=== PATIENT | male | born 1945 | race Caucasian/White ===

== ENCOUNTER 2019-01-25 09:55 | Inpatient (IN) | payer OTHER ==
[2019-01-25] MEDS ORDERED: FUROSEMIDE 40 MG/4 ML VIAL ONE ×2 (10:37→11:27)
[2019-01-25] MEDS ORDERED: LEVALBUTEROL 1.25 MG/3 ML NEB ONE (10:37)
[2019-01-25 10:42] LABS: Absolute Lymphocytes (CBC) 0.9 K/uL (0.7-4.9); Basophils % 0.7 % (0-1.3); Hematocrit 52.6 % (39.6-49.0); MPV 8.8 fL (7.6-11.3); RBC Red Blood Cell Count 5.29 M/uL (4.33-5.43)
--- NOTE | 2019-01-25 11:02 | RAD REPORT ---
EXAM DESCRIPTION: RAD - Chest Single View - 01/25/2019 10:46 am CLINICAL HISTORY: DYSPNEA Chest pain. COMPARISON: No comparisons FINDINGS: Portable technique limits examination quality. Mild interstitial pulmonary edema. The heart is moderately enlarged in size. No displaced fractures. IMPRESSION: Mild CHF.
[2019-01-25 11:04] LABS: ALT/SGPT 47 U/L (12-78); AST/SGOT 26 U/L (15-37); Albumin 3.4 g/dL (3.4-5.0); Alkaline Phosphatase 60 U/L (45-117); BUN Blood Urea Nitrogen 40 mg/dL (7-18); Bicarbonate 31 mmol/L (21-32); Bilirubin Direct 0.3 mg/dL (0-0.2); Bilirubin Total 0.8 mg/dL (0.2-1.0); Glucose Level 135 mg/dL (74-106); NT PRO-BNP 21174 pg/mL (<125); Potassium 5.1 mmol/L (3.5-5.1); Protein, Total 6.7 g/dL (6.4-8.2); Sodium Level 137 mmol/L (136-145); Troponin (Emerg Dept Use Only) 0.05 ng/mL (0.0-0.045)
--- NOTE | 2019-01-25 11:45 | ER ---
Nurse's Notes [facility] Name: Jimmy Neal Age: 73 yrs Sex: Male : 1945 Arrival Date: 01/25/2019 Time: 10:02 Bed 18 Private MD: Diagnosis: Pulmonary edema;Unspecified systolic (congestive) heart failure;Hypoxemia Presentation: 01/25 10:06 Presenting complaint: Worsening SOB and lower extremity swelling x 3 weeks. Sent from [facility]. Hx of CHF. Transition of care: patient was not received from another setting of care. Onset of symptoms was January 25, 2019. Risk Assessment: Do you want to hurt yourself or someone else? Patient reports no desire to harm self or others. Care prior to arrival: None. 10:06 Method Of Arrival: Wheelchair 10:06 Acuity: RAQUEL 2 10:30 Initial Sepsis Screen: Does the patient meet any 2 criteria? No. Patient's initial ca1 sepsis screen is negative. Does the patient have a suspected source of infection? No. Patient's initial sepsis screen is negative. Triage Assessment: 10:30 General: Appears in no apparent distress. comfortable, Behavior is calm, cooperative, ca1 appropriate for age. Respiratory: Onset: The symptoms/episode began/occurred since 2-3 weeks ago, the patient has mild shortness of breath. Respiratory: Airway is patent Respiratory effort is even, unlabored, Respiratory pattern is regular, symmetrical, tachypnea Breath sounds are clear bilaterally. Respiratory: Reports shortness of breath at rest. Historical: - Allergies: 10:10 No Known Allergies; - Home Meds: 10:10 Cardizem Oral [Active]; Lisinopril Oral [Active]; unknown diuretic [Active]; hb - PMHx: 10:10 CHF; Hypertension; hb - Immunization history:: Adult Immunizations up to date. - Social history:: Smoking status: Patient/guardian denies using tobacco. - Ebola Screening: : No symptoms or risks identified at this time. - Family history:: not pertinent. - Hospitalizations: : No recent hospitalization is reported. Screenin:25 Abuse screen: Denies threats or abuse. Denies injuries from another. Nutritional ca1 screening: No deficits noted. Tuberculosis screening: No symptoms or risk factors identified. Fall Risk IV access (20 points). Assessment: 10:25 General: Appears in no apparent distress. comfortable, Behavior is calm, cooperative, ca1 appropriate for age. Pain: Denies pain. Neuro: Level of Consciousness is awake, alert, obeys commands, Oriented to person, place, time, situation, Appropriate for age. Cardiovascular: Heart tones S1 S2 present Capillary refill < 3 seconds Patient's skin is warm and dry. Pulses are all present. Edema is 2+ to left ankle, left foot, left toes, right ankle, right foot and right toes Rhythm is sinus rhythm. Respiratory: Reports shortness of breath at rest since 2-3 weeks ago but has gotten worse in the last couple days Airway is patent Respiratory effort is even, unlabored, Respiratory pattern is regular, symmetrical, tachypnea Breath sounds are clear bilaterally. GI: Abdomen is flat, non-distended, Bowel sounds present X 4 quads. Abd is soft and non tender X 4 quads. : No deficits noted. No signs and/or symptoms were reported regarding the genitourinary system. EENT: No deficits noted. No signs and/or symptoms were reported regarding the EENT system. Derm: Skin is intact, is healthy with good turgor, Skin is pink, warm \T\ dry. Musculoskeletal: Circulation, motion, and sensation intact. Capillary refill < 3 seconds, Range of motion: intact in all extremities. 11:16 Reassessment: Patient appears in no apparent distress at this time. Patient and/or ca1 family updated on plan of care and expected duration. Pain level reassessed. Patient is alert, oriented x 3, equal unlabored respirations, skin warm/dry/pink. 11:45 Reassessment: Patient appears in no apparent distress at this time. No changes from ca1 previously documented assessment. Dr. Chan at bedside discussing plan of care. 12:29 Reassessment: Patient appears in no apparent distress at this time. Patient is alert, ca1 oriented x 3, equal unlabored respirations, skin warm/dry/pink. 13:06 Reassessment: Patient appears in no apparent distress at this time. Patient is alert, ca1 oriented x 3, equal unlabored respirations, skin warm/dry/pink. Vital Signs: 10:08 BP 157 / 104; Pulse 95; Resp 36; Temp 97.9(TE); Pulse Ox 93% on R/A; Weight 76.66 kg; hb Height 6 ft. (182.88 cm); Pain 0/10; 10:59 BP 144 / 86; Pulse 88; Resp 25 S; Pulse Ox 97% on R/A; ca1 11:18 BP 151 / 87; Pulse 95; Resp 27 S; Pulse Ox 90% on R/A; ca1 11:21 Resp 23 S; Pulse Ox 96% on 2 lpm NC; ca1 11:45 BP 145 / 84; Pulse 86; Resp 26; Pulse Ox 98% on 2 lpm NC; ca1 12:29 BP 145 / 84; Pulse 84; Resp 22 S; Pulse Ox 99% on 2 lpm NC; ca1 13:06 BP 134 / 79; Pulse 86; Resp 26 S; Pulse Ox 98% on 2 lpm NC; ca1 10:08 Body Mass Index 22.92 (76.66 kg, 182.88 cm) hb ED Course: 10:02 Patient arrived in ED. mr 10:08 Triage completed. hb 10:08 Arm band placed on. hb 10:13 Lisa Corcoran, RN is Primary Nurse. ca1 10:13 Jordan Chan MD is Attending Physician. rn 10:25 Patient has correct armband on for positive identification. Placed in gown. Bed in low ca1 position. Call light in reach. Side rails up X 1. informatica mdm developer on. Pulse ox on. NIBP on. Warm blanket given. Head of bed elevated. 10:25 No provider procedures requiring assistance completed. Inserted saline lock: 20 gauge ca1 in right forearm, using aseptic technique. Blood collected. 10:41 EKG done, by oil and gas field technician. reviewed by Jordan Chan MD. at1 10:46 XRAY CXR (1 view) In Process Unspecified. EDMS 11:25 attempted transfer to [facility], pt denied due to not having any beds at this time, bd request that pt be admitted to [facility], per Lesvia. 11:43 Shola Lynne MD is Hospitalizing Provider. rn 13:19 Patient admitted, IV remains in place. ca1 Administered Medications: 10:38 Drug: Xopenex 1.25 mg Route: Inhalation; ca1 10:43 Drug: Lasix 40 mg Route: IVP; Site: right forearm; ca1 11:32 Follow up: Urine output 0 ml; Response: No adverse reaction ca1 11:32 Drug: Lasix 40 mg Route: IVP; Site: right antecubital; ca1 13:29 Follow up: Urine output 0 ml; Response: No adverse reaction ca1 Output: 11:32 Urine: 0ml; Total: 0ml. ca1 13:29 Urine: 0ml; Total: 0ml. ca1 Outcome: 11:44 Decision to Hospitalize by Provider. rn 13:19 Admitted to Tele accompanied by tech, family with patient, via stretcher, room 425, ca1 with chart, Report called to JON Mejía 13:19 Condition: stable 13:19 Instructed on the need for admit. 13:30 Patient left the ED. ca1 Signatures: Dispatcher [employer] EDMS Veronica Bauer Feliciano, Stephy mr Jordan Chan MD MD rn Ami Young, fuel agent EKG Tat1 Giuliana Mathur RN RN Lisa Corcoran RN RN ca1 Corrections: (The following items were deleted from the chart) 13:29 13:19 Admitted to Tele accompanied by tech, via wheelchair, room 425, with chart, ca1 Report called to JON Mejía ca1
--- NOTE | 2019-01-25 11:46 | EDPHYS ---
Physician Documentation [facility] Name: Jimmy Neal Age: 73 yrs Sex: Male : 1945 Arrival Date: 01/25/2019 Time: 10:02 Bed 18 Private MD: ED Physician Jordan Chan HPI: 01/25 10:30 This 73 yrs old Male presents to ER via Wheelchair with complaints of rn Shortness Of Breath. 10:30 The patient has shortness of breath with light activity. Onset: The symptoms/episode rn began/occurred 3 week(s) ago. Duration: The symptoms are continuous. The patient's shortness of breath is aggravated by exertion, light activity, supine position, talking, walking. Associated signs and symptoms: Pertinent negatives: chest pain, dizziness, fever, hemoptysis, loss of consciousness. Severity of symptoms: At their worst the symptoms were moderate in the emergency department the symptoms are unchanged. The patient has experienced similar episodes in the past. The patient has been recently seen by a physician:. Reports told 3 weeks ago has weak heart and fluid in lungs, got worse over last few days, is alcoholic and still smokes, no fever, non-productive cough. No chest pain. Worse when laying flat and exertion. Last drink last night. Takes lasix 1x/day.. Historical: - Allergies: 10:10 No Known Allergies; hb - Home Meds: 10:10 Cardizem Oral [Active]; Lisinopril Oral [Active]; unknown diuretic [Active]; hb - PMHx: 10:10 CHF; Hypertension; hb - Immunization history:: Adult Immunizations up to date. - Social history:: Smoking status: Patient/guardian denies using tobacco. - Ebola Screening: : No symptoms or risks identified at this time. - Family history:: not pertinent. - Hospitalizations: : No recent hospitalization is reported. ROS: 10:30 Constitutional: Negative for fever, chills, and weight loss, Eyes: Negative for injury, rn pain, redness, and discharge, Neck: Negative for injury, pain, and swelling, Cardiovascular: Negative for chest pain, palpitations, + edema Respiratory: + sob Abdomen/GI: Negative for abdominal pain, nausea, vomiting, diarrhea, and constipation, MS/Extremity: Negative for injury and deformity, Skin: Negative for injury, rash, and discoloration, Neuro: Negative for headache, weakness, numbness, tingling, and seizure. Exam: 10:30 Constitutional: This is a well developed, well nourished patient who is awake, alert, rn and in no acute distress. Head/Face: Normocephalic, atraumatic. ENT: MMM, no oral swelling or stridor Cardiovascular: Regular rate and rhythm. No pulse deficits. Respiratory: + mild tachypnea with bibasilar crackles, no retractions Abdomen/GI: soft, non-tender MS/ Extremity: Pulses equal, no cyanosis. Neurovascular intact. Full, normal range of motion. Equal circumference. 2+ pitting edema past knees bilaterally Neuro: Awake and alert, GCS 15, oriented to person, place, time, and situation. Cranial nerves II-XII grossly intact. Motor strength 5/5 in all extremities. Sensory grossly intact. Vital Signs: 10:08 BP 157 / 104; Pulse 95; Resp 36; Temp 97.9(TE); Pulse Ox 93% on R/A; Weight 76.66 kg; hb Height 6 ft. (182.88 cm); Pain 0/10; 10:59 BP 144 / 86; Pulse 88; Resp 25 S; Pulse Ox 97% on R/A; ca1 11:18 BP 151 / 87; Pulse 95; Resp 27 S; Pulse Ox 90% on R/A; ca1 11:21 Resp 23 S; Pulse Ox 96% on 2 lpm NC; ca1 11:45 BP 145 / 84; Pulse 86; Resp 26; Pulse Ox 98% on 2 lpm NC; ca1 12:29 BP 145 / 84; Pulse 84; Resp 22 S; Pulse Ox 99% on 2 lpm NC; ca1 13:06 BP 134 / 79; Pulse 86; Resp 26 S; Pulse Ox 98% on 2 lpm NC; ca1 10:08 Body Mass Index 22.92 (76.66 kg, 182.88 cm) hb MDM: 10:13 Patient medically screened. rn 11:21 ED course: Pt with CHF and pulmonary edema, marked dyspnea on exertion, not terrible rn hypoxia, needs to be admitted, states all care at [place], patient and family request transfer to [place].. 11:39 Differential diagnosis: CHF exacerbation, Chronic Obstructive Pulmonary Disease rn Myocardial Infarction pulmonary edema. Data reviewed: vital signs, nurses notes, lab test result(s), EKG, radiologic studies, plain films, and as a result, I will admit patient. Test interpretation: by ED physician or midlevel provider: ECG, plain radiologic studies, CXR with mild to moderate pulmonary edema. Counseling: I had a detailed discussion with the patient and/or guardian regarding: the historical points, exam findings, and any diagnostic results supporting the discharge/admit diagnosis, lab results, radiology results, the need for further work-up and treatment in the hospital. 11:41 ED course: [facility] without beds available, told us to keep patient here, admitted rn now to Dr. Lynne. . 01/25 10:25 Order name: BMP; Complete Time: 11: rn 01/25 10:25 Order name: CBC with Diff; Complete Time: : rn 01/25 10:25 Order name: XRAY CXR (1 view); Complete Time: 11: rn 01/25 10:25 Order name: Hepatic Function; Complete Time: 11: rn 01/25 10:25 Order name: NT PRO-BNP; Complete Time: 11: rn 01/25 10:25 Order name: Troponin (emerg Dept Use Only); Complete Time: 11: rn 01/25 10:25 Order name: EKG; Complete Time: 10: rn 01/25 10:25 Order name: Cardiac monitoring; Complete Time: 10:33 rn 01/25 10:25 Order name: EKG - Nurse/Tech; Complete Time: 10:33 rn 01/25 10:25 Order name: IV Saline Lock; Complete Time: 10: rn 01/25 12:09 Order name: CONS Physician Consult EDWI 01/25 10:25 Order name: Labs collected and sent; Complete Time: 10:32 rn 01/25 10:25 Order name: O2 Per Protocol; Complete Time: 10: rn 01/25 10:25 Order name: O2 Sat Monitoring; Complete Time: 10:32 rn Administered Medications: 10:38 Drug: Xopenex 1.25 mg Route: Inhalation; ca1 10:43 Drug: Lasix 40 mg Route: IVP; Site: right forearm; ca1 11:32 Follow up: Urine output 0 ml; Response: No adverse reaction ca1 11:32 Drug: Lasix 40 mg Route: IVP; Site: right antecubital; ca1 13:29 Follow up: Urine output 0 ml; Response: No adverse reaction ca1 Disposition: 01/25/19 11:44 Hospitalization ordered by Shola Lynne for Inpatient Admission. Preliminary diagnosis are Pulmonary edema, Unspecified systolic (congestive) heart failure, Hypoxemia. - Bed requested for Telemetry/MedSurg (Inpatient). - Status is Inpatient Admission. ca1 - Condition is Stable. - Problem is an ongoing problem. - Symptoms have improved. UTI on Admission? No Signatures: Dispatcher [employer] EDMS Veronica escoto Jordan Solis MD MD rn Baxter, Heather, RN RN Lisa Corcoran RN RN ca1 Corrections: (The following items were deleted from the chart) 12:51 11:44 Hospitalization Ordered by Shola Lynne MD for Inpatient Admission. Preliminary bd diagnosis is Pulmonary edema; Unspecified systolic (congestive) heart failure; Hypoxemia. Bed requested for Telemetry/MedSurg (Inpatient). Status is Inpatient Admission. Condition is Stable. Problem is an ongoing problem. Symptoms have improved. UTI on Admission? No. rn 13:30 12:51 01/25/2019 11:44 Hospitalization Ordered by Shola Lynne MD for Inpatient ca1 Admission. Preliminary diagnosis is Pulmonary edema; Unspecified systolic (congestive) heart failure; Hypoxemia. Bed requested for Telemetry/MedSurg (Inpatient). Status is Inpatient Admission. Condition is Stable. Problem is an ongoing problem. Symptoms have improved. UTI on Admission? No. bd
--- NOTE | 2019-01-25 12:22 | P.HP ---
Certification for Inpatient Patient admitted to: Inpatient With expected LOS: >2 Midnights Patient will require the following post-hospital care: None Practitioner: I am a practitioner with admitting privileges, knowledge of patient current condition, hospital course, and medical plan of care. Services: Services provided to patient in accordance with Admission requirements found in Title 42 Section 412.3 of the Code of Federal Regulations Patient History Date of Service: 01/25/19 Reason for admission: Shortness of breath History of Present Illness: 73-year-old male with past medical history hypertension and constipation came to ER as he was having shortness of breath especially on exertion and noted to have pedal edema. Patient denies any chest pain. Patient stated that he never had these issues before. Started insidiously with Shortness of breath which has been progressively worsening. He has a noted pedal edema which has been increasing Patient was assessed in the ER and was found to have CHF and was admitted for further management Allergies No Known Allergies Allergy (Unverified 01/25/19 13:09) Home medications list reviewed: Yes - Past Medical/Surgical History Past Medical History: Reviewed- Non-Contributory -: Hypertension Past Surgical History: Reviewed- Non-Contributory -: No previous surgical history - Family History Family History: Reviewed- Non-Contributory - Family History Father -: Heart disease - Social History Smoking Status: Never smoker Review of Systems 10-point ROS is otherwise unremarkable Eyes: Unremarkable ENT: Unremarkable Respiratory: Unremarkable Physical Examination - Vital Signs Temperature: 97.9 F Blood Pressure: 157/104 Pulse: 95 - Physical Exam General: Alert, In no apparent distress, Oriented x3 HEENT: Atraumatic, Normocephalic Neck: Supple, No Thyromegaly Respiratory: Normal air movement, Diminished, Crackles/rales Cardiovascular: Regular rate/rhythm, Normal S1 S2, Systolic murmur Capillary refill: <2 Seconds Gastrointestinal: Soft and benign, Non-distended, W/out hepatosplenomegaly Musculoskeletal: No clubbing, No erythema, Swelling Integumentary: No rashes Neurological: Normal speech, Normal strength at 5/5 x4 extr Lymphatics: No axilla or inguinal lymphadenopathy Urinary: Other (No bladder distention) External genitalia: Deferred Rectal: Deferred - Studies Laboratory Data (last 24 hrs) 01/25/19 10:33: WBC 6.7, Hgb 18.0 H, Hct 52.6 H, Plt Count 227 01/25/19 10:33: Sodium 137, Potassium 5.1, BUN 40 H, Creatinine 0.80, Glucose 135 H, Total Bilirubin 0.8, AST 26, ALT 47, Alkaline Phosphatase 60 Assessment and Plan - Problems (Diagnosis) (1) Acute exacerbation of CHF (congestive heart failure) Current Visit: Yes Status: Acute Plan: Monitor under telemetry start aggressive diuresis Trend cardiac enzymes will get an echocardiogram Cardiology consult (2) Hypertension Current Visit: Yes Status: Chronic Plan: Accelerated hypertension Will titrate antihypertensives monitor under telemetry Hydralazine p.r.n. Discharge Plan: Home Plan to discharge in: 48 Hours - Advance Directives Does patient have a Living Will: No Does patient have a Durable POA for Healthcare: No Time Spent Managing Pts Care (In Minutes): 45
[2019-01-25] MEDS ORDERED: ONDANSETRON 4 MG/2 ML VIAL IV PRN (13:40)
[2019-01-25] MEDS: ENOXAPARIN 40 MG/0.4 ML SQ SCH (14:18)
[2019-01-25] MEDS: FUROSEMIDE 40 MG/4 ML VIAL IV SCH (17:49)
[2019-01-25] MEDS: carvediloL 3.125 MG TAB PO SCH (17:50)
[2019-01-25] MEDS: LOSARTAN POTASSIUM 50 MG TABLET PO SCH (17:50)
[2019-01-25] MEDS: HYDRALAZINE HCL 25 MG TABLET PO SCH (20:13)
[2019-01-25 23:27] LABS: Urine Appearance CLEAR; Urine Bilirubin NEGATIVE (NEG); Urine Blood NEGATIVE (NEG); Urine Color YELLOW; Urine Glucose NEGATIVE (NEG); Urine Protein NEGATIVE (NEG)
[2019-01-25 23:51] LABS: Urine Microscopic Reflex NO UMIC
[2019-01-26 04:14] LABS: Absolute Lymphocytes (CBC) 0.6 K/uL (0.7-4.9); Basophils % 0.4 % (0-1.3); Hematocrit 48.7 % (39.6-49.0); Lymphocytes % 7.1 % (15.3-44.8); MPV 8.9 fL (7.6-11.3); RBC Red Blood Cell Count 4.89 M/uL (4.33-5.43)
[2019-01-26 04:53] LABS: Albumin 2.9 g/dL (3.4-5.0); Bilirubin Total 0.7 mg/dL (0.2-1.0); Potassium 4.4 mmol/L (3.5-5.1); Protein, Total 5.9 g/dL (6.4-8.2)
[2019-01-26] MEDS: carvediloL 3.125 MG TAB PO SCH ×2 (05:01→17:05)
--- NOTE | 2019-01-26 07:26 | EKG ---
Test Date: 2019-01-25 Test Time: 10:35:30 Retail Aide: YOEL MEASUREMENT RESULTS: Intervals: Rate: 96 MO: 154 QRSD: 102 QT: 334 QTc: 421 Staley: P: 72 MO: 154 QRS: 90 T: 112 INTERPRETIVE STATEMENTS: Normal sinus rhythm Left atrial enlargement Rightward axis Left ventricular hypertrophy with repolarization abnormality Cannot rule out Septal infarct, age undetermined Abnormal ECG No previous ECG available for comparison Electronically Signed On 01-26-19 07:23:51 LEVER TENDER by Phillip Barker
[2019-01-26] MEDS: FUROSEMIDE 40 MG/4 ML VIAL IV SCH ×2 (08:21→17:05)
[2019-01-26] MEDS: LOSARTAN POTASSIUM 50 MG TABLET PO SCH (08:22)
[2019-01-26] MEDS: ENOXAPARIN 40 MG/0.4 ML SQ SCH (08:22)
[2019-01-26] MEDS: FAMOTIDINE 20 MG TAB PO SCH (08:22)
[2019-01-26] MEDS: HYDRALAZINE HCL 25 MG TABLET PO SCH ×2 (08:22→20:34)
--- NOTE | 2019-01-26 11:49 | CON ---
Date of Consultation: 01/26/2019 Reason For Consultation: Congestive heart failure. History Of Present Illness: Mr. Neal is a 73-year-old white male. He is known to have a history of congestive heart failure and hypertension. He goes to the [facility]. We do not have any details regarding his CHF and hypertension. According to him, he has never had a history of bypass surgery o r stent, pacemakers or defibrillators. He came in with shortness of breath, PND, orthopnea and pedal edema. He denied any palpitations or syncope. Denied any chest pain. Denied any nausea, vomiting, diaphoresis. He had weight gain. Past Medical History: As stated above. Allergies: NONE. Review of Systems: Negative. Social History: Negative. Family History: Negative. Medications: At home include Cardizem, lisinopril and a diuretic that he does not know the name of. Physical Examination: Vital Signs: Stable. He was afebrile. He was in no acute distress. He was feeling better. HEENT: Negative. Neck: Supple without any bruit, lymphadenopathy. He had a 2 cm JVD toward the angle of the jaw. Chest: Reveals some rales both bases. Cardiac: Revealed irregular rhythm and rate with a tricuspid regurgitation murmur. No gallops or ru bs. Abdomen: Benign. Extremities: Revealed 2+ edema to the knee. Skin: Dry and intact. Neurologic: He was nonfocal. Vascular: Pulses were present distally bilaterally. Diagnostic Data: EKG was nonspecific changes. BNP was 21,174. Troponin was 0.05. Chest x-ray show ed CHF. Impression And Plan: Congestive heart failure, most likely acute on chronic systolic exacerbation. The patient needs to be on carvedilol, which he is already on. He is already on Lovenox, Lasix 40 b. i.d., losartan, and hydralazine. He is also on Pepcid. We need to check an echocardiogram today. W e need to stop his Cardizem. He will need eventually to have an outpatient Lexiscan or maybe even a catheterization depending what his echocardiogram shows. Overnight, he had some arrhythmias. He had some nonsustained VT and I will check a magnesium on him today. This arrhythmia makes me think that he probably had significant cardiomyopathy. We will see what the echo shows. I will continue to fo llow him. NB/MODL Voice ID: [id number] Report ID: [id number]
--- NOTE | 2019-01-26 11:58 | P.PN ---
Subjective Date of Service: 01/26/19 Chief Complaint: Shortness of breath Subjective: No new changes, Improving Review of Systems 10-point ROS is otherwise unremarkable ENT: Unremarkable Respiratory: Unremarkable Physical Examination - Vital Signs Temperature: 97.2 F Blood Pressure: 115/60 Pulse: 98 Respirations: 18 Pulse Ox (%): 91 - Physical Exam General: Alert, In no apparent distress, Oriented x3 HEENT: Atraumatic, Normocephalic Neck: Supple Respiratory: Clear to auscultation bilaterally, Normal air movement Cardiovascular: Regular rate/rhythm, Normal S1 S2 Capillary refill: <2 Seconds Gastrointestinal: Soft and benign, W/out hepatosplenomegaly Musculoskeletal: No clubbing, No erythema, No tenderness, Swelling Integumentary: No rashes Neurological: Normal speech, Normal strength at 5/5 x4 extr Lymphatics: No axilla or inguinal lymphadenopathy Urinary: Other (No bladder distention) External genitalia: Deferred Rectal: Deferred Assessment & Plan - Problems (Diagnosis) (1) Acute exacerbation of CHF (congestive heart failure) Current Visit: Yes Status: Acute Plan: Getting better Monitor under telemetry on aggressive diuresis Trended cardiac enzymes echocardiogram pending Cardiology consult (2) Hypertension Current Visit: Yes Status: Chronic Plan: Accelerated hypertension Will titrate antihypertensives monitor under telemetry Hydralazine p.r.n. Discharge Plan: Home Plan to discharge in: 24 Hours Time Spent Managing Pts Care (In Minutes): 42
[2019-01-27 04:20] LABS: Absolute Lymphocytes (CBC) 0.6 K/uL (0.7-4.9); Basophils % 0.6 % (0-1.3); Hematocrit 45.4 % (39.6-49.0); Lymphocytes % 12.4 % (15.3-44.8); MPV 8.9 fL (7.6-11.3); RBC Red Blood Cell Count 4.55 M/uL (4.33-5.43)
[2019-01-27 04:37] LABS: ALT/SGPT 29 U/L (12-78); AST/SGOT 13 U/L (15-37); Albumin 2.8 g/dL (3.4-5.0); Alkaline Phosphatase 43 U/L (45-117); BUN Blood Urea Nitrogen 28 mg/dL (7-18); Bicarbonate 40 mmol/L (21-32); Bilirubin Total 0.5 mg/dL (0.2-1.0); Glucose Level 153 mg/dL (74-106); Potassium 3.7 mmol/L (3.5-5.1); Protein, Total 5.6 g/dL (6.4-8.2); Sodium Level 140 mmol/L (136-145)
[2019-01-27 05:06] VITALS: BMI 21.4
[2019-01-27] MEDS ORDERED: POTASSIUM CL SA 10 MEQ TAB PO ONE (05:49)
[2019-01-27] MEDS: carvediloL 3.125 MG TAB PO SCH (06:13)
--- NOTE | 2019-01-27 08:18 | ECHO ---
HEIGHT: 6 ft 0 in WEIGHT: 157 lb 12.8 oz DATE OF STUDY: 01/26/2019REFER DR: Brad Lynne DO 2-DIMENSIONAL: YES M.MODE: YES DOPPLER: YES COLOR FLOW: YES TDS: NO PORTABLE: NO DEFINITY: NO BUBBLE STUDY: NO DIAGNOSIS: CONGESTIVE HEART FAILURE CARDIAC HISTORY: CATHERIZATION: NO SURGERY: NO PROSTHETIC VALVE: NO PACEMAKER: NO MEASUREMENTS (cm) DIASTOLIC (NORMALS) SYSTOLIC (NORMALS) IVSd 1.1 (0.6-1.2) LA Diam 4.0 (1.9-4.0) LVEF 20-25% LVIDd 6.8 (3.5-5.7) LVIDs 5.6 (2.0-3.5) %FS 17% LVPWd 1.3 (0.6-1.2) Ao Diam 3.0 (2.0-3.7) 2 DIMENSIONAL ASSESSMENT: RIGHT ATRIUM: NORMAL LEFT ATRIUM: NORMAL RIGHT VENTRICLE: NORMAL LEFT VENTRICLE: DILATED TRICUSPID VALVE: NORMAL MITRAL VALVE: NORMAL PULMONIC VALVE: NORMAL AORTIC VALVE: SCLEROSIS PERICARDIAL EFFUSION: NONE AORTIC ROOT: NORMAL LEFT VENTRICULAR WALL MOTION: SEVERE GLOBAL HYPOKINESIS. DOPPLER/COLOR FLOW: MILD TRICUSPID REGURGITATION. COMMENTS: SEVERE GLOBAL HYPOKINESIS. LEFT VENTRICULAR EJECTION FRACTION 20-25%. MILD TRICUSPID REGURGITATION. LEFT VENTRICLE DILATATION. AORTIC SCLEROSIS WITH NO STENOSIS. TECHNOLOGIST: Kt MCINTYRE
[2019-01-27] MEDS: FUROSEMIDE 40 MG/4 ML VIAL IV SCH (08:45)
[2019-01-27] MEDS: ENOXAPARIN 40 MG/0.4 ML SQ SCH (08:45)
[2019-01-27] MEDS: LOSARTAN POTASSIUM 50 MG TABLET PO SCH (08:46)
[2019-01-27] MEDS: HYDRALAZINE HCL 25 MG TABLET PO SCH (08:46)
[2019-01-27] MEDS: FAMOTIDINE 20 MG TAB PO SCH (08:46)
--- NOTE | 2019-01-27 10:22 | P.PN ---
Subjective Date of Service: 01/27/19 Chief Complaint: Shortness of breath Subjective: No new changes, Improving Shortness of breath improving Decrease pedal edema noted Denies any chest pain or shortness of breath Review of Systems 10-point ROS is otherwise unremarkable ENT: Unremarkable Respiratory: Unremarkable Physical Examination - Vital Signs Temperature: 97.5 F Blood Pressure: 131/59 Pulse: 70 Respirations: 17 Pulse Ox (%): 98 - Physical Exam General: Alert, In no apparent distress HEENT: Atraumatic, Normocephalic Neck: Supple Respiratory: Clear to auscultation bilaterally, Normal air movement Cardiovascular: Regular rate/rhythm, Normal S1 S2 Capillary refill: <2 Seconds Gastrointestinal: Soft and benign, W/out hepatosplenomegaly Musculoskeletal: No clubbing, Swelling Integumentary: No rashes Neurological: Normal speech, Normal strength at 5/5 x4 extr Lymphatics: No axilla or inguinal lymphadenopathy External genitalia: Deferred Rectal: Deferred Assessment & Plan - Problems (Diagnosis) (1) Acute exacerbation of CHF (congestive heart failure) Current Visit: Yes Status: Acute Plan: Getting better Monitor under telemetry on aggressive diuresis Trended cardiac enzymes echocardiogram showed decreased ejection fraction Cardiology consult appreciated On Coreg and hydralazine , diuresis (2) Hypertension Current Visit: Yes Status: Chronic Plan: Accelerated hypertension Will titrate antihypertensives monitor under telemetry Hydralazine p.r.n. (3) NSVT (nonsustained ventricular tachycardia) Current Visit: Yes Status: Acute Plan: monitor electrolytes Correct if needed He may need AICD or Lifevest Will wait for the cardiology recommendations regardig the same and ischemic work up Time Spent Managing Pts Care (In Minutes): 43
[2019-01-27 12:38] VITALS: BP 115/56; TEMP 97.1
--- NOTE | 2019-01-27 12:47 | PN ---
Date of Progress Note: 01/27/2019 Mr. Neal was admitted with congestive heart failure. Echocardiogram yesterday showed severe cardiom yopathy with an ejection fraction of 20 to 25%. He has improved on diuresis. Mr. Neal needs to be on Coreg, Entresto and Lasix and he can go home whenever it is okay with admitting physician. I will see him in my office soon. He will need an outpatient heart catheterization. We will follow up on his ejection fraction, on medical therapy for the next 3 months and if they do not improve we will re commend a defibrillator. CHLOÉ/KVNG Voice ID: [id number] Report ID: [id number]
[2019-01-27 14:15] VITALS: O2SAT 96
--- NOTE | 2019-01-27 14:21 | P.DS ---
Admission Date: 01/27/19 Discharge Date: 01/27/19 Disposition: ROUTINE DISCHARGE Discharge Condition: FAIR Reason for Admission: Shortness of breath - Problems (1) Acute exacerbation of CHF (congestive heart failure) Current Visit: Yes Status: Acute (2) Hypertension Current Visit: Yes Status: Chronic (3) NSVT (nonsustained ventricular tachycardia) Current Visit: Yes Status: Acute Brief History of Present Illness: 73-year-old male with past medical history hypertension and constipation came to ER as he was having shortness of breath especially on exertion and noted to have pedal edema. Patient denies any chest pain. Patient stated that he never had these issues before. Started insidiously with Shortness of breath which has been progressively worsening. He has a noted pedal edema which has been increasing Patient was assessed in the ER and was found to have CHF and was admitted for further management Hospital Course: He was admitted and monitor under telemetry. Was found to have acute on chronic CHF , Started on aggressive diuresis. Antihypertensives titrated. Cardiology was consulted. Had an echocardiogram which showed an EF of 20-25% , he has responded well to the treatment and is being discharged home today in a stable condition with advice to follow up with PCP in 1 week and also with Cardiology in 1-2 weeks. During the hospital stay patient had few episodes of NSVT and was started on beta blockers as well. He was started on Entresto and will be continuing with it. discussed in detail with the patient and the family Regarding the nature of disease and need for Daily weight monitoring and restricted fluid intake. He said he is to have outpatient follow up closely with cardiology, for possible left heart catheterization and AICD placement. He verbalized understanding and is being discharged home today Vital Signs/Physical Exam: Temp Pulse Resp BP Pulse Ox 97.1 F 62 17 115/56 L 92 01/27/19 12:00 01/27/19 12:00 01/27/19 12:00 01/27/19 12:00 01/27/19 12:00 General: Alert, In no apparent distress HEENT: Atraumatic, Normocephalic Neck: Supple Respiratory: Clear to auscultation bilaterally Cardiovascular: Regular rate/rhythm, Normal S1 S2 Capillary refill: <2 Seconds Gastrointestinal: Soft and benign, W/out hepatosplenomegaly Musculoskeletal: No clubbing, Swelling Integumentary: No rashes Neurological: Normal strength at 5/5 x4 extr Laboratory Data at Discharge: WBC 4.9 K/uL (4.3-10.9) D 01/27/19 03:38 Hgb 15.6 g/dL (13.6-17.9) 01/27/19 03:38 Hct 45.4 % (39.6-49.0) 01/27/19 03:38 Plt Count 172 K/uL (152-406) 01/27/19 03:38 Sodium 140 mmol/L (136-145) 01/27/19 03:38 Potassium 3.7 mmol/L (3.5-5.1) 01/27/19 03:38 BUN 28 mg/dL (7-18) H 01/27/19 03:38 Creatinine 0.71 mg/dL (0.55-1.3) 01/27/19 03:38 Glucose 153 mg/dL (74-106) H 01/27/19 03:38 Magnesium 2.2 mg/dL (1.8-2.4) 01/26/19 07:24 Total Bilirubin 0.5 mg/dL (0.2-1.0) 01/27/19 03:38 AST 13 U/L (15-37) L 01/27/19 03:38 ALT 29 U/L (12-78) 01/27/19 03:38 Alkaline Phosphatase 43 U/L (45-117) L 01/27/19 03:38 Home Medications: Aspirin [Aspirin EC 81 MG] 81 mg PO DAILY 01/26/19 Bupropion *Xl* [Wellbutrin XL*] 150 mg PO DAILY 01/26/19 Carvedilol [Coreg] 1 tab PO BID 01/26/19 Omeprazole 20 mg PO BID 01/26/19 Potassium Chloride [Klor-Con 10] 10 meq PO DAILY 01/26/19 Spironolactone [Aldactone*] 25 mg PO DAILY 01/26/19 Furosemide [Lasix*] 40 mg PO BID 60 Days tab 01/27/19 Sacubitril/Valsartan [Entresto 24 mg-26 mg Tablet] 1 tab PO BID #60 tab New Medications: Furosemide [Lasix*] 40 mg PO BID 60 Days tab Sacubitril/Valsartan [Entresto 24 mg-26 mg Tablet] 1 tab PO BID #60 tab Diet: AHA Activity: Ad sonia Followup: Phillip Barker MD [ACTIVE - CAN ADMIT] - Time spent managing pt's care (in minutes): 40
== END 2019-01-27 15:01 | disposition home or self-care (01) | DRG 292 ==
LOC: ER 09:55 → ERHOLD 12:07 → 4TH 13:19 → OBSVTOIN 01-27 12:39
PROVIDERS: ADMIT Family Medicine; ATTEND Family Medicine
DX: I50.23 Acute on chronic systolic (congestive) heart failure (principal); I47.2 Ventricular tachycardia; I11.0 Hypertensive heart disease with heart failure
CPT/HCPCS: 36415; 71045; 80048; 80053; 80076; 81003; 82947; 83735; 83880; 84443; 84484; 85025; 93005; 93306; 94760; 96374; 99285; G0378; J1650; J1940

== ENCOUNTER 2019-03-03 11:18 | Emergency (ER) | payer OTHER ==
[2019-03-03 12:51] LABS: Absolute Lymphocytes (CBC) 0.7 K/uL (0.7-4.9); Basophils % 0.4 % (0-1.3); Hematocrit 54.1 % (39.6-49.0); Lymphocytes % 12.1 % (15.3-44.8); RBC Red Blood Cell Count 5.57 M/uL (4.33-5.43)
[2019-03-03 12:52] LABS: Protime INR 1.11
--- NOTE | 2019-03-03 13:25 | RAD REPORT ---
EXAM DESCRIPTION: RAD - Chest Single View - 03/03/2019 1:20 pm CLINICAL HISTORY: edema Chest pain. COMPARISON: Chest Single View dated 01/25/2019 FINDINGS: Portable technique limits examination quality. Mild pulmonary edema is present. The heart is moderately enlarged in size. No displaced fractures. IMPRESSION: Mild CHF versus volume overload pattern.
[2019-03-03] MEDS ORDERED: FUROSEMIDE 40 MG/4 ML VIAL ONE ×2 (14:00→14:58)
[2019-03-03 14:02] LABS: Albumin 3.1 g/dL (3.4-5.0); Bilirubin Direct 0.3 mg/dL (0-0.2); Bilirubin Total 0.8 mg/dL (0.2-1.0); Potassium 4.7 mmol/L (3.5-5.1); Protein, Total 6.3 g/dL (6.4-8.2); Troponin (Emerg Dept Use Only) 0.03 ng/mL (0.0-0.045)
--- NOTE | 2019-03-03 15:23 | ER ---
Nurse's Notes [facility] Name: Jimmy Neal Age: 73 yrs Sex: Male : 1945 Arrival Date: 03/03/2019 Time: 11:20 Bed 7 Private MD: Diagnosis: Anasarca;Unspecified combined systolic (congestive) and diastolic (congestive) heart failure Presentation: 03/03 11:37 Presenting complaint: Child states: swelling in paty feet, with blisters for over a iw month. Transition of care: patient was not received from another setting of care. Onset of symptoms was January 2019. Risk Assessment: Do you want to hurt yourself or someone else? Patient reports no desire to harm self or others. Initial Sepsis Screen: Does the patient meet any 2 criteria? No. Patient's initial sepsis screen is negative. Does the patient have a suspected source of infection? No. Patient's initial sepsis screen is negative. Care prior to arrival: None. 11:37 Method Of Arrival: Wheelchair iw 11:37 Acuity: RAQUEL 3 iw Historical: - Allergies: 11:38 No Known Allergies; iw - Home Meds: 11:59 Cardizem Oral [Active]; lisinopril Oral [Active]; Spironolactone Oral [Active]; aspirin jl7 Oral [Active]; carvedilol oral oral [Active]; Furosemide Oral [Active]; Omeprazole Oral [Active]; bupropion HCl Oral [Active]; sacubitril-valsartan oral oral [Active]; - PMHx: 11:38 CHF; Hypertension; iw - PSHx: 11:38 None; iw - Immunization history:: Adult Immunizations not up to date. - Social history:: Smoking status: Patient uses tobacco products, smokes two packs cigarettes per day. Patient uses alcohol, on a daily basis. patient/guardian reports chronic longstanding heavy alcohol consumption. Dimitri. - Ebola Screening: : Patient negative for fever greater than or equal to 101.5 degrees Fahrenheit, and additional compatible Ebola Virus Disease symptoms Patient denies exposure to infectious person Patient denies travel to an Ebola-affected area in the 21 days before illness onset No symptoms or risks identified at this time. - Family history:: not pertinent. - Hospitalizations: : The patient was recently seen at [facility]. Screenin:08 Abuse screen: Denies threats or abuse. Denies injuries from another. Nutritional jl7 screening: No deficits noted. Tuberculosis screening: No symptoms or risk factors identified. 12:37 Fall Risk IV access (20 points). Total Hyman Fall Scale indicates No Risk (0-24 pts). jl7 Assessment: 11:45 General: Appears in no apparent distress. uncomfortable, Behavior is calm, cooperative, jl7 appropriate for age. Pain: Denies pain. Neuro: Level of Consciousness is awake, alert, obeys commands, Oriented to person, place, time, situation. Cardiovascular: Heart tones S1 S2 present Patient's skin is warm and dry. Edema is 3+ to right ankle, right foot and right toes is 4+ to left foot and left toes. Respiratory: Airway is patent Respiratory effort is even, unlabored, Respiratory pattern is regular, symmetrical, Breath sounds are clear bilaterally. Denies cough, shortness of breath. Derm: Skin is dry, Skin is jaundiced, Skin temperature is cool Abscess located on left scapular area and anterior aspect of left upper chest is quarter sized, abscess on chest is red and raised; abscess on back is open with foul smell and purulent drainage noted. 12:37 Reassessment: Patient appears in no apparent distress at this time. No changes from jl7 previously documented assessment. Patient and/or family updated on plan of care and expected duration. Pain level reassessed. Patient is alert, oriented x 3, equal unlabored respirations, skin warm/dry/pink. 13:25 Reassessment: Patient appears in no apparent distress at this time. No changes from jl7 previously documented assessment. Patient and/or family updated on plan of care and expected duration. Pain level reassessed. Patient is alert, oriented x 3, equal unlabored respirations, skin warm/dry/pink. 15:04 Reassessment: Patient appears in no apparent distress at this time. No changes from jl7 previously documented assessment. Patient and/or family updated on plan of care and expected duration. Pain level reassessed. Patient is alert, oriented x 3, equal unlabored respirations, skin warm/dry/pink. Vital Signs: 11:38 BP 107 / 89; Pulse 80; Resp 16; Temp 97.1; Pulse Ox 98% on R/A; Weight 76.66 kg; Height iw 6 ft. (182.88 cm); 12:08 BP 117 / 71; Pulse 79; Resp 20 S; Pulse Ox 96% on R/A; Pain 0/10; jl7 13:24 BP 121 / 77; Pulse 79; Resp 16 S; Pulse Ox 93% on R/A; jl7 15:04 BP 129 / 85; Pulse 94; Resp 19; Pulse Ox 97% on R/A; jl7 11:38 Body Mass Index 22.92 (76.66 kg, 182.88 cm) iw ED Course: 11:20 Patient arrived in ED. rg4 11:38 Triage completed. iw 11:39 Rick Lopez, JON is Primary Nurse. jl7 11:51 Jordan Chan MD is Attending Physician. rn 11:59 Arm band placed on right wrist. jl7 12:08 Patient has correct armband on for positive identification. Placed in gown. Bed in low jl7 position. Call light in reach. Side rails up X 1. electronic device monitor on. Pulse ox on. NIBP on. Warm blanket given. 12:11 Jordan Chan MD is Attending Physician. rn 12:30 Inserted saline lock: 20 gauge in right forearm, using aseptic technique. Blood jl7 collected. 12:30 Initial lab(s) drawn, by va, sent to lab. First set of blood cultures drawn by va. jl7 13:13 Second set of blood cultures drawn left forearm. jl7 13:21 XRAY Chest (1 view) In Process Unspecified. EDMS 13:24 Lab(s) recollected, by me, sent to lab. jl7 15:48 No provider procedures requiring assistance completed. IV discontinued, intact, jl7 bleeding controlled, No redness/swelling at site. Pressure dressing applied. Administered Medications: 14:01 Drug: Lasix 40 mg Route: IVP; Site: right forearm; jl7 15:04 Follow up: Response: No adverse reaction jl7 15:00 Drug: Lasix 40 mg Route: IVP; Site: right forearm; jl7 15:35 Follow up: Response: No adverse reaction jl7 Outcome: 15:22 Discharge ordered by . rn 15:48 Discharged to home ambulatory, with family. jl7 15:48 Condition: stable 15:48 Discharge instructions given to patient, family, Instructed on discharge instructions, follow up and referral plans. Demonstrated understanding of instructions, follow-up care. 15:49 Patient left the ED. jl7 Signatures: Dispatcher [employer] EDEmily Raya, RN Jordan Cardenas MD MD rn Garcia, Rubi rg4 Rick Lopez RN RN jl7 Corrections: (The following items were deleted from the chart) 13:32 11:45 Derm: Skin is pink, warm \T\ dry. Abscess located on left scapular area and jl7 anterior aspect of left upper chest is quarter sized, abscess on chest is red and raised; abscess on back is open with foul smell and purulent drainage noted jl7
--- NOTE | 2019-03-03 15:24 | EDPHYS ---
Physician Documentation [facility] Name: Jimmy Neal Age: 73 yrs Sex: Male : 1945 Arrival Date: 03/03/2019 Time: 11:20 Bed 7 Private MD: ED Physician Jordan Chan HPI: 03/03 13:55 This 73 yrs old Male presents to ER via Wheelchair with complaints of Feet rn Swelling, Leg Swelling. 13:55 Reports feet and leg swelling, for unknown period of time, recently admitted for rn similar symptoms/problems, swelling didn't improve much when discharged. Denies sob. Reports increased leg swelling that is beginning to weep. Compliant with medication/diuretic. . 13:57 Onset: The symptoms/episode began/occurred at an unknown time. Severity of symptoms: At rn their worst the symptoms were moderate in the emergency department the symptoms are unchanged. The patient has experienced similar episodes in the past. Historical: - Allergies: 11:38 No Known Allergies; iw - Home Meds: 11:59 Cardizem Oral [Active]; lisinopril Oral [Active]; Spironolactone Oral [Active]; aspirin jl7 Oral [Active]; carvedilol oral oral [Active]; Furosemide Oral [Active]; Omeprazole Oral [Active]; bupropion HCl Oral [Active]; sacubitril-valsartan oral oral [Active]; - PMHx: 11:38 CHF; Hypertension; iw - PSHx: 11:38 None; iw - Immunization history:: Adult Immunizations not up to date. - Social history:: Smoking status: Patient uses tobacco products, smokes two packs cigarettes per day. Patient uses alcohol, on a daily basis. patient/guardian reports chronic longstanding heavy alcohol consumption. Dimitri. - Ebola Screening: : Patient negative for fever greater than or equal to 101.5 degrees Fahrenheit, and additional compatible Ebola Virus Disease symptoms Patient denies exposure to infectious person Patient denies travel to an Ebola-affected area in the 21 days before illness onset No symptoms or risks identified at this time. - Family history:: not pertinent. - Hospitalizations: : The patient was recently seen at [facility]. ROS: 13:58 Constitutional: Negative for fever, chills, and weight loss, Eyes: Negative for injury, rn pain, redness, and discharge, Cardiovascular: Negative for chest pain, palpitations, + edema Respiratory: Negative for shortness of breath, cough, wheezing, and pleuritic chest pain, Abdomen/GI: Negative for abdominal pain, nausea, vomiting, diarrhea, and constipation, MS/Extremity: + weeping edema of bilateral lower ext Skin: Negative for injury Neuro: Negative for headache, weakness, numbness, tingling, and seizure. Exam: 13:58 Constitutional: This is a well developed, well nourished patient who is awake, alert, rn and in no acute distress. Head/Face: Normocephalic, atraumatic. ENT: dry MM, no stridor Cardiovascular: Regular rate and rhythm. No pulse deficits. Respiratory: + diminished breath sounds bilateral bases, no wheezing Abdomen/GI: soft, non-tender MS/ Extremity: Pulses equal, no cyanosis. Neurovascular intact. 2+ pitting edema, bilateral lower ext with erythema of both feet and clear serous drainage from both mid pre-tibial regions. No purulence. Neuro: Awake and alert, GCS 15, oriented to person, place, time, and situation. Vital Signs: 11:38 BP 107 / 89; Pulse 80; Resp 16; Temp 97.1; Pulse Ox 98% on R/A; Weight 76.66 kg; Height iw 6 ft. (182.88 cm); 12:08 BP 117 / 71; Pulse 79; Resp 20 S; Pulse Ox 96% on R/A; Pain 0/10; jl7 13:24 BP 121 / 77; Pulse 79; Resp 16 S; Pulse Ox 93% on R/A; jl7 15:04 BP 129 / 85; Pulse 94; Resp 19; Pulse Ox 97% on R/A; jl7 11:38 Body Mass Index 22.92 (76.66 kg, 182.88 cm) iw MDM: 11:51 Patient medically screened. rn 14:31 ED course: Recommended admission for CHF exacerbation, patient refuses, requests appeals rn lasix and states prefers to increase lasix at home, want sto be discharged, I feel ultimately influenced by his alcoholism and ongoing smoking addiction.. 15:19 Differential Diagnosis. Data reviewed: vital signs, nurses notes, lab test result(s), rn EKG, radiologic studies, and as a result, I will admit patient. Counseling: I had a detailed discussion with the patient and/or guardian regarding: the historical points, exam findings, and any diagnostic results supporting the discharge/admit diagnosis, lab results, radiology results, the need for further work-up and treatment in the hospital. Refusal of service: The patient/guardian displays adequate decision making capability and despite a detailed discussion of alternatives, benefits, risks, and consequences refuses: Admission to the hospital for further work-up and treatment. ED course: demanding to be discharged. 03/03 12:21 Order name: Basic Metabolic Panel; Complete Time: 14:15 rn 03/03 12:21 Order name: CBC with Diff; Complete Time: 13:43 rn 03/03 12:21 Order name: LFT's; Complete Time: 14:15 rn 03/03 12:21 Order name: NT PRO-BNP; Complete Time: 14:15 rn 03/03 12:21 Order name: PT-INR; Complete Time: 13:43 rn 03/03 12:21 Order name: Troponin (emerg Dept Use Only); Complete Time: 14:15 rn 03/03 12:21 Order name: XRAY Chest (1 view); Complete Time: 13:43 rn 03/03 12:21 Order name: EKG; Complete Time: 12:22 rn 03/03 12:21 Order name: Cardiac monitoring; Complete Time: 12:36 rn 03/03 12:21 Order name: EKG - Nurse/Tech; Complete Time: 13:32 rn 03/03 12:21 Order name: Blood Culture Adult (2) 03/03 12:21 Order name: Procalcitonin; Complete Time: 13:43 rn 03/03 12:21 Order name: IV Saline Lock; Complete Time: 12:36 rn 03/03 12:21 Order name: Labs collected and sent; Complete Time: 12:36 rn 03/03 12:21 Order name: O2 Per Protocol; Complete Time: 12:36 rn 03/03 12:21 Order name: O2 Sat Monitoring; Complete Time: 12:36 rn 03/03 13:09 Order name: Labs - recollect needed: chemistries recollect; Complete Time: 13:24 eb Administered Medications: 14:01 Drug: Lasix 40 mg Route: IVP; Site: right forearm; jl7 15:04 Follow up: Response: No adverse reaction jl7 15:00 Drug: Lasix 40 mg Route: IVP; Site: right forearm; jl7 15:35 Follow up: Response: No adverse reaction jl7 Disposition: 03/03/19 15:22 Discharged to Home. Impression: Anasarca, Unspecified combined systolic (congestive) and diastolic (congestive) heart failure. - Condition is Stable. - Discharge Instructions: Heart Failure, Edema. - Medication Reconciliation Form, Thank You Letter, Antibiotic Education, Prescription Opioid Use form. - Follow up: Private Physician; When: 2 - 3 days; Reason: Recheck today's complaints, Re-evaluation by your physician. - Problem is an ongoing problem. - Symptoms are unchanged. Signatures: Dispatcher [employer] EDMS Emily Samuels RN RN iw Jordan Chan MD MD rn Leal, Jahala, RN RN jl7 Botello, Elizabeth eb Corrections: (The following items were deleted from the chart) 15:49 15:22 03/03/2019 15:22 Discharged to Home. Impression: Anasarca; Unspecified combined jl7 systolic (congestive) and diastolic (congestive) heart failure. Condition is Stable. Forms are Medication Reconciliation Form, Thank You Letter, Antibiotic Education, Prescription Opioid Use. Follow up: Private Physician; When: 2 - 3 days; Reason: Recheck today's complaints, Re-evaluation by your physician. Problem is an ongoing problem. Symptoms are unchanged. rn
[2019-03-03 16:23] VITALS: TEMP 97.1
[2019-03-03 16:26] VITALS: BP 129/85; O2SAT 97
--- NOTE | 2019-03-04 13:50 | EKG ---
Test Date: 2019-03-03 Test Time: 13:09:34 Radio Aerial Installer: YOEL MEASUREMENT RESULTS: Intervals: Rate: 67 FL: 162 QRSD: 106 QT: 370 QTc: 390 [place]: P: 65 FL: 162 QRS: 93 T: 259 INTERPRETIVE STATEMENTS: Normal sinus rhythm Possible Left atrial enlargement Rightward axis Left ventricular hypertrophy with repolarization abnormality Cannot rule out Septal infarct, age undetermined Abnormal ECG Compared to ECG 01/25/2019 10:35:30 No significant changes Electronically Signed On 03-04-19 13:47:01 [employer] by Phillip Barker
== END 2019-03-03 15:49 | disposition home or self-care (01) ==
LOC: ER 11:18
DX: I50.40 Unspecified combined systolic (congestive) and diastolic (congestive) heart failure (principal); I10 Essential (primary) hypertension; F17.210 Nicotine dependence, cigarettes, uncomplicated; Z79.82 Long term (current) use of aspirin
CPT/HCPCS: 93005; 87040 ×2; 85025; 80048; 36415; 85610; 80076; 84484; 84145; 83880; 71045; 96374; 99284; J1940 ×2

== ENCOUNTER 2024-06-16 12:06 | Emergency (ER) | payer OTHER ==
--- OUTSIDE RECORDS SUMMARY | 2024-06-16 12:15 | XMS REPORT | Continuity of Care Document ---
Author Name Unknown Address [address] [place] [address] [facility] Address [address] [place] [address] Care Team Providers Care House Wrecker Name Role Phone BARBARA LOCO Primary Care Physician UnavailDR MITUL [place] Attending Clinician Unavaila ble [phone] Attending Clinician Unavailable [id number] Attending Clinician Unavailable DR BARBARA LOCO Attending Clinician Unavaila ble [phone] Attending Clinician Unavailable [id number] Attending Clinician Unavailable DR KIERAN ANGUIANO Attending Clinician Unavailab le [phone] Attending Clinician Unavailable [id number] Attending Clinician Unavailable Sandi Colin MD Attending Clinician [phone] Cynthia Pinto MD Attending Clinician [phone] Sofia Menezes MD Attending Clinici an SOFIA MENEZES Attending Clinician Unavailable System, Provider Not In Attending Clinician Unav DR DARREL Fonseca Attending Clinician Unavailabl e [phone] Attending Clinician Unavailable JEFF HILL Attending Clinician Unavailable DR HARRIS HOUGH Attending Clinician Unavailable [phone] Attending Clinician Unavailable [id number] Attending Clinician Unavailable DR MARKY CAGLE Attending Clinician Unavail able [phone] Attending Clinician Unavailable [id number] Attending Clinician Unavailable Raju_P Attending Clinician Unavailable DR MITUL RODRIGUEZ Admitting Clinician Unavailnatacha LOCO, DR JIMENEZ Admitting Clinician Unavaila brice ANGUIANO, DR ALCARAZ Admitting Clinician Unavailab yfn Colin MD, Sandi Montilla Admitting Clinician SANDI COLIN Admitting Clinician Unavailable DR DARREL BARNARD Admitting Clinician Unavailadonay HOUGH, DR IGLESIAS Admitting Clinician Unavailable GURJIT, DR NEGRO Admitting Clinician Unavail able Rajkarla_P Admitting Clinician Unavailable Payers Payer Name Policy Type Policy Number Effective Date Expirati on Date Source MEDICARE - CLINIC [id number] MEDICARE - CLINIC [id number] MEDICARE - CLINIC [id number] MEDICARE - CLINIC [id number] MEDICARE - CLINIC [id number] MEDICARE - CLINIC [id number] MEDICARE - CLINIC [id number] MEDICARE - CLINIC [id number] MEDICARE - CLINIC [id number] [employer] MEDICARE OON Medicare [id number] 00:00:00 MEDICARE PART A AND B Medicare [id number] 2023 00:00:00 MEDICARE PART A AND B [id number] 2009 00:00:00 [place]: [employer] [id number] 2009 00:00:00 [facility] [place]ACAA [id number] Problems Condition Name Condition Details Condition Category Status Onset Date Resolution Date Last Treatment Date Treating Clinician Comments Source 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 Disease Active 03-15 00:00: 00 Winter Pope Cardiac arrest Cardiac arrest Disease Active 03-15 00:00: 00 Winter Pope Acute respirator y failure with hypoxia and hypercarbi a (CMS/HCC) Acute respirator y failure with hypoxia and hypercarbi a (CMS/HCC) Disease Active 03-14 00:00: 00 Winter Pope COPD (chronic obstructiv e pulmonary disease) COPD (chronic obstructiv e pulmonary disease) Disease Active 03-09 00:00: 00 Winter Ocampoann Epic Seizure Seizure Disease Active 2023-03 00:00: 00 Winter Iqbal Epic Electrocar diogram abnormal EKG ABNORMALIT Y active [id number] SNOMED-CT Problem 2019-01-08 11:35:19 [facility] Upper respirator y infection URI active [id number] SNOMED-CT Problem 2018-12-24 11:38:32 [facility] Bronchitis BRONCHITIS active [id number] SNOMED-CT Problem 2018-12-24 11:38:43 [facility] Acute heart failure ACUTE HEART FAILURE active [id number] SNOMED-CT Problem 2019-01-08 09:41:00 [facility] Asthenia WEAKNESS - GENERAL active [id number] SNOMED-CT Problem 2019-01-08 14:22:34 [facility] Hypertensi ve disorder HYPERTENSI ON active [id number] SNOMED-CT Problem 2022-05-22 15:45:54 [facility] Hyperchole sterolemia HIGH CHOLESTERO L active [id number] SNOMED-CT Problem 2021-10-01 15:19:35 [facility] Myocardial infarction MYOCARDIAL INFARCT active [id number] SNOMED-CT Problem 2021-10-01 15:20:00 [facility] Noncomplia nce with medication regimen MEDICATION NON-COMPLI ANCE active [id number] SNOMED-CT Problem 2022-05-22 17:30:32 [facility] Epileptic seizure EPILEPTIC SEIZURE active 582970703 SNOMED-CT Problem 2022-05-22 17:32:22 [facility] Post-ictal state POSTICTAL STATE active [id number] SNOMED-CT Problem 2022-05-22 17:32:46 [facility] Altered mental status AMS active [id number] SNOMED-CT Problem 2022-05-22 17:53:05 [facility] Pneumonia PNEUMONIA active [id number] SNOMED-CT Problem 2021-10-01 16:55:42 [facility] Hypoxia HYPOXIA active 231799714 SNOMED-CT Problem 2021-10-01 15:36:26 [facility] Tachypnea TACHYPNEA active 835626030 SNOMED-CT Problem 2021-10-01 15:37:17 [facility] Pulmonary emphysema EMPHYSEMA active [id number] SNOMED-CT Problem 2021-10-01 16:55:57 [facility] Dizziness DIZZINESS active 907079855 SNOMED-CT Problem 2022-05-22 15:45:36 [facility] Unable to take medication UNABLE TO TAKE MEDICATION active [id number] SNOMED-CT Problem 2021-08-05 14:25:38 [facility] Acute exacerbati on of chronic congestive heart failure ACUTE ON CHRONIC CONGESTIVE HEART FAILURE active 608084824 SNOMED-CT Problem 2019-01-08 11:34:19 [facility] Acute hyponatrem ia ACUTE HYPONATREM IA active 3462308 SNOMED-CT Problem 2019-01-08 11:34:31 [facility] History of Past Illness Condition Name Condition Details Condition Category Status Onset Date Resolution Date Last Treatment Date Treating Clinician Comments Source Acute confusion ACUTE CONFUSION 05/22/2022 resolved [id number] SNOMED-CT Problem 2022-05-22 00:00:00 2022-05-22 15:46:43 [facility] Seizure disorder SEIZURE DISORDER 08/05/2021 resolved [id number] SNOMED-CT Problem 2021-08-05 00:00:00 2021-08-05 14:31:34 [facility] Allergies, Adverse Reactions, Alerts Allergy Name Allergy Type Status Severity Reaction(s) Onset Date Inactive Date Treating Clinician Comments Source NKA - NO KNOWN ALLERGIE S DA Active UNKNOWN [facility] No Known Drug Allergie s DA Active UNKNOWN [facility] Social History Social Habit Start Date Stop Date Quantity Comments Source Gender identity 2023-05-31 07:11:09 Identifies as male gender (finding) [facility] History of tobacco use Current smoker [facility] Sexual orientation [facility] History of Social function 2024-03-06 00:00:00 2024-03-06 00:00:00 [facility] Smoking Status Start Date Stop Date Source Current every day smoker Ex-smoker [facility] Medications Ordered Medication Name Filled Medication Name Start Date Stop Date Current Medication? Ordering Clinician Indication Dosage Frequency Signature (SIG) Comments Components Source Cephalexin 500MG Oral Capsule Cephalexin 500MG Oral Capsule 4-10 00:00: 00 Yes 1CAPSUL E TID Cephalexin 500MG Oral Capsule 06/16/2024 Unknown BY MOUTH THREE TIMES A DAY 1 CAPSULE [id number] RxNorm TAKE 1 CAPSULE BY MOUTH THREE TIMES A DAY [facility] Sennosides (Senna) 8.8 MG/5ML syrup oral syrup Sennosides (Senna) 8.8 MG/5ML syrup oral syrup 03-25 00:00: 00 Yes 10mL Q12H Take 10 mL by mouth in the morning and 10 mL in the evening. [facility] levETIRAcet am (Keppra) 1000 MG tablet levETIRAcet am (Keppra) 1000 MG tablet 03-25 00:00: 00 Yes 1000mg Q.5D Take 1 tablet by mouth in the morning and 1 tablet in the evening. [facility] atorvastati n (Lipitor) 40 MG tablet atorvastati n (Lipitor) 40 MG tablet 03-25 00:00: 00 04-29 23:59 :00 No 40mg QD Take 1 tablet by mouth 1 time each day. [facility] carvedilol (Coreg) 6.25 MG tablet carvedilol (Coreg) 6.25 MG tablet 03-25 00:00: 00 03-25 23:59 :00 No 6.25mg Take 1 tablet by mouth in the morning and 1 tablet in the evening. Take with meals. [facility] sacubitril- valsartan (Entresto) 97-103 MG tablet sacubitril- valsartan (Entresto) 97-103 MG tablet 03-25 00:00: 00 2025- 02-16 23:59 :00 No 1{tbl} Take 1 tablet by mouth at bedtime. Winter Pope midodrine (Proamatine ) 5 MG tablet midodrine (Proamatine ) 5 MG tablet 03-25 00:00: 00 04-24 23:59 :00 No 5mg Take 1 tablet by mouth every 12 hours if needed (if sbp<110). Winter Pope budesonide (Pulmicort) 0.5 MG/2ML nebulizer solution budesonide (Pulmicort) 0.5 MG/2ML nebulizer solution 03-25 00:00: 00 04-24 23:59 :00 No 945 1mg Q.5D Take 4 mL by nebulizati on in the morning and 4 mL in the evening. Rinse mouth with water after use to reduce aftertaste and incidence of candidiasi s. Do not swallow.. Winter Pope insulin lispro (Humalog, Admelog) 100 UNIT/ML injection insulin lispro (Humalog, Admelog) 100 UNIT/ML injection 03-25 00:00: 00 04-24 23:59 :00 No 137 2U [id number] 3D Inject 2-8 Units under the skin 3 times a day as needed for high blood sugar (with meals). Winter Pope heparin 5000 units/mL injection heparin 5000 units/mL injection 03-25 00:00: 00 04-04 23:59 :00 No 5000U Q.5D Inject 1 mL under the skin in the morning and 1 mL before bedtime. Do all this for 10 days. Winter Pope ipratropium -albuterol (Duo-Neb) 0.5-2.5 mg/3 mL nebulizer solution ipratropium -albuterol (Duo-Neb) 0.5-2.5 mg/3 mL nebulizer solution 03-25 00:00: 00 03-30 23:59 :00 No 3mL Q.[id number] 3D Take 3 mL by nebulizati on in the morning and 3 mL in the evening and 3 mL before bedtime. Do all this for 13 doses. Winter Iqbal Epic regadenoson (Lexiscan) injection 0.4 mg regadenoson (Lexiscan) injection 0.4 mg 03-24 12:15: 33 03-24 10:40 :00 No .4mg 0.4 mg, Intravenou s, Once in imaging, Starting on Thu03/24/24 at 1215, For 1 dose Winter Iqbal Epic technetium Tc 99m sestamibi (Cardiolite ) radio-isoto pe injection 30 millicurie technetium Tc 99m sestamibi (Cardiolite ) radio-isoto pe injection 30 millicurie 03-24 12:15: 32 03-24 10:40 :00 No 30mCi 30 millicurie , Intravenou s, Once in imaging, Starting on Thu03/24/24 at 1215, For 1 dose Winter Iqbal Epic technetium Tc-99m sestamibi (Cardiolite ) radio-isoto pe injection 10 millicurie technetium Tc-99m sestamibi (Cardiolite ) radio-isoto pe injection 10 millicurie 03-24 08:59: 57 03-24 09:00 :00 No 10mCi 10 millicurie , Intravenou s, Once in imaging, Starting on Thu03/24/24 at 0859, For 1 dose Winter Iqbal Epic ipratropium -albuterol (Duo-Neb) 0.5-2.5 mg/3 mL nebulizer solution 3 mL ipratropium -albuterol (Duo-Neb) 0.5-2.5 mg/3 mL nebulizer solution 3 mL 03-23 02:00: 00 03-29 22:59 :00 No 3mL [id number] 3D 3 mL, Nebulizati on, Every 8 hours RT, First dose on Thu03/23/24 at 0200, For 7 days Winter Iqbal Epic iohexol (OMNIPaque) 350 MG/ML injection 100 mL iohexol (OMNIPaque) 350 MG/ML injection 100 mL 03-19 17:39: 39 03-19 18:39 :00 No 100mL 100 mL, Intravenou s, Once in imaging, Starting on Thu03/19/24 at 1739, For 1 dose Winter Iqbal Epic methylPREDN ISolone sod suc (PF) (SOLU-Medro l) injection 40 mg methylPREDN ISolone sod suc (PF) (SOLU-Medro l) injection 40 mg 03-18 19:30: 00 03-21 08:06 :00 No 40mg Q12H 40 mg, Intravenou s, Every 12 hours, First dose (after last reorder) on Thu03/18/24 at 1930, For 3 days Winter Iqbal Epic midodrine (Proamatine ) tablet 5 mg midodrine (Proamatine ) tablet 5 mg 03-18 17:00: 00 Yes 5mg Q.5D 5 mg, Oral, 2 times daily, First dose on Thu03/18/24 at 1700 Winter Iqbal Epic carvedilol (Coreg) tablet 6.25 mg carvedilol (Coreg) tablet 6.25 mg 03-18 17:00: 00 Yes 6.25mg 6.25 mg, Oral, 2 times daily with meals, First dose (after last modificati on) on Thu03/18/24 at 1700 Winter Iqbal Epic sodium chloride 0.9 % bolus 500 mL [id number] 1312-0 1-10 12:30: 00 03-18 13:58 :00 No 500mL 500 mL, Intravenou s, at 500 mL/hr, Administer over 1 Hours, Once, On Thu03/18/24 at 1230, For 1 dose, Bolus Winter Iqbal Epic sodium chloride 0.9 % bolus 250 mL [id number] 9598-0 1-10 05:30: 00 03-18 06:13 :00 No 250mL 250 mL, Intravenou s, at 500 mL/hr, Administer over 30 Minutes, Once, On Thu03/18/24 at 0530, For 1 dose [facility] Iqbal Epic sodium chloride 0.9 % bolus 250 mL sodium chloride 0.9 % bolus 250 mL 2025-0 1-10 03:30: 00 03-18 04:20 :00 No 250mL 250 mL, Intravenou s, at 250 mL/hr, Administer over 1 Hours, Once, On Thu03/18/24 at 0330, For 1 dose Winter Pope sodium chloride 0.9 % infusion - Pyxis Override Pull sodium chloride 0.9 % infusion - Pyxis Override Pull 2024-0 03-18 03:16: 22 03-18 04:20 :00 No Starting on Thu03/18/24 at 0316, For 1 dose, Created by cabinet override Winter Pope lactated Ringer's bolus 250 mL lactated Ringer's bolus 250 mL 03-18 01:15: 00 03-18 01:45 :00 No 250mL 250 mL, Intravenou s, at 500 mL/hr, Administer over 30 Minutes, Once, On Thu03/18/24 at 0115, For 1 dose Winter Pope lactated Ringer's infusion - Pyxis Override Pull lactated Ringer's infusion - Pyxis Override Pull 03-18 01:08: 57 03-18 01:45 :00 No Starting on Thu03/18/24 at 0108, For 1 dose, Created by cabinet override Winter Pope naloxone (Narcan) injection 0.4 mg naloxone (Narcan) injection 0.4 mg 03-17 21:15: 00 03-17 21:07 :00 No .4mg 0.4 mg, Intravenou s, Once, On Thu03/17/24 at 2115, For 1 dose Winter Iqbal [facility] methylPREDN ISolone sod suc (PF) (SOLU-Medro l) injection 40 mg methylPREDN ISolone sod suc (PF) (SOLU-Medro l) injection 40 mg 03-15 09:00: 00 03-17 20:28 :00 No 40mg Q12H 40 mg, Intravenou s, Every 12 hours, First dose on Thu03/15/24 at 0900, For 3 days Winter Iqbal [facility] furosemide (Lasix) injection 20 mg furosemide (Lasix) injection 20 mg 03-15 09:00: 00 03-17 08:17 :00 No 20mg QD 20 mg, Intravenou s, Daily, First dose (after last modificati on) on Thu03/15/24 at 0900, For 3 doses Winter Pope methylPREDN ISolone sod suc (PF) (SOLU-Medro l) injection 60 mg methylPREDN ISolone sod suc (PF) (SOLU-Medro l) injection 60 mg 03-15 03:00: 00 03-15 03:58 :00 No 60mg 60 mg, Intravenou s, Once, On Thu03/15/24 at 0300, For 1 dose Winter Pope Premier Protein Shake liquid 325 mL Premier Protein Shake liquid 325 mL 03-14 17:00: 00 Yes 1{bottl e} Q.5D 325 mL (1 Bottle), Oral, 2 times daily, First dose on Thu03/14/24 at 1700 Winter Pope acetaZOLAMI DE (Diamox) 250 mg in sterile water 2.5 mL injection acetaZOLAMI DE (Diamox) 250 mg in sterile water 2.5 mL injection 03-14 15:00: 00 03-16 08:43 :00 No 250mg QD 250 mg, Intravenou s, at 30 mL/hr, Administer over 5 Minutes, Daily, First dose on Thu03/14/24 at 1500, For 3 doses, Reconstitu te 500 mg vial of Diamox with 5 ml of sterile water for injection Winter Pope furosemide (Lasix) injection 20 mg furosemide (Lasix) injection 20 mg 03-13 14:15: 00 03-14 14:43 :09 No 20mg Q12H 20 mg, Intravenou s, Every 12 hours, First dose on Thu03/13/24 at 1415, For 3 days Winter Pope insulin lispro (Humalog, Admelog) injection 2-8 Units insulin lispro (Humalog, Admelog) injection 2-8 Units 03-11 21:57: 28 Yes 2U Q.[id number] 3D 2-8 Units, Subcutaneo us, 3 times daily PRN, high blood sugar, with meals, Starting on Thu03/11/24 at 2156, For BG < 70, follow hypoglycem ia protocol and notify ordering provider. If patient can eat or drink, give oral carbohydra te as ordered per hypoglycem ia protocol. If patient NPO, give dextrose 50 % IV as ordered per hypoglycem ia protocol. If NPO and no IV access, give glucagon IM as ordered per hypoglycem ia protocol. Check BG every 15 minutes and repeat treatment if continued BG < 80., Correction Insulin Dosing: (DO NOT CHANGE DEFAULT SELECTION/ VALUES): Starting, BG < 70 instructio ns: Follow Hypoglycem ia Orders, BG 70-149 instructio ns: No Dose Needed, BG 150-199: 2, BG 200-249: 4, BG 250-299: 6, BG >/= 300: 8, BG > 300 instructio ns: Contact Provider Winter Iqbal [employer] glucagon injection 1 mg glucagon injection 1 mg 03-11 21:57: 23 Yes 1mg 1 mg, Intramuscu lar, As needed, For BG < 70 mg/dL if no IV access and patient is either Unconsciou s, unable to swallow or npo, Starting on Thu03/11/24 at 2156, For BG < 70 mg/dL if no IV access and patient is either Unconsciou s, unable to swallow or npo and notify MD. Winter Iqbal Epic dextrose 50 % solution 25 g dextrose 50 % solution 25 g 03-11 21:57: 23 Yes 25g 25 g, Intravenou s, As needed, other, if Blood Glucose </= 50 mg/dL, Starting on Thu03/11/24 at 2156, If BG </=50 mg/dL, give 50 mL of D50W IV push STAT and notify MD. Winter Iqbal Epic dextrose 50 % solution 12.5 g dextrose 50 % solution 12.5 g 03-11 21:57: 23 Yes 12.5g 12.5 g, Intravenou s, As needed, low blood sugar, if Blood Glucose 51- 69 mg/dL, Starting on Thu03/11/24 at 2156, For BG 51-69 mg/dL and patient UNCONSCIOU S OR UNABLE TO SWALLOW OR NPO: Give 25 mL of D50W IV push and notify MD. Winter Pope polyethylen e glycol (PEG) 3350 (Miralax) packet 17 g polyethylen e glycol (PEG) 3350 (Miralax) packet 17 g 03-11 00:45: 00 Yes 17g Q12H 17 g, Oral, Every 12 hours, First dose (after last reorder) on Thu03/11/24 at 0045, Dissolve 17 g in 120 to 240 mL (4 to 8 ounces) of beverage. Winter Pope carvedilol (Coreg) tablet 25 mg carvedilol (Coreg) tablet 25 mg 03-10 22:45: 00 03-18 12:24 :29 No 25mg Q.5D 25 mg, Oral, Every 12 hours scheduled, First dose (after last reorder) on Thu03/10/24 at 2245 Winter Pope cefTRIAXone (Rocephin) 2 g in sterile water injection cefTRIAXone (Rocephin) 2 g in sterile water injection 03-10 11:00: 00 03-12 10:10 :00 No 2g 2 g, Intravenou s, Administer over 5 Minutes, Every 24 hours, First dose (after last modificati on) on Thu03/10/24 at 1100, For 3 doses, Reconstitu te vial with 20 mL sterile water for injection. Prepare dose at bedside immediatel y prior to administra tion. Reconstitu tion: Shake immediatel y and vigorously . Withdraw entire contents and give IV push slowly over specified time., Suspected Indication (Select all that apply): Pneumonia Winter Pope ipratropium -albuterol (Duo-Neb) 0.5-2.5 mg/3 mL nebulizer solution 3 mL ipratropium -albuterol (Duo-Neb) 0.5-2.5 mg/3 mL nebulizer solution 3 mL 03-10 08:00: 00 03-12 17:18 :30 No 3mL Q.[id number] 3D 3 mL, Nebulizati on, 3 times daily RT, First dose (after last modificati on) on Thu03/10/24 at 0800 Winter Pope budesonide (Pulmicort) 0.5 MG/2ML nebulizer solution 1 mg budesonide (Pulmicort) 0.5 MG/2ML nebulizer solution 1 mg 03-09 19:00: 00 Yes 1mg Q.5D 1 mg, Nebulizati on, Every 12 hours RT, First dose (after last modificati on) on Thu03/09/24 at 1900, Rinse mouth with water after use to reduce aftertaste and incidence of candidiasi s. Do not swallow. Winter Pope sacubitril- valsartan (Entresto) 97-103 MG per tablet 1 tablet sacubitril- valsartan (Entresto) 97-103 MG per tablet 1 tablet 2023-03 21:00: 00 Yes 1{tbl} 1 tablet, Nasogastri c, Nightly, First dose on Thu03/08/24 at 2100, Contraindi cated in combinatio n with DRU inhibitors . Ensure a minimum of 36 hours between any DRU inhibitor dose and sacubitril -valsartan . Winter Pope carvedilol (Coreg) tablet 25 mg carvedilol (Coreg) tablet 25 mg 2023-03 09:00: 00 03-10 22:29 :47 No 25mg Q.5D 25 mg, Nasogastri c, Every 12 hours scheduled, First dose (after last modificati on) on Thu03/08/24 at 0900 Winter Pope levETIRAcet am (Keppra) injection 1,000 mg levETIRAcet am (Keppra) injection 1,000 mg 2023-03 07:15: 00 Yes 1000mg Q12H 1,000 mg, Intravenou s, Administer over 3 Minutes, Every 12 hours, First dose (after last modificati on) on Thu03/08/24 at 0715 Winter Pope carvedilol (Coreg) tablet 12.5 mg carvedilol (Coreg) tablet 12.5 mg 2023-03 21:00: 00 03-08 08:31 :04 No 12.5mg Q.5D 12.5 mg, Oral, Every 12 hours scheduled, First dose on Thu03/07/24 at 2100 Winter Pope Enteral Free water Flush 30 mL Enteral Free water Flush 30 mL 2023-03 13:30: 00 03-08 17:37 :37 No 30mL Q4H 30 mL, Nasogastri c, Every 4 hours, First dose on Thu03/07/24 at 1330 Winter Pope acetaminoph en (Tylenol) tablet 650 mg acetaminoph en (Tylenol) tablet 650 mg 2023-03 09:32: 45 Yes 650mg Q6H 650 mg, Nasogastri c, Every 6 hours PRN, mild pain (1-3), fever, Starting on Thu03/07/24 at 0932, Max acetaminop hen = 4000mg/day (4gm/day) Winter Pope predniSONE (Deltasone) tablet 60 mg predniSONE (Deltasone) tablet 60 mg 2023-03 11:00: 00 03-12 09:00 :00 No 60mg QD 60 mg, Oral, Daily, First dose on Thu03/06/24 at 1100, For 7 doses Winter Pope cefTRIAXone (Rocephin) 1 g in sterile water injection cefTRIAXone (Rocephin) 1 g in sterile water injection 2023-03 11:00: 00 03-09 12:36 :00 No 1g 1 g, Intravenou s, Administer over 5 Minutes, Every 24 hours, First dose on Thu03/06/24 at 1100, For 7 days, Reconstitu te vial with 10 mL sterile water for injection. Prepare dose at bedside immediatel y prior to administra tion. Reconstitu tion: Shake immediatel y and vigorously . Withdraw entire contents and give IV push slowly over specified time., Suspected Indication (Select all that apply): Pneumonia Winter Pope atorvastati n (Lipitor) tablet 40 mg atorvastati n (Lipitor) tablet 40 mg 2023-03 09:00: 00 Yes 40mg QD 40 mg, Oral, Daily, First dose on Thu03/06/24 at 0900 Winter Pope aspirin chewable tablet 81 mg aspirin chewable tablet 81 mg 2023-03 09:00: 00 Yes 81mg QD 81 mg, Oral, Daily, First dose on Thu03/06/24 at 0900 Winter Pope heparin injection 5,000 Units heparin injection 5,000 Units 2023-03 07:15: 00 Yes 5000U Q.[id number] 3D 5,000 Units, Subcutaneo us, Every 8 hours scheduled, First dose on Thu03/06/24 at 0715 Winter Pope sodium chloride 3 % nebulizer solution 3 mL sodium chloride 3 % nebulizer solution 3 mL 2023-03 07:15: 00 Yes 3mL Q.[id number] [id number] 7D 3 mL, Nebulizati on, Every 4 hours RT, First dose on Thu03/06/24 at 0715 Winter Pope fentaNYL (Sublimaze) injection 25 mcg [id number] 7900-1 2-29 07:01: 59 Yes 25ug 25 mcg, Intravenou s, Every 1 hour PRN, severe pain (7-10), Starting on Thu03/06/24 at 0701 Winter Pope budesonide (Pulmicort) 0.5 MG/2ML nebulizer solution 0.5 mg budesonide (Pulmicort) 0.5 MG/2ML nebulizer solution 0.5 mg 2023-03 07:00: 00 03-09 12:19 :15 No .5mg Q.5D 0.5 mg, Nebulizati on, Every 12 hours RT, First dose on Thu03/06/24 at 0700, Rinse mouth with water after use to reduce aftertaste and incidence of candidiasi s. Do not swallow. Winter Pope levETIRAcet am (Keppra) injection 1,500 mg levETIRAcet am (Keppra) injection 1,500 mg 2023-03 05:00: 00 03-08 07:04 :02 No 1500mg Q.5D 1,500 mg, Intravenou s, 2 times daily, First dose on Thu03/06/24 at 0500 Winter Pope propofol (Diprivan) 10 mg/mL infusion [id number] 2023-03 03:15: 00 03-07 09:32 :57 No 5ug/kg/ min 5-50 mcg/kg/min ?83.4 kg (2.502-25. 02 mL/hr, rounded to 2.5-25.02 mL/hr), Intravenou s, Continuous , Starting on Thu03/06/24 at 0315, Infusion Type: Titrate, Initial Dose (mcg/kg/mi n): 5, Titrate by (mcg/kg/mi n): 5, Every (minutes): 15, Goal: Refer to Target Arousal RASS Score on Storyboard , Max Dose (mcg/kg/mi n): 50 Winter Pope meclizine (Antivert) 25 MG tablet meclizine (Antivert) 25 MG tablet 2023-03 01:48: 31 03-25 00:00 :00 No 12.5mg QD Take 12.5 mg by mouth 1 time each day. Winter Pope levETIRAcet am (Keppra) 500 MG tablet levETIRAcet am (Keppra) 500 MG tablet 2023-03 01:48: 31 03-25 00:00 :00 No 500mg QD Take 500 mg by mouth 1 time each day. Winter Pope sodium chloride 0.9 % bolus 500 mL sodium chloride 0.9 % bolus 500 mL 2023-03 01:30: 00 03-06 02:30 :00 No 500mL 500 mL, Intravenou s, at 500 mL/hr, Administer over 1 Hours, Once, On Thu03/06/24 at 0130, For 1 dose Winter Pope dexmedeTOMI Dine in NS (Precedex) 400 mcg in 100 mL (4 mcg/mL) infusion dexmedeTOMI Dine in NS (Precedex) 400 mcg in 100 mL (4 mcg/mL) infusion 2023-03 01:15: 00 03-06 03:11 :37 No .2ug/kg /h 0.2-1.5 mcg/kg/hr ?83.4 kg (4.17-31.2 75 mL/hr, rounded to 4.17-31.28 mL/hr), Intravenou s, Continuous , Starting on Thu03/06/24 at 0115, Infusion Type: Titrate, Initial Dose (mcg/kg/hr ): 0.2, Titrate by (mcg/kg/hr ): 0.1, Every (minutes): 30, Goal: Refer to Target Arousal RASS Score on Storyboard , Max Dose (mcg/kg/hr ): 1.5 Winter Pope hydrALAZINE injection 10 mg hydrALAZINE injection 10 mg 2023-03 00:57: 10 Yes 10mg Q4H 10 mg, Intravenou s, Every 4 hours PRN, high blood pressure, <160, Starting on Thu03/06/24 at 0057, 2nd agent Winter Pope Senna oral syrup 10 mL Senna oral syrup 10 mL 2023-03 00:15: 00 Yes 10mL Q12H 10 mL, Oral, Every 12 hours, First dose on Thu03/06/24 at 0015 Winter Ppoe polyethylen e glycol (PEG) 3350 (Miralax) packet 17 g polyethylen e glycol (PEG) 3350 (Miralax) packet 17 g 2023-03 00:15: 00 03-11 00:34 :43 No 17g Q12H 17 g, Per G Tube, Every 12 hours, First dose on Thu03/06/24 at 0015, Dissolve 17 g in 120 to 240 mL (4 to 8 ounces) of beverage. Winter Pope sodium chloride 0.9 % bolus 500 mL sodium chloride 0.9 % bolus 500 mL 2023-03 00:15: 00 03-06 00:46 :06 No 500mL 500 mL, Intravenou s, at 500 mL/hr, Administer over 1 Hours, Once, On Thu03/06/24 at 0015, For 1 dose Winter Pope insulin lispro (HumaLOG, Admelog) injection 3-12 Units insulin lispro (HumaLOG, Admelog) injection 3-12 Units 2023-03 23:56: 39 03-11 21:57 :07 No 3U Q6H 3-12 Units, Subcutaneo us, Every 6 hours PRN, high blood sugar, Starting on 03/05/24 at 2356, For BG < 70, follow hypoglycem ia protocol and notify ordering provider. If patient can eat or drink, give oral carbohydra te as ordered per hypoglycem ia protocol. If patient NPO, give dextrose 50 % IV as ordered per hypoglycem ia protocol. If NPO and no IV access, give glucagon IM as ordered per hypoglycem ia protocol. Check BG every 15 minutes and repeat treatment if continued BG < 80., Correction Insulin Dosing: (DO NOT CHANGE DEFAULT SELECTION/ VALUES): Medium, BG < 70 instructio ns: Follow Hypoglycem ia Orders, BG 70-149 instructio ns: No Dose Needed, BG 150-199: 3, BG 200-249: 6, BG 250-299: 9, BG >/= 300: 12, BG > 300 instructio ns: Contact Provider Winter Pope peptamen AF liquid peptamen AF liquid 2023-03 23:45: 00 03-07 13:24 :15 No Nasogastri c, at 50 mL/hr, Continuous , Starting on 03/05/24 at 2345, Administer enteral tube feeding as follows: Standard Progressio n: Initiate at 20 mL/hr and increase by 20 mL/hr evry 4 hours. Refer to the Rate field for Goal Rate 50 Winter Pope Enteral Free water Flush Enteral Free water Flush 2023-03 23:45: 00 03-07 13:24 :15 No Nasogastri c, at 30 mL/hr, Continuous , Starting on 03/05/24 at 2345 Winter Pope ipratropium -albuterol (Duo-Neb) 0.5-2.5 mg/3 mL nebulizer solution 3 mL ipratropium -albuterol (Duo-Neb) 0.5-2.5 mg/3 mL nebulizer solution 3 mL 2023-03 23:00: 00 03-09 21:31 :45 No 3mL [id number] 7D 3 mL, Nebulizati on, Every 4 hours RT, First dose on 03/05/24 at 2300 Winter Iqbal Epic sodium chloride 0.9 % infusion sodium chloride 0.9 % infusion 2023-03 23:00: 00 03-06 03:12 :27 No 50mL/h 50 mL/hr, Intravenou s, Continuous , Starting on 03/05/24 at 2300 Winter Iqbal Epic sodium zirconium cyclosilica te (Lokelma) packet 10 g sodium zirconium cyclosilica te (Lokelma) packet 10 g 2023-03 22:30: 00 03-05 23:22 :00 No 10g 10 g, Per G Tube, Once, On 03/05/24 at 2230, For 1 dose, Empty entire contents of packet(s) into 45 mL water. Stir well and administer immediatel y. If powder remains, rinse glass with water and administer . Winter Iqbal Epic sodium phosphates 45 mmol in sodium chloride 0.9 % 100 mL IVPB sodium phosphates 45 mmol in sodium chloride 0.9 % 100 mL IVPB 2023-03 22:22: 34 03-11 19:26 :22 No 45mmol 45 mmol, Intravenou s, at 25 mL/hr, Administer over 4 Hours, As needed, Abnormal Lab Result, FOR ICU USE ONLY, Starting on 03/05/24 at 2222, For phosphorus </= 1.5 mg/dL: Replace with NaPhos 45 mmol IVPB over 4 hours x 1 dose, and potassium phosphate- sodium phosphate 250 mg-280 mg-160 mg oral powder 2 packets PO/GT every 4 hours x 6 doses. Notify MD if phosphorus </= 1.4 mg/dL. Recheck Phosphorus level 2 hours after Phosphorou s replacemen t complete. Winter Iqbal Epic iohexol (OMNIPaque) 350 MG/ML injection 100 mL iohexol (OMNIPaque) 350 MG/ML injection 100 mL 2023-03 22:04: 13 03-05 22:04 :00 No 100mL 100 mL, Intravenou s, Once in imaging, Starting on 03/05/24 at 2204, For 1 dose Winter Iqbal Epic sodium chloride (NS) 0.9 % flush 10 mL sodium chloride (NS) 0.9 % flush 10 mL 2023-03 21:00: 00 Yes 10mL Q.5D 10 mL, Intravenou s, Every 12 hours scheduled, First dose on Thu03/05/24 at 2100, Administer at least once every 12 hours Winter Iqbal Epic chlorhexidi ne (Peridex) 0.12 % solution 15 mL chlorhexidi ne (Peridex) 0.12 % solution 15 mL 2023-03 21:00: 00 03-07 16:16 :23 No 15mL Q.25D 15 mL, Mouth/Thro at, 4 times daily, First dose on Thu03/05/24 at 2100, swish and expectorat e Winter Iqbal Epic famotidine (PF) (Pepcid) injection 20 mg famotidine (PF) (Pepcid) injection 20 mg 2023-03 20:15: 00 03-07 16:16 :23 No 20mg Q.5D 20 mg, Intravenou s, Administer over 2 Minutes, 2 times daily, First dose on Thu03/05/24 at 2015, Give if unable to take by mouth or feeding tube. iWnter Iqbal Epic nystatin (Mycostatin ) [id number] UNIT/GM powder nystatin (Mycostatin ) 228249 UNIT/GM powder 2023-03 19:55: 41 Yes Topical, As needed, For Fungal Prophylaxi s, Starting on Thu03/05/24 at 1954, Apply to groin and intertrigi nous areas after bathing (no cornstarch baby powder). For ICU only. Winter Iqbal Epic sodium chloride (NS) 0.9 % flush 10 mL sodium chloride (NS) 0.9 % flush 10 mL 2023-03 19:55: 41 Yes 10mL 10 mL, Intravenou s, As needed, line care, Line Flush, Starting on 03/05/24 at 1954 Winter Iqbal Epic Jardiance 10MG Oral Tablet Jardiance 10MG Oral Tablet 03-28 00:00: 00 Yes 10MILLI GRAMS Jardiance 10MG Oral Tablet 03/28/2023 Unknown ORAL DAILY 10 MILLIGRAMS [id number] RxNorm TAKE 10 MILLIGRAMS ORAL DAILY [facility] Prevagen Chewables 10 MG-50 MCG Oral Tablet, Chewable Prevagen Chewables 10 MG-50 MCG Oral Tablet, Chewable 1-20 00:00: 00 Yes 1EACH Prevagen Chewables 10 MG-50 MCG Oral Tablet, Chewable 03/28/2023 Unknown ORAL DAILY 1 unit(s) RxNorm TAKE 1 EACH ORAL DAILY [facility] Zithromax Z-Vin 250MG Oral Tablet Zithromax Z-Vin 250MG Oral Tablet 1-20 00:00: 00 Yes 1TABLET Zithromax Z-Vin 250MG Oral Tablet 03/28/2023 Unknown BY MOUTH DIRECTED 1 TABLET [id number] RxNorm TAKE 2 TABLET BY MOUTH ONE DAY ONE THEN DAY 2-4 TAKE 1 TABLET DIRECTED [facility] aspirin 81 MG chewable tablet aspirin 81 MG chewable tablet 9-05 00:00: 00 Yes 81mg QD Chew 81 mg 1 time each day. Winter Pope carvedilol (Coreg) 25 MG tablet carvedilol (Coreg) 25 MG tablet 9-05 00:00: 00 03-25 00:00 :00 No 25mg Take 25 mg by mouth in the morning and 25 mg in the evening. Take with meals. Winter Pope sacubitril- valsartan (Entresto) 97-103 MG tablet sacubitril- valsartan (Entresto) 97-103 MG tablet 9-05 00:00: 00 03-25 00:00 :00 No 1{tbl} Q.5D Take 1 tablet by mouth in the morning and 1 tablet in the evening. Winter Pope empaglifloz in (Jardiance) 10 MG empaglifloz in (Jardiance) 10 MG 8-31 00:00: 00 Yes 10mg QD Take 10 mg by mouth 1 time each day. Winter Pope Atorvastati n Calcium 80MG Oral Tablet Atorvastati n Calcium 80MG Oral Tablet 3-17 00:00: 00 Yes 80MILLI GRAMS Atorvastat in Calcium 80MG Oral Tablet 05/23/2022 Unknown ORAL BEDTIME 80 MILLIGRAMS [id number] RxNorm TAKE 80 MILLIGRAMS ORAL BEDTIME [facility] B-12 Cyanocobala min 1000MCG Oral Tablet B-12 Cyanocobala min 1000MCG Oral Tablet - 00:00: 00 Yes 1000ug B-12 Cyanocobal sood 1000MCG Oral Tablet 05/23/2022 Unknown ORAL DAILY 1000 MCG RxNorm TAKE 1000 MCG ORAL DAILY [facility] Carvedilol 25MG Oral Tablet Carvedilol 25MG Oral Tablet - 00:00: 00 Yes 25MILLI GRAMS Carvedilol 25MG Oral Tablet 05/23/2022 Unknown ORAL EVERY 12 HOURS 25 MILLIGRAMS [id number] RxNorm TAKE 25 MILLIGRAMS ORAL EVERY 12 HOURS [facility] Entresto 97MG-103MG Oral Tablet Entresto 97MG-103MG Oral Tablet 05-23 00:00: 00 Yes 1EACH Entresto 97MG-103MG Oral Tablet 05/23/2022 Unknown ORAL EVERY 12 HOURS 1 unit(s) [id number] RxNorm TAKE 1 EACH ORAL EVERY 12 HOURS [facility] Keppra 500MG Oral Tablet Keppra 500MG Oral Tablet 05-23 00:00: 00 Yes 2TABLET Keppra 500MG Oral Tablet 05/23/2022 Unknown BY MOUTH EVERY 12 HOURS 2 TABLET [id number] RxNorm TAKE 2 TABLET BY MOUTH EVERY 12 HOURS [facility] Aspirin 81MG Oral Tablet, Chewable Aspirin 81MG Oral Tablet, Chewable 2018-03 00:00: 00 Yes 81MILLI GRAMS Aspirin 81MG Oral Tablet, Chewable 01/09/2019 Unknown ORAL DAILY 81 MILLIGRAMS [id number] RxNorm TAKE 81 MILLIGRAMS ORAL DAILY [facility] Vital Signs Vital Name Observation Time Observation Value Comments S ource Systolic Blood Pressure 2024-06-16 06:15:00 117 mm[Hg] Diastolic Blood Pressure 2024-06-16 06:15:00 56 mm[Hg] Oxygen Saturation 2024-06-16 06:15:00 93 % Heart Rate 2024-06-16 06:15:00 59.0 /min Respiratory Rate 2024-06-16 06:15:00 22 /min Respiratory Rate 2024-06-16 05:27:00 24 /min Body Temperature 2024-06-16 05:27:00 36.7 Ingrid Body Weight 2024-06-16 05:27:00 75.75 kg Body Mass Index 2024-06-16 05:27:00 22.65 kg/m2 Systolic Blood Pressure 2024-06-16 05:27:00 115 mm[Hg] Diastolic Blood Pressure 2024-06-16 05:27:00 43 mm[Hg] Body Height 2024-06-16 05:27:00 182.8800 cm Oxygen Saturation 2024-06-16 05:27:00 94 % Heart Rate 2024-06-16 05:27:00 88.0 /min Systolic Blood Pressure 2024-06-15 06:10:00 137 mm[Hg] Diastolic Blood Pressure 2024-06-15 06:10:00 105 mm[Hg] Oxygen Saturation 2024-06-15 06:10:00 95 % Heart Rate 2024-06-15 06:10:00 53.0 /min Respiratory Rate 2024-06-15 06:10:00 20 /min Body Mass Index 2024-06-15 05:10:00 24.41 kg/m2 Systolic Blood Pressure 2024-06-15 05:10:00 130 mm[Hg] Diastolic Blood Pressure 2024-06-15 05:10:00 47 mm[Hg] Body Height 2024-06-15 05:10:00 182.8800 cm Oxygen Saturation 2024-06-15 05:10:00 100 % Heart Rate 2024-06-15 05:10:00 79.0 /min Respiratory Rate 2024-06-15 05:10:00 20 /min Body Temperature 2024-06-15 05:10:00 36.7 Ingrid Body Weight 2024-06-15 05:10:00 81.65 kg Systolic blood pressure 2024-03-25 20:01:00 112 mm[Hg] Hui manzanares [facility] Diastolic blood pressure 2024-03-25 20:01:00 63 mm[Hg] Hui manzanares [facility] Heart rate 2024-03-25 20:01:00 71 /min Memor iahao Iqbal Epic Body temperature 2024-03-25 20:01:00 36.78 Ingrid [facility] Respiratory rate 2024-03-25 20:01:00 16 /min [facility] Oxygen saturation in Arterial blood by Pulse oximetry 2024-03-25 20:01:00 95 /min Hui manzanares [facility] Body weight 2024-03-25 04:00:00 80.74 [facility] 2024-03-25 04:00:00 23.49 kg/m2 Mohamud [facility] Body height 2024-03-07 12:21:00 185.4 cm [facility] Systolic blood pressure 2024-03-25 20:01:00 112 mm[Hg] Hui manzanares [facility] Diastolic blood pressure 2024-03-25 20:01:00 63 mm[Hg] Hui manzanares [facility] Heart rate 2024-03-25 20:01:00 71 /min [facility] Body temperature 2024-03-25 20:01:00 36.78 Ingrid [facility] Respiratory rate 2024-03-25 20:01:00 16 /min [facility] Oxygen saturation in Arterial blood by Pulse oximetry 2024-03-25 20:01:00 95 /min Hui manzanares [facility] Body weight 2024-03-25 04:00:00 80.74 kg [facility] BMI 2024-03-25 04:00:00 23.49 kg/m2 [facility] Body height 2024-03-07 12:21:00 185.4 cm [facility] Procedures Procedure Date / Time Performed Performing Clinician Source POCT Glucose 2024-04-10 00:00:00 [facility] Basic Metabolic Panel 2024-04-02 00:00:00 [facility] Complete Blood Count w/Diff and Platelet 2024-04-02 00:00:00 [facility] Calcium Level Ionized Whole Blood 2024-04-01 00:00:00 [facility] Magnesium Level 2024-04-01 [facility] 2024-04-01 00:00:00 [facility] COMPLETE BLOOD COUNT W/DIFF AND PLATELET 2024-03-25 05:35:00 CLINT Rebollar [facility] CALCIUM LEVEL IONIZED WHOLE BLOOD 2024-03-25 05:35:00 Rebollar, CLINT Quiñonezong [facility] COMPLETE BLOOD COUNT 2024-03-25 05:35:00 [facility], [facility] AUTOMATED DIFFERENTIAL 2024-03-25 05:35:00 Rebollar, Khang latha [facility] BASIC METABOLIC PANEL 2024-03-25 05:35:00 Rebollar, Khango ng [facility] MAGNESIUM LEVEL 2024-03-25 05:35:00 Rebollar, [facility]ordy [facility] PHOSPHORUS LEVEL 2024-03-25 05:35:00 [facility] GLUCOSE UNSOLICITED RESULTS 2024-03-24 15:40:00 Sofia Menezes [facility] POC GLUCOSE UNSOLICITED RESULTS 2024-03-24 12:17:00 Sofia Menezes Caldwell [facility] Epic STRESS TEST, PHARMACOLOGICAL WITH MYOCARDIAL PERFUSION SPECT (MULTI STUDY) 2024-03-24 12:12:00 Gonzalez Foster [facility] POC GLUCOSE UNSOLICITED RESULTS 2024-03-24 08:06:00 Sofia Menezes [facility] COMPLETE BLOOD COUNT W/DIFF AND PLATELET 2024-03-24 04:00:00 Rebollar, CLINT Spence [facility] COMPLETE BLOOD COUNT 2024-03-24 04:00:00 Rebollar, CLINT Deleon g [facility] AUTOMATED DIFFERENTIAL 2024-03-24 04:00:00 Rebollar, CLINT azul [facility] BASIC METABOLIC PANEL 2024-03-24 04:00:00 Rebollar, CLINT Quiñonezo ng [facility] POC GLUCOSE UNSOLICITED RESULTS 2024-03-23 15:53:00 Sofia Menezes [facility] FL SNIFF TEST 2024-03-23 14:48:00 [facility]OC GLUCOSE UNSOLICITED RESULTS 2024-03-23 11:39:00 Sofia Menezes [facility] HOME OXYGEN EVALUATION 2024-03-23 08:47:00 Sofia Farris [facility] POC GLUCOSE UNSOLICITED RESULTS 2024-03-23 07:57:00 SolipSofia le [facility] COMPLETE BLOOD COUNT W/DIFF AND PLATELET 2024-03-23 03:38:00 Rebollar, CLINT Spence [facility] Epic CALCIUM LEVEL IONIZED WHOLE BLOOD 2024-03-23 03:38:00 Rebollar, Jordy [facility] COMPLETE BLOOD COUNT 2024-03-23 03:38:00 Rebollar, Khangon g [facility] AUTOMATED DIFFERENTIAL 2024-03-23 03:38:00 Rebollar, Khang latha [facility] BASIC METABOLIC PANEL 2024-03-23 03:38:00 Rebollar, Khango ng [facility] Epic MAGNESIUM LEVEL 2024-03-23 03:38:00 Rebollar, Jordy Mem orial [place] Epic PHOSPHORUS LEVEL 2024-03-23 03:38:00 Rebollar, Jordy Me morial [place] Epic XR RIBS 4 VIEWS BILATERAL 2024-03-22 18:55:00 Natacha Fox [facility] POC GLUCOSE UNSOLICITED RESULTS 2024-03-22 15:42:00 SolipSofia le [facility]dwell [facility] Epic POC GLUCOSE UNSOLICITED RESULTS 2024-03-22 11:41:00 SolipuraSofia montilla [facility] POC GLUCOSE UNSOLICITED RESULTS 2024-03-22 08:12:00 SolipSofia le [facility] COMPLETE BLOOD COUNT W/DIFF AND PLATELET 2024-03-22 04:42:00 Rebollar, CLINT Jordy [facility] AUTOMATED DIFFERENTIAL 2024-03-22 04:42:00 Rebollar, Khang latha [facility] COMPLETE BLOOD COUNT 2024-03-22 04:42:00 Rebollar, Adrienne g [facility] Epic REFLEX MAN DIFF AND MORPH - DO NOT ORDER 2024-03-22 04:42:00 Rebollar, Jordy [facility] BASIC METABOLIC PANEL 2024-03-22 04:42:00 Rebollar, Khango ng [facility] Epic POC GLUCOSE UNSOLICITED RESULTS 2024-03-21 15:42:00 SolipuraSofia montilla [facility] POCT BLOOD GLUCOSE 2024-03-21 12:00:00 Provider, Generic External Data [facility] POC GLUCOSE UNSOLICITED RESULTS 2024-03-21 06:56:00 SolipSofia le [facility] COMPLETE BLOOD COUNT W/DIFF AND PLATELET 2024-03-21 04:50:00 Rebollar, CLINT Quiñonezong [facility] CALCIUM LEVEL IONIZED WHOLE BLOOD 2024-03-21 04:50:00 Rebollar, Jordy [facility] COMPLETE BLOOD COUNT 2024-03-21 04:50:00 Rebollar, Khangon g [facility] AUTOMATED DIFFERENTIAL 2024-03-21 04:50:00 Rebollar, Tu latha [facility] BASIC METABOLIC PANEL 2024-03-21 04:50:00 Rebollar, Khango ng [facility] MAGNESIUM LEVEL 2024-03-21 04:50:00 [facility] 2024-03-21 04:50:00 Rebollar, [facility] POC GLUCOSE UNSOLICITED RESULTS 2024-03-20 16:15:00 Sofia Menezes [facility] POC GLUCOSE UNSOLICITED RESULTS 2024-03-20 12:16:00 SolipSofia le [facility] POC GLUCOSE UNSOLICITED RESULTS 2024-03-20 08:07:00 Sofia Menezes [facility] COMPLETE BLOOD COUNT W/DIFF AND PLATELET 2024-03-20 05:57:00 Rebollar, CLINT Jordy [facility] COMPLETE BLOOD COUNT 2024-03-20 05:57:00 Rebollar, CLINT Khangon g [facility] AUTOMATED DIFFERENTIAL 2024-03-20 05:57:00 Rebollar, Khang latha [facility] BASIC METABOLIC PANEL 2024-03-20 05:57:00 Rebollar, Khango ng [facility] Pulmonary Function Testing 2024-03-20 00:00:00 [facility] POC GLUCOSE UNSOLICITED RESULTS 2024-03-19 20:31:00 Sofia Menezes [facility] CT ANGIOGRAM CHEST PULMONARY EMBOLISM 2024-03-19 18:57:00 Kelsie Schroeder [facility] POC GLUCOSE UNSOLICITED RESULTS 2024-03-19 16:26:00 Sofia Menezes [facility] POC GLUCOSE UNSOLICITED RESULTS 2024-03-19 11:42:00 SolipuramSofia Javi [facility] POC GLUCOSE UNSOLICITED RESULTS 2024-03-19 08:27:00 Solipuram, Sofia Lynne [facility] COMPLETE BLOOD COUNT W/DIFF AND PLATELET 2024-03-19 05:07:00 Rebollar, CLINT Spence [facility] AUTOMATED DIFFERENTIAL 2024-03-19 05:07:00 Rebollar, Khang latha [facility] COMPLETE BLOOD COUNT 2024-03-19 05:07:00 Rebollar, Adrienne barriga [facility] REFLEX MAN DIFF AND MORPH - DO NOT ORDER 2024-03-19 05:07:00 Rebollar, CLINT Spence [facility] BASIC METABOLIC PANEL 2024-03-19 05:07:00 Rebollar, Khango ng [facility] POC GLUCOSE UNSOLICITED RESULTS 2024-03-18 15:12:00 SolipuraSofia montilla [facility] XR CHEST 1 VIEW 2024-03-18 14:10:59 Kelsie Schroeder [facility] POC GLUCOSE UNSOLICITED RESULTS 2024-03-18 10:54:00 SolipuramSofia Caldwell [facility] POC GLUCOSE UNSOLICITED RESULTS 2024-03-18 07:03:00 SolipuramSofia Caldwell [facility] BLOOD CULTURE 2024-03-18 06:41:00 EzikeKathy [facility] BLOOD CULTURE 2024-03-18 06:35:00 EzikeKathy [facility] PROCALCITONIN LEVEL 2024-03-18 06:35:00 EzikeKathy [facility] COMPLETE BLOOD COUNT W/DIFF AND PLATELET 2024-03-18 03:40:00 Rebollar, Jordy [facility] CALCIUM LEVEL IONIZED WHOLE BLOOD 2024-03-18 03:40:00 Rebollar, CLINT Spence [facility] TROPONIN I HIGH SENSITIVITY (SINGLE ORDER) 2024-03-18 03:40:00 EzikeKathy [facility] COMPLETE BLOOD COUNT 2024-03-18 03:40:00 Rebollar, Kahngon g [facility] AUTOMATED DIFFERENTIAL 2024-03-18 03:40:00 Rebollar, Tu latha [facility] BASIC METABOLIC PANEL 2024-03-18 03:40:00 Rebollar, Khango ng [facility] MAGNESIUM LEVEL 2024-03-18 03:40:00 [facility]bollar[facility]OS[facility] 2024-03-18 03:40:00 Rebollar, [facility]ordy [facility] LACTIC ACID LEVEL 2024-03-18 03:31:00 Kathy Boo Chi [facility] BLOOD GAS, ARTERIAL 2024-03-18 02:10:00 Giuliana Gomez [facility] POC GLUCOSE UNSOLICITED RESULTS 2024-03-18 00:10:00 SolipSofia le [facility] BLOOD GAS, ARTERIAL 2024-03-17 20:21:00 Solipbrando mSofia [facility] POC GLUCOSE UNSOLICITED RESULTS 2024-03-17 15:23:00 SolipuraSofia montilla [facility] POC GLUCOSE UNSOLICITED RESULTS 2024-03-17 10:54:00 Solipuram, Sofia Lynne [facility] POC GLUCOSE UNSOLICITED RESULTS 2024-03-17 06:59:00 Cynthia Pinto [facility] COMPLETE BLOOD COUNT W/DIFF AND PLATELET 2024-03-17 03:33:00 Rebollar, CLINT Quiñonezong [facility] COMPLETE BLOOD COUNT 2024-03-17 03:33:00 Rebollar, Khangon g [facility] AUTOMATED DIFFERENTIAL 2024-03-17 03:33:00 Rebollar, Tu latha [facility] BASIC METABOLIC PANEL 2024-03-17 03:33:00 Rebollar, Tuo ng [facility] POC GLUCOSE UNSOLICITED RESULTS 2024-03-16 12:01:00 Cynthia Pinto [facility] COMPLETE BLOOD COUNT W/DIFF AND PLATELET 2024-03-16 05:37:00 Rebollar, Jordy [facility] AUTOMATED DIFFERENTIAL 2024-03-16 05:37:00 Rebollar, Tu latha [facility] CALCIUM LEVEL IONIZED WHOLE BLOOD 2024-03-16 05:37:00 Rebollar, Jordy [facility] COMPLETE BLOOD COUNT 2024-03-16 05:37:00 Rebollar, Tuon g [facility] REFLEX MAN DIFF AND MORPH - DO NOT ORDER 2024-03-16 05:37:00 Rebollar, CLINT Spence [facility] BASIC METABOLIC PANEL 2024-03-16 05:37:00 Rebollar CLINT Quiñonezchelita hodge [facility] MAGNESIUM LEVEL 2024-03-16 05:37:[address] [facility] PHOS[facility] 2024-03-16 05:37:00 Rebollar CLINT Spence [facility] POC GLUCOSE UNSOLICITED RESULTS 2024-03-15 15:31:00 Blair Cynthia [facility] POC GLUCOSE UNSOLICITED RESULTS 2024-03-15 12:26:00 Blair [facility] POC GLUCOSE UNSOLICITED RESULTS 2024-03-15 07:17:00 Cynthia Pinto [facility] COMPLETE BLOOD COUNT W/DIFF AND PLATELET 2024-03-15 04:02:00 Rebollar CLINT Spence [facility] COMPLETE BLOOD COUNT 2024-03-15 04:02:00 Rebollar CLINT barriga [facility] AUTOMATED DIFFERENTIAL 2024-03-15 04:02:00 Rebollar CLINT wardg [facility] BASIC METABOLIC PANEL 2024-03-15 04:02:00 RebollarCLINT Khangchelita hodge [facility] BLOOD GAS, ARTERIAL 2024-03-14 16:53:00 Alexandre Luis [facility] BLOOD GAS, ARTERIAL 2024-03-14 15:10:00 Luis [facility]roeder [facility] [facility] CHEST 1 VIEW 2024-03-14 14:34:00 Miranda Boothe [facility] COMPLETE BLOOD COUNT W/DIFF AND PLATELET 2024-03-14 05:56:00 Rebollar CLINT Spence [facility] CALCIUM LEVEL IONIZED WHOLE BLOOD 2024-03-14 05:56:00 Rebollar, CLINT Spence [facility] COMPLETE BLOOD COUNT 2024-03-14 05:56:00 Rebollar, CLINT Quiñonezon g [facility] AUTOMATED DIFFERENTIAL 2024-03-14 05:56:00 Rebollar, Khang latha [facility] BASIC METABOLIC PANEL 2024-03-14 05:56:00 Rebollar, CLINT Quiñonezo ng [facility] MAGNESIUM LEVEL 2024-03-14 05:56:00 Rebollar, Jordy [facility] orial [facility] Epic PHOSPHORUS LEVEL 2024-03-14 05:56:00 RebollarCLINT Me morial [place] Epic Apply condom catheter 2024-03-14 00:00:00 [facility] Epic POC GLUCOSE UNSOLICITED RESULTS 2024-03-13 15:48:00 Cynthia Pinto [facility] Epic POC GLUCOSE UNSOLICITED RESULTS 2024-03-13 11:58:00 PintoCynthia [facility] Epic BLOOD GAS, ARTERIAL 2024-03-13 09:17:00 Luis Schroeder [facility] Epic POC GLUCOSE UNSOLICITED RESULTS 2024-03-13 08:22:00 BlairCynthia [facility] XR CHEST 1 VIEW 2024-03-13 06:22:09 Kelsie [facility] COMPLETE BLOOD COUNT W/DIFF AND PLATELET 2024-03-13 05:58:00 RebollarCLINT [facility] Epic AUTOMATED DIFFERENTIAL 2024-03-13 05:58:00 RebollarCLINT latha [facility] Epic COMPLETE BLOOD COUNT 2024-03-13 05:58:00 RebollarCLINT g [facility] Epic REFLEX MAN DIFF AND MORPH - DO NOT ORDER 2024-03-13 05:58:00 Rebollar, Jrody [facility] Epic BASIC METABOLIC PANEL 2024-03-13 05:58:00 RebollarCLINT ng [facility] BLOOD GAS, ARTERIAL 2024-03-12 20:21:00 Luis Schroeder [facility] BLOOD GAS, ARTERIAL 2024-03-12 16:46:00 Cynthia Pinto [facility] Epic POC GLUCOSE UNSOLICITED RESULTS 2024-03-12 16:07:00 BlairCynthia [facility] Epic POC GLUCOSE UNSOLICITED RESULTS 2024-03-12 12:28:00 BlairCynthia [facility] Epic POC GLUCOSE UNSOLICITED RESULTS 2024-03-12 07:31:00 Blair Cynthia [facility] COMPLETE BLOOD COUNT W/DIFF AND PLATELET 2024-03-12 05:33:00 Rebollar, CLINT Spence [facility] Epic COMPLETE BLOOD COUNT 2024-03-12 05:33:00 Rebollar, Khangon g [facility] Epic AUTOMATED DIFFERENTIAL 2024-03-12 05:33:00 Rebollar, Khang latha [facility] BASIC METABOLIC PANEL 2024-03-12 05:33:00 Rebollar, Khango ng [facility] POC GLUCOSE UNSOLICITED RESULTS 2024-03-11 16:39:00 Cynthia Pinto [facility] POC GLUCOSE UNSOLICITED RESULTS 2024-03-11 12:08:00 Cynthia Pinto [facility] XR CHEST 1 VIEW 2024-03-11 05:53:57 Kelsie Schroeder [facility] COMPLETE BLOOD COUNT W/DIFF AND PLATELET 2024-03-11 04:31:00 Rebollar, CLINT Quiñonezong [facility] CALCIUM LEVEL IONIZED WHOLE BLOOD 2024-03-11 04:31:00 Rebollar, Jordy [facility] COMPLETE BLOOD COUNT 2024-03-11 04:31:00 Rebollar, Khangon g [facility] AUTOMATED DIFFERENTIAL 2024-03-11 04:31:00 Rebollar, Khang latha [facility] BASIC METABOLIC PANEL 2024-03-11 04:31:00 Rebollar, Khango ng [facility] MAGNESIUM LEVEL 2024-03-11 04:31:00 [facility] 2024-03-11 04:31:00 Re[facility]ollar[facility] COMPLETE BLOOD COUNT W/DIFF AND PLATELET 2024-03-10 04:36:00 Rebollar, Jordy [facility] COMPLETE BLOOD COUNT 2024-03-10 04:36:00 He, Reynaldo a [facility] AUTOMATED DIFFERENTIAL 2024-03-10 04:36:00 He, An gauri [facility] BASIC METABOLIC PANEL 2024-03-10 04:36:00 Rebollar, Khango ng [facility] COMPLETE BLOOD COUNT W/DIFF AND PLATELET 2024-03-09 04:38:00 Rebollar, Jordy [facility] CALCIUM LEVEL IONIZED WHOLE BLOOD 2024-03-09 04:38:00 Rebollar, Jordy [facility] COMPLETE BLOOD COUNT 2024-03-09 04:38:00 [facility], [facility]do [facility] 2024-03-09 04:38:00 He, An gauri [facility] BASIC METABOLIC PANEL 2024-03-09 04:38:00 CLINT Rebollaro ng [facility] Epic MAGNESIUM LEVEL 2024-03-09 04:38:00 RebollarCLINT Vitaly orial [place] Epic PHOSPHORUS LEVEL 2024-03-09 04:38:00 [facility] GLUCOSE UNSOLICITED RESULTS 2024-03-08 17:05:00 Cynthia Pinto [facility] Epic POC GLUCOSE UNSOLICITED RESULTS 2024-03-08 11:23:00 Sandi Colin [facility] Epic POC GLUCOSE UNSOLICITED RESULTS 2024-03-08 05:50:00 Sandi Colin [facility] Epic COMPLETE BLOOD COUNT W/DIFF AND PLATELET 2024-03-08 00:39:00 CLINT Rebollar [facility] COMPLETE BLOOD COUNT 2024-03-08 00:39:00 Reynaldo Cutler [facility] AUTOMATED DIFFERENTIAL 2024-03-08 00:39:00 Magda Cutler [facility] BASIC METABOLIC PANEL 2024-03-08 00:39:00 CLINT Rebollar [facility] Epic POC GLUCOSE UNSOLICITED RESULTS 2024-03-07 23:38:00 Sandi Colin [facility] Epic POC GLUCOSE UNSOLICITED RESULTS 2024-03-07 17:57:00 Sandi Colin [facility] RAPID EEG 2024-03-07 13:27:40 Jennifer Cutler [facility] TRANSTHORACIC ECHO (TTE) COMPLETE 2024-03-07 12:54:00 Jennifer Cutler [facility] PHOSPHORUS LEVEL 2024-03-07 11:54:00 Yas Das [facility] Epic POC GLUCOSE UNSOLICITED RESULTS 2024-03-07 11:14:00 Sandi Colin [facility] Epic EXTUBATION 2024-03-07 09:29:57 [facility] 2024-03-07 09:29:01 Yas Das [facility] Epic POC GLUCOSE UNSOLICITED RESULTS 2024-03-07 05:19:00 Sandi Colin [facility] XR CHEST 1 VIEW 2024-03-07 04:54:30 Jennifer Cutler im [facility] COMPLETE BLOOD COUNT W/DIFF AND PLATELET 2024-03-07 00:01:00 RebollarCLINT Jordy [facility] CALCIUM LEVEL IONIZED WHOLE BLOOD 2024-03-07 00:01:00 Rebollar Jordy [facility] COMPLETE BLOOD COUNT 2024-03-07 00:01:00 Reynaldo Cutler a Karim [facility] AUTOMATED DIFFERENTIAL 2024-03-07 00:01:00 HeMagda altmana [facility] BASIC METABOLIC PANEL 2024-03-07 00:01:00 RebollarCLINT ng [facility] MAGNESIUM LEVEL 2024-03-07 00:01:00 RebollarCLINT [facility] PHOSPHORUS L[facility]EL 2024-03-07 00:01:00 RebollarCLINT [facility] BLOOD GAS, ARTERIAL 2024-03-07 00:00:00 Jennifer [facility] POC GLUCOSE UNSOLICITED RESULTS 2024-03-06 23:53:00 Sandi Colin [facility] POC GLUCOSE UNSOLICITED RESULTS 2024-03-06 17:59:00 Sandi Colin [facility] XR CHEST 1 VIEW 2024-03-06 09:20:52 Tiffanie Payne [facility] RESPIRATORY CULTURE W/GRAM STAIN 2024-03-06 08:05:00 Tiffanie Payne [facility] INFLUENZA A/B/RSV PCR 2024-03-06 08:05:00 Michael Colin [facility] POC GLUCOSE UNSOLICITED RESULTS 2024-03-06 04:05:00 Sandi Colin [facility] XR ABDOMEN 1 V FOR PLACEMENT 2024-03-06 02:49:29 [facility] COMPLETE BLOOD COUNT W/DIFF AND PLATELET 2024-03-06 02:41:00 Rebollar, CLINT Jordy [facility] COMPLETE BLOOD COUNT 2024-03-06 02:41:00 Reynaldo [facility] AUTOMATED DIFFERENTIAL 2024-03-06 02:41:00 Magda [facility]a [facility] BASIC METABOLIC PANEL 2024-03-06 02:41:00 RebollarCLINT [facility] LIPID PANEL W/CALCULATED LDL 2024-03-06 02:41:00 He, Jennifer [facility] BLOOD GAS, ARTERIAL 2024-03-06 02:41:00 He, Jennifer [facility] HEMOGLOBIN A1C 2024-03-06 02:41:00 He, Jennifer montilla [facility] BLOOD GAS, ARTERIAL 2024-03-05 22:52:00 He, Jennifer [facility] CT ANGIOGRAM BRAIN NECK 2024-03-05 22:27:33 He, A holly [facility] CT BRAIN WO IV CONTRAST 2024-03-05 22:27:13 He, A holly [facility] ECG 12-LEAD 2024-03-05 21:20:39 He, Jennifer [facility] MRSA BY PCR 2024-03-05 21:18:00 He, Jennifer [facility] CORONAVIRUS (COVID-19) VASILE ICU/ISOLATION 2024-03-05 21:18:00 He, Jennifer [facility] UA WITH MICROSCOPIC NO CULTURE 2024-03-05 21:08:00 He, Jennifer [facility] DRUG SCREEN URINE (10 DRUG) 2024-03-05 21:08:00 He, Jennifer [facility] BLOOD GAS, ARTERIAL 2024-03-05 20:55:00 He, Jennifer [facility] THYROID STIMULATING HORMONE 2024-03-05 20:51:00 He, Jennifer [facility] TYPE AND SCREEN 2024-03-05 20:51:00 He, Jennifer [facility] [place] [place] COMPLETE BLOOD COUNT W/DIFF AND PLATELET 2024-03-05 20:51:00 He, Jennifer [facility] AUTOMATED DIFFERENTIAL 2024-03-05 20:51:00 He, An gauri [facility] CALCIUM LEVEL IONIZED WHOLE BLOOD 2024-03-05 20:51:00 He, Jennifer [facility] TROPONIN I HIGH SENSITIVITY (SINGLE ORDER) 2024-03-05 20:51:00 He, Jennifer [facility] PT AND PTT 2024-03-05 20:51:00 He, [facility] COMPLETE BLOOD COUNT 2024-03-05 20:51:00 HeReynaldo [facility] REFLEX MAN DIFF AND MORPH - DO NOT ORDER 2024-03-05 20:51:00 Eh, Jennifer [facility] BASIC METABOLIC PANEL 2024-03-05 20:51:00 He, Magdai la [facility] HEPATIC FUNCTION PANEL 2024-03-05 20:51:00 He, An gauri [facility] ETHANOL LEVEL 2024-03-05 20:51:00 He, [facility] AMMONIA LEVEL 2024-03-05 20:51:00 He, [facility] LACTIC ACID LEVEL 2024-03-05 20:51:00 He, Jennifer K fangm [facility] MAGNESIUM LEVEL 2024-03-05 20:51:00 He, Jennifer Khris [facility] B-TYPE NATRIURETIC PEPTIDE 2024-03-05 20:51:00 He , [facility] PHOSPHORUS LEVEL 2024-03-05 20:51:00 He, Jennifer Lupe [facility] XR ABDOMEN 1 V FOR PLACEMENT 2024-03-05 20:27:34 He, [facility]ST 1 VIEW 2024-03-05 20:26:43 He, Jennifer Khris [facility] POC GLUCOSE UNSOLICITED RESULTS 2024-03-05 20:08:00 Sandi Colin [facility] Insertion of Endotracheal Airway into Trachea, Via Natural or Artificial Opening 2021-10-03 00:00:00 [id number] [facility] Respiratory Ventilation, Less than 24 Consecutive Hours 2021-10-03 00:00:00 [id number] [facility] Pressurized or nonpressurized inhalation treatment for acute airway obstru [facility] Therapeutic, prophylactic, or diagnostic injection; intravenous push, sing [facility] Chest physiotherapy Method of CPT: Bhumi [facility] Non-Invasive Ventilator - Me [facility] Oxygen Therapy - Patient Type: Adult; Device: Nasal Cannula; Rate in liters per minute: 4 Lpm; Follow Respiratory Pathway: Yes Hui [facility] Plan of Care Planned Activity Planned Date Details Comments Source Encounters Start Date/Time End Date/Time Encounter Type Admission Type Attending [facility] Care Department Encounter ID Source 2022-08-12 08:14:57 Outpatient ELCAMPO E[facility] [id number] [facility] 2022-05-16 09:15:31 Outpatient ELC[facility] [id number] [facility] 2021-12-30 10:33:45 Outpatient ELCAMPO E[facility] [id number] [facility] 2021-11-19 16:55:21 Outpatient ELCAMPO E[facility] [id number] [facility] 2021-10-01 22:22:42 Outpatient MITUL RODRIGUEZ [id number] [facility] [id number] [facility] 2021-10-01 13:35:49 Outpatient ELCAMPO ELCAMPO [id number] [facility] 2024-06-16 05:05:00 2024-06-16 08:10:00 Emergency E BONITADEDLYNN, BARBARA [id number] [facility] [id number] [facility] 2024-06-15 05:03:00 2024-06-15 06:57:00 Emergency E KIERAN ANGUIANO [id number] [facility] ER [id number] [facility] [place] 2024-06-15 05:03:00 2024-06-15 05:03:00 Acute respirator y failure with hypoxia 06/15/2024 SNOMED-CT [id number] 2024-03-05 19:49:00 2024-03-25 20:45:00 Hospital Encounter Sandi Colin, Sofia Padron [facility] [id number] Memluz maria [facility] 2024-03-05 19:49:00 2024-03-25 20:45:00 Inpatient Elective SOFIA MENEZES [facility] General Medicine [id number] ESW 2024-03-07 00:00:00 2024-03-07 06:41:47 Orders Only System, Provider Not In [facility] [id number]24-[facility]-07 15:14:11 2024-03-05 23:59:00 Outpatient MHESW [facility] [id number] [facility] 2024-03-07 06:41:47 2024-03-05 23:59:00 [id number] 2024-03-05 15:21:00 2024-03-05 18:40:00 Emergency E DARREL BARNARD [id number] [facility] ER [id number] [place] [facility] [place] 2022-12-15 15:00:00 2022-12-15 15:00:00 Outpatient JEFF HILL [facility] [id number] [facility] 2022-06-23 15:15:00 2022-06-23 16:19:00 Outpatient HARRIS ALTAMIRANO [id number] [facility] [id number] [facility] 2021-12-27 10:05:00 2021-12-27 13:02:00 Outpatient HARRIS ALTAMIRANO [id number] [facility] [id number] [facility] 2021-10-01 20:20:00 2021-10-03 20:15:00 Inpatient MARKY GERBER [id number] [facility] ICU [id number] [facility] 2016-04-15 04:09:00 2016-04-15 04:09:00 Outpatient Hernestou_P MMG MMG [id number] [facility] Results Test Description Test Time Test Comments Results Result Co mments Source RAPID SARS COV-19 SCREEN 2024-06-16 05:30:00 Rapid CoVid-19 NOT DETECTED NORMAL: NOT DETECTED 00921-6 LOINC [id number] 05:28:00* Test Item Value Reference Range Interpretation Comme nts MAGNESIUM (test code = 40463-7) 1.7 mg/dL 1.9-2.7 L [id number] 05:28:00* Test Item Value Reference Range Interpretation Comme nts BNP (test code = 31869-0) 122 pg/mL 0-100 H Stress test with myocardial [id number] 23:23:12* Test Item Value Reference Range Interpretation Comme nts Stress Protocol Name (test code = 2313333684) LEXISCAN Stress Time in Exercise Phase (test code = 8220379605) 00:01:00 MAX SYSTOLIC BLOOD PRESSURE (test code = 181061364) mmHg MAX DIASTOLIC BLOOD PRESSURE (test code = 432619006) mmHg Stress peak HR (test code = 0758881539) BPM Max Age Predicted HR (test code = 5220569379) BPM Target HR Formula (test code = 8971286725) (220 - Age)*100% Predicted METS (test code = 1422993714) METS Rest Nuclear Isotope Dose (test code = 7712155005) 10 mCi Stress Nuclear Isotope Dose (test code = 1203172146) 30 mCi Stress/rest perfusion ratio (test code = 9540165668) Stress perfusion cavity size (mL) (test code = 3987647671) 90 mL Rest perfusion cavity size (mL) (test code = 9689376579) 66 mL EF (%) (test code = 0345718636) 30 % End diastolic index (mL/m2) (test code = 9060338711) 87 mL/m2 End systolic index (mL/m2) (test code = 8763455710) 61 mL/m2 Radiology Study observation (narrative) (test code = 15108-9) LB (test code = LB) [facility] [id number] 15:47:10* Test Item Value Reference Range Interpretation Comme nts POC Glu (test code = 8812814005) 113 mg/dL 70-99 H POC Glu Comment 1 (test code = 9062800764) Notified RN/MD POC Performing Location (dalia t code = 2534467473) [facility] Lab Interpretation (test cod e = 82710-2) Abnormal [facility] [id number] 12:20:01* Test Item Value Reference Range Interpretation Comme nts POC Glu (test code = 9323132290) 101 mg/dL 70-99 H POC Glu Comment 1 (test code = 3816217695) Notified RN/MD POC Performing Location (dalia t code = 6403696745) [facility] Lab Interpretation (test cod e = 65453-2) Abnormal [facility] [id number] 08:10:18* Test Item Value Reference Range Interpretation Comme nts POC Glu (test code = 9290673422) 96 mg/dL 70-99 POC Glu Comment 1 (test code = 7816431459) Notified RN/MD POC Performing Location (dalia t code = 3287407816) HVI TLMTRY [facility] [id number] 16:10:00* Test Item Value Reference Range Interpretation Comme nts POC Glu (test code = 2179641947) 120 mg/dL 70-99 H POC Glu Comment 1 (test code = 0862075652) Notified RN/MD POC Performing Location (dalia t code = 8455392312) [facility] Lab Interpretation (test cod e = 03383-6) Abnormal [facility] [id number] 12:07:06* Test Item Value Reference Range Interpretation Comme nts POC Glu (test code = 2529714343) 116 mg/dL 70-99 H POC Glu Comment 1 (test code = 4141904718) Notified RN/MD POC Performing Location (dalia t code = 3655381643) [facility] Lab Interpretation (test cod e = 34278-2) Abnormal [facility] [id number] 08:14:38* Test Item Value Reference Range Interpretation Comme nts POC Glu (test code = 1538021930) 165 mg/dL 70-99 H POC Glu Comment 1 (test code = 3533226741) Notified RN/MD POC Performing Location (dalia t code = 3794562714) [facility] Lab Interpretation (test cod e = 28179-9) Abnormal [facility] [id number] 15:59:27* Test Item Value Reference Range Interpretation Comme nts POC Glu (test code = 3244479234) 92 mg/dL 70-99 POC Glu Comment 1 (test code = 8927994265) Notified RN/MD POC Performing Location (dalia t code = 2396980685) CV ICU [facility] [id number] 11:57:40* Test Item Value Reference Range Interpretation Comme nts POC Glu (test code = 5577577021) 129 mg/dL 70-99 H POC Glu Comment 1 (test code = 8529907427) Notified RN/MD POC Performing Location (dalia t code = 3003616732) CV ICU Lab Interpretation (test cod e = 50257-0) Abnormal [facility] [id number] 08:29:06* Test Item Value Reference Range Interpretation Comme nts POC Glu (test code = 0650898223) 110 mg/dL 70-99 H POC Glu Comment 1 (test code = 6033067060) Notified RN/MD POC Performing Location (dalia t code = 2881979386) CV ICU Lab Interpretation (test cod e = 91591-9) Abnormal [facility] [id number] 16:36:21* Test Item Value Reference Range Interpretation Comme nts POC Glu (test code = 7111251457) 109 mg/dL 70-99 H POC Glu Comment 1 (test code = 3914117327) Notified RN/MD POC Performing Location (dalia t code = 2263587779) CV ICU Lab Interpretation (test cod e = 02008-9) Abnormal [facility] BLOOD [id number] 12:00:00* Test Item Value Reference Range Interpretation Comme nts POC Glucose (test code = 2340-8) 103 mg/dL 70-99 A Lab Interpretation (test cod e = 15283-3) Abnormal [facility] [id number] 07:03:13* Test Item Value Reference Range Interpretation Comme nts POC Glu (test code = 4695845357) 107 mg/dL 70-99 H POC Glu Comment 1 (test code = 1322602155) Notified RN/MD POC Performing Location (dalia t code = 3147869100) CV ICU Lab Interpretation (test cod e = 52257-7) Abnormal [facility] [id number] 16:23:31* Test Item Value Reference Range Interpretation Comme nts POC Glu (test code = 6235902024) 124 mg/dL 70-99 H POC Glu Comment 1 (test code = 8164545605) Notified RN/MD POC Performing Location (dalia t code = 1250843550) CV ICU Lab Interpretation (test cod e = 84720-1) Abnormal [facility] [id number] 12:24:58* Test Item Value Reference Range Interpretation Comme nts POC Glu (test code = 7206160484) 152 mg/dL 70-99 H POC Glu Comment 1 (test code = 1475655278) Notified RN/MD POC Performing Location (dalia t code = 9653232838) CV ICU Lab Interpretation (test cod e = 19457-0) Abnormal [facility] [id number] 08:16:34* Test Item Value Reference Range Interpretation Comme nts POC Glu (test code = 3302578387) 103 mg/dL 70-99 H POC Glu Comment 1 (test code = 3525516020) Notified RN/MD POC Performing Location (dalia t code = 0884903898) CV ICU Lab Interpretation (test cod e = 72952-8) Abnormal [facility] Fkhxude2007-34-23 20:41:33* Test Item Value Reference Range Interpretation Comme nts POC Glu (test code = 8104104271) 129 mg/dL 70-99 H POC Glu Comment 1 (test code = 0432496168) Notified RN/MD POC Glu Comment 2 (test code = 9361866481) Cleaned Meter POC Performing Location (dalia t code = 9175746117) CV ICU Lab Interpretation (test cod e = 08011-3) Abnormal [facility] [id number] 17:16:36* Test Item Value Reference Range Interpretation Comme nts POC Glu (test code = 6688018745) 132 mg/dL 70-99 H POC Glu Comment 1 (test code = 4972136995) Notified RN/MD POC Performing Location (dalia t code = 3501552510) CV ICU Lab Interpretation (test cod e = 39265-1) Abnormal [facility] Uythqyj6111-47-08 12:43:31* Test Item Value Reference Range Interpretation Comme nts POC Glu (test code = 6858454269) 168 mg/dL 70-99 H POC Glu Comment 1 (test code = 8396063415) Notified RN/MD POC Performing Location (dalia t code = 5852057875) CV ICU Lab Interpretation (test cod e = 04929-9) Abnormal [facility] [id number] 09:08:10* Test Item Value Reference Range Interpretation Comme nts POC Glu (test code = 6374452454) 104 mg/dL 70-99 H POC Glu Comment 1 (test code = 0805025316) Notified RN/MD POC Performing Location (dalia t code = 2760618831) CV ICU Lab Interpretation (test cod e = 75943-6) Abnormal [facility] Ayqwsww3696-27-91 15:17:21* Test Item Value Reference Range Interpretation Comme nts POC Glu (test code = 6953690335) 307 mg/dL 70-99 H POC Performing Location (dalia t code = 7428915376) CV ICU Lab Interpretation (test cod e = 16590-7) Abnormal [facility] [id number] 10:58:52* Test Item Value Reference Range Interpretation Comme nts POC Glu (test code = 9516028157) 277 mg/dL 70-99 H POC Glu Comment 1 (test code = 6888228661) Notified RN/MD POC Performing Location (dalia t code = 5053049643) CV ICU Lab Interpretation (test cod e = 59562-2) Abnormal [facility] Wnjyprb9212-29-85 07:07:07* Test Item Value Reference Range Interpretation Comme nts POC Glu (test code = 5833623813) 113 mg/dL 70-99 H POC Glu Comment 1 (test code = 7500312668) Notified RN/MD POC Performing Location (dalia t code = 2544295011) CV ICU Lab Interpretation (test cod e = 64853-8) Abnormal [facility] [id number] 00:12:43* Test Item Value Reference Range Interpretation Comme nts POC Glu (test code = 5931318814) 144 mg/dL 70-99 H POC Glu Comment 1 (test code = 5192191052) Notified RN/MD POC Performing Location (dalia t code = 6422315575) [facility] TLMTRY Lab Interpretation (test cod e = 00053-1) Abnormal [facility] Hjdmcnh7598-62-06 15:27:07* Test Item Value Reference Range Interpretation Comme nts POC Glu (test code = 9771393146) 164 mg/dL 70-99 H POC Glu Comment 1 (test code = 0899403223) Notified RN/MD POC Performing Location (dalia t code = 6412646262) CV ICU Lab Interpretation (test cod e = 99926-5) Abnormal [facility] Guuyyrv4064-24-02 10:59:34* Test Item Value Reference Range Interpretation Comme nts POC Glu (test code = 9737002910) 146 mg/dL 70-99 H POC Glu Comment 1 (test code = 9388876196) Notified RN/MD POC Performing Location (dalia t code = 8918796870) HVI TLM[facility] Lab Interpretation (test cod e = 71086-3) Abnormal [facility] Xnqmorq1514-52-33 07:02:50* Test Item Value Reference Range Interpretation Comme nts POC Glu (test code = 4080147625) 137 mg/dL 70-99 H POC Glu Comment 1 (test code = 4798577461) Notified RN/MD POC Performing Location (dalia t code = 6864052151) [facility] TLM[facility] Lab Interpretation (test cod e = 36433-7) Abnormal [facility] Dddgouw4014-72-72 12:10:25* Test Item Value Reference Range Interpretation Comme nts POC Glu (test code = 0423709337) 149 mg/dL 70-99 H POC Glu Comment 1 (test code = 5820025525) Notified RN/MD POC Performing Location (dalia t code = 0448225454) CV ICU Lab Interpretation (test cod e = 12317-2) Abnormal [facility] Ljfyjem7162-13-60 15:33:28* Test Item Value Reference Range Interpretation Comme nts POC Glu (test code = 2659236599) 191 mg/dL 70-99 H POC Glu Comment 1 (test code = 1174678033) Notified RN/MD POC Performing Location (dalia t code = 2051588020) CV ICU Lab Interpretation (test cod e = 60541-9) Abnormal [facility] Eiviatu1806-90-02 12:28:17* Test Item Value Reference Range Interpretation Comme nts POC Glu (test code = 4217948815) 204 mg/dL 70-99 H POC Glu Comment 1 (test code = 0993932092) Notified RN/MD POC Performing Location (dalia t code = 7390090230) [facility] T[facility] Lab Interpretation (test cod e = 64098-6) Abnormal [facility] Rwznfba1434-67-21 07:56:42* Test Item Value Reference Range Interpretation Comme nts POC Glu (test code = 6251535581) 141 mg/dL 70-99 H POC Glu Comment 1 (test code = 0944469061) Notified RN/MD POC Performing Location (dalia t code = 6109313195) CV ICU Lab Interpretation (test cod e = 96220-9) Abnormal [facility] Vnwsoxo9667-86-86 16:32:46* Test Item Value Reference Range Interpretation Comme nts POC Glu (test code = 9948159130) 153 mg/dL 70-99 H POC Glu Comment 1 (test code = 3472548617) Notified RN/MD POC Performing Location (dalia t code = 7325986929) CV ICU Lab Interpretation (test cod e = 09360-8) Abnormal [facility] Dujhadc9265-65-36 12:23:32* Test Item Value Reference Range Interpretation Comme nts POC Glu (test code = 1640659638) 132 mg/dL 70-99 H POC Glu Comment 1 (test code = 1127531154) Notified RN/MD POC Performing Location (dalia t code = 8579854231) CV ICU Lab Interpretation (test cod e = 87520-2) Abnormal [facility] Fwrczwk9120-60-62 08:31:42* Test Item Value Reference Range Interpretation Comme nts POC Glu (test code = 7195345250) 100 mg/dL 70-99 H POC Glu Comment 1 (test code = 8473602680) Notified RN/MD POC Performing Location (dalia t code = 3694762232) CV ICU Lab Interpretation (test cod e = 92537-6) Abnormal [facility] Maprhdy9057-56-57 16:25:31* Test Item Value Reference Range Interpretation Comme nts POC Glu (test code = 6793627080) 154 mg/dL 70-99 H POC Glu Comment 1 (test code = 9752905385) Notified RN/MD POC Performing Location (dalia t code = 8920732499) 6TH FLOOR Lab Interpretation (test cod e = 47581-3) Abnormal [facility] Cunhnlo8564-55-14 12:39:30* Test Item Value Reference Range Interpretation Comme nts POC Glu (test code = 8955798630) 177 mg/dL 70-99 H POC Glu Comment 1 (test code = 1741368250) Notified RN/MD POC Performing Location (dalia t code = 2515678688) 6TH FLOOR Lab Interpretation (test cod e = 76913-6) Abnormal [facility] Zlqftqb2334-75-72 08:07:34* Test Item Value Reference Range Interpretation Comme nts POC Glu (test code = 2704977059) 104 mg/dL 70-99 H POC Glu Comment 1 (test code = 6645750483) Notified RN/MD POC Performing Location (dalia t code = 6040562759) 6TH FLOOR Lab Interpretation (test cod e = 39005-4) Abnormal [facility] Ogvlysh2566-12-88 16:44:59* Test Item Value Reference Range Interpretation Comme nts POC Glu (test code = 2529129717) 153 mg/dL 70-99 H POC Glu Comment 1 (test code = 0379884408) Notified RN/MD POC Performing Location (dalia t code = 5826645338) 6TH FLOOR Lab Interpretation (test cod e = 87527-7) Abnormal [facility] Ddxvjja7672-46-08 12:10:45* Test Item Value Reference Range Interpretation Comme nts POC Glu (test code = 9294145303) 167 mg/dL 70-99 H POC Glu Comment 1 (test code = 7667250860) Notified RN/MD POC Glu Comment 2 (test code = 8567825522) Cleaned Meter POC Performing Location (dalia t code = 1778889210) 6TH FLOOR Lab Interpretation (test cod e = 85229-0) Abnormal [facility] Wjdfirg1703-23-93 17:36:08* Test Item Value Reference Range Interpretation Comme nts POC Glu (test code = 9924142397) 134 mg/dL 70-99 H POC Glu Comment 1 (test code = 3511183105) Notified RN/MD POC Performing Location (dalia t code = 6938359602) NEURO SCI Lab Interpretation (test cod e = 44571-9) Abnormal [facility] Amqmdxp7875-60-44 11:27:00* Test Item Value Reference Range Interpretation Comme nts POC Glu (test code = 2327443417) 106 mg/dL 70-99 H POC Glu Comment 1 (test code = 8136338658) Notified RN/MD POC Performing Location (dalia t code = 1091826078) NEURO SCI Lab Interpretation (test cod e = 94288-6) Abnormal [facility] Mqwuhqx2078-10-24 05:55:50* Test Item Value Reference Range Interpretation Comme nts POC Glu (test code = 1027910866) 136 mg/dL 70-99 H POC Glu Comment 1 (test code = 8695587169) Notified RN/MD POC Performing Location (dalia t code = 5210463941) NEURO SCI Lab Interpretation (test cod e = 43890-2) Abnormal [facility] Eplhtnn1441-39-38 23:59:36* Test Item Value Reference Range Interpretation Comme nts POC Glu (test code = 7110733782) 174 mg/dL 70-99 H POC Glu Comment 1 (test code = 8430571372) Notified RN/MD POC Performing Location (dalia t code = 3769861403) NEURO SCI Lab Interpretation (test cod e = 62630-6) Abnormal [facility] Ebexord2891-26-71 18:13:11* Test Item Value Reference Range Interpretation Comme nts POC Glu (test code = 8343995804) 154 mg/dL 70-99 H POC Glu Comment 1 (test code = 6942838007) Notified RN/MD POC Performing Location (dalia t code = 5381406328) NEURO SCI Lab Interpretation (test cod e = 95649-6) [facility] nipskinj7163-48-30 17:52:24* Test Item Value Reference Range Interpretation Comme nts LA Vol I (A4C) BSA (test code = 8809704247) 13.4 ml/m2 LA Vol I BSA (test code = 9733631551) 16.3 ml/m2 LVOT Vmax/AV Vmax (test code = 3654047376) 0.55 {ratio} Ao Root diam diastole (test code = 7953231941) 32 mm LVOT Vmean (test code = 0866976277) 0.7 m/s LV SV (A4C) (test code = 7968576030) 51.1 ml LV SI (A4C) (test code = 1481936586) 24.7 ml/m2 LVLs (A4C) (test code = 5075868915) 71 mm LVLd (A4C) (test code = 4948667865) 81 mm LV EDV A4C (test code = 2244087439) 91.5 mL LA area A4C (test code = 8836446153) 15 cm2 LA area A2C (test code = 1368115873) 13.4 cm2 LV ESV A4C (test code = 7869705836) 40.5 mL MV max rosa (test code = 6162129695) 1.49 cm/s TAPSE (test code = 9353905422) 25 mm IVC size (test code = 7581733138) 17 mm LA ESV A2C (test code = 1949362410) 33.126261547224987 mL LA ESV A4C (test code = 2327859274) 33.345695875230979 mL MV mn rosa (test code = 3927556746) 0.921 m/s LV est EF (test code = 6541130315) 66 % MV A pk rosa (test code = 6413714933) 1.21 m/s MV PHT (test code = 4217952316) 31 ms MV VTI (test code = 6775929452) 33.3 cm MV E pk rosa (test code = 9088656214) 0.8 m/s MV pk grad (test code = 7215549710) mmHg AV pk grad (test code = 6195366007) mmHg LV stroke vol (test code = 2457027267) 57 ml AV VTI (test code = 4904519656) 31.2 cm AV pk rosa (test code = 9157358897) 1.88 m/s LVOT VTI (test code = 8317883470) 18.3 cm LVOT pk rosa (test code = 5735550098) 1.04 m/s LVOT area (test code = 2241263973) 3.14 cm2 LVOT diam (test code = 1960080909) 20 mm MV DT (test code = 7606137374) 148 ms MV e' lateral rosa (test code = 1603673142) 7.94 cm/s MV E/A ratio (test code = 8605292781) MV area cont eq (test code = 9611201406) 1.73 cm2 MV area PHT (test code = 3430005012) 7.1 cm2 MV mn grad (test code = 7054472054) mmHg LVOT pk grad (test code = 0572896237) mmHg AV mn grad (test code = 2435748428) mmHg MV E/e' septal (test code = 1270439510) AV area pk rosa (test code = 6030549199) 1.74 cm2 AV area cont VTI (test code = 6203312363) 1.84 cm2 LVOT mn grad (test code = 0574666588) mmHg RVIDd (test code = 7073561864) 27 cm LV A4C EF (test code = 0826153378) 56 % AV mn rosa (test code = 1830769340) 1.31 m/s LVPWd (test code = 2902576735) 10 mm LA size (test code = 2849060821) 29 mm IVC prox (test code = 2679496062) 17 cm Fractional Shortening 2D (test code = 1932721843) 36 % LVIDs (test code = 8321176611) 28 mm IVSd (test code = 4134758340) 15 mm LVIDd (test code = 4022852999) 44 mm MV E/e' lateral (test code = 6404460) MV e' septal rosa (test code = 4191721) 6.74 cm/s LV ESV 2D (test code = 2648888) 30.1 mL LV EDV 2D (test code = 6213729) 87.2 mL IVSd 2D (test code = 4019930) 14.768559879948770 cm BSA (test code = 0884927536) 2.07 m2 Radiology Study observation (narrative) (test code = 04599-0) LB (test code = LB) [facility] Wynjqnm7018-88-30 11:29:22* Test Item Value Reference Range Interpretation Comme nts POC Glu (test code = 5724990562) 116 mg/dL 70-99 H POC Glu Comment 1 (test code = 5684994835) Notified RN/MD POC Performing Location (dalia t code = 4526046649) NEURO SCI Lab Interpretation (test cod e = 04911-4) Abnormal [facility] 12 euvo2386-56-05 08:36:58* Test Item Value Reference Range Interpretation Comme nts Ventricular Rate (test code = 3339158834) BPM Atrial Rate (test code = 4884646075) BPM ME Interval (test code = 4958486822) 166 ms QRS Duration (test code = 9965723402) 150 ms QT/QTc (test code = 2694749550) 466 ms QTc Calculation (test code = 8649978066) 492 ms P-[place] (test code = 2211436979) degrees R-[place] (test code = 4930439475) degrees T-[place] (test code = 3832019397) degrees Procedure? (test code = 3480) Y IMP (test code = IMP) PXN (test code = PXN) [facility] Rcgvwdf0983-76-62 05:20:58* Test Item Value Reference Range Interpretation Comme nts POC Glu (test code = 9624914532) 141 mg/dL 70-99 H POC Performing Location (dalia t code = 6972417259) NEURO SCI Lab Interpretation (test cod e = 56080-7) Abnormal [facility] Ukhxjpj7513-38-05 23:58:43* Test Item Value Reference Range Interpretation Comme nts POC Glu (test code = 7242004521) 178 mg/dL 70-99 H POC Glu Comment 1 (test code = 2408491154) Notified RN/MD POC Glu Comment 2 (test code = 7190079181) Cleaned Meter POC Performing Location (dalia t code = 5194551348) NEURO SCI Lab Interpretation (test cod e = 83423-6) Abnormal [facility] Ywhconb6384-03-88 18:06:12* Test Item Value Reference Range Interpretation Comme nts POC Glu (test code = 8436742170) 191 mg/dL 70-99 H POC Glu Comment 1 (test code = 9890811853) Notified RN/MD POC Performing Location (dalia t code = 7534046409) NEURO SCI Lab Interpretation (test cod e = 63697-3) [facility] XNI0541-03-09 15:25:21* Test Item Value Reference Range Interpretation Comme nts Influenza A PCR (test code = 91148-5) Negative Negative Influenza B PCR (test code = 88461-4) Negative Negative RSV PCR (test code = 20160-4) Negative Negative LB (test code = LB) Lab Interpretation (test cod e = 62728-1) Normal [facility] Wwtczxl2562-62-58 04:09:35* Test Item Value Reference Range Interpretation Comme nts POC Glu (test code = 7969191280) 131 mg/dL 70-99 H POC Glu Comment 1 (test code = 8080373741) Notified RN/MD POC Performing Location (dalia t code = 8257329310) NEURO SCI Lab Interpretation (test cod e = 05694-5) Abnormal [facility] Vsyyual5857-20-60 20:10:48* Test Item Value Reference Range Interpretation Comme nts POC Glu (test code = 9055152342) 107 mg/dL 70-99 H POC Glu Comment 1 (test code = 5857277515) Notified RN/MD POC Performing Location (dalia t code = 6763883648) NEURO SCI Lab Interpretation (test cod e = 57505-6) Abnormal [facility] Consult Notes Date/Time Note Provider Source 2024-03-21 12:43:49 Images from the original note were not included. NUTRITION ASSESSMENT - ADULT Consult Reason : Tube Feeding, follow up Nutrition Diagnosis: Nutrition Diagnosis: Inadequate oral intake related to decreased ability to consume sufficient energy as evidenced by requiring enteral nutrition for nutrient and estimated intake less than estimated needs. EVALUATION : Improved Interventions: Small frequent meals Premier Protein BID Nutrition Diet / Supplement / Parenteral / Enteral Orders Dietary Orders (From admission, onward) Start Ordered 03/13/24 1732 Adult Diet Heart Healthy; 1500 ml/day Diet effective now Question Answer Comment Diet type Heart Healthy Fluid Restriction: 1500 ml/day 03/13/24 1732 Adult Tube Feeding (720h ago, onward) Start Ordered 03/14/24 1700 Premier Protein Shake liquid 325 mL (Oral Supplements) 2 times daily 03/14/24 1525 Nutrition Medications This patient does not have an active medication from one of the medication groupers. NUTRITION RISK: Moderate, in 5-7 days Next Date for Nutrition Services Follow Up: 03/29/24 Communication : RN Nutrition Visit Information: 03/21: F/U. Pt w/ other provider during time of visit. Spoke w/ RN. Per RN, pt ate 100% of breakfast and ~50% of lunch today. RN stated pt did not drink ONS this morning. No GI issues at this time. LBM today. Recommend continuing current nutrition plan. Will continue to monitor. (03/14) Pt seen for f/u. Pt unable to communicate clearly, continued to answer "I want to go home to see my ", "we have been 55 years", "I am good, I need to get out of here, I don't need food I need ". Spoke to nurse. Per nurse, pt having diarrhea, no N/V/C/D, eating ok, completing at least half of meals, LBM unknown. Will order ONS and will continue to monitor. (03/07) TF consult, pt is located in ICU7 48. Pt presents with seizures. On room air, NGT+. Phosphorus low, aware. S/p SENIOR NATIONAL ACCOUNT MANAGER eval - recommending AMANDA for now. Pt with COPD and not tolerating secretions. Changed to standard formula. Pt asking for water at visit this AM, seen by SENIOR NATIONAL ACCOUNT MANAGER afterwards. Continue TF as needed, RD to follow. Anthropometrics: Height: 185.4 cm (6' 0.99") Height Method: Estimated Weight: 83 kg (182 lb 15.7 oz) Weight Method: Bed scale Body mass index is 24.15 kg/m?. [place] body weight: 79.9 kg (176 lb 1.7 oz) Adjusted ideal body weight: 81.1 kg (178 lb 13.7 oz) Estimated Nutrition Needs: Weight Used for Equation Calculations: 83 kg (182 lb 15.7 oz) Calculated Energy Needs Using Equations Height: 1.854 m (6' 0.99") Weight Used for Equation Calculations: 83 kg (182 lb 15.7 oz) Energy Equation Used: Rule of thumb (kcal/kg) Energy Lower Range: 22 (kcal/kg) Energy Upper Range: 25 (kcal/day) Energy Needs Lower Range: 1826 kcal/day (kcal/day) Energy Needs Upper Range: 2075 kcal/day Minute Ventilation (L/min): 9.5 L/min Temp: 37.1 ?C (98.7 ?F) Estimated Protein Needs (g/kg) Protein Lower Range: 1.2 (g/kg) Protein Upper Range: 1.5 (g/day) Protein Lower Range: 100 g/day (g/day) Protein Upper Range: 124 g/day Fluid Needs (mL/kg) Fluid Needs: 25 (mL/day) Fluid Needs (Calculated): 2075 mL/day Nutrition Physical Findings per pharmacy technologist: Orientation Level: Oriented X4 O2 Delivery Method: Heated high flow nasal cannula Gastrointestinal (WDL): WDL Abdomen Inspection: Soft Abdominal Tenderness: Soft; Nontender Bowel Sounds: All quadrants Bowel Sounds (All Quadrants): Active Last BM Date: 03/19/24 LUE: Full movement RUE: Full movement LLE: Limited movement; Weakness RLE: Weakness; Limited movement Wound 03/13/24 Irritant Contact Buttock (Active) Nutrition Focused Physical Exam - Muscles and Fat: Assessment of Muscle Status Muscle Status: No deficits noted Basic Information: Admitting diagnosis: Seizure ([facility]) [R56.9] Clinical course: Assessment & Plan Seizure (HCC) COPD (chronic obstructive pulmonary disease) ([facility]) Acute respiratory failure with hypoxia and hypercarbia (CMS/HCC) ([facility]) Non-sustained ventricular tachycardia (HCC) Cardiac arrest ([facility]) Acute rib fractures, anteriorly(bilaterally) Acute respiratory failure with hypercapnia on admission s/p intubation and extubation, with chronic hypercarbia ?? COPD PNA Concerns of flail chest with acute anterior rib fractures anteriorly and hence the possible reason for recurrent hypercapnia. Will continue with Vapotherm, along with bipap as needed-will continue to gradually wean down as tolerable. Discussed with pulmonary service. D/w pulmonary- cv surgery consulted for need of any intervention. Plan to continue with IV diuretics as needed-will continue with bronchodilator, and budesonide nebulizations Remains on IV Solu-Medrol Sputum culture 03/06 Haemophilus influenzae, s/p course of antibiotics Pulmonary following Hypotension, recurrent S/p PEA arrest, on admission H/o Hypertension Nonsustained VT Blood pressure improved and stable on midodrine Entresto remains on hold and Coreg dosage reduced with holding parameters, discussed with cardiology-plan to consider nuclear stress test if feasible prior to his planned discharge, based on his respiratory status. 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 Their is Left ICA moderate stenosis 50-55% and Right ICA <50% EEG showed 0% seizure burden UDS negative, EtOH negative S/p Keppra 4g load, remains on Keppra 1g BID Continue with ASA and statin Mental status continues to improve gradually, will continue to monitor heparin - 5000 units/mL Current Diet: Adult Diet Heart Healthy; 1500 ml/day cvIMU, will continue with PT OT evaluation and discharge planning. Plan for LTAC versus IPR evaluation based on clinical progression over the next few days [facility] Sofia Menezes MD Health Status: No Known Allergies Food Insecurity: Patient Unable To Answer (03/06/2024) Hunger Vital Sign Worried About Running Out of Food in the Last Year: Patient unable to answer Ran Out of Food in the Last Year: Patient unable to answer Review / Management: LABS 72 HRS: Sodium Lvl Date/Time Value Ref Range Status 03/21/2024 04:50 AM 140 136 - 145 mEq/L Final Potassium Lvl Date/Time Value Ref Range Status 03/21/2024 04:50 AM 4.9 (H) 3.4 - 4.5 mEq/L Final Magnesium Date/Time Value Ref Range Status 03/21/2024 04:50 AM 2.24 1.6 - 2.60 mg/dL Final Phosphorus Lvl Date/Time Value Ref Range Status 03/21/2024 04:50 AM 3.8 2.4 - 5.1 mg/dL Final Albumin Lvl Date/Time Value Ref Range Status 03/05/2024 08:51 PM 2.8 (L) 3.4 - 5.0 g/dL Final Glucose Lvl Date/Time Value Ref Range Status 03/21/2024 04:50 AM 125 (H) 70 - 99 mg/dL Final Comment: Adult reference range values reflect the clinical guidelines of the [place] [employer]. POC Glu Date/Time Value Ref Range Status 03/21/2024 06:56 AM 107 (H) 70 - 99 mg/dL Final Hgb A1C Date/Time Value Ref Range Status 03/06/2024 02:41 AM 5.63 (H) <=5.60 % Final Creatinine Lvl Date/Time Value Ref Range Status 03/21/2024 04:50 AM 0.63 (L) 0.7 - 1.30 mg/dL Final BUN Date/Time Value Ref Range Status 03/21/2024 04:50 AM 46 (H) 9 - 23 mg/dL Final Calcium Lvl Date/Time Value Ref Range Status 03/21/2024 04:50 AM 8.9 8.3 - 10.6 mg/dL Final I/O 24 HRS: Intake/Output Summary (Last 24 hours) at 03/21/2024 1246 Last data filed at 03/21/2024 0806 Gross per 24 hour Intake 501 ml Output 200 ml Net 301 ml Unmeasured Stool Occurrence: 1 Monitoring and Evaluation: MONITORING AND EVALUATION: Weight changes, Digestive/abdominal assessment, and Nutrition Intake : PO intake and tolerance GOAL: >75% of estimated needs met: Evaluation : Progressing Cecy Perez MS, RD, LD Spectra x [phone] [facility] 2024-03-21 00:00:00 Associated Order(s): IP CONSULT TO CARDIOTHORACIC SURGERY PATIENT NAME: HARRIS NEAL CONTACT SERIAL NUMBER: [id number] DATE OF CONSULT: 03/21/2024 CV SURGERY CONSULTATION NOTE REASON FOR CONSULT: CV surgery evaluation. CHIEF COMPLAINT: The patient is a 78-year-old male who presents to the hospital with altered mental status. HISTORY OF PRESENT ILLNESS: The patient is a 78-year-old male with a past medical history of epilepsy on Keppra, COPD on home oxygen, history of left PROGRAM SCHEDULE CLERK stroke, hypertension, hyperlipidemia, who was transferred to [facility] from an outside facility for altered mental status and hypoxemia. Before transfer, he was intubated with declining GCS and had a PEA cardiac arrest and achieved ROSC after 15 minutes. He was transferred to our neuro ICU and extubated on February 25. The patient is awake and following commands and denies any chest pain, shortness of breath, fever, chills, nausea, vomiting, diarrhea, or any other complaints at this time. He is a poor historian and is unable to provide details. REVIEW OF SYSTEMS: All negative, except as otherwise stated in the HPI above. PAST MEDICAL HISTORY: Epilepsy on Keppra, COPD on home oxygen, left PROGRAM SCHEDULE CLERK stroke, hypertension, hyperlipidemia. SURGICAL HISTORY: None on file. SOCIAL HISTORY: He has quit smoking. ALLERGIES: No known allergies. MEDICATIONS: Aspirin 81 mg, carvedilol 25 mg, Jardiance 10 mg, Keppra 500 mg tablet, sacubitril-valsartan 97 to 103 mg tablet, meclizine 25 mg tablet. PHYSICAL EXAMINATION: GENERAL APPEARANCE: Appears ill, in no acute distress. HEENT: Normocephalic, atraumatic. LUNGS: Increased work of breathing on high-flow Vapotherm. EXTREMITIES: No obvious defect. NEURO: Alert. SKIN: No suspicious lesions or rash. PSYCH: Cooperative, appears confused, does not respond appropriately to questions. VITALS AND MEASUREMENTS: Blood pressure 128/50, pulse 85, temperature 97.9 degrees Fahrenheit, respiratory rate 19. Height 6 feet, weight 180 pounds, SpO2 95%. PERTINENT IMAGING: CT chest shows no acute fractures involving the anterior cage with no evidence of pneumothorax with clear lungs. Chest x-ray shows some opacities with no osseous structures are unremarkable. ASSESSMENT: Hypoxic respiratory failure on Vapotherm. Cardiac arrest with resuscitation. COPD on home oxygen. Seizures. History of left PROGRAM SCHEDULE CLERK stroke. Hyperlipidemia. Hypertension. PLAN: Mr. Neal was transferred to [facility] from an outside facility for altered mental status and hypoxemia. He is with history of cardiac arrest with resuscitation after 15 minutes and is currently alert and following commands. However, he remains on high-flow Vapotherm with very poor volumes noted on pulmonary function tests. We were consulted for evaluation of possible semi-flail chest. CT and chest x-ray does not show any obvious flail chest with from fractures noted. We will continue to further evaluate to see if any surgical intervention is indicated. Please continue medical management per care team. TIME SPENT: 60 minutes. Dictated by: MORE MERLOS [facility] / ORG [facility] SPRAYER FIRST Hui Iqbal 2024-03-17 14:10:04 Associated Order(s): IP CONSULT TO CASE MANAGEMENT Discharge Planning Received Case Management consult for LTACH placement. [facility] Awaiting on daughter to confirm choice-possibly [facility] who have accepted patient. SPRAYER FIRST Case Management Lighting Director Hui Iqbal 2024-03-14 21:25:31 Reason For Consult Cardiac arrest History Of Present Illness Harris Neal is a 78 y.o. male presenting with hypoxemia, and changes of mental status. He went to cardiac arrest, intubated, now extubated on Vapotherm. He is now alert but poor history. He has PMH of HTN, COPD, seizure as well as stroke. Past Medical History He has no past medical history on file. Surgical History He has no past surgical history on file. Social History He reports that he has quit smoking. He does not have any smokeless tobacco history on file. No history on file for alcohol use and drug use. Allergies Patient has no known allergies. Medications Medications Prior to Admission Medication Sig Dispense Refill Last Dose/Taking aspirin 81 MG chewable tablet Chew 81 mg 1 time each day. Unknown carvedilol (Coreg) 25 MG tablet Take 25 mg by mouth in the morning and 25 mg in the evening. Take with meals. Unknown empagliflozin (Jardiance) 10 MG Take 10 mg by mouth 1 time each day. Unknown levETIRAcetam (Keppra) 500 MG tablet Take 500 mg by mouth 1 time each day. Past Week sacubitril-valsartan (Entresto) 97-103 MG tablet Take 1 tablet by mouth in the morning and 1 tablet in the evening. Unknown meclizine (Antivert) 25 MG tablet Take 12.5 mg by mouth 1 time each day. Unknown Review of Systems 12 systems are reviewed Physical Exam Last Recorded Vitals Blood pressure (!) 146/55, pulse 68, temperature 36.5 ?C (97.7 ?F), resp. rate 18, height 1.854 m (6' 0.99"), weight 80.6 kg (177 lb 12.8 oz), SpO2 95%. Relevant Results Transthoracic echo (TTE) complete Result Date: 03/07/2024 Left Ventricle: Normal systolic function with an estimated EF of 55 - 60%. Grade I diastolic dysfunction of the left ventricle. Not well visualized. Right ventricle size is normal. Normal systolic function in the right ventricle. Not well visualized. Left atrium size is normal. IVC/SVC: IVC diameter is less than or equal to 21 mm and decreases less than 50% during inspiration; therefore the estimated right atrial pressure is intermediate (~8 mmHg). Pericardial effusion present. Assessment & Plan Principal Problem: Seizure (HCC) Active Problems: COPD (chronic obstructive pulmonary disease) ([facility]) Cardiac arrest Although the etiology not know for his cardiac arrest, Will proceed NUC stress test later to rule out ischemic heart disase Will also monitor on Tele [facility] 2024-03-14 15:15:31 NUTRITION ASSESSMENT - ADULT Consult Reason : Tube Feeding, follow up Nutrition Diagnosis: Nutrition Diagnosis: Inadequate oral intake related to decreased ability to consume sufficient energy as evidenced by requiring enteral nutrition for nutrient and estimated intake less than estimated needs. EVALUATION : No Change Interventions: Small frequent meals Premier Protein BID Nutrition Diet / Supplement / Parenteral / Enteral Orders Dietary Orders (From admission, onward) Start Ordered 03/13/24 1732 Adult Diet Heart Healthy; 1500 ml/day Diet effective now Question Answer Comment Diet type Heart Healthy Fluid Restriction: 1500 ml/day 03/13/24 1732 Nutrition Medications This patient does not have an active medication from one of the medication groupers. NUTRITION RISK: Moderate, in 5-7 days Next Date for Nutrition Services Follow Up: 03/21/24 Communication : RN Nutrition Visit Information: (03/14) Pt seen for f/u. Pt unable to communicate clearly, continued to answer "I want to go home to see my ", "we have been 55 years", "I am good, I need to get out of here, I don't need food I need ". Spoke to nurse. Per nurse, pt having diarrhea, no N/V/C/D, eating ok, completing at least half of meals, LBM unknown. Will order ONS and will continue to monitor. (03/07) TF consult, pt is located in ICU7 48. Pt presents with seizures. On room air, NGT+. Phosphorus low, aware. S/p SENIOR NATIONAL ACCOUNT MANAGER eval - recommending AMANDA for now. Pt with COPD and not tolerating secretions. Changed to standard formula. Pt asking for water at visit this AM, seen by SENIOR NATIONAL ACCOUNT MANAGER afterwards. Continue TF as needed, RD to follow. Anthropometrics: Height: 185.4 cm (6' 0.99") Height Method: Estimated Weight: 80.6 kg (177 lb 12.8 oz) Weight Method: Bed scale Body mass index is 23.46 kg/m?. Bradshaw body weight: 79.9 kg (176 lb 1.7 oz) Adjusted ideal body weight: 80.2 kg (176 lb 12.6 oz) Estimated Nutrition Needs: Weight Used for Equation Calculations: 83 kg (182 lb 15.7 oz) Calculated Energy Needs Using Equations Height: 1.854 m (6' 0.99") Weight Used for Equation Calculations: 83 kg (182 lb 15.7 oz) Energy Equation Used: Rule of thumb (kcal/kg) Energy Lower Range: 22 (kcal/kg) Energy Upper Range: 25 (kcal/day) Energy Needs Lower Range: 1826 kcal/day (kcal/day) Energy Needs Upper Range: 2075 kcal/day Minute Ventilation (L/min): 9.5 L/min Temp: 36.6 ?C (97.9 ?F) Estimated Protein Needs (g/kg) Protein Lower Range: 1.2 (g/kg) Protein Upper Range: 1.5 (g/day) Protein Lower Range: 100 g/day (g/day) Protein Upper Range: 124 g/day Fluid Needs (mL/kg) Fluid Needs: 25 (mL/day) Fluid Needs (Calculated): 2075 mL/day Nutrition Physical Findings per pharmacy technologist: Orientation Level: Disoriented to time; Disoriented to situation O2 Delivery Method: Heated high flow nasal cannula Gastrointestinal (WDL): WDL Abdomen Inspection: Soft Abdominal Tenderness: No guarding; Nontender Bowel Sounds: All quadrants Bowel Sounds (All Quadrants): Active Last BM Date: 03/09/24 LUE: Full movement RUE: Full movement LLE: Limited movement RLE: Limited movement Wound 03/13/24 Irritant Contact Buttock (Active) Nutrition Focused Physical Exam - Muscles and Fat: Assessment of Muscle Status Muscle Status: No deficits noted Basic Information: Admitting diagnosis: Seizure (HCC) [R56.9] Clinical course: History Of Present Illness Harris Neal, 78 y.o. male with PMH of Epilepsy on Keppra, COPD on home O2, prior Left PROGRAM SCHEDULE CLERK stroke, HTN, HLD , who presented on 03/05/2024 as a transfer from [facility] with AMS and hypoxia. LSN at 0800 on 03/05/24. Per chart reviewed, Patient presented to ED with AMS, generalized weakness, and hypoxia. Per EMS, Patient was hypoxia with O2 sats in 70s on 3L NC. Patient was also diaphoretic, pale and blue purse lips. He is placed on NRB and transfer to ED. Patient was awake and answer some question en route. In ED, Patient NIHSS was 35 and became altered with GCS of 8. He does not move any extremities. CTH is obtain which was negative for intracranial abnormalities. Patient did not received TNK because of OOW. Per , Patient stopped taking keppra since past one week. Patient was loaded with 4gm of Keppra in ED. Prior to Transfer, Patient GCS decline and is intubated for airway protection. During intubation, He has PEA arrest ROSC achieved in 15 minutes, Patient is transfer to [facility] for HLOC. Upon arrival to NICU, Patient is awake, follow commands, all extremities AG. CTA is obtain which is negative for LVO or aneurysm. Patient is placed on Ceribell which showed 0% seizure burden. Interval Events: 03/05: Remains intubated, awake, following commands, pH and CO2 corrected. Health Status: No Known Allergies Food Insecurity: Patient Unable To Answer (03/06/2024) Hunger Vital Sign Worried About Running Out of Food in the Last Year: Patient unable to answer Ran Out of Food in the Last Year: Patient unable to answer Review / Management: LABS 72 HRS: Sodium Lvl Date/Time Value Ref Range Status 03/14/2024 05:56 AM 141 136 - 145 mEq/L Final Potassium Lvl Date/Time Value Ref Range Status 03/14/2024 05:56 AM 4.5 3.4 - 4.5 mEq/L Final Magnesium Date/Time Value Ref Range Status 03/14/2024 05:56 AM 2.11 1.6 - 2.60 mg/dL Final Phosphorus Lvl Date/Time Value Ref Range Status 03/14/2024 05:56 AM 4.8 2.4 - 5.1 mg/dL Final Albumin Lvl Date/Time Value Ref Range Status 03/05/2024 08:51 PM 2.8 (L) 3.4 - 5.0 g/dL Final Glucose Lvl Date/Time Value Ref Range Status 03/14/2024 05:56 AM 111 (H) 70 - 99 mg/dL Final Comment: Adult reference range values reflect the clinical guidelines of the [place] [employer]. Hgb A1C Date/Time Value Ref Range Status 03/06/2024 02:41 AM 5.63 (H) <=5.60 % Final Creatinine Lvl Date/Time Value Ref Range Status 03/14/2024 05:56 AM 0.75 0.7 - 1.30 mg/dL Final BUN Date/Time Value Ref Range Status 03/14/2024 05:56 AM 32 (H) 9 - 23 mg/dL Final Calcium Lvl Date/Time Value Ref Range Status 03/14/2024 05:56 AM 9.5 8.3 - 10.6 mg/dL Final I/O 24 HRS: Intake/Output Summary (Last 24 hours) at 03/14/2024 1515 Last data filed at 03/14/2024 0859 Gross per 24 hour Intake 150 ml Output 1600 ml Net -1450 ml Unmeasured Stool Occurrence: 0 Monitoring and Evaluation: MONITORING AND EVALUATION: Weight changes, Digestive/abdominal assessment, and Nutrition Intake : PO intake and tolerance GOAL: >75% of estimated needs met: Aneesh Jara, PhD, RD, LD [id number] SPRAYER FIRST Nutrition [facility] 2024-03-14 13:51:25 Reason For Consult To assess for in patient Rehab History Of Present Illness Harris Neal is a 78 y.o. male with PMH of epilepsy on Keppra, COPD on home oxygen, history of left PROGRAM SCHEDULE CLERK stroke, essential hypertension who was admitted on March 05, 2024 as a transfer from an outside facility for altered mental status and hypoxemia. He was intubated at the facility because of declining GCS and had a PEA cardiac arrest and achieved ROSC after 15 minutes. Patient was evaluated by Neurology and a CTH was obtained which was negative for intracranial abnormalities. Patient did not received TNK because of OOW. Per , Patient stopped taking keppra since past one week. Patient was loaded with 4gm of Keppra in ED. Rapid EEG Obtain through [facility] which showed 0% Seizure burden CTA is obtain which is negative for LVO or aneurysm. Patient was seen in consultation by Pulmonology for COPD. Patient is having acute hypoxia and is on vapo therm, CXR with congestive changes and lasix was started. Patient worked with PT,OT and is noted to have decline in functional mobility as compared to the baseline function per the chart review.PMR is consulted to assess for the in patient rehab. PLOF- lived with family per the patient Past Medical History He has no past medical history on file. Surgical History He has no past surgical history on file. Social History He reports that he has quit smoking. He does not have any smokeless tobacco history on file. No history on file for alcohol use and drug use. Allergies Patient has no known allergies. Medications Medications Prior to Admission Medication Sig Dispense Refill Last Dose/Taking aspirin 81 MG chewable tablet Chew 81 mg 1 time each day. Unknown carvedilol (Coreg) 25 MG tablet Take 25 mg by mouth in the morning and 25 mg in the evening. Take with meals. Unknown empagliflozin (Jardiance) 10 MG Take 10 mg by mouth 1 time each day. Unknown levETIRAcetam (Keppra) 500 MG tablet Take 500 mg by mouth 1 time each day. Past Week sacubitril-valsartan (Entresto) 97-103 MG tablet Take 1 tablet by mouth in the morning and 1 tablet in the evening. Unknown meclizine (Antivert) 25 MG tablet Take 12.5 mg by mouth 1 time each day. Unknown Review of Systems Constitutional Symptoms: no fever, no weight loss, no weight gain, no fatigue, no malaise Eyes: no diplopia, blurred vision, no redness, no discharge, no loss of vision Ears, Nose, Mouth, Throat: no dysphagia, no odynophagia, no otalgia, no deafness, no rhinorrhea Cardiovascular: no chest pain, no SOB, no PANDA, no orthopnea, no PND, exercise tolerated, no palpitations Respiratory: same as CVS, no cough, no hemoptysis Gastrointestinal: no NVD, no BPR, no dark stool, no constipation, no abdominal pain, Genitourinary: no dysuria, no frequency, no urgency, no nocturia, no incontinence Musculoskeletal: no arthralgia, no myalgia, no stiffness Integumentary: (skin and/or breast): no rash, no hives, no breast pain, no mass Neurological: no headache, no seizure, no dizziness, no tingling, no numbness Psychiatric: no anxiety, no depression, no insomnia Endocrine: no polyuria, no polydipsia, no fatigue, no weight loss, no weight gain, no cold or heat intolerance, no palpitations Hematologic/Lymphatic: no bleeding, no bruising, no edema Allergic/Immunologic: no rash, no allergies, no fever, no chills Physical Exam Constitutional: Appearance: seen at bedside with the oxygen via Vapo therm HENT: Head: Normocephalic and atraumatic. Nose: Nose normal. Mouth/Throat: Mouth: Mucous membranes are moist. Eyes: Extraocular Movements: Extraocular movements intact. Conjunctiva/sclera: Conjunctivae normal. Cardiovascular: Comments: some cyanosis on the lips Pulmonary: Effort: Pulmonary effort is normal. Comments: On room air Abdominal: General: Abdomen is flat. Palpations: Abdomen is soft. Tenderness: There is no abdominal tenderness. Musculoskeletal: General: No deformity. Normal range of motion. Cervical back: Normal range of motion and neck supple. Neurological: Mental Status: He is alert, follows simple commands Last Recorded Vitals Blood pressure (!) 122/43, pulse 74, temperature 36.6 ?C (97.9 ?F), resp. rate 20, height 1.854 m (6' 0.99"), weight 80.6 kg (177 lb 12.8 oz), SpO2 (!) 86%. Relevant Results FINDINGS: The cardiomediastinal silhouette is normal. There are mild congestive changes bilaterally. No pneumothorax or pleural effusion is identified. The osseous structures are unremarkable. IMPRESSION: Mild congestive changes bilaterally. Assessment & Plan Principal Problem: Seizure (HCC) Active Problems: COPD (chronic obstructive pulmonary disease) ([facility]) Harris Neal is a 78 y.o. male with PMH of epilepsy on Keppra, COPD on home oxygen, history of left PROGRAM SCHEDULE CLERK stroke, essential hypertension who was admitted on March 05, 2024 as a transfer from an outside facility for altered mental status and hypoxemia. He was intubated at the facility because of declining GCS and had a PEA cardiac arrest and achieved ROSC after 15 minutes. Patient was evaluated by Neurology and a CTH was obtained which was negative for intracranial abnormalities. Patient did not received TNK because of OOW. Per , Patient stopped taking keppra since past one week. Patient was loaded with 4gm of Keppra in ED. Rapid EEG Obtain through [facility] which showed 0% Seizure burden CTA is obtain which is negative for LVO or aneurysm. Patient was seen in consultation by Pulmonology for COPD. Patient is having acute hypoxia and is on vapo therm, CXR with congestive changes and lasix was started. Patient worked with PT,OT and is noted to have decline in functional mobility as compared to the baseline function per the chart review.PMR is consulted to assess for the in patient rehab. PLOF- lived with family per the patient Patient worked with PT on 03/11 and was at mod assist with the functional mobility. He is on vapo therm and setting needed to be increased today due to hypoxia. He was alert at the time of my visit and told me he wants to go home soon, he lived with family and they can provide assistance at home. I think he can benefit by short in patient rehab stay once his cardio pulmonary status stabilizes, but if he wishes and insists on going home and has family is available to help at home then home health services can be arranged for him once he is medically ready for discharge. Problem list: Encephalopathy- he is alert , able to follow simple commands but does have insight deficits about the severity of his condition Impaired mobility and ADLS_ need to have recent PT,OT sessions to monitor the progress. Seizures ds- AED per neurology COPD with acute hypoxic respiratory failure - on vapo therm, pulmonology is following Neurocognitive deficits due to anoxia during the PEA - will benefit by speech therapy evaluation to assess for cognitive deficits and work on improvement SPRAYER FIRST Physical Medicine and Rehabilitation Physician Hui Rasheed 2024-03-09 17:15:02 Associated Order(s): IP CONSULT TO PULMONOLOGY Images from the original note were not included. Subjective: 78-year-old gentleman with a known history of epilepsy on Keppra, COPD on home oxygen, history of left PROGRAM SCHEDULE CLERK stroke, essential hypertension, upper lipidemia who was admitted on March 05, 2024 as a transfer from an outside facility for altered mental status and hypoxemia. He was intubated at the facility because of declining GCS and had a PEA cardiac arrest and achieved ROSC after 15 minutes. He was awake and following commands when he arrived to our facility in the neuro ICU. He was extubated on February 25 and downgraded to the neuro IMU. Pulmonary was consulted for consideration for management of his COPD. Upon evaluation of the patient, [facility] and is known to miss some of his medications due to some noncompliance. He denies any particular respiratory complaints but is a poor historian and does not provide details or specific answers to questions. He denies any cough, sputum, hemoptysis at present. Per review of his medical records, he has been nonadherent to oxygen therapy in the past. He has also been intubated in the past for what looks like seizure related issues. Daily Plan: 03/09: I will review current respiratory medications and optimize them. Patient states that he quit smoking in the middle of 2023. I will try to obtain further history when family arrives. PMHx: No past medical history on file. PSHx: No past surgical history on file. FHx: No family history on file. SHx: Social History Tobacco Use Smoking status: Former Meds: No current facility-administered medications on file prior to encounter. Current Outpatient Medications on File Prior to Encounter Medication Sig Dispense Refill aspirin 81 MG chewable tablet Chew 81 mg 1 time each day. carvedilol (Coreg) 25 MG tablet Take 25 mg by mouth in the morning and 25 mg in the evening. Take with meals. empagliflozin (Jardiance) 10 MG Take 10 mg by mouth 1 time each day. levETIRAcetam (Keppra) 500 MG tablet Take 500 mg by mouth 1 time each day. sacubitril-valsartan (Entresto) 97-103 MG tablet Take 1 tablet by mouth in the morning and 1 tablet in the evening. meclizine (Antivert) 25 MG tablet Take 12.5 mg by mouth 1 time each day. Allerg: No Known Allergies Objective: Labs and Vitals: Results from last 7 days Lab Units 03/09/24 0438 03/06/24 0241 03/05/24 2051 SODIUM mEq/L 144 < > 142 POTASSIUM mEq/L 4.8* < > 5.5* CHLORIDE mEq/L 101 < > 107 CO2 mEq/L 39.7* < > 25.0 BUN mg/dL 30* < > 35* CREATININE mg/dL 0.81 < > 1.11 CALCIUM mg/dL 9.3 < > 8.2* PROTEIN TOTAL g/dL -- -- 6.3 BILIRUBIN TOTAL mg/dL -- -- 0.40 ALK PHOS U/L -- -- 66 ALT U/L -- -- 12 AST U/L -- -- 21 GLUCOSE mg/dL 85 < > 156* POC GLUCOSE -- < > -- < > = values in this interval not displayed. Results from last 7 days Lab Units 03/09/24 0438 WBC 10*3/uL 14.18* HEMOGLOBIN g/dL 14.9 HEMATOCRIT % 50.8 PLATELETS 10*3/uL 195 Vitals: 03/09/24 1120 03/09/24 1535 03/09/24 1536 03/09/24 1536 BP: (!) 172/67 Pulse: 64 65 Resp: 20 18 Temp: 36.8 ?C (98.2 ?F) SpO2: 99% 96% ROS: Per the HPI or daily summary Gen'l: Patient lying in bed, in no acute distress Neur: Awake, alert, oriented x 3 with no focal deficits H&N: No obvious JVD, no thyromegaly, no oral thrush Back: No acute deformities Card: No rubs, no gallops and no obvious murmurs L: Good air entry bilaterally with diminished breath sounds in the bilateral bases; no wheezes or rales Abd: Soft, nontender, no gross adenopathy; bowel sounds present Ext: No pitting edema; no obvious cyanosis MSK: Able to move all extremities A/P: 1. History of COPD with documented history of noncompliance to prior oxygen therapy Concern for pneumonia Patient currently on 3 L nasal cannula and will wean as tolerated Review current medications and optimize respiratory meds (currently on budesonide 1 mg twice a day inhaled, DuoNeb nebulizer every 4 hours, will change to 3 times a day) Continue current IV antibiotic, I changed the ceftriaxone to 2 g 2. History of seizure disorder with noncompliance to medications History of prior CVA Patient may have some cognitive deficits from his recent cardiac arrest Continue antiepileptics and aspirin and statin Case was discussed with the patient in detail and all questions were answered; discussed with the RN. [facility] 2024-03-08 13:51:05 Spiritual Care Subjective Technology Program Manager available for follow up as needed Ext. [id number] Reason For Visit Care Recipient: Patient not available Time spent: (5) Interventions Relationship Building Interventions: Left written note for care recipient Ritual Interventions: Provided prayer Plan Follow-up: No follow-up warranted at this time [facility] Pastoral Care [facility] 2024-03-07 13:22:01 Associated Order(s): IP CONSULT TO NUTRITION SERVICES NUTRITION ASSESSMENT - ADULT Consult Reason : Tube Feeding Nutrition Diagnosis: Nutrition Diagnosis: Inadequate oral intake related to decreased ability to consume sufficient energy as evidenced by requiring enteral nutrition for nutrient. Interventions: Isosource HN @ 65 ml/hr with 30Q4 FWF. Provides: 1872 kcals, 84 g protein, 1440 ml water (formula + flushes) per day Diet as able per SENIOR NATIONAL ACCOUNT MANAGER Nutrition Diet / Supplement / Parenteral / Enteral Orders Dietary Orders (From admission, onward) Start Ordered 03/05/241956 NPO Diet Diet effective now 03/05/242000 Adult Tube Feeding (720h ago, onward) Start Ordered 03/07/24 1330 Isosource HN liquid (Adult Tube Feeding) Continuous 03/07/24 1324 03/07/24 1330 Enteral Free water Flush 30 mL (Adult Tube Feeding) Every 4 hours 03/07/24 1324 Nutrition Medications This patient does not have an active medication from one of the medication groupers. NUTRITION RISK: Moderate, in 5-7 days Next Date for Nutrition Services Follow Up: 03/14/24 Communication : RN Nutrition Visit Information: (03/07) TF consult, pt is located in ICU7 48. Pt presents with seizures. On room air, NGT+. Phosphorus low, MD aware. S/p SENIOR NATIONAL ACCOUNT MANAGER eval - recommending AMANDA for now. Pt with COPD and not tolerating secretions. Changed to standard formula. Pt asking for water at visit this AM, seen by SENIOR NATIONAL ACCOUNT MANAGER afterwards. Continue TF as needed, RD to follow. Anthropometrics: Height: 185.4 cm (6' 0.99") Height Method: Estimated Weight: 83.4 kg (183 lb 13.8 oz) Body mass index is 24.26 kg/m?. Bradshaw body weight: 79.9 kg (176 lb 1.7 oz) Adjusted ideal body weight: 81.3 kg (179 lb 3.4 oz) Estimated Nutrition Needs: Weight Used for Equation Calculations: 83 kg (182 lb 15.7 oz) Calculated Energy Needs Using Equations Height: 1.854 m (6' 0.99") Weight Used for Equation Calculations: 83 kg (182 lb 15.7 oz) Energy Equation Used: Rule of thumb (kcal/kg) Energy Lower Range: 22 (kcal/kg) Energy Upper Range: 25 (kcal/day) Energy Needs Lower Range: 1826 kcal/day (kcal/day) Energy Needs Upper Range: 2075 kcal/day Minute Ventilation (L/min): 9.5 L/min Temp: 37.6 ?C (99.7 ?F) Estimated Protein Needs (g/kg) Protein Lower Range: 1.2 (g/kg) Protein Upper Range: 1.5 (g/day) Protein Lower Range: 100 g/day (g/day) Protein Upper Range: 124 g/day Fluid Needs (mL/kg) Fluid Needs: 25 (mL/day) Fluid Needs (Calculated): 2075 mL/day Nutrition Physical Findings per pharmacy technologist: Orientation Level: Disoriented to time O2 Delivery Method: Endotracheal tube Gastrointestinal (WDL): X Abdomen Inspection: Soft Abdominal Tenderness: Soft; Nontender Bowel Sounds: All quadrants Bowel Sounds (All Quadrants): Active LUE: Full movement RUE: Full movement LLE: Full movement RLE: Full movement Gastric Tube 03/05/24 Nasogastric Left nostril (Active) Nutrition Focused Physical Exam - Muscles and Fat: Assessment of Muscle Status Muscle Status: No deficits noted Basic Information: Admitting diagnosis: Seizure (HCC) [R56.9] Clinical course: History Of Present Illness Harris Neal, 78 y.o. male with PMH of Epilepsy on Keppra, COPD on home O2, prior Left PROGRAM SCHEDULE CLERK stroke, HTN, HLD , who presented on 03/05/2024 as a transfer from [facility] with AMS and hypoxia. LSN at 0800 on 03/05/24. Per chart reviewed, Patient presented to ED with AMS, generalized weakness, and hypoxia. Per EMS, Patient was hypoxia with O2 sats in 70s on 3L NC. Patient was also diaphoretic, pale and blue purse lips. He is placed on NRB and transfer to ED. Patient was awake and answer some question en route. In ED, Patient NIHSS was 35 and became altered with GCS of 8. He does not move any extremities. CTH is obtain which was negative for intracranial abnormalities. Patient did not received TNK because of OOW. Per , Patient stopped taking keppra since past one week. Patient was loaded with 4gm of Keppra in ED. Prior to Transfer, Patient GCS decline and is intubated for airway protection. During intubation, He has PEA arrest ROSC achieved in 15 minutes, Patient is transfer to [facility] for HLOC. Upon arrival to NICU, Patient is awake, follow commands, all extremities AG. CTA is obtain which is negative for LVO or aneurysm. Patient is placed on Ceribell which showed 0% seizure burden. Interval Events: 03/05: Remains intubated, awake, following commands, pH and CO2 corrected. Health Status: No Known Allergies Food Insecurity: Patient Unable To Answer (03/06/2024) Hunger Vital Sign Worried About Running Out of Food in the Last Year: Patient unable to answer Ran Out of Food in the Last Year: Patient unable to answer Review / Management: LABS 72 HRS: Sodium Lvl Date/Time Value Ref Range Status 03/07/2024 12:01 AM 144 136 - 145 mEq/L Final Potassium Lvl Date/Time Value Ref Range Status 03/07/2024 12:01 AM 3.7 3.4 - 4.5 mEq/L Final Magnesium Date/Time Value Ref Range Status 03/07/2024 12:01 AM 2.34 1.6 - 2.60 mg/dL Final Phosphorus Lvl Date/Time Value Ref Range Status 03/07/2024 11:54 AM 3.7 2.4 - 5.1 mg/dL Final Albumin Lvl Date/Time Value Ref Range Status 03/05/2024 08:51 PM 2.8 (L) 3.4 - 5.0 g/dL Final Glucose Lvl Date/Time Value Ref Range Status 03/07/2024 12:01 AM 205 (H) 70 - 99 mg/dL Final Comment: Adult reference range values reflect the clinical guidelines of the [place] [employer]. This result was previously suppressed from the chart. POC Glu Date/Time Value Ref Range Status 03/07/2024 11:14 AM 116 (H) 70 - 99 mg/dL Final Hgb A1C Date/Time Value Ref Range Status 03/06/2024 02:41 AM 5.63 (H) <=5.60 % Final Creatinine Lvl Date/Time Value Ref Range Status 03/07/2024 12:01 AM 0.94 0.7 - 1.30 mg/dL Final BUN Date/Time Value Ref Range Status 03/07/2024 12:01 AM 37 (H) 9 - 23 mg/dL Final Calcium Lvl Date/Time Value Ref Range Status 03/07/2024 12:01 AM 8.5 8.3 - 10.6 mg/dL Final I/O 24 HRS: Intake/Output Summary (Last 24 hours) at 03/07/2024 1326 Last data filed at 03/07/2024 0600 Gross per 24 hour Intake 1816 ml Output 1255 ml Net 561 ml Monitoring and Evaluation: MONITORING AND EVALUATION: Weight changes, Digestive/abdominal assessment, and Nutrition Intake : EN intake and tolerance GOAL: >75% of estimated needs met: Monique De La Fuente MS, RDN, [facility] Spectra: [phone] Office: [phone] SPRAYER FIRST SPRAYER FIRST Nutrition [facility] History and Physical Notes Date/Time Note Provider Source 2024-03-05 21:14:08 Neurocritical Care History and Physical Note History Of Present Illness Harris Neal, 78 y.o. male with PMH of Epilepsy on Keppra, COPD on home O2, prior Left PROGRAM SCHEDULE CLERK stroke, HTN, HLD , who presented on 03/05/2024 as a transfer from [facility] with AMS and hypoxia. LSN at 0800 on 03/05/24. Per chart reviewed, Patient presented to ED with AMS, generalized weakness, and hypoxia. Per EMS, Patient was hypoxia with O2 sats in 70s on 3L NC. Patient was also diaphoretic, pale and blue purse lips. He is placed on NRB and transfer to ED. Patient was awake and answer some question en route. In ED, Patient NIHSS was 35 and became altered with GCS of 8. He does not move any extremities. CTH is obtain which was negative for intracranial abnormalities. Patient did not received TNK because of OOW. Per , Patient stopped taking keppra since past one week. Patient was loaded with 4gm of Keppra in ED. Prior to Transfer, Patient GCS decline and is intubated for airway protection. During intubation, He has PEA arrest ROSC achieved in 15 minutes, Patient is transfer to [facility] for HLOC. Upon arrival to NICU, Patient is awake, follow commands, all extremities AG. CTA is obtain which is negative for LVO or aneurysm. Patient is placed on Ceribell which showed 0% seizure burden. Interval Events: Past Medical History has no past medical history on file. Surgical History has no past surgical history on file. Family History No family history on file. Social History Social History Tobacco Use Smoking status: Former Allergies Patient has no allergy information on record. Home Medications No medications prior to admission. Review of Systems Unable to evaluate given clinical examination Physical Exam pre-admit mRS: Unable to evaluate given pt's current clinical condition and unable to contact NOK for further details. NIH STROKE SCALE SCORE ON ADMISSION 1a. 1a. LOC Level of Consciousness; 0-Alert 1-Drowsy 2-Stupor 3-Coma 1b. LOC Questions Month and age; 0-both 1-One 2-Neither 1c. LOC Commands Open/close eyes, Barytes Grinder/release non-paretic hand; 0-Both 1-One 2-Neither 2. Best Gaze; 0-Normal 1-Partial 2-Forced gaze 3. Visual [place]; 0-No visual loss. 1-Partial hemianopia 2-Complete 3-Bilateral 4. Facial Palsy; 0-None 1-Minor 2-Partial 3-Complete 5. Motor - R arm; 0-No drift 1-Drift 2-Some antigravity 3-No antigravity 4-No movement 1 6. Motor - R leg; 0-No drift 1-Drift 2-Some antigravity 3-No antigravity 4-No movement 1 7. Motor - L arm; 0-No drift 1-Drift 2-Some antigravity 3-No antigravity 4-No movement 1 8. Motor - L leg; 0-No drift 1-Drift 2-Some antigravity 3-No antigravity 4-No movement 9. Limb Ataxia; 0-Absent 1-1limb 2-2 limbs 10. Sensory; 0-Normal 1-Partial loss 2-Dense loss 11. Best Language; 0-Normal 1-Mild/mod 2-Severe 3-Mute 12. Dysarthria; 0-Normal 1-Mild/mod 2-Severe X-Untestable 13. Extinction and Inattention (formerly Neglect); 0-none 1-Partial 2-complete 3 TOTAL SCORE Further clinical exam documented under Impression and Plan by systems. ASSESSMENT AND PLAN Harris Neal, 78 y.o. male with PMH of Epilepsy on Keppra, COPD on home O2, prior Left PROGRAM SCHEDULE CLERK stroke, HTN, HLD , who presented on 03/05/2024 as a transfer from [facility] s/p PEA arrest, AMS, and multiple seizure. NEUROLOGIC Seizure on admission, Loss of consciousness unk duration (S06.0X9) on admission, Encephalopathy unspecified (G93.40) on admission Neuro Exam: GCS: E4 Eyes open spontaneously, V1 Intubated, M6 Follows commands MS: Intubated, Awake and alert, follow commands, tracking, answer by nodding and suing mouth words. CN: L pupil 3, R pupil 3, reactive Motor: RUE AG 5/5, RLE AG 4/5 drift, LUE AG 5/5 with drift, LLE AG 4/5 with drift Sensory: intact to light touch initial CTH at OSH negative for intracranial abnormalities Repeated CTH at 2227 on 03/05 negative for acute infarction. 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 Their is Left ICA moderate stenosis 50-55% and Right ICA <50%. Rapid EEG Obtain through [facility] which showed 0% Seizure burden. The [facility] ClarityPro algorithm provide analysis of underlying activity and seizure detection. UDS ordered, EtOH negative s/p AED Keppra 4gm Loead at OSH Keppra 1.5 gm Q12 started S/p ASA load at OSH Aspirin 81mg daily started PT/OT/SENIOR NATIONAL ACCOUNT MANAGER as indicated CARDIOVASCULAR S/p PEA arrest, on admission Hypotension, on admission H/o Hypertension CV Exam: RRR Temp: [34.4 ?C (94 ?F)] 34.4 ?C (94 ?F) Heart Rate: [64] 64 Resp: [22] 22 BP: (86)/(56) 86/56 FiO2 (%): [80 %] 80 % VS Parameters: SBP<160 Trop negative EKG NSR with PAC and RBBB No CVC, L radial a-line (03/05) PULMONARY Acute resp failure with hypercapnia (J96.02) on admission, Ventilator (Z99.11) on admission day, COPD unspecified (J44.9) on admission Pulm Exam: CTAB ABG 7.17/73/217/99.6 Chest x-ray showed pulmonary venous congestion Results from last 7 days Lab Units 03/05/24 2252 PH ART 7.31* PCO2 ART mmHg 56* PO2 ART mmHg 156* HCO3 ART mmol/L 28.2* O2 SAT ART % 99.2 BASE EXC ART mmol/L 1 FiO2 (%): [80 %] 80 % S RR: [20] 20 S VT: [450 mL] 450 mL PEEP/CPAP (cm H2O): [5 cm H2O] 5 cm H2O MAP (cm H2O): [15] 15 intubated on admit Vent Settings: 20/450/80%5 CXR ETT in placed VAP bundle GASTROINTESTINAL GI Exam: soft, non-distended, present bowl sounds Nutrition: Current Order: NPO Diet GI route: NGT/Cortrak GI ppx: Pepcid q12h/BID bowel regimen: docusate, senna q12h, docusate, senna, miralax q12h last BM HEATER FURNACE Lab Results Component Value Date ALT 13 11/06/2022 AST 17 11/06/2022 Alkaline Phosphatase 55 11/06/2022 Bilirubin Total 0.8 11/06/2022 RENAL Hyperkalemia (E87.5) on admission No intake or output data in the 24 hours ending 03/05/242114 No lab exists for component: "LABGLOM" LA 2.04 ICU electrolyte replacement protocol NS 50 ml/hr while NPO S/p NS 500cc bolus for low urine out put levine in place INFECTIOUS DISEASE No data recorded. UA ordered COVID ordered Monitor trend fever curve and WBC no ABX indicated HEMATOLOGIC Results from last 7 days Lab Units 03/05/242050 HEMOGLOBIN g/dL 14.3 PLATELETS 10*3/uL 277 PLATELETS ESTIMATED Normal INR 1.04 PTT Seconds 29.8 DVT ppx: SCDs; ENDOCRINE Hyperlipidemia unspecified (E78.5) on admission Results from last 7 days Lab Units 03/05/242007 POC GLUCOSE mg/dL 107* BG goal 80-180 medium-dose ISS MUSCULOSKELETAL AND INTEGUMENTARY Skin Exam: warm, dry, intact Code Status: No Order Disposition: keep in ICU as pt remains in critical state The patient has an illness or injury that has acutely impaired one or more vital organ systems. There is a high probability of imminent or life threatening deterioration in the patient's condition during this evaluation. This is the total time spent evaluating the patient, speaking with medical staff and family, interpreting studies, discussing the case with consultants and admitting teams, retrieving data and reviewing charts, documenting the visit, and performing bundled procedures required during patient management. Minutes Critical Care Time Day MD Day VIN - ( ) Day Total Night MD 70 Night VIN - (Jennifer Cutler NP) 70 Night Total 70 TOTAL of Critical Care Time spent - Neurocritical Care ICU Ph #[phone], Neurology Consult Ph #[phone] Cosigned by Sandi Colin MD at 03/06/2024 12:29 PM HEEL SPRAYER FIRST SPRAYER FIRST SPRAYER FIRST [facility] Procedure Notes Date/Time Note Provider Source 2024-03-07 13:27:40 Associated Order(s): RAPID EEG Ceribell Rapid EEG Report: Time:10:37 PM on 03/05/24 to 1:10 AM on 03/06/24 This is a 2.5 hour limited montage Ceribell Rapid EEG. It shows evidence of a diffuse encephalopathy. No electroclinical seizures or status epilepticus were captured. It should be noted that precise localization of activity is not possible with limited montage EEGs and abnormalities in brain regions not covered by this recording may be missed. Follow-on conventional senior care video-EEG is not necessary. Artifact: some Type of artifact affecting report quality if any: suspected myogenic and movement artifacts Accuracy of Clarity conclusion: Accurate Ami Clark MD Clinical Neurophysiology Fellow Attending Attestation: I reviewed the Ceribell EEG with the fellow. I agree with the report. Anneliese Yeboah MD Pharmacy Informatics Manager of Neurology, Epilepsy Division SPRAYER FIRST SPRAYER FIRST Neurology Physician Hui Iqbal 2024-03-06 01:11:03 Ultrasound-Guided Arterial Line Insertion Procedure Note Date and Time: 03/06/24 1:11 AM Time Out: Patient identified, correct procedure, side, safety procedures followed. Performed by: Jennifer Cutler NP Informed consent: Consented by: Emergent consent. All risks/benefits/alternatives reviewed to include bleeding, infection, damage to vessels and/or nerves. Indication: need for frequent arterial blood gas monitoring, need for intra-arterial pressure monitoring. Preparation: Left radial artery was prep in a sterile fashion with 2% chlorhexidine gluconate, sterile towels/drape, gloves, hat, and mask), local anesthetic of lidocaine 1ml administered. Technique: catheter length 1.75 inches, 20 gauge angiocath inserted through skin puncture, Seldinger technique used, location confirmed via flashback, needle advanced, pressure applied to proximal end of catheter, needle removed, luer locked T-connector attached, total of 1 attempt(s) of Left radial artery, then an occlusive transparent dressing applied. Confirmation of location: by transducer. Procedure tolerated: Well. Complications: None. ICD-10 DX: Acute hypoxic respiratory failure (J96.01) Billing Code: [id number], [id number] [facility] Hui Iqbal Notes Date/Time Note Provider Source AIMEE [id number] 08:12:13 No Data Found AIMEE [id number] 08:12:13 No Data Found AIMEE [id number] 08:12:13 AIMEE [id number] 07:55:32 You had the following problems:PNEUMONIAHYPOXIATACHYPNEAEMPHYSEMADIZZINESSUNABLE TO TAKE MEDICATIONACUTE ON CHRONIC CONGESTIVE HEART FAILUREACUTE HYPONATREMIAEKG ABNORMALITYURIBRONCHITISACUTE HEART FAILUREWEAKNESS - GENERALHYPERTENSIONHIGH CHOLESTEROLMYOCARDIAL INFARCTACUTE CONFUSIONMEDICATION NON-COMPLIANCEEPILEPTIC SEIZUREPOSTICTAL STATEAMS TINO [id number] 07:55:32 No Data Found TINO [id number] 07:55:32 No Data Found TINO [id number] 07:55:32 TINO [id number] 20:48:20* Consultation (Routine) - Pending Review Specialty Diagnoses / Procedures Referred By Rosa burch Referred To Contact Pulmonary Disease / Pulmonology Diagnoses Acute respiratory failure with hypoxia and hypercarbia (CMS/HCC) (HCC) Chronic bronchitis, unspecified chronic bronchitis type (HCC) Procedures ME OFFICE/OUTPATIENT NEW HIGH MDM [place] [address] [place] [address] Phone: tel: fax: Kelsie Schroeder MD [address] [place] [address] Phone: tel: fax: Referral ID Status Reason Start Date Expiration Date Visits Requested Visits Authorized [id number] Pending Review Specialty Services Required 03/25/2024 09/21/2024 1 1 SPRAYER FIRST [id number] 20:48:20* Auth/Cert (Routine) Specialty Diagnoses / Procedures Referred By Rosa burch Referred To Contact Diagnoses Seizure (HCC) CVA Procedures ME [address] [place] [address] IP/OBS CARE SF/LOW MDM 40 MINUTES pending pcs Sandi Colin MD [address] [facility] [address] [place] [address] Phone: tel: fax: [facility] (7 Neuroscience ICU) [address] [place] [address] Phone: tel: Referral ID Status Reason Start Date Expiration Date Visits Re quested Visits Authorized [id number] 1 1 [id number] 20:48:20* Audit-C Score Answer Date of Assessment Author -1 03/05/2024 10:42 PM HEEL SPRAYER FIRST Mariana Darnell RN * Intimate Partner Violence Question Answer Date of Assessment Author Within the last year, have you been humiliated or emotionally abused in other ways by your partner or ex-partner? Patient unable to answer 03/05/2024 10:42 PM Mariana Dupont RN Within the last year, have you been afraid of your partner or ex-partner? Patient unable to answer 03/05/2024 10:42 PM HEEL SPRAYER FIRST Mariana Giles RN Within the last year, have you been raped or forced to have any kind of sexual activity by your partner or ex-partner? Patient unable to answer 03/05/2024 10:42 PM Mariana Dupont RN Within the last year, have you been kicked, hit, slapped, or otherwise physically hurt by your partner or ex-partner? Patient unable to answer 03/05/2024 10:42 PM HEEL SPRAYER FIRST Mariana Giles RN * * Calculated C-SSRS Risk Score (Lifetime/Recent) Answer Date of Assessment Author No Risk Indicated 03/10/2024 8:00 AM HEEL SPRAYER FIRST Imani Medeiros RN * [place] Suicide Severity Rating Scale (Screener/Recent Self-Report) Question Answer Date of Assessment Author 1. Wish to be (Past 1 Month) No 025 8:00 AM Imani An RN 2. Non-Specific Active Suici james Thoughts (Past 1 Month) No 03/10/2024 8:00 AM HEEL SPRAYER FIRST Mariola Medeiros RN 6. Suicidal Behavior (Lifetime) No 5 8:00 AM HEEL SPRAYER FIRST Imani Medeiros RN [place] [id number] 20:48:20* Gonzalez Foster MD - 03/25/2024 5:29 PM HEEL SPRAYER FIRST Subjective Overnight no chest pain Tele, sinus Breathing better NUC stress test only showed small inferior reversible ischemia I do not believe it is the cause of his cardiac arrest Will treat medically ObjectiveLast Recorded Vitals Blood pressure 112/63, pulse 79, temperature 36.8 ?C (98.3 ?F), resp. rate 18, height 1.854 m (6' 0.99"), weight 80.7 kg (178 lb), SpO2 97%. Physical Exam: Assessment & Plan Seizure (HCC) COPD (chronic obstructive pulmonary disease) (HCC) Acute respiratory failure with hypoxia and hypercarbia (CMS/HCC) (HCC) Non-sustained ventricular tachycardia (HCC) Cardiac arrest (HCC) Current Diet: Adult Diet Heart Healthy; 1500 ml/day SPRAYER FIRST * Sofia Menezes MD - 03/25/2024 4:34 PM HEEL SPRAYER FIRST [facility] Subjective Patient was seen and examined at bedside, remains on NC 2-3l at present with stable oxygenation. Blood pressure continues to remain stable Appears more awake and alert now, with intermittent confusion and baseline cognitive issues. No other acute issues overnight-scheduled [facility] to [facility] facility when transportation arranged Objective Last Recorded Vitals Blood pressure 112/63, pulse 79, temperature 36.8 ?C (98.3 ?F), resp. rate 18, height 1.854 m (6' 0.99"), weight 80.7 kg (178 lb), SpO2 97%. Physical Exam Gen- AAO, answering few simple questions appropriately, now on NC HEENT- NCAT, EOMI, No scleral icterus Neck Supple, no thyromegaly Heart - S1 S2 heard, regular Lungs- Clear to auscultation bilaterally anteriorly, with mildly reduced breath sounds along the bases, normal respiratory effort P/a- Soft, non tender, no guarding or rigidity noted, bowel sounds present Ext- No peripheral cyanosis or pedal edema noted Neuro- grossly non focal aspirin, 81 mg, Oral, Daily atorvastatin, 40 mg, Oral, Daily budesonide, 1 mg, Nebulization, q12h carvedilol, 6.25 mg, Oral, BID with meals heparin, 5,000 Units, Subcutaneous, q8h ROLANDO ipratropium-albuterol, 3 mL, Nebulization, q8h lactated Ringer's, 250 mL, Intravenous, Once levETIRAcetam, 1,000 mg, Intravenous, q12h midodrine, 5 mg, Oral, BID polyethylene glycol (PEG) 3350, 17 g, Oral, q12h Premier Protein Shake, 1 Bottle, Oral, BID sacubitril-valsartan, 1 tablet, Nasogastric, Nightly sennosides, 10 mL, Oral, q12h sodium chloride, 10 mL, Intravenous, q12h ROLANDO sodium chloride, 3 mL, Nebulization, q4h PRN medications: acetaminophen, dextrose, dextrose, fentaNYL, glucagon, hydrALAZINE, insulin lispro, nystatin, sodium chloride Results from last 7 daysLab Units 03/25/24 0535 03/24/24 0400 03/23/24 0338 WBC 10*3/uL 6.19 7.65 7.94 HEMOGLOBIN g/dL 11.1* 11.5* 12.5 HEMATOCRIT % 35.7* 38.0 40.9 PLATELETS 10*3/uL 137* 142* 158* Results from last 7 daysLab Units 03/25/24 0535 03/24/24 0806 03/24/24 0400 03/23/24 0757 03/23/24 0338 SODIUM mEq/L 140 -- 141 -- 141 POTASSIUM mEq/L 4.3 -- 4.8* -- 4.4 CHLORIDE mEq/L 101 -- 101 -- 102 CO2 mEq/L 35.2* -- 36.7* -- 38.0* BUN mg/dL 19 -- 23 -- 34* CREATININE mg/dL 0.53* -- 0.56* -- 0.57* GLUCOSE mg/dL 88 -- 83 -- 86 POC GLUCOSE -- < > -- < > -- CALCIUM mg/dL 8.5 -- 8.4 -- 8.8 < > = values in this interval not displayed. Comparison Exam : [Head CT exam of 03/05/2024 CLINICAL HISTORY: Stroke assessment, Code Stroke FINDINGS: Do not see any findings suggestive of an aneurysm or vascular malformation.There is no basilar artery occlusion. There is occlusion of the left PROGRAM SCHEDULE CLERK along the P2 segment but this is felt to be chronic in this patient relatively chronic area of left PROGRAM SCHEDULE CLERK infarction seen in this territory noncontrast head CT exam. There is a origin of the right PROGRAM SCHEDULE CLERK without significant compromise of the right PROGRAM SCHEDULE CLERK more distally with the P1 segment noted to be mildly hypoplastic. There is calcific plaque formation along both carotid siphons but without high-grade stenosis or hemodynamically significant narrowing. Significant tortuosity involving the A2 segment of both anterior cerebral arteries without significant stenosis. Both superior cerebellar arteries are identified and there is enhancement of both picas.. There is no space-occupying process or abnormal enhancement.. CT ANGIOGRAM CHEST PULMONARY EMBOLISM - Impression -There are acute fractures involving the anterior rib cage and both right and left sides as outlined above. There is no evidence for pulmonary embolism, or evidence of pneumothoraces. A trace left pleural effusion is seen. The lungs are clear and emphysematous. Electronically signed by: Randall Pryor MD 03/19/2024 08:16 PM HEEL SPRAYER FIRST RPWorkstation: [id number] Electronically signed by: Dana Goel MD 03/05/2024 10:56 PM HEEL SPRAYER FIRST RP 78 years old male with past medical history of epilepsy on Keppra, COPD on home oxygen, prior Left PROGRAM SCHEDULE CLERK stroke, HTN, HLD , who was admitted to Neuro ICU on 03/05/2024 as a transfer from [facility] with AMS and hypoxia. Per chart reviewed, Patient presented to outside hospital with AMS, generalized weakness, and hypoxia. He was hypoxic with O2 sats in 70s on 3L NC. Patient was also diaphoretic, pale and blue purse lips. He is placed on NRB and transfer to ED. Patient was awake and answer some question en route. In ED, Patient NIHSS was 35 and became altered with GCS of 8. He does not move any extremities. CTH is obtain which was negative for intracranial abnormalities. Patient did not received TNK because of OOW. Per , Patient stopped taking keppra since past one week. Patient was loaded with 4gm of Keppra in ED. Prior to Transfer, Patient GCS decline and was intubated for airway protection. During intubation, He has PEA arrest ROSC achieved in 15 minutes, Upon arrival to NICU, Patient is awake, follow commands, all extremities AG. CTA is obtain which is negative for LVO or aneurysm. Patient is placed on Ceribell which showed 0% seizure burden. He was extubated to nasal cannula on 03/07, currently downgraded to neuro IMU, SENIOR NATIONAL ACCOUNT MANAGER evaluated and he was started on regular diet. ABG found to have hypercapnia, pulmonology is on board, started on Vapotherm. Assessment & Plan Assessment & PlanSeizure (HCC) COPD (chronic obstructive pulmonary disease) (HCC) Acute respiratory failure with hypoxia and hypercarbia (CMS/HCC) (HCC) Non-sustained ventricular tachycardia (HCC) Cardiac arrest (HCC) Acute rib fractures, anteriorly(bilaterally)Acute respiratory failure with hypercapnia on admission s/p intubation and extubation, with chronic hypercarbia ?? COPD PNA Clinically and symptomatically stable now- there were concerns of ?semi-flail chest with acute anterior rib fractures anteriorly and hence the possible reason for recurrent hypercapnia. No interventions recommended per cv surgery. Remains stable on NC, along with bipap as needed. will continue with bronchodilator, and budesonide nebulizations Sputum culture 03/06 Haemophilus influenzae, s/p course of antibiotics Pulmonary following Hypotension, improved and stableS/p PEA arrest, on admission H/o Hypertension Nonsustained VT Nuclear stress test showed small inferior mild reversible ischemia, plan for medical management-discussed with cardiology Blood pressure improved and stable, will consider weaning off midodrine Remains on Entresto with coreg. PEA arrest on admission, probably in setting of hypoxia/intubation on (03/05), ROSC in 15 minutes TTE preserved EF, grade I diastolic dysfunction Concern for breakthrough seizureEncephalopathy (hypoxic ?) with underlying dementia Seizure disorder, noncompliant with home medication History of CVA CTA negative for acute infarction, old left posterior cerebral artery infarction CTA H/N negative for occlusion, aneurysm or vascular malformation. 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 Their is Left ICA moderate stenosis 50-55% and Right ICA <50% EEG showed 0% seizure burden UDS negative, EtOH negative S/p Keppra 4g load, remains on Keppra 1g BID Continue with ASA and statin Mental status continues to improve gradually, will continue to monitor heparin - 5000 units/mL, 5000 units/mL Current Diet: Adult Diet Heart Healthy; 1500 ml/day CVIMU, will continue with PT OT evaluation and discharge planning. Plan for [facility] to [facility] facility when arranged. [facility]istsSofia Menezes MD 03/25/2024 Disposition plansPt is medically stable for discharge to SNF for rehabilitation needs, d/w pulmonary and cardiology service SPRAYER FIRST * Sunitha Ibarra, PT - 03/25/2024 11:35 AM HEEL SPRAYER FIRST Physical Therapy Treatment Patient Name: Harris Neal Today’s Date: 03/25/24 Room Number: [id number].[id number]/HVI5.CVIMU* Patient's Preferred Language: Uzbek PT Assessment and Plan: Assessment Pt. performed better today and was able to increase gt distance ~ 450 ft c CGA and use of RW c O2 @ 2L. Pt. was assisted UIC post therapy c all needs at reach. Nrsg communicated. Prognosis: Good Plan (Last filed value by PT) Treatment Plan/Goals Established with Patient/Caregiver: Yes Treatment/Interventions: Bed mobility training, Functional activities, Gait training, Transfer training, Therapeutic exercises, Patient education PT Plan: Skilled PT PT Frequency: 3-4 times per week until discharge PT Recommended Transfer Status: Assistive equipment (Comment) (walker) AM-PAC Basic Mobility Turning in bed without bedrails: A Little Lying on back to sitting on edge of flat bed: A Little Bed to chair: A Little Standing up from chair: A Little Walk in room: A Little Climbing 3-5 stairs: A Little Mobility Inpatient Raw Score: 18 -[facility] Goal: 6 Subjective:FORMCx2 discussed c nrsg. Current Problem:This is a 78 y.o. male who is admitted to [facility] with Seizure (HCC) [R56.9] Pain:Pain Assessment Pain Assessment: DVPRS Pain Score: 0 Pain Rating Scale (DVPRS): No pain Objective:Precautions: UE Weight Bearing Status: FWB LE Weight Bearing Status: FWB Medical Precautions: Standard, Fall Isolation Status: No active isolations Activity Tolerance:Endurance: Tolerates 10 - 20 min exercise with multiple rests Sitting Balance: Moves/returns truncal midpoint 1-2 inches in multiple planes Cognition:Overall Cognitive Status: Within Functional Limits Behavior/Cognition: Alert Treatments:Therapeutic Activity Time Entry: 10 Bed Mobility:Bed Mobility Bed Mobility: Yes Bed Mobility 1 Level of Assistance 1: Supervision/touching assistance Bed Mobility To/From: Supine to sit on EOB Assistive Devices And Adaptive Equipments: Bed rail, Head of bed elevated Transfers:Transfers Transfer: Yes Transfer 1 Technique 1: Via walking Level of Assistance 1: Supervision/touching assistance Transfer To/From: Bed, [id number] Assistive Devices And Adaptive Equipments: Walker, front-wheeled Gait Training:Gait Training Time Entry: 15 Gait Training Activity 1 Distance (enter in feet): ~ 450 ft Gait Training Activity 1: Indoor surface Assistive Devices And Adaptive Equipments: Walker, front-wheeled Level of Assistance 1: Supervision/touching assistance Gait Training Activity 1 Comment: O2 @ 2L Patient Education Education Documentation Body Mechanics, taught by David Goldsmith PTA at 03/25/2024 3:18 PM. Learner: Patient Readiness: Acceptance Method: Explanation Response: Verbalizes Understanding Mobility, taught by David Goldsmith PTA at 03/25/2024 3:18 PM.Learner: Patient Readiness: Acceptance Method: Explanation Response: Verbalizes Understanding Fall Prevention, taught by David Goldsmith PTA at 03/25/2024 3:18 PM.Learner: Patient Readiness: Acceptance Method: Explanation Response: Verbalizes Understanding Physical Therapy Plan of Care, taught by David Goldsmith PTA at 53:18 PM. Learner: Patient Readiness: Acceptance Method: Explanation Response: Verbalizes Understanding Education CommentsNo comments found. GoalEncounter Goals Encounter Goals (Active) Patient will ambulate 100' distance using LRAD with sup. (Progressing) Start: 03/07/24 Expected End: 03/17/24 Patient will perform chair to and from bed transfer LRAD and sup. (Progressing) Start: 03/07/24 Expected End: 03/17/24 Patient will ambulate >100 feet distance using walker with no assistance (Progressing) Start: 03/15/24 Expected End: 04/12/24 Patient will perform chair to and from bed transfer with no assistance (Progressing) Start: 03/15/24 Expected End: 04/12/24 Patient will perform supine to sit on bed with no assistance demonstrating control (Progressing) Start: 03/15/24 Expected End: 04/12/24 Patient will perform sit to supine on bed with no assistance demonstrating control (Progressing) Start: 03/15/24 Expected End: 04/12/24 Post Therapy Checklist - in chair, call mccormick within reach, bed/chair alarm in place, and phone within reach Time Calculation:Start Time: 1135 Stop Time: 1200 Time Calculation (min): 25 min PT Drawer In Hand Used: N.A. AttestationSupervising Physical Therapist: Sunitha Ibarra PT Patient progress towards current goals and plan of care was discussed in person with supervising Physical Therapist. Treatment Note: If this is the last documented treatment, then it will signify discharge from acute care prior to discharge from the therapy service and will serve as the discharge summary. David Goldsmith, HEATER FURNACE SPRAYER FIRST SPRAYER FIRST SPRAYER FIRST SPRAYER FIRST * Jaja Wyatt, OT - 03/25/2024 10:45 AM HEEL SPRAYER FIRST Occupational Therapy Treatment Harris Neal 1945 Room HVI5.CVIMU./HVI5.CVU* Assessment: Pt present with good steady progress towards OT goals. He is mod I/setup for eating, grooming and dressing. Pt SBA/CGA for ADL's transfers via RW. He benefit s from energy conservation and rest breaks. Pt educated on home safety, fall prevention and energy conservations within ADL's. He will cont to benefit from OT skilled services while in the hospital. OT Assessment Results: Impaired ADL status, Impaired endurance, Impaired functional mobility Prognosis: Good Barriers to Discharge: Past Medical history Evaluation/Treatment Tolerance: Patient tolerated treatment well Medical Staff Made Aware: Yes Strengths: Attitude of self Plan: Treatment Plan/Goals Established with Patient/Caregiver: Yes Treatment Interventions: Aquatic therapy, Endurance training, UE strengthening/ROM, Functional transfer training OT Planned Treatments: Activities of Daily Living, Energy conservation training, Therapeutic activities, Therapeutic exercises OT Plan: Skilled OT OT Frequency: 2-4 times per week until discharge Equipment Recommended: Shower bath chair AM-PAC Daily Activity: Putting on and taking off regular lower body clothing: A Little Bathing (including washing, rinsing, drying): A Little Toileting, which includes using toilet, bedpan or urinal: None Putting on and taking off regular upper body clothing: None Taking care of personal grooming such as brushing teeth: None Eating Meals: None AM-PAC Daily Activity Raw Score: 22 [facility] Highest Level of Mobility (-HLM) ScaleHighest Level of Mobility Performed (-HLM): Walked 10 steps or more (i.e. walked to restroom) Preferred Language: Uzbek Subjective"I want to go home" Treatment: 03/25/24 1045OT Last Visit OT Received On 03/25/24 Time Calculation Start Time 1045 Stop Time 1112 Time Calculation (min) 27 min Precautions UE Weight Bearing Status FWB LE Weight Bearing Status FWB Medical Precautions Standard, Fall Pain Assessment Pain Assessment DVPRS Pain Score 0 Pain Rating Scale (DVPRS) 0 ADL Self Care/Home Management (ADLs) Time Entry 27 Eating Assistance Independent Grooming Assistance Independent Bathing Assistance Setup/clean-up assistance UE Dressing Assistance Setup/clean-up assistance LE Dressing Assistance Setup/clean-up assistance Toileting Assistance Supervision/touching assistance Bed Mobility Bed Mobility No Transfers Transfer Yes Transfer 1 Technique 1 Via walking Level of Assistance 1 Supervision/touching assistance Transfer To/From Fyj-wy-Ojgry/[id number] Assistive Devices And Adaptive Equipments Walker, front-wheeled Toilet Transfers Toilet Transfer To/From Toilet Transfer Type Via walking Level of Assistance Supervision/touching assistance Assistive Devices And Adaptive Equipments Other;Walker, Front-wheeled (Grab bars) Activity Tolerance Endurance Tolerates less than 10 min exercise, no significant change in vital signs Sitting Balance Moves/returns truncal midpoint 1-2 inches in multiple planes Early Mobility/Exercise Safety Screen Proceed with mobilization - No exclusion criteria met AM-PAC Daily Activity Inpatient Putting on and taking off regular lower body clothing 3 Bathing (including washing, rinsing, drying) 3 Toileting, which includes using toilet, bedpan or urinal 4 Putting on and taking off regular upper body clothing 4 Taking care of personal grooming such as brushing teeth 4 Eating Meals 4 AM-PAC Daily Activity Raw Score 22 OT Assessment OT Assessment Results Impaired ADL status;Impaired endurance;Impaired functional mobility Prognosis Good Barriers to Discharge Past Medical history Evaluation/Treatment Tolerance Patient tolerated treatment well Medical Staff Made Aware Yes Strengths Attitude of self OT Plan Treatment Plan/Goals Established with Patient/Caregiver Yes Treatment Interventions Aquatic therapy;Endurance training;UE strengthening/ROM;Functional transfer training OT Plan Skilled OT OT Frequency 2-4 times per week until discharge OT Discharge Recommendations Home Health OT Equipment Recommended Shower bath chair OT Planned Treatments Activities of Daily Living;Energy conservation training;Therapeutic activities;Therapeutic exercises OT Duration Discharge Mobility Highest Level of Mobility Performed (-HLM) 6 Pt left UIC, lines intact at end of session, all needs in reach, alarm intact. Education DocumentationNo documentation found. Education Comments No comments found. Encounter Goals Encounter Goals (Active) Patient will be mod I with LB dressing. (Progressing) Start: 03/09/24 Expected End: 03/17/24 Pt will complete oral care with min A while standing at the sink (Not Progressing) Start: 03/09/24 Expected End: 03/17/24 Patient will be SUP with toilet transfers (Not Progressing) Start: 03/09/24 Expected End: 03/17/24 Patient will be sup with toilet hygiene (Not Progressing) Start: 03/09/24 Expected End: 03/17/24 Treatment Note: If this is the last documented treatment, then it will signify discharge from acute care prior to discharge from the therapy service and will serve as the discharge summary. Jaja Wyatt OT SPRAYER FIRST * Kelsie Schroeder MD - 03/25/2024 7:50 AM HEEL SPRAYER FIRST Images from the original note were not included. Subjective: 78-year-old gentleman with a known history of epilepsy on Keppra, COPD on home oxygen, history of left PROGRAM SCHEDULE CLERK stroke, essential hypertension, upper lipidemia who was admitted on March 05, 2024 as a transfer from an outside facility for altered mental status and hypoxemia. He was intubated at the facility because of declining GCS and had a PEA cardiac arrest and achieved ROSC after 15 minutes. He was awake and following commands when he arrived to our facility in the neuro ICU. He was extubated on February 25 and downgraded to the neuro IMU. Pulmonary was consulted for consideration for management of his COPD. Upon evaluation of the patient, [facility] and is known to miss some of his medications due to some noncompliance. He denies any particular respiratory complaints but is a poor historian and does not provide details or specific answers to questions. He denies any cough, sputum, hemoptysis at present. Per review of his medical records, he has been nonadherent to oxygen therapy in the past. He has also been intubated in the past for what looks like seizure related issues. Daily Plan: 03/25: No acute respiratory issues and tolerating low-flow oxygen at 2 L Objective: Labs and Vitals: Results from last 7 daysLab Units 03/24/24 1540 03/24/24 0806 03/24/24 0400 SODIUM mEq/L -- -- 141 POTASSIUM mEq/L -- -- 4.8* CHLORIDE mEq/L -- -- 101 CO2 mEq/L -- -- 36.7* BUN mg/dL -- -- 23 CREATININE mg/dL -- -- 0.56* CALCIUM mg/dL -- -- 8.4 GLUCOSE mg/dL -- -- 83 POC GLUCOSE mg/dL 113* < > -- < > = values in this interval not displayed. Results from last 7 days Lab Units 03/25/24 0535 WBC 10*3/uL 6.19 HEMOGLOBIN g/dL 11.1* HEMATOCRIT % 35.7* PLATELETS 10*3/uL 137* Vitals: 03/25/24 0312 03/25/24 0400 03/25/24 0724 03/25/24 0739 BP: (!) 121/48 Pulse: 85 73 76 77 Resp: 16 18 18 18 Temp: 36.5 ?C (97.7 ?F) SpO2: 98% 96% 96% 96% ROS: Per the HPI or daily summary Gen'l: Patient lying in bed, in no acute distressNeur: Awake, alert, oriented x 3 H&N: No obvious JVD, no thyromegaly, no oral thrush Back: No acute deformities Card: No rubs, no gallops and no obvious murmurs L: Good air entry bilaterally with diminished breath sounds in the bilateral bases; no wheezes or rales Abd: Soft, nontender, no gross adenopathy; bowel sounds present Ext: No pitting edema; no obvious cyanosis MSK: Able to move all extremities A/P: 1. History of COPD with documented history of noncompliance to prior oxygen therapy History of MOHAN Hypercarbic respiratory failure secondary to flail chest with underlying emphysema, improved Currently on O2 at 2 L CPAP at night Completed IV steroids Inhaled bronchodilator CV surgery following and Sniff test without paradoxical chest movement noted; no surgical interventions for the anterior rib fractures as patient has markedly improved 2. History of seizure disorder with noncompliance to medicationsHistory of prior CVA Patient has some cognitive deficits from his recent cardiac arrest, improving Continue antiepileptics and aspirin and statin Case was discussed with the patient in detail and all questions were answered; discussed with the RN. SPRAYER FIRST * Gonzalez Foster MD - 03/24/2024 11:37 PM HEEL SPRAYER FIRST Subjective NUC stress test showed Small inferior mild reversible ischemia At this moment Will treat medically Objective Last Recorded Vitals Blood pressure (!) 118/53, pulse 81, temperature 36.7 ?C (98.1 ?F), temperature source Oral, resp. rate 18, height 1.854 m (6' 0.99"), weight 81.6 kg (180 lb), SpO2 98%. Physical Exam: Assessment & Plan Seizure (HCC) COPD (chronic obstructive pulmonary disease) (HCC) Acute respiratory failure with hypoxia and hypercarbia (CMS/HCC) (HCC) Non-sustained ventricular tachycardia (HCC) Cardiac arrest (HCC) Current Diet: Adult Diet Heart Healthy; 1500 ml/day SPRAYER FIRST * Kelsie Schroeder MD - 03/24/2024 5:21 PM HEEL SPRAYER FIRST Images from the original note were not included. Subjective: 78-year-old gentleman with a known history of epilepsy on Keppra, COPD on home oxygen, history of left PROGRAM SCHEDULE CLERK stroke, essential hypertension, upper lipidemia who was admitted on March 05, 2024 as a transfer from an outside facility for altered mental status and hypoxemia. He was intubated at the facility because of declining GCS and had a PEA cardiac arrest and achieved ROSC after 15 minutes. He was awake and following commands when he arrived to our facility in the neuro ICU. He was extubated on February 25 and downgraded to the neuro IMU. Pulmonary was consulted for consideration for management of his COPD. Upon evaluation of the patient, he says that he follows at the [facility] and is known to miss some of his medications due to some noncompliance. He denies any particular respiratory complaints but is a poor historian and does not provide details or specific answers to questions. He denies any cough, sputum, hemoptysis at present. Per review of his medical records, he has been nonadherent to oxygen therapy in the past. He has also been intubated in the past for what looks like seizure related issues. Daily Plan: 03/24: Progressing well and seems more conversive and thoughtful. No chest discomfort or chest pain. Still requiring low-flow supplemental oxygen Case discussed with CV surgeon and no indication for surgical intervention for the broken ribs as it seems the patient's hypercarbic issues have markedly improved Objective: Labs and Vitals: Results from last 7 daysLab Units 03/23/24 1553 03/23/24 0757 03/23/24 0338 SODIUM mEq/L -- -- 141 POTASSIUM mEq/L -- -- 4.4 CHLORIDE mEq/L -- -- 102 CO2 mEq/L -- -- 38.0* BUN mg/dL -- -- 34* CREATININE mg/dL -- -- 0.57* CALCIUM mg/dL -- -- 8.8 GLUCOSE mg/dL -- -- 86 POC GLUCOSE mg/dL 120* < > -- < > = values in this interval not displayed. Results from last 7 days Lab Units 03/23/24 0338 WBC 10*3/uL 7.94 HEMOGLOBIN g/dL 12.5 HEMATOCRIT % 40.9 PLATELETS 10*3/uL 158* Vitals: 03/24/24 0010 03/24/24 0248 03/24/24 0258 03/24/24 0600 BP: (!) 131/57 Pulse: 87 87 88 79 Resp: Temp: 36.8 ?C (98.2 ?F) SpO2: 98% 97% 99% 95% ROS: Per the HPI or daily summary Gen'l: Patient lying in bed, in no acute distressNeur: Awake, alert, oriented x 3 H&N: No obvious JVD, no thyromegaly, no oral thrush Back: No acute deformities Card: No rubs, no gallops and no obvious murmurs L: Good air entry bilaterally with diminished breath sounds in the bilateral bases; no wheezes or rales Abd: Soft, nontender, no gross adenopathy; bowel sounds present Ext: No pitting edema; no obvious cyanosis MSK: Able to move all extremities A/P: 1. History of COPD with documented history of noncompliance to prior oxygen therapy History of MOHAN Hypercarbic respiratory failure secondary to flail chest with underlying emphysema, improved Currently on O2 CPAP at night Completed IV steroids Inhaled bronchodilator CV surgery following and Sniff test without paradoxical chest movement noted; no surgical interventions for the anterior rib fractures 2. History of seizure disorder with noncompliance to medicationsHistory of prior CVA Patient has some cognitive deficits from his recent cardiac arrest, improving Continue antiepileptics and aspirin and statin Case was discussed with the patient in detail and all questions were answered; discussed with the RN. SPRAYER FIRST * Sofia Menezes MD - 03/24/2024 2:34 PM HEEL SPRAYER FIRST [facility] Subjective Patient was seen and examined at bedside, remains on NC 2-3l at present with stable oxygenation. Blood pressure continues to remain stable now. Appears more awake and alert now, with intermittent confusion and baseline cognitive issues. No other acute issues overnight- scheduled for nuclear stress test today Objective Last Recorded Vitals Blood pressure 135/61, pulse 90, temperature 36.9 ?C (98.4 ?F), resp. rate 18, height 1.854 m (6' 0.99"), weight 81.6 kg (180 lb), SpO2 96%. Physical Exam Gen- AAO, answering few simple questions appropriately, now on NC HEENT- NCAT, EOMI, No scleral icterus Neck Supple, no thyromegaly Heart - S1 S2 heard, regular Lungs- Clear to auscultation bilaterally anteriorly, with mildly reduced breath sounds along the bases, normal respiratory effort P/a- Soft, non tender, no guarding or rigidity noted, bowel sounds present Ext- No peripheral cyanosis or pedal edema noted Neuro- grossly non focal aspirin, 81 mg, Oral, Daily atorvastatin, 40 mg, Oral, Daily budesonide, 1 mg, Nebulization, q12h carvedilol, 6.25 mg, Oral, BID with meals heparin, 5,000 Units, Subcutaneous, q8h ROLANDO ipratropium-albuterol, 3 mL, Nebulization, q8h lactated Ringer's, 250 mL, Intravenous, Once levETIRAcetam, 1,000 mg, Intravenous, q12h midodrine, 5 mg, Oral, BID polyethylene glycol (PEG) 3350, 17 g, Oral, q12h Premier Protein Shake, 1 Bottle, Oral, BID sacubitril-valsartan, 1 tablet, Nasogastric, Nightly sennosides, 10 mL, Oral, q12h sodium chloride, 10 mL, Intravenous, q12h ROLANDO sodium chloride, 3 mL, Nebulization, q4h PRN medications: acetaminophen, dextrose, dextrose, fentaNYL, glucagon, hydrALAZINE, insulin lispro, nystatin, sodium chloride Results from last 7 daysLab Units 03/24/24 0400 03/23/24 0338 03/22/24 0442 WBC 10*3/uL 7.65 7.94 9.19 HEMOGLOBIN g/dL 11.5* 12.5 12.7 HEMATOCRIT % 38.0 40.9 40.9 PLATELETS 10*3/uL 142* 158* 169 PLATELETS ESTIMATED -- -- Normal Results from last 7 daysLab Units 03/24/24 1217 03/24/24 0806 03/24/24 0400 03/23/24 0757 03/23/24 0338 03/22/24 0812 03/22/24 0442 SODIUM mEq/L -- -- 141 -- 141 -- 141 POTASSIUM mEq/L -- -- 4.8* -- 4.4 -- 4.6* CHLORIDE mEq/L -- -- 101 -- 102 -- 101 CO2 mEq/L -- -- 36.7* -- 38.0* -- 37.9* BUN mg/dL -- -- 23 -- 34* -- 38* CREATININE mg/dL -- -- 0.56* -- 0.57* -- 0.69* GLUCOSE mg/dL -- -- 83 -- 86 -- 91 POC GLUCOSE mg/dL 101* < > -- < > -- < > -- CALCIUM mg/dL -- -- 8.4 -- 8.8 -- 9.1 < > = values in this interval not displayed. Comparison Exam : [Head CT exam of 03/05/2024 CLINICAL HISTORY: Stroke assessment, Code Stroke FINDINGS: Do not see any findings suggestive of an aneurysm or vascular malformation.There is no basilar artery occlusion. There is occlusion of the left PROGRAM SCHEDULE CLERK along the P2 segment but this is felt to be chronic in this patient relatively chronic area of left PROGRAM SCHEDULE CLERK infarction seen in this territory noncontrast head CT exam. There is a origin of the right PROGRAM SCHEDULE CLERK without significant compromise of the right PROGRAM SCHEDULE CLERK more distally with the P1 segment noted to be mildly hypoplastic. There is calcific plaque formation along both carotid siphons but without high-grade stenosis or hemodynamically significant narrowing. Significant tortuosity involving the A2 segment of both anterior cerebral arteries without significant stenosis. Both superior cerebellar arteries are identified and there is enhancement of both picas.. There is no space-occupying process or abnormal enhancement.. CT ANGIOGRAM CHEST PULMONARY EMBOLISM - Impression -There are acute fractures involving the anterior rib cage and both right and left sides as outlined above. There is no evidence for pulmonary embolism, or evidence of pneumothoraces. A trace left pleural effusion is seen. The lungs are clear and emphysematous. Electronically signed by: Randall Pryor MD 03/19/2024 08:16 PM HEEL SPRAYER FIRST RPWorkstation: [id number] Electronically signed by: Dana Goel MD 03/05/2024 10:56 PM [facility] RP 78 years old male with past medical history of epilepsy on Keppra, COPD on home oxygen, prior Left PROGRAM SCHEDULE CLERK stroke, HTN, HLD , who was admitted to Neuro ICU on 03/05/2024 as a transfer from [facility] with AMS and hypoxia. Per chart reviewed, Patient presented to outside hospital with AMS, generalized weakness, and hypoxia. He was hypoxic with O2 sats in 70s on 3L NC. Patient was also diaphoretic, pale and blue purse lips. He is placed on NRB and transfer to ED. Patient was awake and answer some question en route. In ED, Patient NIHSS was 35 and became altered with GCS of 8. He does not move any extremities. CTH is obtain which was negative for intracranial abnormalities. Patient did not received TNK because of [place]. Per , Patient stopped taking keppra since past one week. Patient was loaded with 4gm of Keppra in ED. Prior to Transfer, Patient GCS decline and was intubated for airway protection. During intubation, He has PEA arrest ROSC achieved in 15 minutes, Upon arrival to NICU, Patient is awake, follow commands, all extremities AG. CTA is obtain which is negative for LVO or aneurysm. Patient is placed on Ceribell which showed 0% seizure burden. He was extubated to nasal cannula on 03/07, currently downgraded to neuro IMU, SENIOR NATIONAL ACCOUNT MANAGER evaluated and he was started on regular diet. ABG found to have hypercapnia, pulmonology is on board, started on Vapotherm. Assessment & Plan Assessment & PlanSeizure ([facility]) COPD (chronic obstructive pulmonary disease) ([facility]) Acute respiratory failure with hypoxia and hypercarbia (CMS/HCC) ([facility]) Non-sustained ventricular tachycardia (HCC) Cardiac arrest ([facility]) Acute rib fractures, anteriorly(bilaterally)Acute respiratory failure with hypercapnia on admission s/p intubation and extubation, with chronic hypercarbia ?? COPD PNA Clinically and symptomatically stable now- there were Concerns of ?semi-flail chest with acute anterior rib fractures anteriorly and hence the possible reason for recurrent hypercapnia. No interventions recommended per cv surgery. Remains stable on NC, along with bipap as needed. Plan to continue with IV diuretics as needed-will continue with bronchodilator, and budesonide nebulizations Sputum culture 03/06 Haemophilus influenzae, s/p course of antibiotics Pulmonary following Hypotension, recurrentS/p PEA arrest, on admission H/o Hypertension Nonsustained VT Blood pressure improved and stable, will consider weaning off midodrine Remains on Entresto with coreg.scheduled for nuclear stress test PEA arrest on admission, probably in setting of hypoxia/intubation on (03/05), ROSC in 15 minutes TTE preserved EF, grade I diastolic dysfunction Cardiology on board Concern for breakthrough seizureEncephalopathy (hypoxic ?) with underlying dementia Seizure disorder, noncompliant with home medication History of CVA CTA negative for acute infarction, old left posterior cerebral artery infarction CTA H/N negative for occlusion, aneurysm or vascular malformation. 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 Their is Left ICA moderate stenosis 50-55% and Right ICA <50% EEG showed 0% seizure burden UDS negative, EtOH negative S/p Keppra 4g load, remains on Keppra 1g BID Continue with ASA and statin Mental status continues to improve gradually, will continue to monitor heparin - 5000 units/mL Current Diet: Adult Diet Heart Healthy; 1500 ml/day CVIMU, will continue with PT OT evaluation and discharge planning. Plan for SNF given issues with intermittent confusion with safety issues, homeO2 eval showed stable oxygenation [facility] HospitalistsSofia Menezes MD 03/24/2024 Disposition plansPt is medically stable for discharge to SNF for rehabilitation needs, d/w pulmonary and cardiology service SPRAYER FIRST * Miranda Boothe NP - 03/24/2024 10:52 AM HEEL SPRAYER FIRST Stress test supervision report Patient underwent stress test on 03/24/2024 for clinical indication of chest pain. Ordering physician: Dr Foster . Study performed without complication. Patient tolerated procedure well. No chest pain, BP/HR remained stable throughout the procedure. I was present for supervision. Attending physician will interpret study and generate report. SPRAYER FIRST * David Goldsmith, JULIUS - 03/24/2024 9:00 AM HEEL SPRAYER FIRST PT Encounter Note Patient Name: Harris Neal Todays Date: 03/24/2024 Room Number: [id number]* Patient's Preferred Language: Uzbek Missed Treatment Time and Reason: Missed Time Reason: Unavailable (Comment) (AM: Pt. was transferred for stress test. PM: Pt. declined due to he has not slept well. Nrsg communicated.) David Goldsmith PTA SPRAYER FIRST * Gonzalez Foster MD - 03/23/2024 11:29 PM HEEL SPRAYER FIRST Subjective This mroing when I visited him, he appears comfortable AAOX3 then On NC O2 I talked to his RN just now On 2L NC O2 SO2: Tele, sinus Plan Given cardiac arrest, non sustained ventricular tachy And hypoxemia Will proceed NUC stress test in am Will recommend accordingly Objective Last Recorded Vitals Blood pressure 140/60, pulse 87, temperature 36.5 ?C (97.7 ?F), temperature source Oral, resp. rate 16, height 1.854 m (6' 0.99"), weight 80.5 kg (177 lb 8 oz), SpO2 98%. Physical Exam: Assessment & Plan Seizure (HCC) COPD (chronic obstructive pulmonary disease) (HCC) Acute respiratory failure with hypoxia and hypercarbia (CMS/HCC) (HCC) Non-sustained ventricular tachycardia (HCC) Cardiac arrest (HCC) Current Diet: Adult Diet Heart Healthy; 1500 ml/day SPRAYER FIRST * Delia Nj LMSW - 03/23/2024 4:24 PM HEEL SPRAYER FIRST RAFAT Consult for SNF Medical team has concerns regarding pt discharge home with home health. RAFAT contacted pt's eldest son, family's selected decision maker, Harris Neal PH: [phone] to discuss SNF recommendation as DCP. Son informed he is supportive of SNF and would like SNF in [place] using pt's [place] insurance. SW provided pt's son with list of VA approved facilities. Son informed he will select from any of the VA facilities that are able to accept pt. RAFAT sent referral for SNF at the VA approved facilities in [place] and will follow up for choice from accepting facilities from son and then contact [facility] for review. SPRAYER FIRST * Kelsie Schroeder MD - 03/23/2024 4:07 PM HEEL SPRAYER FIRST Images from the original note were not included. Subjective: 78-year-old gentleman with a known history of epilepsy on Keppra, COPD on home oxygen, history of left PROGRAM SCHEDULE CLERK stroke, essential hypertension, upper lipidemia who was admitted on March 05, 2024 as a transfer from an outside facility for altered mental status and hypoxemia. He was intubated at the facility because of declining GCS and had a PEA cardiac arrest and achieved ROSC after 15 minutes. He was awake and following commands when he arrived to our facility in the neuro ICU. He was extubated on February 25 and downgraded to the neuro IMU. Pulmonary was consulted for consideration for management of his COPD. Upon evaluation of the patient, he says that he follows at the [facility] and is known to miss some of his medications due to some noncompliance. He denies any particular respiratory complaints but is a poor historian and does not provide details or specific answers to questions. He denies any cough, sputum, hemoptysis at present. Per review of his medical records, he has been nonadherent to oxygen therapy in the past. He has also been intubated in the past for what looks like seizure related issues. Daily Plan: 03/23: Patient's respiratory status has improved considerably and now is onlow- flow oxygen at 2 L. Sniff test performed that did not show any diaphragmatic concerns or paradoxical chest movement. Patient will require short-term fci facility for rehabilitation given that he requires multiple reminders to complete tasks. Objective: Labs and Vitals: Results from last 7 daysLab Units 03/23/24 1139 03/23/24 0757 03/23/24 0338 SODIUM mEq/L -- -- 141 POTASSIUM mEq/L -- -- 4.4 CHLORIDE mEq/L -- -- 102 CO2 mEq/L -- -- 38.0* BUN mg/dL -- -- 34* CREATININE mg/dL -- -- 0.57* CALCIUM mg/dL -- -- 8.8 GLUCOSE mg/dL -- -- 86 POC GLUCOSE mg/dL 116* < > -- < > = values in this interval not displayed. Results from last 7 days Lab Units 03/23/24 0338 WBC 10*3/uL 7.94 HEMOGLOBIN g/dL 12.5 HEMATOCRIT % 40.9 PLATELETS 10*3/uL 158* Vitals: 03/23/24 1142 03/23/24 1148 03/23/24 1534 03/23/24 1544 BP: Pulse: 82 78 78 84 Resp: 18 18 18 18 Temp: SpO2: 99% 100% 100% 100% ROS: Per the HPI or daily summary Gen'l: Patient lying in bed, in no acute distressNeur: Awake, alert, oriented x 3 H&N: No obvious JVD, no thyromegaly, no oral thrush Back: No acute deformities Card: No rubs, no gallops and no obvious murmurs L: Good air entry bilaterally with diminished breath sounds in the bilateral bases; no wheezes or rales Abd: Soft, nontender, no gross adenopathy; bowel sounds present Ext: No pitting edema; no obvious cyanosis MSK: Able to move all extremities A/P: 1. History of COPD with documented history of noncompliance to prior oxygen therapy History of MOHAN Hypercarbic respiratory failure secondary to flail chest with underlying emphysema, improved Currently on O2 CPAP at night Completed IV steroids Inhaled bronchodilator CV surgery following and Sniff test without paradoxical chest movement noted 2. History of seizure disorder with noncompliance to medicationsHistory of prior CVA Patient has some cognitive deficits from his recent cardiac arrest, improving Continue antiepileptics and aspirin and statin Case was discussed with the patient in detail and all questions were answered; discussed with the RN. SPRAYER FIRST * Jordon Martinez, PT - 03/23/2024 11:03 AM HEEL SPRAYER FIRST Physical Therapy Treatment Patient Name: Harris Neal Today’s Date: 03/23/24 Room Number: [id number]/[id number].CVIMU* Patient's Preferred Language: Uzbek PT Assessment and Plan: Assessment Pt was sitting [facility] on arrival. Pt was reluctant to ambulate in hallway but with max motivation agreed for therapy. Pt demonstrates decreased activity tolerance during therapy. Pt easily gets fatigued and needed one standing rest break. Pt using 2 lit of O2 via NC. Post therapy, pt requested to lay down on bed. Evaluation/Treatment Tolerance: Patient limited by fatigue Prognosis: Good Strengths: Attitude of self Medical Staff Made Aware: Yes Plan (Last filed value by PT) Treatment Plan/Goals Established with Patient/Caregiver: Yes Treatment/Interventions: Bed mobility training, Functional activities, Gait training, Transfer training, Therapeutic exercises, Patient education PT Plan: Skilled PT PT Frequency: 3-4 times per week until discharge PT Recommended Transfer Status: Assistive equipment (Comment) (walker) AM-PAC Basic Mobility Turning in bed without bedrails: None Lying on back to sitting on edge of flat bed: A Little Bed to chair: A Little Standing up from chair: A Little Walk in room: A Little Climbing 3-5 stairs: A Lot Mobility Inpatient Raw Score: 18 -HLM Goal: 6 [facility] Highest Level of Mobility (JH-HLM) Scale Highest Level of Mobility Performed (JH-HLM): Walked 25 feet or more (i.e. walked outside of room) Subjective: Pt agree for therapy. RN cleared pt for therapy. Current Problem:This is a 78 y.o. male who is admitted to [facility] with Seizure (HCC) [R56.9] Pain:Pain Assessment Pain Assessment: DVPRS Pain Score: 0 Lines and Drains: O2 via NC, telemetry, [facility] Health Conditions:Pain Interference with Therapy Activities: Rarely or not at all Objective:Precautions: LE Weight Bearing Status: FWB Medical Precautions: Standar, Fall Isolation Status: No active isolations Activity Tolerance:Endurance: Tolerates 10 - 20 min exercise with multiple rests Sitting Balance: Supports self independently with both upper extremities Early Mobility/Exercise Safety Screen: Proceed with mobilization - No exclusion criteria met Cognition:Overall Cognitive Status: Within Functional Limits Behavior/Cognition: Alert, Cooperative Arousal/Alertness: Appropriate responses to stimuli Orientation Level: Oriented X4 Following Commands: Follows 1 step commands with increased time Safety Judgment: Decreased awareness of need for safety Treatments:Therapeutic Activity Time Entry: 10 Therapeutic Activity 1: Pt sitting UIC, prepped pt for mobility in hallway, back gown donned. Therapeutic Activity 2: Extra time to get O2 tank, to manage multiple lines Therapeutic Activity 3: Post gait p wanted to lay down back to bed. all needs closeby. Bed Mobility:Bed Mobility Bed Mobility: Yes Bed Mobility 1 Level of Assistance 1: Supervision/touching assistance Bed Mobility To/From: Sitting EOB to supine Transfers:Transfers Transfer: Yes Transfer 1 Level of Assistance 1: Partial/Mod assistance Transfer To/From: [id number]/[id number] Assistive Devices And Adaptive Equipments: Walker, front-wheeled Transfers 2 Technique 2: Via walking Level of Assistance 2: Partial/Mod assistance Transfer To/From: Chair, Bed Assistive Devices And Adaptive Equipments: Walker, front-wheeled Gait Training:Gait Training Time Entry: 15 Gait Training Activity 1 Distance (enter in feet): ~ 200 ft Gait Training Activity 1: Indoor surface Assistive Devices And Adaptive Equipments: Walker, front-wheeled Level of Assistance 1: Partial/Mod assistance Gait Training Activity 1 Comment: slow pace, small talisha, tendancy to push RW too forward, cues for walking close to RW, verbal cues for safety as well. Therapeutic Exercise:Therapeutic Exercise Time Entry: 13 Therapeutic Exercise Activity 1: thera ex AROM of BLE x 20 reps Position 1: Seated Outcome Measures: Ken RPE Scale Ken RPE Scale - How Strenuous and Tiring The Work Feels: 15 - Hard Ken RPE Scale Comments: post gait Patient EducationEducation Documentation Body Mechanics, taught by Jordon Martinez PT at 03/23/2024 2:15 PM. Learner: Patient Readiness: Acceptance Method: Explanation Response: Verbalizes Understanding Mobility, taught by Jordon Martinez PT at 03/23/2024 2:15 PM.Learner: Patient Readiness: Acceptance Method: Explanation Response: Verbalizes Understanding Fall Prevention, taught by Jordon Martinez PT at 03/23/2024 2:15 PM.Learner: Patient Readiness: Acceptance Method: Explanation Response: Verbalizes Understanding Physical Therapy Plan of Care, taught by Jordon Martinez PT at 03/23/2024 2:15PM. Learner: Patient Readiness: Acceptance Method: Explanation Response: Verbalizes Understanding Education CommentsNo comments found. GoalEncounter Goals Encounter Goals (Active) Patient will ambulate 100' distance using LRAD with sup. (Not Met) Start: 03/07/24 Expected End: 03/17/24 Patient will perform chair to and from bed transfer LRAD and sup. (Progressing) Start: 03/07/24 Expected End: 03/17/24 Patient will ambulate >100 feet distance using walker with no assistance (Progressing) Start: 03/15/24 Expected End: 04/12/24 Patient will perform chair to and from bed transfer with no assistance (Progressing) Start: 03/15/24 Expected End: 04/12/24 Patient will perform supine to sit on bed with no assistance demonstrating control (Progressing) Start: 03/15/24 Expected End: 04/12/24 Patient will perform sit to supine on bed with no assistance demonstrating control (Progressing) Start: 03/15/24 Expected End: 04/12/24 General Visit Information Post Therapy Checklist - in bed, call mccormick within reach, bed/chair alarm in place, and phone within reach Time Calculation:Start Time: 1103 Stop Time: 1141 Time Calculation (min): 38 min PT Drawer In Hand Used: Lourdes Horne Treatment Note: If this is the last documented treatment, then it will signify discharge from acute care prior to discharge from the therapy service and will serve as the discharge summary. Jordon Martinez PT SPRAYER FIRST * Jaja Wyatt, OT - 03/23/2024 10:00 AM HEEL SPRAYER FIRST Occupational Therapy Treatment Harris Neal 1945 Room [id number]/[email or web address].CVIMU* Assessment: Pt present with steady progress towards OT goals. He was seen for ADL's and endurance training. Pt participated in morning ADL's routine with min A, extra time and min VC's. Pt cont to demo decrease balance and functional strength. He benefits from supervision and rest breaks during ADL's transfers. He will cont to benefit from OT skilled services to maximized functional ind and decrease burden of care. OT Assessment Results: Impaired ADL status, Impaired endurance, Impaired gross motor control, Impaired trunk control for functional activities Prognosis: Good Barriers to Discharge: Past Medical history Evaluation/Treatment Tolerance: Patient tolerated treatment well Medical Staff Made Aware: Yes Strengths: Attitude of self Plan: Treatment Plan/Goals Established with Patient/Caregiver: Yes Treatment Interventions: ADL retraining, Endurance training, Functional transfer training, UE strengthening/ROM OT Planned Treatments: Activities of Daily Living, Energy conservation training, Patient education, Safety education, Therapeutic exercises, Therapeutic activities OT Plan: Skilled OT OT Frequency: 2-4 times per week until discharge Equipment Recommended: Shower bath chair AM-PAC Daily Activity: Putting on and taking off regular lower body clothing: A Little Bathing (including washing, rinsing, drying): A Little Toileting, which includes using toilet, bedpan or urinal: A Little Putting on and taking off regular upper body clothing: A Little Taking care of personal grooming such as brushing teeth: A Little Eating Meals: None AM-PAC Daily Activity Raw Score: 19 [facility] Highest Level of Mobility (-HLM) ScaleHighest Level of Mobility Performed (-HLM): Walked 10 steps or more (i.e. walked to restroom) Preferred Language: Uzbek Subjective"Yes" Treatment:When therapist arrived pt in [facility] [place], [place] 3L, VSS. Pt educated on OT goals and agreeable. He transfer sup to sit SBA. Pt sat EOB with one UE support and SBA. He transfer STS with min VC's for hand placement and CGA. HE needs extra time to acclimate. Pt ambulated to the restroom and sink distance via RW and CGA. He then transition to bedside recliner. He is performing oral, facial care in sitting as part of energy conservation training. Pt practice UB/LB drsg at chair level. Then pt ind recalled his breathing exercises using IS and deep breathing exercises. MD enter the room an assessed pt's breathing patters. 03/23/24 1000OT Last Visit OT Received On 03/23/24 Time Calculation Start Time 1000 Stop Time 1024 Time Calculation (min) 24 min General Family/Caregiver Present No Precautions UE Weight Bearing Status FWB LE Weight Bearing Status FWB Medical Precautions Standard, Fall Pain Assessment Pain Assessment DVPRS Pain Score 0 ADL Self Care/Home Management (ADLs) Time Entry 24 Eating Assistance Independent (sitting) Grooming Assistance Independent (Sitting) Bathing Assistance Partial/Mod assistance UE Dressing Activity Component(s) Gown UE Dressing Assistance Supervision/touching assistance LE Dressing Activity Component(s) Socks LE Dressing Assistance Supervision/touching assistance (Sitting in a chair with back supported) Toileting Assistance Partial/Mod assistance (Min A) Bed Mobility Bed Mobility Yes Bed Mobility 1 Level of Assistance 1 Supervision/touching assistance Bed Mobility To/From Supine to sit on EOB Transfers Transfer Yes Transfer 1 Technique 1 Via walking Level of Assistance 1 Partial/Mod assistance;Supervision/touching assistance (Pt required CGA postural A and min VC;s for hand placement.) Transfer To/From [id number]-de-Itcvy/[id number] Assistive Devices And Adaptive Equipments Walker, front-wheeled Transfers 2 Technique 2 Via walking Level of Assistance 2 Partial/Mod assistance (Pt ambulated to the chair with CGA via RW. He requried min A to descend towards the chair 2/2 lack of control going down .) Transfer To/From Bed;Chair Assistive Devices And Adaptive Equipments Walker, front-wheeled Activity Tolerance Endurance Tolerates less than 10 min exercise, no significant change in vital signs Sitting Balance Supports self with one upper extremity Early Mobility/Exercise Safety Screen Proceed with mobilization - No exclusion criteria met AM-PAC Daily Activity Inpatient Putting on and taking off regular lower body clothing 3 Bathing (including washing, rinsing, drying) 3 Toileting, which includes using toilet, bedpan or urinal 3 Putting on and taking off regular upper body clothing 3 Taking care of personal grooming such as brushing teeth 3 Eating Meals 4 AM-PAC Daily Activity Raw Score 19 OT Assessment OT Assessment Results Impaired ADL status;Impaired endurance;Impaired gross motor control;Impaired trunk control for functional activities Prognosis Good Barriers to Discharge Past Medical history Evaluation/Treatment Tolerance Patient tolerated treatment well Medical Staff Made Aware Yes Strengths Attitude of self OT Plan Treatment Plan/Goals Established with Patient/Caregiver Yes Treatment Interventions ADL retraining;Endurance training;Functional transfer training;UE strengthening/ROM OT Plan Skilled OT OT Frequency 2-4 times per week until discharge Equipment Recommended Shower bath chairOT Planned Treatments Activities of Daily Living;Energy conservation training;Patient education;Safety education;Therapeutic exercises;Therapeutic activities OT Duration Discharge Mobility Highest Level of Mobility Performed (JH-HLM) 6 Pt left sitting in recliner at end of session, all needs in reach, alarmintact. Education DocumentationNo documentation found. Education Comments No comments found. Encounter Goals Encounter Goals (Active) Patient will be mod I with LB dressing. (Progressing) Start: 03/09/24 Expected End: 03/17/24 Pt will complete oral care with min A while standing at the sink (Not Progressing) Start: 03/09/24 Expected End: 03/17/24 Patient will be SUP with toilet transfers (Not Progressing) Start: 03/09/24 Expected End: 03/17/24 Patient will be sup with toilet hygiene (Not Progressing) Start: 03/09/24 Expected End: 03/17/24 Treatment Note: If this is the last documented treatment, then it will signify discharge from acute care prior to discharge from the therapy service and will serve as the discharge summary. Jaja Wyatt OT SPRAYER FIRST * Sofia Menezes MD - 03/23/2024 9:06 AM HEEL SPRAYER FIRST [facility] Subjective Patient was seen and examined at bedside, remains on NC 2-3l at present with stable oxygenation. Blood pressure continues to remain stable now. Appears more awake and alert now, with intermittent confusion and baseline cognitive issues. No other acute issues overnight Objective Last Recorded Vitals Blood pressure 136/60, pulse 84, temperature 36.8 ?C (98.3 ?F), resp. rate 18, height 1.854 m (6' 0.99"), weight 80.5 kg (177 lb 8 oz), SpO2 94%. Physical Exam Gen- AAO, answering few simple questions appropriately, now on NC HEENT- NCAT, EOMI, No scleral icterus Neck Supple, no thyromegaly Heart - S1 S2 heard, regular Lungs- Clear to auscultation bilaterally anteriorly, with mildly reduced breath sounds along the bases, normal respiratory effort P/a- Soft, non tender, no guarding or rigidity noted, bowel sounds present Ext- No peripheral cyanosis or pedal edema noted Neuro- grossly non focal aspirin, 81 mg, Oral, Daily atorvastatin, 40 mg, Oral, Daily budesonide, 1 mg, Nebulization, q12h carvedilol, 6.25 mg, Oral, BID with meals heparin, 5,000 Units, Subcutaneous, q8h ROLANDO ipratropium-albuterol, 3 mL, Nebulization, q8h lactated Ringer's, 250 mL, Intravenous, Once levETIRAcetam, 1,000 mg, Intravenous, q12h midodrine, 5 mg, Oral, BID polyethylene glycol (PEG) 3350, 17 g, Oral, q12h Premier Protein Shake, 1 Bottle, Oral, BID sacubitril-valsartan, 1 tablet, Nasogastric, Nightly sennosides, 10 mL, Oral, q12h sodium chloride, 10 mL, Intravenous, q12h RLOANDO sodium chloride, 3 mL, Nebulization, q4h PRN medications: acetaminophen, dextrose, dextrose, fentaNYL, glucagon, hydrALAZINE, insulin lispro, nystatin, sodium chloride Results from last 7 daysLab Units 03/23/24 0338 03/22/24 0442 03/21/24 0450 WBC 10*3/uL 7.94 9.19 8.59 HEMOGLOBIN g/dL 12.5 12.7 12.0* HEMATOCRIT % 40.9 40.9 37.8 PLATELETS 10*3/uL 158* 169 208 PLATELETS ESTIMATED -- Normal -- Results from last 7 daysLab Units 03/23/24 0757 03/23/24 0338 03/22/24 0812 03/22/242 03/21/24 0656 03/21/24 0450 SODIUM mEq/L -- 141 -- 141 -- 140 POTASSIUM mEq/L -- 4.4 -- 4.6* -- 4.9* CHLORIDE mEq/L -- 102 -- 101 -- 102 CO2 mEq/L -- 38.0* -- 37.9* -- 36.7* BUN mg/dL -- 34* -- 38* -- 46* CREATININE mg/dL -- 0.57* -- 0.69* -- 0.63* GLUCOSE mg/dL -- 86 -- 91 -- 125* POC GLUCOSE mg/dL 165* -- < > -- < > -- CALCIUM mg/dL -- 8.8 -- 9.1 -- 8.9 < > = values in this interval not displayed. Comparison Exam : [Head CT exam of 03/05/2024 CLINICAL HISTORY: Stroke assessment, Code Stroke FINDINGS: Do not see any findings suggestive of an aneurysm or vascular malformation.There is no basilar artery occlusion. There is occlusion of the left PROGRAM SCHEDULE CLERK along the P2 segment but this is felt to be chronic in this patient relatively chronic area of left PROGRAM SCHEDULE CLERK infarction seen in this territory noncontrast head CT exam. There is a origin of the right PROGRAM SCHEDULE CLERK without significant compromise of the right PROGRAM SCHEDULE CLERK more distally with the P1 segment noted to be mildly hypoplastic. There is calcific plaque formation along both carotid siphons but without high-grade stenosis or hemodynamically significant narrowing. Significant tortuosity involving the A2 segment of both anterior cerebral arteries without significant stenosis. Both superior cerebellar arteries are identified and there is enhancement of both picas.. There is no space-occupying process or abnormal enhancement.. CT ANGIOGRAM CHEST PULMONARY EMBOLISM - Impression -There are acute fractures involving the anterior rib cage and both right and left sides as outlined above. There is no evidence for pulmonary embolism, or evidence of pneumothoraces. A trace left pleural effusion is seen. The lungs are clear and emphysematous. Electronically signed by: Randall Pryor MD 03/19/2024 08:16 PM HEEL SPRAYER FIRST RPWorkstation: [id number] Electronically signed by: Dana Goel MD 03/05/2024 10:56 PM HEEL SPRAYER FIRST RP 78 years old male with past medical history of epilepsy on Keppra, COPD on home oxygen, prior Left PROGRAM SCHEDULE CLERK stroke, HTN, HLD , who was admitted to Neuro ICU on 03/05/2024 as a transfer from [facility] with AMS and hypoxia. Per chart reviewed, Patient presented to outside hospital with AMS, generalized weakness, and hypoxia. He was hypoxic with O2 sats in 70s on 3L NC. Patient was also diaphoretic, pale and blue purse lips. He is placed on NRB and transfer to ED. Patient was awake and answer some question en route. In ED, Patient NIHSS was 35 and became altered with GCS of 8. He does not move any extremities. CTH is obtain which was negative for intracranial abnormalities. Patient did not received TNK because of OOW. Per , Patient stopped taking keppra since past one week. Patient was loaded with 4gm of Keppra in ED. Prior to Transfer, Patient GCS decline and was intubated for airway protection. During intubation, He has PEA arrest ROSC achieved in 15 minutes, Upon arrival to NICU, Patient is awake, follow commands, all extremities AG. CTA is obtain which is negative for LVO or aneurysm. Patient is placed on Ceribell which showed 0% seizure burden. He was extubated to nasal cannula on 03/07, currently downgraded to neuro IMU, SENIOR NATIONAL ACCOUNT MANAGER evaluated and he was started on regular diet. ABG found to have hypercapnia, pulmonology is on board, started on Vapotherm. Assessment & Plan Assessment & PlanSeizure (HCC) COPD (chronic obstructive pulmonary disease) (HCC) Acute respiratory failure with hypoxia and hypercarbia (CMS/HCC) (HCC) Non-sustained ventricular tachycardia (HCC) Cardiac arrest ([facility]) Acute rib fractures, anteriorly(bilaterally)Acute respiratory failure with hypercapnia on admission s/p intubation and extubation, with chronic hypercarbia ?? COPD PNA Concerns of ?semi-flail chest with acute anterior rib fractures anteriorly and hence the possible reason for recurrent hypercapnia. No interventions recommended per cv surgery. Remains stable on NC, along with bipap as needed. Plan to continue with IV diuretics as needed-will continue with bronchodilator, and budesonide nebulizations Sputum culture 03/06 Haemophilus influenzae, s/p course of antibiotics Pulmonary following Hypotension, recurrentS/p PEA arrest, on admission H/o Hypertension Nonsustained VT Blood pressure improved and stable, will consider weaning off midodrine Entresto to be resumed, along with coreg. cardiology following-plan to consider nuclear stress test if feasible prior to his planned discharge, based on his respiratory status. PEA arrest on admission, in setting of hypoxia/intubation on (03/05), ROSC in 15 minutes TTE preserved EF, grade I diastolic dysfunction Cardiology following, plan to consider nuclear stress test in few days Concern for breakthrough seizureEncephalopathy (hypoxic ?) with underlying dementia Seizure disorder, noncompliant with home medication History of CVA CTA negative for acute infarction, old left posterior cerebral artery infarction CTA H/N negative for occlusion, aneurysm or vascular malformation. 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 Their is Left ICA moderate stenosis 50-55% and Right ICA <50% EEG showed 0% seizure burden UDS negative, EtOH negative S/p Keppra 4g load, remains on Keppra 1g BID Continue with ASA and statin Mental status continues to improve gradually, will continue to monitor heparin - 5000 units/mL Current Diet: Adult Diet Heart Healthy; 1500 ml/day CVIMU, will continue with PT OT evaluation and discharge planning. Plan for SNF given issues with intermittent confusion with safety issues, homeO2 eval showed stable oxygenation [facility] HospitalistsSofia Menezes MD 03/23/2024 SPRAYER FIRST SPRAYER FIRST * Randall Vance MD - 03/23/2024 12:00 AM HEEL SPRAYER FIRST PATIENT NAME: HARRIS NEAL CONTACT SERIAL NUMBER: [id number] DATE OF PROGRESS NOTE: 03/23/2024 CV SURGERY PROGRESS NOTE SUBJECTIVE/HISTORY OF PRESENT ILLNESS: Patient is a 78-year-old male who presents to hospital with altered mental status and hypoxemia. He has a history of intubation with declining GCS, and had a PEA cardiac arrest and achieved ROSC after 15 minutes. He is currently alert and following commands, but remains on high-flow Vapotherm with poor volumes noted on pulmonary function tests. We were subsequently consulted for further evaluation of possible semi flail chest. The patient is a poor historian and unable to provide details. OBJECTIVE VITALS AND MEASUREMENTS: Temperature 98.2 degrees Fahrenheit, pulse 78, respiratory rate 18, blood pressure 130/57, SpO2 100% on supplemental oxygen. PHYSICAL EXAMINATION: GENERAL APPEARANCE: Appears ill, in no acute distress. HEENT: Normocephalic, atraumatic. LUNGS: Increased work of breathing on high-flow Vapotherm. EXTREMITIES: No obvious defect. NEUROLOGIC: Alert. SKIN: No suspicious lesions or rash. PSYCH: Cooperative. PERTINENT IMAGING FOR REVIEW: Chest x-ray does not show any rib fractures. ASSESSMENT: Hypoxic respiratory failure. Cardiac arrest with resuscitation. Chronic obstructive pulmonary disease on home oxygen. Seizures. History of left posterior cerebral artery stroke. Hyperlipidemia. Hypertension. PLAN: Mr. Neal remains on high-flow Vapotherm, and was found to have poor volumes on pulmonary function test. Recent 4-view chest x-ray does not show any rib fractures, and it is unlikely that he is a flail chest. We will further confirm with test. Please continue medical management per care team. TIME SPENT: 30 minutes. Dictated by: [facility] SPRAYER FIRST * Gonzalez Foster MD - 03/22/2024 5:13 PM HEEL SPRAYER FIRST Subjective No new changes No chest pain reported Tele, sinus with PVCs Requires high flow O2 Will f/u CV surgeon advise Objective Last Recorded Vitals Blood pressure 116/86, pulse 70, temperature 36.3 ?C (97.3 ?F), resp. rate 17, height 1.854 m (6' 0.99"), weight 81.6 kg (180 lb), SpO2 95%. Physical Exam: Assessment & Plan Seizure (HCC) COPD (chronic obstructive pulmonary disease) (HCC) Acute respiratory failure with hypoxia and hypercarbia (CMS/HCC) (HCC) Non-sustained ventricular tachycardia (HCC) Cardiac arrest (HCC) Current Diet: Adult Diet Heart Healthy; 1500 ml/day SPRAYER FIRST * Sunitha Ibarra PT - 03/22/2024 2:50 PM HEEL SPRAYER FIRST Physical Therapy Treatment Patient Name: Harris Neal Today’s Date: 03/22/24 Room Number: [id number]* Patient's Preferred Language: Uzbek PT Assessment and Plan: Assessment Patient with limited mobility today as I did not have tech assistance nor did RN have availability to help me with WC follow in weeks when I asked. Patient needs one person assist for transfer/amb a few steps but would benefit from second person for longer distance amb for safety. Patient is motivated to work with PT, drop in 02 noted on and off throughout session from 90's to 80's. Plan today was to amb patient in weeks despite RN stating she was not available to assist, as he only was connected to 02. When patient stated he felt too weak to amb, out of precaution ,I worked with him in the room only. Prognosis: Good Medical Staff Made Aware: Yes Plan (Last filed value by PT) Treatment Plan/Goals Established with Patient/Caregiver: Yes Treatment/Interventions: Bed mobility training, Functional activities, Gait training, Transfer training, Therapeutic exercises, Patient education PT Plan: Skilled PT PT Frequency: 3-4 times per week until discharge PT Recommended Transfer Status: Assistive equipment (Comment) (walker) AM-PAC Basic Mobility Turning in bed without bedrails: None Lying on back to sitting on edge of flat bed: A Lot Bed to chair: A Little Standing up from chair: A Little Walk in room: A Little Climbing 3-5 stairs: A Lot Mobility Inpatient Raw Score: 17 -[facility] Goal: 5 [facility] Highest Level of Mobility (-HLM) Scale Highest Level of Mobility Performed (-HLM): Transferred to chair/commode Subjective: Patient agreed to work with PT. Stated he felt weak today. Current Problem: This is a 78 y.o. male who is admitted to [facility] with Seizure (HCC) [R56.9] Pain: Pain Assessment Pain Assessment: DVPRS Pain Score: 0 Pain Rating Scale (DVPRS): No pain Vital Signs: WNL Lines and Drains: 02 nasal cannula Objective: Precautions: LE Weight Bearing Status: FWB Isolation Status: No active isolations Activity Tolerance: Early Mobility/Exercise Safety Screen: Proceed with mobilization - No exclusion criteria met Cognition: Overall Cognitive Status: Within Functional Limits Behavior/Cognition: Alert, Cooperative, Pleasant mood Awareness of Deficits: (has tele sitter in room) Treatments: Therapeutic Activity Time Entry: 14 Therapeutic Activity 1: Patient sitting in bed upon arrival. Patient stated he felt as weak as a kitten. As I did not have any assistance today either from PT tech guest advisor , I asked patient if he could try to transfer to recliner in room. Patient agreed to do so. Patient sat EOB needing Min A for upper body assistance. He stood using RW at CGA and amb ~5 feet to recliner. He was positioned to his comfort. Chair alarm and velcro safety belt placed around him as he has a tele sitter. RN informed that patient was in recliner. She cleared me to do this before I came to see patient. Bed Mobility: Bed Mobility Bed Mobility: Yes Bed Mobility 1 Level of Assistance 1: Partial/Mod assistance Bed Mobility To/From: Supine to sit on EOB Assistive Devices And Adaptive Equipments: Bed rail, Head of bed elevated Transfers: Transfers Transfer: Yes Transfer 1 Technique 1: Via walking Level of Assistance 1: Partial/Mod assistance Transfer To/From: Bed, Chair Assistive Devices And Adaptive Equipments: Walker, front-wheeled Outcome Measures: 03/22/24 1400 Ken RPE Scale Ken RPE Scale - How Strenuous and Tiring The Work Feels 13 - Somewhat hard Patient Education Education Documentation Mobility, taught by Sunitha Ibarra PT at 03/22/2024 2:49 PM. Learner: Patient Readiness: Eager Method: Explanation Response: Verbalizes Understanding Education Comments No comments found. Goal Encounter Goals Encounter Goals (Active) Patient will ambulate 100' distance using LRAD with sup. (Not Met) Start: 03/07/24 Expected End: 03/17/24 Patient will perform chair to and from bed transfer LRAD and sup. (Progressing) Start: 03/07/24 Expected End: 03/17/24 Patient will ambulate >100 feet distance using walker with no assistance (Progressing) Start: 03/15/24 Expected End: 04/12/24 Patient will perform chair to and from bed transfer with no assistance (Progressing) Start: 03/15/24 Expected End: 04/12/24 Patient will perform supine to sit on bed with no assistance demonstrating control (Progressing) Start: 03/15/24 Expected End: 04/12/24 Patient will perform sit to supine on bed with no assistance demonstrating control (Progressing) Start: 03/15/24 Expected End: 04/12/24 Post Therapy Checklist - in chair, call mccormick within reach, and bed/chair alarmin place Time Calculation:Start Time: 1320 Stop Time: 1338 Time Calculation (min): 18 min PT Drawer In Hand Used: N.A. Treatment Note: If this is the last documented treatment, then it will signify discharge from acute care prior to discharge from the therapy service and will serve as the discharge summary. Sunitha Ibarra PT SPRAYER FIRST * Kelsie cShroeder MD - 03/22/2024 2:42 PM HEEL SPRAYER FIRST Images from the original note were not included. Subjective: 78-year-old gentleman with a known history of epilepsy on Keppra, COPD on home oxygen, history of left PROGRAM SCHEDULE CLERK stroke, essential hypertension, upper lipidemia who was admitted on March 05, 2024 as a transfer from an outside facility for altered mental status and hypoxemia. He was intubated at the facility because of declining GCS and had a PEA cardiac arrest and achieved ROSC after 15 minutes. He was awake and following commands when he arrived to our facility in the neuro ICU. He was extubated on February 25 and downgraded to the neuro IMU. Pulmonary was consulted for consideration for management of his COPD. Upon evaluation of the patient, he says that he follows at the [facility] and is known to miss some of his medications due to some noncompliance. He denies any particular respiratory complaints but is a poor historian and does not provide details or specific answers to questions. He denies any cough, sputum, hemoptysis at present. Per review of his medical records, he has been nonadherent to oxygen therapy in the past. He has also been intubated in the past for what looks like seizure related issues. Daily Plan: 03/22: No acute respiratory issues and tolerating high flow oxygen. CV surgical notes reviewed; will discuss with CV surgeon personally Objective: Labs and Vitals: Results from last 7 daysLab Units 03/22/24 1141 03/22/24 0812 03/22/24 0442 SODIUM mEq/L -- -- 141 POTASSIUM mEq/L -- -- 4.6* CHLORIDE mEq/L -- -- 101 CO2 mEq/L -- -- 37.9* BUN mg/dL -- -- 38* CREATININE mg/dL -- -- 0.69* CALCIUM mg/dL -- -- 9.1 GLUCOSE mg/dL -- -- 91 POC GLUCOSE mg/dL 129* < > -- < > = values in this interval not displayed. Results from last 7 days Lab Units 03/22/24 0442 WBC 10*3/uL 9.19 HEMOGLOBIN g/dL 12.7 HEMATOCRIT % 40.9 PLATELETS 10*3/uL 169 PLATELETS ESTIMATED Normal Vitals: 03/22/24 0810 03/22/24 1140 03/22/24 1142 03/22/24 1142 BP: (!) 116/52 Pulse: 85 77 Resp: 19 18 Temp: 36.7 ?C (98.1 ?F) SpO2: 95% 98% ROS: Per the HPI or daily summary Gen'l: Patient lying in bed, in no acute distressNeur: Awake, alert, oriented x 3 with no focal deficits H&N: No obvious JVD, no thyromegaly, no oral thrush Back: No acute deformities Card: No rubs, no gallops and no obvious murmurs L: Good air entry bilaterally with diminished breath sounds in the bilateral bases; no wheezes or rales Abd: Soft, nontender, no gross adenopathy; bowel sounds present Ext: No pitting edema; no obvious cyanosis MSK: Able to move all extremities A/P: 1. History of COPD with documented history of noncompliance to prior oxygen therapy Concern for pneumonia History of MOHAN Hypercarbic respiratory failure secondary to flail chest with underlying emphysema Currently on high flow/Vapotherm O2 and will wean as tolerated CPAP at night IV steroids with tapering dose as ordered Altered the current bronchodilator therapy dosing to more frequent acute for with tapering doses CV surgery consulted for possible fixation for broken ribs 2. History of seizure disorder with noncompliance to medicationsHistory of prior CVA Patient may have some cognitive deficits from his recent cardiac arrest Continue antiepileptics and aspirin and statin Case was discussed with the patient in detail and all questions were answered; discussed with the RN. SPRAYER FIRST * Sofia Menezes MD - 03/22/2024 12:40 PM HEEL SPRAYER FIRST [facility] Subjective Patient was seen and examined at bedside, remains on NC 2-3l at present with stable oxygenation. Blood pressure continues to remain stable now. Appears more awake and alert now, with baseline cognitive issues. No other acute issues overnight Objective Last Recorded Vitals Blood pressure (!) 116/52, pulse 77, temperature 36.7 ?C (98.1 ?F), resp. rate 18, height 1.854 m (6' 0.99"), weight 81.6 kg (180 lb), SpO2 98%. Physical Exam Gen- AAO, answering few simple questions appropriately, now on Vapotherm HEENT- NCAT, EOMI, No scleral icterus Neck Supple, no thyromegaly Heart - S1 S2 heard, regular Lungs- Clear to auscultation bilaterally anteriorly, with mildly reduced breath sounds along the bases, normal respiratory effort P/a- Soft, non tender, no guarding or rigidity noted, bowel sounds present Ext- No peripheral cyanosis or pedal edema noted Neuro- grossly non focal aspirin, 81 mg, Oral, Daily atorvastatin, 40 mg, Oral, Daily budesonide, 1 mg, Nebulization, q12h carvedilol, 6.25 mg, Oral, BID with meals heparin, 5,000 Units, Subcutaneous, q8h ROLANDO ipratropium-albuterol, 3 mL, Nebulization, q6h Followed by [START ON 03/23/2024] ipratropium-albuterol, 3 mL, Nebulization, q8h lactated Ringer's, 250 mL, Intravenous, Once levETIRAcetam, 1,000 mg, Intravenous, q12h midodrine, 5 mg, Oral, BID polyethylene glycol (PEG) 3350, 17 g, Oral, q12h Premier Protein Shake, 1 Bottle, Oral, BID [Held by provider] sacubitril-valsartan, 1 tablet, Nasogastric, Nightly sennosides, 10 mL, Oral, q12h sodium chloride, 10 mL, Intravenous, q12h ROLANDO sodium chloride, 3 mL, Nebulization, q4h PRN medications: acetaminophen, dextrose, dextrose, fentaNYL, glucagon, hydrALAZINE, insulin lispro, nystatin, sodium chloride Results from last 7 daysLab Units 03/22/24 04403/21/24 0450 03/20/24 0557 WBC 10*3/uL 9.19 8.59 9.51 HEMOGLOBIN g/dL 12.7 12.0* 12.3* HEMATOCRIT % 40.9 37.8 38.7 PLATELETS 10*3/uL 169 208 225 PLATELETS ESTIMATED Normal -- -- Results from last 7 daysLab Units 03/22/24 1141 03/22/24 0812 03/22/24 0442 03/21/24 0656 03/21/24 0450 03/20/24 0807 03/20/24 0557 SODIUM mEq/L -- -- 141 -- 140 -- 140 POTASSIUM mEq/L -- -- 4.6* -- 4.9* -- 4.6* CHLORIDE mEq/L -- -- 101 -- 102 -- 101 CO2 mEq/L -- -- 37.9* -- 36.7* -- 38.6* BUN mg/dL -- -- 38* -- 46* -- 53* CREATININE mg/dL -- -- 0.69* -- 0.63* -- 0.65* GLUCOSE mg/dL -- -- 91 -- 125* -- 134* POC GLUCOSE mg/dL 129* < > -- < > -- < > -- CALCIUM mg/dL -- -- 9.1 -- 8.9 -- 8.9 < > = values in this interval not displayed. Comparison Exam : [Head CT exam of 03/05/2024 CLINICAL HISTORY: Stroke assessment, Code Stroke FINDINGS: Do not see any findings suggestive of an aneurysm or vascular malformation.There is no basilar artery occlusion. There is occlusion of the left PROGRAM SCHEDULE CLERK along the P2 segment but this is felt to be chronic in this patient relatively chronic area of left PROGRAM SCHEDULE CLERK infarction seen in this territory noncontrast head CT exam. There is a origin of the right PROGRAM SCHEDULE CLERK without significant compromise of the right PROGRAM SCHEDULE CLERK more distally with the P1 segment noted to be mildly hypoplastic. There is calcific plaque formation along both carotid siphons but without high-grade stenosis or hemodynamically significant narrowing. Significant tortuosity involving the A2 segment of both anterior cerebral arteries without significant stenosis. Both superior cerebellar arteries are identified and there is enhancement of both picas.. There is no space-occupying process or abnormal enhancement.. CT ANGIOGRAM CHEST PULMONARY EMBOLISM - Impression -There are acute fractures involving the anterior rib cage and both right and left sides as outlined above. There is no evidence for pulmonary embolism, or evidence of pneumothoraces. A trace left pleural effusion is seen. The lungs are clear and emphysematous. Electronically signed by: Randall Pryor MD 03/19/2024 08:16 PM HEEL SPRAYER FIRST RPWorkstation: [id number] Electronically signed by: Dana Goel MD 03/05/2024 10:56 PM HEEL SPRAYER FIRST RP 78 years old male with past medical history of epilepsy on Keppra, COPD on home oxygen, prior Left PROGRAM SCHEDULE CLERK stroke, HTN, HLD , who was admitted to Neuro ICU on 03/05/2024 as a transfer from [facility] with AMS and hypoxia. Per chart reviewed, Patient presented to outside hospital with AMS, generalized weakness, and hypoxia. He was hypoxic with O2 sats in 70s on 3L NC. Patient was also diaphoretic, pale and blue purse lips. He is placed on NRB and transfer to ED. Patient was awake and answer some question en route. In ED, Patient NIHSS was 35 and became altered with GCS of 8. He does not move any extremities. CTH is obtain which was negative for intracranial abnormalities. Patient did not received TNK because of OOW. Per , Patient stopped taking keppra since past one week. Patient was loaded with 4gm of Keppra in ED. Prior to Transfer, Patient GCS decline and was intubated for airway protection. During intubation, He has PEA arrest ROSC achieved in 15 minutes, Upon arrival to NICU, Patient is awake, follow commands, all extremities AG. CTA is obtain which is negative for LVO or aneurysm. Patient is placed on Ceribell which showed 0% seizure burden. He was extubated to nasal cannula on 03/07, currently downgraded to neuro IMU, SENIOR NATIONAL ACCOUNT MANAGER evaluated and he was started on regular diet. ABG found to have hypercapnia, pulmonology is on board, started on Vapotherm. Assessment & Plan Assessment & PlanSeizure ([facility]) COPD (chronic obstructive pulmonary disease) ([facility]) Acute respiratory failure with hypoxia and hypercarbia (CMS/HCC) ([facility]) Non-sustained ventricular tachycardia ([facility]) Cardiac arrest ([facility]) Acute rib fractures, anteriorly(bilaterally)Acute respiratory failure with hypercapnia on admission s/p intubation and extubation, with chronic hypercarbia ?? COPD PNA Concerns of ?semi-flail chest with acute anterior rib fractures anteriorly and hence the possible reason for recurrent hypercapnia. No interventions per cv surgery. Now on NC, along with bipap as needed-will continue to gradually wean down O2 as tolerable. Plan to continue with IV diuretics as needed-will continue with bronchodilator, and budesonide nebulizations Sputum culture 03/06 Haemophilus influenzae, s/p course of antibiotics Pulmonary following Hypotension, recurrentS/p PEA arrest, on admission H/o Hypertension Nonsustained VT Blood pressure improved and stable now on midodrine Entresto remains on hold and Coreg dosage reduced with holding parameters, cardiology following-plan to consider nuclear stress test if feasible prior to his planned discharge, based on his respiratory status. PEA arrest on admission, in setting of hypoxia/intubation on (03/05), ROSC in 15 minutes TTE preserved EF, grade I diastolic dysfunction Cardiology following, plan to consider nuclear stress test in few days Concern for breakthrough seizureEncephalopathy (hypoxic ?) with underlying dementia Seizure disorder, noncompliant with home medication History of CVA CTA negative for acute infarction, old left posterior cerebral artery infarction CTA H/N negative for occlusion, aneurysm or vascular malformation. 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 Their is Left ICA moderate stenosis 50-55% and Right ICA <50% EEG showed 0% seizure burden UDS negative, EtOH negative S/p Keppra 4g load, remains on Keppra 1g BID Continue with ASA and statin Mental status continues to improve gradually, will continue to monitor heparin - 5000 units/mL Current Diet: Adult Diet Heart Healthy; 1500 ml/day CVIMU, will continue with PT OT evaluation and discharge planning. Plan for SNF versus IPR evaluation based on clinical progression over the next few days, plan d/w pt's son on phone today [facility] HospitalistsSofia Menezes MD 03/22/2024 SPRAYER FIRST * Sunitha Ibarra, PT - 03/22/2024 11:25 AM HEEL SPRAYER FIRST Physical Therapy Encounter Note Patient Name: Harris Neal Today's Date: 03/22/2024 Missed Treatment Time and Reason Amount of Missed Time (min): 3 Minutes Missed Time Reason: (RN cleared me to work with patient. As I was setting patient up to get out of bed, he stated his diaper is soiled and to come back when he is clean. I notified RN, she expressed she will handle it and I explained I will return around 1 PM or so.)I I returned again around 1254 to work with patient. RN reports patient's diaper has not been addressed yet and to give her a few minutes to clean him. I returned again later to work with patient. Sunitha Ibarra PT SPRAYER FIRST * Kelsie Schroeder MD - 03/21/2024 7:50 PM HEEL SPRAYER FIRST Images from the original note were not included. Subjective: 78-year-old gentleman with a known history of epilepsy on Keppra, COPD on home oxygen, history of left PROGRAM SCHEDULE CLERK stroke, essential hypertension, upper lipidemia who was admitted on March 05, 2024 as a transfer from an outside facility for altered mental status and hypoxemia. He was intubated at the facility because of declining GCS and had a PEA cardiac arrest and achieved ROSC after 15 minutes. He was awake and following commands when he arrived to our facility in the neuro ICU. He was extubated on February 25 and downgraded to the neuro IMU. Pulmonary was consulted for consideration for management of his COPD. Upon evaluation of the patient, [facility] and is known to miss some of his medications due to some noncompliance. He denies any particular respiratory complaints but is a poor historian and does not provide details or specific answers to questions. He denies any cough, sputum, hemoptysis at present. Per review of his medical records, he has been nonadherent to oxygen therapy in the past. He has also been intubated in the past for what looks like seizure related issues. Daily Plan: 03/21: Underwent pulmonary function test but despite good efforts, very poor volumes noted. This is most likely indicative of his semiflail chest. Awaiting CV surgery's input. Objective: Labs and Vitals: Results from last 7 daysLab Units 03/21/24 1542 03/21/24 0656 03/21/24 0450 SODIUM mEq/L -- -- 140 POTASSIUM mEq/L -- -- 4.9* CHLORIDE mEq/L -- -- 102 CO2 mEq/L -- -- 36.7* BUN mg/dL -- -- 46* CREATININE mg/dL -- -- 0.63* CALCIUM mg/dL -- -- 8.9 GLUCOSE mg/dL -- -- 125* POC GLUCOSE mg/dL 109* < > -- < > = values in this interval not displayed. Results from last 7 days Lab Units 03/21/24 0450 WBC 10*3/uL 8.59 HEMOGLOBIN g/dL 12.0* HEMATOCRIT % 37.8 PLATELETS 10*3/uL 208 Vitals: 03/21/24 1440 03/21/24 1550 03/21/24 1550 03/21/24 1551 BP: (!) 160/49 (!) 120/52 Pulse: 74 67 Resp: 17 Temp: 36.6 ?C (97.8 ?F) SpO2: 97% ROS: Per the HPI or daily summary Gen'l: Patient lying in bed, in no acute distressNeur: Awake, alert, oriented x 3 with no focal deficits H&N: No obvious JVD, no thyromegaly, no oral thrush Back: No acute deformities Card: No rubs, no gallops and no obvious murmurs L: Good air entry bilaterally with diminished breath sounds in the bilateral bases; no wheezes or rales Abd: Soft, nontender, no gross adenopathy; bowel sounds present Ext: No pitting edema; no obvious cyanosis MSK: Able to move all extremities A/P: 1. History of COPD with documented history of noncompliance to prior oxygen therapy Concern for pneumonia History of MOHAN Hypercarbic respiratory failure secondary to flail chest with underlying emphysema Currently on high flow/Vapotherm O2 and will wean as tolerated CPAP at night IV steroids with tapering dose as ordered Altered the current bronchodilator therapy dosing to more frequent acute for with tapering doses CV surgery consulted for possible fixation for broken ribs 2. History of seizure disorder with noncompliance to medicationsHistory of prior CVA Patient may have some cognitive deficits from his recent cardiac arrest Continue antiepileptics and aspirin and statin Case was discussed with the patient in detail and all questions were answered; discussed with the RN. SPRAYER FIRST * Gonzalez Foster MD - 03/21/2024 6:30 PM HEEL SPRAYER FIRST Subjective Appears slightly better For O2 As per Dr. Schroeder Awaiting for surgeon input Will attempt to have NUC stress test next few days ObjectiveLast Recorded Vitals Blood pressure (!) 120/52, pulse 67, temperature 36.6 ?C (97.8 ?F), resp. rate 17, height 1.854 m (6' 0.99"), weight 83 kg (182 lb 15.7 oz), SpO2 97%. Physical Exam: Assessment & Plan Seizure (HCC) COPD (chronic obstructive pulmonary disease) (HCC) Acute respiratory failure with hypoxia and hypercarbia (CMS/HCC) (HCC) Non-sustained ventricular tachycardia (HCC) Cardiac arrest (HCC) Current Diet: Adult Diet Heart Healthy; 1500 ml/day SPRAYER FIRST * Sunitha Ibarra, PT - 03/21/2024 2:55 PM HEEL SPRAYER FIRST Physical Therapy Treatment Patient Name: Harris Neal Today’s Date: 03/21/24 Room Number: [id number]* Patient's Preferred Language: Uzbek PT Assessment and Plan: Assessment Patient motivated to work with PT. He is limited with fatigue with regard to amb. He needs CGA level for most functional mobility tasks. Prognosis: Good Medical Staff Made Aware: Yes Plan (Last filed value by PT) Treatment Plan/Goals Established with Patient/Caregiver: Yes Treatment/Interventions: Bed mobility training, Functional activities, Gait training, Transfer training, Therapeutic exercises, Patient education PT Plan: Skilled PT PT Frequency: 3-4 times per week until discharge PT Recommended Transfer Status: Assistive equipment (Comment) (walker) AM-PAC Basic Mobility Turning in bed without bedrails: None Lying on back to sitting on edge of flat bed: A Little Bed to chair: A Little Standing up from chair: A Little Walk in room: A Little Climbing 3-5 stairs: A Lot Mobility Inpatient Raw Score: 18 -HLM Goal: 6 [facility] Highest Level of Mobility (JH-HLM) Scale Highest Level of Mobility Performed (JH-HLM): Walked 25 feet or more (i.e. walked outside of room) Subjective: Patient states he is ready to get out of bed. Current Problem: This is a 78 y.o. male who is admitted to [facility] with Seizure (HCC) [R56.9] Pain: Pain Assessment Pain Assessment: DVPRS Pain Score: 0 Pain Rating Scale (DVPRS): No pain Vital Signs: WNL HR and 02 Lines and Drains: Patient on Vapotherm Objective: Precautions: LE Weight Bearing Status: FWB Isolation Status: No active isolations Cognition: Overall Cognitive Status: Within Functional Limits Behavior/Cognition: Alert, Cooperative Arousal/Alertness: Appropriate responses to stimuli Treatments: Therapeutic Activity Time Entry: 15 Therapeutic Activity 1: Patient resting in bed with Vapotherm. I called RT to see if I could switch patient to portable 02 for therapy/amb. She stated yes and to place patient on 8 L. Patient set up to amb, stood using RW needing max verbal cues for correct hand placement instead of pulling on RW into standing. Post amb assisted to bed due to soiled BM; RN notified. Bed Mobility: Bed Mobility Bed Mobility: Yes Bed Mobility 1 Level of Assistance 1: Supervision/touching assistance (supervision) Bed Mobility To/From: Supine to sit on EOB Assistive Devices And Adaptive Equipments: Head of bed elevated, Bed rail Transfers: Transfers Transfer: Yes Transfer 1 Technique 1: Via walking Level of Assistance 1: Partial/Mod assistance Transfer To/From: Bed Assistive Devices And Adaptive Equipments: Walker, front-wheeled Gait Training: Gait Training Time Entry: 8 Gait Training Activity 1 Distance (enter in feet): ~165 feet Gait Training Activity 1: Indoor surface Assistive Devices And Adaptive Equipments: Walker, front-wheeled Level of Assistance 1: Partial/Mod assistance (CGA + WC follow and 02 tank on 8 L.) Gait Training Activity 1 Comment: Patient able to amb in weeks, slowly and steadily not having any issues with overt loss of balance. Step-through gait noted with decreased stride length. Outcome Measures: 03/21/24 1400 Ken RPE Scale Ken RPE Scale - How Strenuous and Tiring The Work Feels 14 Patient Education Education Documentation Mobility, taught by Sunitha Ibarra PT at 03/21/2024 2:55 PM. Learner: Patient Readiness: Eager Method: Explanation Response: Verbalizes Understanding Education Comments No comments found. Goal Encounter Goals Encounter Goals (Active) Patient will ambulate 100' distance using LRAD with sup. (Not Met) Start: 03/07/24 Expected End: 03/17/24 Patient will perform chair to and from bed transfer LRAD and sup. (Progressing) Start: 03/07/24 Expected End: 03/17/24 Patient will ambulate >100 feet distance using walker with no assistance (Progressing) Start: 03/15/24 Expected End: 04/12/24 Patient will perform chair to and from bed transfer with no assistance (Progressing) Start: 03/15/24 Expected End: 04/12/24 Patient will perform supine to sit on bed with no assistance demonstrating control (Progressing) Start: 03/15/24 Expected End: 04/12/24 Patient will perform sit to supine on bed with no assistance demonstrating control (Progressing) Start: 03/15/24 Expected End: 04/12/24 Post Therapy Checklist - in bed, call mccormick within reach, and bed/chair alarm in place Time Calculation:Start Time: 1035 Stop Time: 1100 Time Calculation (min): 25 min PT Drawer In Hand Used: N.A. Treatment Note: If this is the last documented treatment, then it will signify discharge from acute care prior to discharge from the therapy service and will serve as the discharge summary. Sunitha Ibarra PT SPRAYER FIRST * Sofia Menezes MD - 03/21/2024 10:29 AM HEEL SPRAYER FIRST [facility] Subjective Patient was seen and examined at bedside, remains on NC at present, and with bipap intermittently as needed. Blood pressure improved and stable now. Appears more awake and alert now, with baseline cognitive issues. No other acute issues overnight Objective Last Recorded Vitals Blood pressure 152/67, pulse 76, temperature 37.1 ?C (98.7 ?F), temperature source Axillary, resp. rate 20, height 1.854 m (6' 0.99"), weight 83 kg (182 lb 15.7 oz), SpO2 96%. Physical Exam Gen- AAO, answering few simple questions appropriately, now on Vapotherm HEENT- NCAT, EOMI, No scleral icterus Neck Supple, no thyromegaly Heart - S1 S2 heard, regular Lungs- Clear to auscultation bilaterally anteriorly, with mildly reduced breath sounds along the bases, normal respiratory effort P/a- Soft, non tender, no guarding or rigidity noted, bowel sounds present Ext- No peripheral cyanosis or pedal edema noted Neuro- grossly non focal aspirin, 81 mg, Oral, Daily atorvastatin, 40 mg, Oral, Daily budesonide, 1 mg, Nebulization, q12h carvedilol, 6.25 mg, Oral, BID with meals heparin, 5,000 Units, Subcutaneous, q8h ROLANDO ipratropium-albuterol, 3 mL, Nebulization, q4h Followed by ipratropium-albuterol, 3 mL, Nebulization, q6h Followed by [START ON 03/23/2024] ipratropium-albuterol, 3 mL, Nebulization, q8h lactated Ringer's, 250 mL, Intravenous, Once levETIRAcetam, 1,000 mg, Intravenous, q12h midodrine, 5 mg, Oral, BID polyethylene glycol (PEG) 3350, 17 g, Oral, q12h Premier Protein Shake, 1 Bottle, Oral, BID [Held by provider] sacubitril-valsartan, 1 tablet, Nasogastric, Nightly sennosides, 10 mL, Oral, q12h sodium chloride, 10 mL, Intravenous, q12h ROLANDO sodium chloride, 3 mL, Nebulization, q4h PRN medications: acetaminophen, dextrose, dextrose, fentaNYL, glucagon, hydrALAZINE, insulin lispro, nystatin, sodium chloride Results from last 7 daysLab Units 03/21/24 0450 03/20/24 0557 03/19/24 0507 WBC 10*3/uL 8.59 9.51 10.31* HEMOGLOBIN g/dL 12.0* 12.3* 12.4 HEMATOCRIT % 37.8 38.7 38.7 PLATELETS 10*3/uL 208 225 215 PLATELETS ESTIMATED -- -- Normal Results from last 7 daysLab Units 03/21/24 0656 03/21/24 0450 03/20/24 0807 03/20/24 0557 03/19/24 0827 03/19/24 0507 SODIUM mEq/L -- 140 -- 140 -- 138 POTASSIUM mEq/L -- 4.9* -- 4.6* -- 4.5 CHLORIDE mEq/L -- 102 -- 101 -- 103 CO2 mEq/L -- 36.7* -- 38.6* -- 36.9* BUN mg/dL -- 46* -- 53* -- 73* CREATININE mg/dL -- 0.63* -- 0.65* -- 0.82 GLUCOSE mg/dL -- 125* -- 134* -- 129* POC GLUCOSE mg/dL 107* -- < > -- < > -- CALCIUM mg/dL -- 8.9 -- 8.9 -- 8.9 < > = values in this interval not displayed. Comparison Exam : [Head CT exam of 03/05/2024 CLINICAL HISTORY: Stroke assessment, Code Stroke FINDINGS: Do not see any findings suggestive of an aneurysm or vascular malformation.There is no basilar artery occlusion. There is occlusion of the left PROGRAM SCHEDULE CLERK along the P2 segment but this is felt to be chronic in this patient relatively chronic area of left PROGRAM SCHEDULE CLERK infarction seen in this territory noncontrast head CT exam. There is a origin of the right PROGRAM SCHEDULE CLERK without significant compromise of the right PROGRAM SCHEDULE CLERK more distally with the P1 segment noted to be mildly hypoplastic. There is calcific plaque formation along both carotid siphons but without high-grade stenosis or hemodynamically significant narrowing. Significant tortuosity involving the A2 segment of both anterior cerebral arteries without significant stenosis. Both superior cerebellar arteries are identified and there is enhancement of both picas.. There is no space-occupying process or abnormal enhancement.. CT ANGIOGRAM CHEST PULMONARY EMBOLISM - Impression -There are acute fractures involving the anterior rib cage and both right and left sides as outlined above. There is no evidence for pulmonary embolism, or evidence of pneumothoraces. A trace left pleural effusion is seen. The lungs are clear and emphysematous. Electronically signed by: Randall Pryor MD 03/19/2024 08:16 PM HEEL SPRAYER FIRST RPWorkstation: [id number] Electronically signed by: Dana Goel MD 03/05/2024 10:56 PM HEEL SPRAYER FIRST RP 78 years old male with past medical history of epilepsy on Keppra, COPD on home oxygen, prior Left PROGRAM SCHEDULE CLERK stroke, HTN, HLD , who was admitted to Neuro ICU on 03/05/2024 as a transfer from [facility] with AMS and hypoxia. Per chart reviewed, Patient presented to outside hospital with AMS, generalized weakness, and hypoxia. He was hypoxic with O2 sats in 70s on 3L NC. Patient was also diaphoretic, pale and blue purse lips. He is placed on NRB and transfer to ED. Patient was awake and answer some question en route. In ED, Patient NIHSS was 35 and became altered with GCS of 8. He does not move any extremities. CTH is obtain which was negative for intracranial abnormalities. Patient did not received TNK because of OOW. Per , Patient stopped taking keppra since past one week. Patient was loaded with 4gm of Keppra in ED. Prior to Transfer, Patient GCS decline and was intubated for airway protection. During intubation, He has PEA arrest ROSC achieved in 15 minutes, Upon arrival to NICU, Patient is awake, follow commands, all extremities AG. CTA is obtain which is negative for LVO or aneurysm. Patient is placed on Ceribell which showed 0% seizure burden. He was extubated to nasal cannula on 03/07, currently downgraded to neuro IMU, SENIOR NATIONAL ACCOUNT MANAGER evaluated and he was started on regular diet. ABG found to have hypercapnia, pulmonology is on board, started on Vapotherm. Assessment & Plan Assessment & PlanSeizure ([facility]) COPD (chronic obstructive pulmonary disease) ([facility]) Acute respiratory failure with hypoxia and hypercarbia (CMS/HCC) ([facility]) Non-sustained ventricular tachycardia (HCC) Cardiac arrest ([facility]) Acute rib fractures, anteriorly(bilaterally)Acute respiratory failure with hypercapnia on admission s/p intubation and extubation, with chronic hypercarbia ?? COPD PNA Concerns of flail chest with acute anterior rib fractures anteriorly and hence the possible reason for recurrent hypercapnia. Await CV surgery input. Now on NC, along with bipap as needed-will continue to gradually wean down as tolerable. Discussed with pulmonary service. Plan to continue with IV diuretics as needed-will continue with bronchodilator, and budesonide nebulizations Sputum culture 03/06 Haemophilus influenzae, s/p course of antibiotics Pulmonary following Hypotension, recurrentS/p PEA arrest, on admission H/o Hypertension Nonsustained VT Blood pressure improved and stable now on midodrine Entresto remains on hold and Coreg dosage reduced with holding parameters, discussed with cardiology-plan to consider nuclear stress test if feasible prior to his planned discharge, based on his respiratory status. PEA arrest in setting hypoxia/intubation on (03/05), ROSC in 15 minutes TTE preserved EF, grade I diastolic dysfunction Cardiology following, plan to consider nuclear stress test in few days Concern for breakthrough seizureEncephalopathy (hypoxic ?) with underlying dementia Seizure disorder, noncompliant with home medication History of CVA CTA negative for acute infarction, old left posterior cerebral artery infarction CTA H/N negative for occlusion, aneurysm or vascular malformation. 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 Their is Left ICA moderate stenosis 50-55% and Right ICA <50% EEG showed 0% seizure burden UDS negative, EtOH negative S/p Keppra 4g load, remains on Keppra 1g BID Continue with ASA and statin Mental status continues to improve gradually, will continue to monitor heparin - 5000 units/mL Current Diet: Adult Diet Heart Healthy; 1500 ml/day CVIMU, will continue with PT OT evaluation and discharge planning. Plan for LTAC versus IPR evaluation based on clinical progression over the next few days [facility]istsSofia Menezes MD 03/21/2024 SPRAYER FIRST * Jaja Wyatt, OT - 03/21/2024 10:00 AM HEEL SPRAYER FIRST Occupational Therapy Treatment Harris Neal 1945 Room [facility] [place] [address].[facility] Assessment: Pt was seen for OT treatment focus on functional strength and ADL's training. Pt present with decrease functional strength, balance and safety awareness. Pt's deficits impacting his pace and ind with ADL's and transfers. Pt benefits from extra time, VC's and breathing exercises to maximized performance. OT Assessment Results: Impaired ADL status, Impaired cognition, Impaired endurance, Impaired gross motor control Prognosis: Good Barriers to Discharge: Past Medical history Evaluation/Treatment Tolerance: Patient tolerated treatment well, Patient limited by fatigue Medical Staff Made Aware: Yes Strengths: Attitude of self Plan: Treatment Plan/Goals Established with Patient/Caregiver: Yes Treatment Interventions: ADL retraining OT Planned Treatments: Activities of Daily Living OT Plan: Skilled OT OT Frequency: 2-3 times per week until discharge Equipment Recommended: Shower bath chair, Walker- rolling AM-PAC Daily Activity: Putting on and taking off regular lower body clothing: A Little Bathing (including washing, rinsing, drying): A Lot Toileting, which includes using toilet, bedpan or urinal: A Lot Putting on and taking off regular upper body clothing: A Little Taking care of personal grooming such as brushing teeth: A Little Eating Meals: None AM-PAC Daily Activity Raw Score: 17 [facility] Highest Level of Mobility (-HLM) ScaleHighest Level of Mobility Performed (-HLM): Walked 10 steps or more (i.e. walked to restroom) Preferred Language: Uzbek SubjectivePt eager and agreeable to get OOB. Treatment: 03/21/24 1000OT Last Visit OT Received On 03/21/24 Time Calculation Start Time 1000 Stop Time 1029 Time Calculation (min) 29 min General Family/Caregiver Present No Precautions UE Weight Bearing Status FWB LE Weight Bearing Status FWB Medical Precautions Standard, Fall Pain Assessment Pain Assessment DVPRS Pain Score 0 Pain Rating Scale (DVPRS) 0 ADL Self Care/Home Management (ADLs) Time Entry 29 Eating Assistance Setup/clean-up assistance Grooming Assistance Setup/clean-up assistance UE Dressing Assistance Partial/Mod assistance (Min A) LE Dressing Assistance Supervision/touching assistance ADL Comments When therapist arrived pt in semi daly, H Flow 35% FiO2, 20 L/min, SpO2 99%. Pt educated on OT goals and agreeable. He transfer sup to sit min/mod A. He needs extra time to acclimated. Pt participated in dressing while sitting EOB. he needs min A to don extra gown but max VC's for problem solving. He is able to don/doff socks with CGA and min VC's for problem solving. Pt instructed on figure 4 and pacing to decrease respiratory fatigue. Pt transition to O2 tank 8L (RN/RT ok 'd). Pt initially 94% SpO2, he participated in deep breathing exercises and practice good posture during sitting = SPO2 99%. Pt transfer STS via RW with min A. He ambulated to the sink with slow pace and the need of VC's to stay close to RW. Pt stand for two min approx and reported fatigue. He sat for oral and facial hygiene, with the need of extra time. Pt then ambulated back to EOB. He needs mod A with max VC's to get back into bed. Bed Mobility Bed Mobility Yes Bed Mobility 1 Level of Assistance 1 Partial/Mod assistance Bed Mobility To/From Sitting EOB to supine;Supine to sit on EOB Assistive Devices And Adaptive Equipments Head of bed elevated;Bed rail Transfers Transfer Yes Transfer 1 Technique 1 Via walking Level of Assistance 1 Partial/Mod assistance (Min A) Transfer To/From Bed;Other (specify) (Sink) Assistive Devices And Adaptive Equipments Walker, front-wheeled Activity Tolerance Endurance Tolerates less than 10 min exercise, no significant change in vital signs Sitting Balance Moves/returns truncal midpoint 1-2 inches in multiple planes Early Mobility/Exercise Safety Screen Proceed with mobilization - No exclusion criteria met AM-PAC Daily Activity Inpatient Putting on and taking off regular lower body clothing 3 Bathing (including washing, rinsing, drying) 2 Toileting, which includes using toilet, bedpan or urinal 2 Putting on and taking off regular upper body clothing 3 Taking care of personal grooming such as brushing teeth 3 Eating Meals 4 AM-PAC Daily Activity Raw Score 17 OT Assessment OT Assessment Results Impaired ADL status;Impaired cognition;Impaired endurance;Impaired gross motor control Prognosis Good Barriers to Discharge Past Medical history Evaluation/Treatment Tolerance Patient tolerated treatment well;Patient limited by fatigue Medical Staff Made Aware Yes Strengths Attitude of self OT Plan Treatment Plan/Goals Established with Patient/Caregiver Yes Treatment Interventions ADL retraining OT Plan Skilled OT OT Frequency 2-3 times per week until discharge Equipment Recommended Shower bath chair;Walker- rolling OT Planned Treatments Activities of Daily Living OT Duration Discharge Mobility Highest Level of Mobility Performed (-[facility]) 6 Pt left in semi daly. VSS, H Flow, at end of session, all needs in reach,alarm intact. Education DocumentationNo documentation found. Education Comments No comments found. Encounter Goals Encounter Goals (Active) Patient will be mod I with LB dressing. (Progressing) Start: 03/09/24 Expected End: 03/17/24 Pt will complete oral care with min A while standing at the sink (Not Progressing) Start: 03/09/24 Expected End: 03/17/24 Patient will be SUP with toilet transfers (Not Progressing) Start: 03/09/24 Expected End: 03/17/24 Patient will be sup with toilet hygiene (Not Progressing) Start: 03/09/24 Expected End: 03/17/24 Treatment Note: If this is the last documented treatment, then it will signify discharge from acute care prior to discharge from the therapy service and will serve as the discharge summary. Jaja Wyatt, [facility] SPRAYER FIRST * Gonzalez Foster MD - 03/20/2024 10:24 PM HEEL SPRAYER FIRST Subjective Pleasant Denied chest pain Hard to wean off O2 Today as per Dr. Schroeder suggestion Will f/u Unable to proceed NUC stress test due to Vapotherm ObjectiveLast Recorded Vitals Blood pressure (!) 143/58, pulse 82, temperature 36.9 ?C (98.4 ?F), resp. rate 18, height 1.854 m (6' 0.99"), weight 84.1 kg (185 lb 6.4 oz), SpO2 99%. Physical Exam: Assessment & Plan Seizure (HCC) COPD (chronic obstructive pulmonary disease) (HCC) Acute respiratory failure with hypoxia and hypercarbia (CMS/HCC) (HCC) Non-sustained ventricular tachycardia (HCC) Cardiac arrest (HCC) Current Diet: Adult Diet Heart Healthy; 1500 ml/day SPRAYER FIRST * Kelsie Schroeder MD - 03/20/2024 5:10 PM HEEL SPRAYER FIRST Images from the original note were not included. Subjective: 78-year-old gentleman with a known history of epilepsy on Keppra, COPD on home oxygen, history of left PROGRAM SCHEDULE CLERK stroke, essential hypertension, upper lipidemia who was admitted on March 05, 2024 as a transfer from an outside facility for altered mental status and hypoxemia. He was intubated at the facility because of declining GCS and had a PEA cardiac arrest and achieved ROSC after 15 minutes. He was awake and following commands when he arrived to our facility in the neuro ICU. He was extubated on February 25 and downgraded to the neuro IMU. Pulmonary was consulted for consideration for management of his COPD. Upon evaluation of the patient, he says that he follows at [facility] and is known to miss some of his medications due to some noncompliance. He denies any particular respiratory complaints but is a poor historian and does not provide details or specific answers to questions. He denies any cough, sputum, hemoptysis at present. Per review of his medical records, he has been nonadherent to oxygen therapy in the past. He has also been intubated in the past for what looks like seizure related issues. Daily Plan: 03/20: CT angio of the chest did not reveal any pulmonary embolism but didreveal bilateral anterior rib fractures and given the patient does have some paradoxical sternal movement with inspiration, he may have a semiflail chest that is contributing to his hypercarbia with his underlying emphysema. Will continue current inhaled therapies and CV surgery was consulted for potential rib fixation to help improve his respiratory status. Patient will benefit from BiPAP therapy but he does not tolerate it. Objective: Labs and Vitals: Results from last 7 daysLab Units 03/20/24 1615 03/20/24 0807 03/20/24 0557 SODIUM mEq/L -- -- 140 POTASSIUM mEq/L -- -- 4.6* CHLORIDE mEq/L -- -- 101 CO2 mEq/L -- -- 38.6* BUN mg/dL -- -- 53* CREATININE mg/dL -- -- 0.65* CALCIUM mg/dL -- -- 8.9 GLUCOSE mg/dL -- -- 134* POC GLUCOSE mg/dL 124* < > -- < > = values in this interval not displayed. Results from last 7 days Lab Units 03/20/24 0557 WBC 10*3/uL 9.51 HEMOGLOBIN g/dL 12.3* HEMATOCRIT % 38.7 PLATELETS 10*3/uL 225 Vitals: 03/20/24 1523 03/20/24 1613 03/20/24 1614 03/20/24 1614 BP: (!) 123/46 Pulse: 64 66 Resp: 19 Temp: 36.8 ?C (98.2 ?F) SpO2: 96% 93% ROS: Per the HPI or daily summary Gen'l: Patient lying in bed, in no acute distressNeur: Awake, alert, oriented x 3 with no focal deficits H&N: No obvious JVD, no thyromegaly, no oral thrush Back: No acute deformities Card: No rubs, no gallops and no obvious murmurs L: Good air entry bilaterally with diminished breath sounds in the bilateral bases; no wheezes or rales Abd: Soft, nontender, no gross adenopathy; bowel sounds present Ext: No pitting edema; no obvious cyanosis MSK: Able to move all extremities A/P: 1. History of COPD with documented history of noncompliance to prior oxygen therapy Concern for pneumonia History of MOHAN Hypercarbic respiratory failure secondary to flail chest with underlying emphysema Currently on high flow/Vapotherm O2 and will wean as tolerated CPAP at night IV steroids with tapering dose as ordered Altered the current bronchodilator therapy dosing to more frequent acute for with tapering doses CV surgery consulted for possible fixation for broken ribs 2. History of seizure disorder with noncompliance to medicationsHistory of prior CVA Patient may have some cognitive deficits from his recent cardiac arrest Continue antiepileptics and aspirin and statin Case was discussed with the patient in detail and all questions were answered; discussed with the RN. SPRAYER FIRST * Sofia Menezes MD - 03/20/2024 11:09 AM HEEL SPRAYER FIRST [facility] Subjective Patient was seen and examined at bedside, remains on Vapotherm 30 L at 40% FiO2, and was on bipap overnight. Blood pressure improved and stable now. Appears more awake and alert now. Denies any other new subjective complaints. No other acute issues overnight Objective Last Recorded Vitals Blood pressure (!) 131/45, pulse 76, temperature 37.1 ?C (98.7 ?F), resp. rate 18, height 1.854 m (6' 0.99"), weight 84.1 kg (185 lb 6.4 oz), SpO2 98%. Physical Exam Gen- AAO, answering questions appropriately, now on Vapotherm HEENT- NCAT, EOMI, No scleral icterus Neck Supple, no thyromegaly Heart - S1 S2 heard, regular Lungs- Clear to auscultation bilaterally anteriorly, with mildly reduced breath sounds along the bases, normal respiratory effort P/a- Soft, non tender, no guarding or rigidity noted, bowel sounds present Ext- No peripheral cyanosis or pedal edema noted Neuro- grossly non focal aspirin, 81 mg, Oral, Daily atorvastatin, 40 mg, Oral, Daily budesonide, 1 mg, Nebulization, q12h carvedilol, 6.25 mg, Oral, BID with meals heparin, 5,000 Units, Subcutaneous, q8h ROLANDO ipratropium-albuterol, 3 mL, Nebulization, q4h Followed by [START ON 03/21/2024] ipratropium-albuterol, 3 mL, Nebulization, q6h Followed by [START ON 03/23/2024] ipratropium-albuterol, 3 mL, Nebulization, q8h lactated Ringer's, 250 mL, Intravenous, Once levETIRAcetam, 1,000 mg, Intravenous, q12h methylPREDNISolone sod suc (PF), 40 mg, Intravenous, q12h midodrine, 5 mg, Oral, BID polyethylene glycol (PEG) 3350, 17 g, Oral, q12h Premier Protein Shake, 1 Bottle, Oral, BID [Held by provider] sacubitril-valsartan, 1 tablet, Nasogastric, Nightly sennosides, 10 mL, Oral, q12h sodium chloride, 10 mL, Intravenous, q12h ROLANDO sodium chloride, 3 mL, Nebulization, q4h PRN medications: acetaminophen, dextrose, dextrose, fentaNYL, glucagon, hydrALAZINE, insulin lispro, nystatin, sodium chloride Results from last 7 daysLab Units 03/20/24 0557 03/19/24 0507 03/18/24 0340 WBC 10*3/uL 9.51 10.31* 12.18* HEMOGLOBIN g/dL 12.3* 12.4 12.7 HEMATOCRIT % 38.7 38.7 41.1 PLATELETS 10*3/uL 225 215 242 PLATELETS ESTIMATED -- Normal -- Results from last 7 daysLab Units 03/20/24 0807 03/20/24 0557 03/19/24 0827 03/19/24 0507 03/18/24 0703 03/18/24 0340 SODIUM mEq/L -- 140 -- 138 -- 138 POTASSIUM mEq/L -- 4.6* -- 4.5 -- 4.6* CHLORIDE mEq/L -- 101 -- 103 -- 98 CO2 mEq/L -- 38.6* -- 36.9* -- 39.9* BUN mg/dL -- 53* -- 73* -- 68* CREATININE mg/dL -- 0.65* -- 0.82 -- 1.26 GLUCOSE mg/dL -- 134* -- 129* -- 153* POC GLUCOSE mg/dL 103* -- < > -- < > -- CALCIUM mg/dL -- 8.9 -- 8.9 -- 9.3 < > = values in this interval not displayed. Comparison Exam : [Head CT exam of 03/05/2024 CLINICAL HISTORY: Stroke assessment, Code Stroke FINDINGS: Do not see any findings suggestive of an aneurysm or vascular malformation.There is no basilar artery occlusion. There is occlusion of the left PROGRAM SCHEDULE CLERK along the P2 segment but this is felt to be chronic in this patient relatively chronic area of left PROGRAM SCHEDULE CLERK infarction seen in this territory noncontrast head CT exam. There is a origin of the right PROGRAM SCHEDULE CLERK without significant compromise of the right PROGRAM SCHEDULE CLERK more distally with the P1 segment noted to be mildly hypoplastic. There is calcific plaque formation along both carotid siphons but without high-grade stenosis or hemodynamically significant narrowing. Significant tortuosity involving the A2 segment of both anterior cerebral arteries without significant stenosis. Both superior cerebellar arteries are identified and there is enhancement of both picas.. There is no space-occupying process or abnormal enhancement.. CT ANGIOGRAM CHEST PULMONARY EMBOLISM - Impression -There are acute fractures involving the anterior rib cage and both right and left sides as outlined above. There is no evidence for pulmonary embolism, or evidence of pneumothoraces. A trace left pleural effusion is seen. The lungs are clear and emphysematous. Electronically signed by: Randall Pryor MD 03/19/2024 08:16 PM HEEL SPRAYER FIRST RPWorkstation: [id number] Electronically signed by: Dana Goel MD 03/05/2024 10:56 PM HEEL SPRAYER FIRST RP 78 years old male with past medical history of epilepsy on Keppra, COPD on home oxygen, prior Left PROGRAM SCHEDULE CLERK stroke, HTN, HLD , who was admitted to Neuro ICU on 03/05/2024 as a transfer from [facility] with AMS and hypoxia. Per chart reviewed, Patient presented to outside hospital with AMS, generalized weakness, and hypoxia. He was hypoxic with O2 sats in 70s on 3L NC. Patient was also diaphoretic, pale and blue purse lips. He is placed on NRB and transfer to ED. Patient was awake and answer some question en route. In ED, Patient NIHSS was 35 and became altered with GCS of 8. He does not move any extremities. CTH is obtain which was negative for intracranial abnormalities. Patient did not received TNK because of OOW. Per , Patient stopped taking keppra since past one week. Patient was loaded with 4gm of Keppra in ED. Prior to Transfer, Patient GCS decline and was intubated for airway protection. During intubation, He has PEA arrest ROSC achieved in 15 minutes, Upon arrival to NICU, Patient is awake, follow commands, all extremities AG. CTA is obtain which is negative for LVO or aneurysm. Patient is placed on Ceribell which showed 0% seizure burden. He was extubated to nasal cannula on 03/07, currently downgraded to neuro IMU, SENIOR NATIONAL ACCOUNT MANAGER evaluated and he was started on regular diet. ABG found to have hypercapnia, pulmonology is on board, started on Vapotherm. Assessment & Plan Assessment & PlanSeizure ([facility]) COPD (chronic obstructive pulmonary disease) ([facility]) Acute respiratory failure with hypoxia and hypercarbia (CMS/HCC) ([facility]) Non-sustained ventricular tachycardia ([facility]) Cardiac arrest ([facility]) Acute rib fractures, anteriorly(bilaterally)Acute respiratory failure with hypercapnia on admission s/p intubation and extubation, with chronic hypercarbia ?? COPD PNA Concerns of flail chest with acute anterior rib fractures anteriorly and hence the possible reason for recurrent hypercapnia. Will continue with Vapotherm, along with bipap as needed-will continue to gradually wean down as tolerable. Discussed with pulmonary service. D/w pulmonary- cv surgery consulted for need of any intervention. Plan to continue with IV diuretics as needed-will continue with bronchodilator, and budesonide nebulizations Remains on IV Solu-Medrol Sputum culture 03/06 Haemophilus influenzae, s/p course of antibiotics Pulmonary following Hypotension, recurrentS/p PEA arrest, on admission H/o Hypertension Nonsustained VT Blood pressure improved and stable on midodrine Entresto remains on hold and Coreg dosage reduced with holding parameters, discussed with cardiology-plan to consider nuclear stress test if feasible prior to his planned discharge, based on his respiratory status. PEA arrest in setting hypoxia/intubation on (03/05), ROSC in 15 minutes TTE preserved EF, grade I diastolic dysfunction Cardiology following, plan to consider nuclear stress test in few days Concern for breakthrough seizureEncephalopathy (hypoxic ?) Seizure disorder, noncompliant with home medication History of CVA CTA negative for acute infarction, old left posterior cerebral artery infarction CTA H/N negative for occlusion, aneurysm or vascular malformation. 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 Their is Left ICA moderate stenosis 50-55% and Right ICA <50% EEG showed 0% seizure burden UDS negative, EtOH negative S/p Keppra 4g load, remains on Keppra 1g BID Continue with ASA and statin Mental status continues to improve gradually, will continue to monitor heparin - 5000 units/mL Current Diet: Adult Diet Heart Healthy; 1500 ml/day cvIMU, will continue with PT OT evaluation and discharge planning. Plan for LTAC versus IPR evaluation based on clinical progression over the next few days [facility]istsSofia Menezes MD 03/20/2024 SPRAYER FIRST * Kelsie Schroeder MD - 03/19/2024 4:06 PM HEEL SPRAYER FIRST Images from the original note were not included. Subjective: 78-year-old gentleman with a known history of epilepsy on Keppra, COPD on home oxygen, history of left PROGRAM SCHEDULE CLERK stroke, essential hypertension, upper lipidemia who was admitted on March 05, 2024 as a transfer from an outside facility for altered mental status and hypoxemia. He was intubated at the facility because of declining GCS and had a PEA cardiac arrest and achieved ROSC after 15 minutes. He was awake and following commands when he arrived to our facility in the neuro ICU. He was extubated on February 25 and downgraded to the neuro IMU. Pulmonary was consulted for consideration for management of his COPD. Upon evaluation of the patient, he says that he follows at the [facility] and is known to miss some of his medications due to some noncompliance. He denies any particular respiratory complaints but is a poor historian and does not provide details or specific answers to questions. He denies any cough, sputum, hemoptysis at present. Per review of his medical records, he has been nonadherent to oxygen therapy in the past. He has also been intubated in the past for what looks like seizure related issues. Daily Plan: 03/19: Tolerating Vapotherm without any acute respiratory distress; I increased the frequency of his scheduled bronchodilators yesterday to every 4 hours and he is tolerating this well however patient's lungs remain fairly clear. Will obtain CT angiography of the chest to evaluate for pulmonary embolism while also evaluating for any parenchymal disease. Awake and responsive without any hemoptysis or sputum Objective: Labs and Vitals: Results from last 7 daysLab Units 03/19/24 1142 03/19/24 0827 03/19/24 0507 SODIUM mEq/L -- -- 138 POTASSIUM mEq/L -- -- 4.5 CHLORIDE mEq/L -- -- 103 CO2 mEq/L -- -- 36.9* BUN mg/dL -- -- 73* CREATININE mg/dL -- -- 0.82 CALCIUM mg/dL -- -- 8.9 GLUCOSE mg/dL -- -- 129* POC GLUCOSE mg/dL 168* < > -- < > = values in this interval not displayed. Results from last 7 days Lab Units 03/19/24 0507 WBC 10*3/uL 10.31* HEMOGLOBIN g/dL 12.4 HEMATOCRIT % 38.7 PLATELETS 10*3/uL 215 PLATELETS ESTIMATED Normal Vitals: 03/19/24 1158 03/19/24 1200 03/19/24 1200 03/19/24 1202 BP: (!) 110/43 Pulse: 74 Resp: 18 Temp: 36.7 ?C (98 ?F) SpO2: 99% ROS: Per the HPI or daily summary Gen'l: Patient lying in bed, in no acute distressNeur: Awake, alert, oriented x 3 with no focal deficits H&N: No obvious JVD, no thyromegaly, no oral thrush Back: No acute deformities Card: No rubs, no gallops and no obvious murmurs L: Good air entry bilaterally with diminished breath sounds in the bilateral bases; no wheezes or rales Abd: Soft, nontender, no gross adenopathy; bowel sounds present Ext: No pitting edema; no obvious cyanosis MSK: Able to move all extremities A/P: 1. History of COPD with documented history of noncompliance to prior oxygen therapy Concern for pneumonia History of MOHAN Currently on Low flow O2 and will wean as tolerated CPAP at night IV steroids with tapering dose as ordered Altered the current bronchodilator therapy dosing to more frequent acute for with tapering doses 2. History of seizure disorder with noncompliance to medicationsHistory of prior CVA Patient may have some cognitive deficits from his recent cardiac arrest Continue antiepileptics and aspirin and statin Case was discussed with the patient in detail and all questions were answered; discussed with the RN. SPRAYER FIRST * Gonzalez Foster MD - 03/19/2024 9:41 AM HEEL SPRAYER FIRST Subjective In bed Requires Vapotherm Alert Tele, sinus with occasional PvCs ObjectiveLast Recorded Vitals Blood pressure (!) 143/58, pulse 82, temperature 36.9 ?C (98.4 ?F), resp. rate 18, height 1.854 m (6' 0.99"), weight 84.1 kg (185 lb 6.4 oz), SpO2 99%. Physical Exam: Assessment & Plan Seizure (HCC) COPD (chronic obstructive pulmonary disease) (HCC) Acute respiratory failure with hypoxia and hypercarbia (CMS/HCC) (HCC) Non-sustained ventricular tachycardia (HCC) Cardiac arrest (HCC) Current Diet: Adult Diet Heart Healthy; 1500 ml/day SPRAYER FIRST * Sofia Menezes MD - 03/19/2024 9:27 AM HEEL SPRAYER FIRST [facility] Subjective Patient was seen and examined at bedside, remains on Vapotherm 30 L at 40% FiO2. Blood pressure improved and stable now. Appears more awake and alert now. Denies any other new subjective complaints. No acute issues overnight Objective Last Recorded Vitals Blood pressure (!) 113/54, pulse 65, temperature 36.3 ?C (97.3 ?F), resp. rate 20, height 1.854 m (6' 0.99"), weight 85.8 kg (189 lb 1.6 oz), SpO2 98%. Physical Exam Gen- AAO, answering questions appropriately, now on Vapotherm HEENT- NCAT, EOMI, No scleral icterus Neck Supple, no thyromegaly Heart - S1 S2 heard, regular Lungs- Clear to auscultation bilaterally anteriorly, with mildly reduced breath sounds along the bases, normal respiratory effort P/a- Soft, non tender, no guarding or rigidity noted, bowel sounds present Ext- No peripheral cyanosis or pedal edema noted Neuro- grossly non focal aspirin, 81 mg, Oral, Daily atorvastatin, 40 mg, Oral, Daily budesonide, 1 mg, Nebulization, q12h carvedilol, 6.25 mg, Oral, BID with meals heparin, 5,000 Units, Subcutaneous, q8h ROLANDO ipratropium-albuterol, 3 mL, Nebulization, q4h Followed by [START ON 03/21/2024] ipratropium-albuterol, 3 mL, Nebulization, q6h Followed by [START ON 03/23/2024] ipratropium-albuterol, 3 mL, Nebulization, q8h lactated Ringer's, 250 mL, Intravenous, Once levETIRAcetam, 1,000 mg, Intravenous, q12h methylPREDNISolone sod suc (PF), 40 mg, Intravenous, q12h midodrine, 5 mg, Oral, BID polyethylene glycol (PEG) 3350, 17 g, Oral, q12h Premier Protein Shake, 1 Bottle, Oral, BID [Held by provider] sacubitril-valsartan, 1 tablet, Nasogastric, Nightly sennosides, 10 mL, Oral, q12h sodium chloride, 10 mL, Intravenous, q12h ROLANDO sodium chloride, 3 mL, Nebulization, q4h PRN medications: acetaminophen, dextrose, dextrose, fentaNYL, glucagon, hydrALAZINE, insulin lispro, nystatin, sodium chloride Results from last 7 daysLab Units 03/19/24 0507 03/18/24 0340 03/17/24 0333 WBC 10*3/uL 10.31* 12.18* 11.53* HEMOGLOBIN g/dL 12.4 12.7 13.3 HEMATOCRIT % 38.7 41.1 43.6 PLATELETS 10*3/uL 215 242 244 Results from last 7 daysLab Units 03/19/24 0827 03/19/24 0507 03/18/24 0703 03/18/24 0340 03/17/24 0659 03/17/24 0333 SODIUM mEq/L -- 138 -- 138 -- 139 POTASSIUM mEq/L -- 4.5 -- 4.6* -- 4.1 CHLORIDE mEq/L -- 103 -- 98 -- 97* CO2 mEq/L -- 36.9* -- 39.9* -- >40.0* BUN mg/dL -- 73* -- 68* -- 57* CREATININE mg/dL -- 0.82 -- 1.26 -- 0.90 GLUCOSE mg/dL -- 129* -- 153* -- 147* POC GLUCOSE mg/dL 104* -- < > -- < > -- CALCIUM mg/dL -- 8.9 -- 9.3 -- 9.2 < > = values in this interval not displayed. === 03/05/24 === XR CHEST 1 VIEW - Impression -1. The endotracheal tube terminates 6.7 cm from the francisco javier. 2. Advanced emphysema with superimposed pulmonary vascular congestion. LOCATION: [id number] Electronically signed by: Peter Sheldon MD 03/07/2024 11:02 AM HEEL SPRAYER FIRST RPWorkstation: [id number] === 03/05/24 === CT ANGIOGRAM BRAIN NECK - Impression -Approximately 50-55% degree of narrowing due to calcific and soft plaque formation along the very proximal left ICA without tandem lesion identified more distally No findings of concern for dissection Less than 50% degree of right carotid narrowing No compromise of significance of the vertebral arteries Location: H3 CTA of the brain 03/05/2024 TECHNIQUE: CTA examination of the [id number] was performed on a helical scanner with the patient given non ionic IV contrast . Vascular protocol performed. Thin slice axial images acquired from skull base through vertex of brain. There is also acquisition of 2-D coronal and sagittal reformatted images acquired by the radiologic technologist mammogram. Volumetric imaging was acquired with maximum intensity projections images acquired. The examination was performed on an updated helical CT scanner utilizing low-dose radiation technique. Automatic exposure technique was utilized to reduce radiation dose. Comparison Exam : [Head CT exam of 03/05/2024 CLINICAL HISTORY: Stroke assessment, Code Stroke FINDINGS: Do not see any findings suggestive of an aneurysm or vascular malformation.There is no basilar artery occlusion. There is occlusion of the left PROGRAM SCHEDULE CLERK along the P2 segment but this is felt to be chronic in this patient relatively chronic area of left PROGRAM SCHEDULE CLERK infarction seen in this territory noncontrast head CT exam. There is a origin of the right PROGRAM SCHEDULE CLERK without significant compromise of the right PROGRAM SCHEDULE CLERK more distally with the P1 segment noted to be mildly hypoplastic. There is calcific plaque formation along both carotid siphons but without high-grade stenosis or hemodynamically significant narrowing. Significant tortuosity involving the A2 segment of both anterior cerebral arteries without significant stenosis. Both superior cerebellar arteries are identified and there is enhancement of both picas.. There is no space-occupying process or abnormal enhancement.. 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 origin of the right PROGRAM SCHEDULE CLERK No significant compromise of the anterior circulation. There is presence of a small degree calcific plaque formation noted in both carotid siphons likely nonhemodynamically significant. Electronically signed by: Dana Goel MD 03/05/2024 10:56 PM [facility] 78 years old male with past medical history of epilepsy on Keppra, COPD on home oxygen, prior Left PROGRAM SCHEDULE CLERK stroke, HTN, HLD , who was admitted to Neuro ICU on 03/05/2024 as a transfer from [facility] with AMS and hypoxia. Per chart reviewed, Patient presented to outside hospital with AMS, generalized weakness, and hypoxia. He was hypoxic with O2 sats in 70s on 3L NC. Patient was also diaphoretic, pale and blue purse lips. He is placed on NRB and transfer to ED. Patient was awake and answer some question en route. In ED, Patient NIHSS was 35 and became altered with GCS of 8. He does not move any extremities. CTH is obtain which was negative for intracranial abnormalities. Patient did not received TNK because of OOW. Per , Patient stopped taking keppra since past one week. Patient was loaded with 4gm of Keppra in ED. Prior to Transfer, Patient GCS decline and was intubated for airway protection. During intubation, He has PEA arrest ROSC achieved in 15 minutes, Upon arrival to NICU, Patient is awake, follow commands, all extremities AG. CTA is obtain which is negative for LVO or aneurysm. Patient is placed on Ceribell which showed 0% seizure burden. He was extubated to nasal cannula on 03/07, currently downgraded to neuro IMU, SENIOR NATIONAL ACCOUNT MANAGER evaluated and he was started on regular diet. ABG found to have hypercapnia, pulmonology is on board, started on Vapotherm. Assessment & Plan Assessment & PlanSeizure ([facility]) COPD (chronic obstructive pulmonary disease) ([facility]) Acute respiratory failure with hypoxia and hypercarbia (CMS/HCC) ([facility]) Non-sustained ventricular tachycardia ([facility]) Cardiac arrest ([facility]) Acute respiratory failure with hypercapnia on admission s/p intubation and extubation Possible COPD exacerbation PNA ABG showed recurrence of hypercapnia. and had to be started on BiPAP again 2 days ago, now improved and maintaining oxygenation on Vapotherm-will continue to gradually wean down as tolerable. Discussed with pulmonary service. Noted improvement in metabolic alkalosis as well. Noted improvement in hemodynamic pressures. Chest x-ray reviewed shows bilateral interstitial opacities representing pulmonary edema versus atypical infiltrates with pneumonic process Plan to continue with IV diuretics as needed-will continue with bronchodilator, and budesonide nebulizations Remains on IV Solu-Medrol Sputum culture 03/06 Haemophilus influenzae, s/p course of antibiotics Pulmonary following Hypotension, recurrentS/p PEA arrest, on admission H/o Hypertension Nonsustained VT Blood pressure improved and stable on midodrine Entresto on hold and Coreg dosage reduced with holding parameters initiated, discussed with cardiology-plan to consider nuclear stress test if feasible prior to his planned discharge, based on his respiratory status. PEA arrest in setting hypoxia/intubation on (03/05), ROSC in 15 minutes TTE preserved EF, grade I diastolic dysfunction Cardiology following, plan to consider nuclear stress test in few days Concern for breakthrough seizureEncephalopathy (hypoxic ?) Seizure disorder, noncompliant with home medication History of CVA CTA negative for acute infarction, old left posterior cerebral artery infarction CTA H/N negative for occlusion, aneurysm or vascular malformation. 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 Their is Left ICA moderate stenosis 50-55% and Right ICA <50% EEG showed 0% seizure burden UDS negative, EtOH negative S/p Keppra 4g load, remains on Keppra 1g BID Continue with ASA and statin Mental status continues to improve gradually, will continue to monitor heparin - 5000 units/mL Current Diet: Adult Diet Heart Healthy; 1500 ml/day IMU, will continue with PT OT evaluation and discharge planning. Plan for LTAC versus IPR/SNF evaluation based on clinical progression over the weekend [facility]istsSofia Menezes MD 03/19/2024 SPRAYER FIRST * Kelsie Schroeder MD - 03/18/2024 7:12 PM HEEL SPRAYER FIRST Images from the original note were not included. Subjective: 78-year-old gentleman with a known history of epilepsy on Keppra, COPD on home oxygen, history of left PROGRAM SCHEDULE CLERK stroke, essential hypertension, upper lipidemia who was admitted on March 05, 2024 as a transfer from an outside facility for altered mental status and hypoxemia. He was intubated at the facility because of declining GCS and had a PEA cardiac arrest and achieved ROSC after 15 minutes. He was awake and following commands when he arrived to our facility in the neuro ICU. He was extubated on February 25 and downgraded to the neuro IMU. Pulmonary was consulted for consideration for management of his COPD. Upon evaluation of the patient, [facility] and is known to miss some of his medications due to some noncompliance. He denies any particular respiratory complaints but is a poor historian and does not provide details or specific answers to questions. He denies any cough, sputum, hemoptysis at present. Per review of his medical records, he has been nonadherent to oxygen therapy in the past. He has also been intubated in the past for what looks like seizure related issues. Daily Plan: 03/18: Patient awake and responsive but noted to be hypotensive last night and pancultured. Noted to have significant hypercarbic respiratory acidosis once again requiring BiPAP. Objective: Labs and Vitals: Results from last 7 daysLab Units 03/18/24 1512 03/18/24 0703 03/18/24 0340 SODIUM mEq/L -- -- 138 POTASSIUM mEq/L -- -- 4.6* CHLORIDE mEq/L -- -- 98 CO2 mEq/L -- -- 39.9* BUN mg/dL -- -- 68* CREATININE mg/dL -- -- 1.26 CALCIUM mg/dL -- -- 9.3 GLUCOSE mg/dL -- -- 153* POC GLUCOSE mg/dL 307* < > -- < > = values in this interval not displayed. Results from last 7 days Lab Units 03/18/24 0340 WBC 10*3/uL 12.18* HEMOGLOBIN g/dL 12.7 HEMATOCRIT % 41.1 PLATELETS 10*3/uL 242 Vitals: 03/18/24 1111 03/18/24 1300 03/18/24 1449 03/18/24 1801 BP: (!) 90/42 (!) 109/50 (!) 119/40 Pulse: 65 67 70 66 Resp: 20 22 22 Temp: 36.8 ?C (98.3 ?F) 37 ?C (98.6 ?F) SpO2: 100% 98% 98% ROS: Per the HPI or daily summary Gen'l: Patient lying in bed, in no acute distressNeur: Awake, alert, oriented x 3 with no focal deficits H&N: No obvious JVD, no thyromegaly, no oral thrush Back: No acute deformities Card: No rubs, no gallops and no obvious murmurs L: Good air entry bilaterally with diminished breath sounds in the bilateral bases; no wheezes or rales Abd: Soft, nontender, no gross adenopathy; bowel sounds present Ext: No pitting edema; no obvious cyanosis MSK: Able to move all extremities A/P: 1. History of COPD with documented history of noncompliance to prior oxygen therapy Concern for pneumonia History of MOHAN Currently on Low flow O2 and will wean as tolerated CPAP at night IV steroids with tapering dose as ordered Altered the current bronchodilator therapy dosing to more frequent acute for with tapering doses 2. History of seizure disorder with noncompliance to medicationsHistory of prior CVA Patient may have some cognitive deficits from his recent cardiac arrest Continue antiepileptics and aspirin and statin Case was discussed with the patient in detail and all questions were answered; discussed with the RN. SPRAYER FIRST * Gonzalez Foster MD - 03/18/2024 6:23 PM HEEL SPRAYER FIRST Subjective Feels better Less sob Requires less O2 No chest pain Tele, sinus Plan Mentally he is also improving Likely will have NUC stress test on THURSDAY prior to dc to LTAC For cardiac arrest Objective Last Recorded Vitals Blood pressure (!) 109/50, pulse 70, temperature 37 ?C (98.6 ?F), temperature source Axillary, resp. rate 22, height 1.854 m (6' 0.99"), weight 82.8 kg (182 lb 8 oz), SpO2 98%. Physical Exam: Assessment & Plan Seizure (HCC) COPD (chronic obstructive pulmonary disease) (HCC) Acute respiratory failure with hypoxia and hypercarbia (CMS/HCC) (HCC) Non-sustained ventricular tachycardia (HCC) Cardiac arrest (HCC) Current Diet: Adult Diet Heart Healthy; 1500 ml/day SPRAYER FIRST * Sunitha Ibarra PT - 03/18/2024 9:52 AM HEEL SPRAYER FIRST Physical Therapy Encounter Note Patient Name: Harris Neal Today's Date: 03/18/2024 Missed Treatment Time and Reason Amount of Missed Time (min): 1 Minutes Missed Time Reason: Other (Comment) (Patient on Bipap, RN calling RT at this time to see if patient can have it removed to eat breakfast. RN requested PT to return later.) Second attempt below: 03/18/24 1021 Time Calculation Stop Time 1022 Time Calculation (min) 1 min General Amount of Missed Time (min) 1 Minutes Missed Time Reason Other (Comment) (Patient with breakfast tray in table, waiting for RN to clear him to eat breakfast. PT to return later, schedule permitting.) Sunitha Ibarra, PT SPRAYER FIRST SPRAYER FIRST * Sofia Menezes MD - 03/18/2024 7:57 AM HEEL SPRAYER FIRST [facility] Subjective Patient was seen and examined at bedside, was noted to be hypotensive with worsening hypercapnia overnight and was put on BiPAP. Also had MOLD WASHER overnight needing fluid boluses. Now with improved mentation. Blood pressure continues to remain low normal and was initiated on midodrine. Otherwise appears more awake and alert today, answering questions appropriately. Remains afebrile with low normal blood pressures. Denies any other new subjective complaints. No acute issues overnight Objective Last Recorded Vitals Blood pressure (!) 103/46, pulse 61, temperature 36.7 ?C (98 ?F), temperature source Axillary, resp. rate 20, height 1.854 m (6' 0.99"), weight 82.8 kg (182 lb 8 oz), SpO2 99%. Physical Exam Gen- AAO, answering questions appropriately, now on BiPAP HEENT- NCAT, EOMI, No scleral icterus Neck Supple, no thyromegaly Heart - S1 S2 heard, regular Lungs- Clear to auscultation bilaterally anteriorly, with mildly reduced breath sounds along the bases, normal respiratory effort P/a- Soft, non tender, no guarding or rigidity noted, bowel sounds present Ext- No peripheral cyanosis or pedal edema noted Neuro- grossly non focal aspirin, 81 mg, Oral, Daily atorvastatin, 40 mg, Oral, Daily budesonide, 1 mg, Nebulization, q12h carvedilol, 25 mg, Oral, q12h ROLANDO heparin, 5,000 Units, Subcutaneous, q8h ROLANDO ipratropium-albuterol, 3 mL, Nebulization, BID lactated Ringer's, 250 mL, Intravenous, Once levETIRAcetam, 1,000 mg, Intravenous, q12h polyethylene glycol (PEG) 3350, 17 g, Oral, q12h Premier Protein Shake, 1 Bottle, Oral, BID sacubitril-valsartan, 1 tablet, Nasogastric, Nightly sennosides, 10 mL, Oral, q12h sodium chloride, 10 mL, Intravenous, q12h ROLANDO sodium chloride, 3 mL, Nebulization, q4h PRN medications: acetaminophen, dextrose, dextrose, fentaNYL, glucagon, hydrALAZINE, insulin lispro, nystatin, sodium chloride Results from last 7 daysLab Units 03/18/24 0340 03/17/24 0333 03/16/24 0537 WBC 10*3/uL 12.18* 11.53* 12.91* HEMOGLOBIN g/dL 12.7 13.3 13.4 HEMATOCRIT % 41.1 43.6 43.9 PLATELETS 10*3/uL 242 244 225 PLATELETS ESTIMATED -- -- Normal Results from last 7 daysLab Units 03/18/24 0703 03/18/24 0340 03/17/24 0659 03/17/24 0333 03/16/24 1201 03/16/24 0537 SODIUM mEq/L -- 138 -- 139 -- 139 POTASSIUM mEq/L -- 4.6* -- 4.1 -- 4.1 CHLORIDE mEq/L -- 98 -- 97* -- 98 CO2 mEq/L -- 39.9* -- >40.0* -- >40.0* BUN mg/dL -- 68* -- 57* -- 41* CREATININE mg/dL -- 1.26 -- 0.90 -- 0.84 GLUCOSE mg/dL -- 153* -- 147* -- 134* POC GLUCOSE mg/dL 113* -- < > -- < > -- CALCIUM mg/dL -- 9.3 -- 9.2 -- 9.1 < > = values in this interval not displayed. === 03/05/24 === XR CHEST 1 VIEW - Impression -1. The endotracheal tube terminates 6.7 cm from the francisco javier. 2. Advanced emphysema with superimposed pulmonary vascular congestion. LOCATION: [facility]16 Electronically signed by: Peter Sheldon MD 03/07/2024 11:02 AM HEEL SPRAYER FIRST RPWorkstation: [id number] === 03/05/24 === CT ANGIOGRAM BRAIN NECK - Impression -Approximately 50-55% degree of narrowing due to calcific and soft plaque formation along the very proximal left ICA without tandem lesion identified more distally No findings of concern for dissection Less than 50% degree of right carotid narrowing No compromise of significance of the vertebral arteries Location: H3 CTA of the brain 03/05/2024 TECHNIQUE: CTA examination of the [id number] was performed on a helical scanner with the patient given non ionic IV contrast . Vascular protocol performed. Thin slice axial images acquired from skull base through vertex of brain. There is also acquisition of 2-D coronal and sagittal reformatted images acquired by the radiologic technologist mammogram. Volumetric imaging was acquired with maximum intensity projections images acquired. The examination was performed on an updated helical CT scanner utilizing low-dose radiation technique. Automatic exposure technique was utilized to reduce radiation dose. Comparison Exam : [Head CT exam of 03/05/2024 CLINICAL HISTORY: Stroke assessment, Code Stroke FINDINGS: Do not see any findings suggestive of an aneurysm or vascular malformation.There is no basilar artery occlusion. There is occlusion of the left PROGRAM SCHEDULE CLERK along the P2 segment but this is felt to be chronic in this patient relatively chronic area of left PROGRAM SCHEDULE CLERK infarction seen in this territory noncontrast head CT exam. There is a origin of the right PROGRAM SCHEDULE CLERK without significant compromise of the right PROGRAM SCHEDULE CLERK more distally with the P1 segment noted to be mildly hypoplastic. There is calcific plaque formation along both carotid siphons but without high-grade stenosis or hemodynamically significant narrowing. Significant tortuosity involving the A2 segment of both anterior cerebral arteries without significant stenosis. Both superior cerebellar arteries are identified and there is enhancement of both picas.. There is no space-occupying process or abnormal enhancement.. 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 origin of the right PROGRAM SCHEDULE CLERK No significant compromise of the anterior circulation. There is presence of a small degree calcific plaque formation noted in both carotid siphons likely nonhemodynamically significant. Electronically signed by: Dana Goel MD 03/05/2024 10:56 PM [facility] 78 years old male with past medical history of epilepsy on Keppra, COPD on home oxygen, prior Left PROGRAM SCHEDULE CLERK stroke, HTN, HLD , who was admitted to Neuro ICU on 03/05/2024 as a transfer from [facility] with AMS and hypoxia. Per chart reviewed, Patient presented to outside hospital with AMS, generalized weakness, and hypoxia. He was hypoxic with O2 sats in 70s on 3L NC. Patient was also diaphoretic, pale and blue purse lips. He is placed on NRB and transfer to ED. Patient was awake and answer some question en route. In ED, Patient NIHSS was 35 and became altered with GCS of 8. He does not move any extremities. CTH is obtain which was negative for intracranial abnormalities. Patient did not received TNK because of OOW. Per , Patient stopped taking keppra since past one week. Patient was loaded with 4gm of Keppra in ED. Prior to Transfer, Patient GCS decline and was intubated for airway protection. During intubation, He has PEA arrest ROSC achieved in 15 minutes, Upon arrival to NICU, Patient is awake, follow commands, all extremities AG. CTA is obtain which is negative for LVO or aneurysm. Patient is placed on Ceribell which showed 0% seizure burden. He was extubated to nasal cannula on 03/07, currently downgraded to neuro IMU, SENIOR NATIONAL ACCOUNT MANAGER evaluated and he was started on regular diet. ABG found to have hypercapnia, pulmonology is on board, started on Vapotherm. Assessment & Plan Assessment & PlanSeizure ([facility]) COPD (chronic obstructive pulmonary disease) ([facility]) Acute respiratory failure with hypoxia and hypercarbia (CMS/HCC) ([facility]) Non-sustained ventricular tachycardia ([facility]) Cardiac arrest ([facility]) Acute resp failure with hypercapnia on admission s/p intubation and extubation COPD PNA ABG showed recurrence of hypercapnia overnight and had to be started on BiPAP again, discussed with pulmonary service. Noted improvement in metabolic alkalosis.. Also given ongoing issues with hypotension, workup for infectious process ongoing. Will check chest x-ray procalcitonin and blood cultures. Plan to continue with IV diuretics as needed-will continue with bronchodilator, and budesonide nebulizations Remains on IV Solu-Medrol Sputum culture 03/06 Haemophilus influenzae, s/p course of antibiotics Pulmonary following Hypotension, recurrentS/p PEA arrest, on admission H/o Hypertension Nonsustained VT Given hypotension, will give 500 cc fluid bolus. Initiated on midodrine. Will hold off Entresto and Coreg dosage reduced with holding parameters initiated, cardiology on board PEA arrest in setting hypoxia/intubation on (03/05), ROSC in 15 minutes TTE preserved EF, grade I diastolic dysfunction Cardiology following, plan to consider nuclear stress test next week. Concern for breakthrough seizureEncephalopathy (hypoxic ?) Seizure disorder, noncompliant with home medication History of CVA CTA negative for acute infarction, old left posterior cerebral artery infarction CTA H/N negative for occlusion, aneurysm or vascular malformation. 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 Their is Left ICA moderate stenosis 50-55% and Right ICA <50% EEG showed 0% seizure burden UDS negative, EtOH negative S/p Keppra 4g load, remains on Keppra 1g BID Continue with ASA and statin Mental status continues to improve gradually, still seems to have some memory/cognition problems, not yet closer to his baseline per family heparin - 5000 units/mL Current Diet: Adult Diet Heart Healthy; 1500 ml/day IMU, will continue with PT OT evaluation and discharge planning. Plan for LTAC versus IPR/SNF evaluation based on clinical progression over the weekend [facility] MD 03/18/2024 SPRAYER FIRST * Kelsie Schroeder MD - 03/17/2024 5:13 PM HEEL SPRAYER FIRST Images from the original note were not included. Subjective: 78-year-old gentleman with a known history of epilepsy on Keppra, COPD on home oxygen, history of left PROGRAM SCHEDULE CLERK stroke, essential hypertension, upper lipidemia who was admitted on March 05, 2024 as a transfer from an outside facility for altered mental status and hypoxemia. He was intubated at the facility because of declining GCS and had a PEA cardiac arrest and achieved ROSC after 15 minutes. He was awake and following commands when he arrived to our facility in the neuro ICU. He was extubated on February 25 and downgraded to the neuro IMU. Pulmonary was consulted for consideration for management of his COPD. Upon evaluation of the patient, he says that he follows at the [facility] and is known to miss some of his medications due to some noncompliance. He denies any particular respiratory complaints but is a poor historian and does not provide details or specific answers to questions. He denies any cough, sputum, hemoptysis at present. Per review of his medical records, he has been nonadherent to oxygen therapy in the past. He has also been intubated in the past for what looks like seizure related issues. Daily Plan: 03/17: Progressing well and tolerating bronchodilator therapy. Currently on 8 Lof oxygen and not requiring Vapotherm. No acute respiratory distress. Objective: Labs and Vitals: Results from last 7 daysLab Units 03/17/24 1523 03/17/24 0659 03/17/24 0333 SODIUM mEq/L -- -- 139 POTASSIUM mEq/L -- -- 4.1 CHLORIDE mEq/L -- -- 97* CO2 mEq/L -- -- >40.0* BUN mg/dL -- -- 57* CREATININE mg/dL -- -- 0.90 CALCIUM mg/dL -- -- 9.2 GLUCOSE mg/dL -- -- 147* POC GLUCOSE mg/dL 164* < > -- < > = values in this interval not displayed. Results from last 7 days Lab Units 03/17/24 0333 WBC 10*3/uL 11.53* HEMOGLOBIN g/dL 13.3 HEMATOCRIT % 43.6 PLATELETS 10*3/uL 244 Vitals: 03/17/24 1108 03/17/24 1123 03/17/24 1453 03/17/24 1532 BP: (!) 108/44 (!) 110/50 Pulse: 73 79 75 Resp: 22 20 22 Temp: 36.3 ?C (97.4 ?F) 36.7 ?C (98.1 ?F) SpO2: 97% 97% ROS: Per the HPI or daily summary Gen'l: Patient lying in bed, in no acute distressNeur: Awake, alert, oriented x 3 with no focal deficits H&N: No obvious JVD, no thyromegaly, no oral thrush Back: No acute deformities Card: No rubs, no gallops and no obvious murmurs L: Good air entry bilaterally with diminished breath sounds in the bilateral bases; no wheezes or rales Abd: Soft, nontender, no gross adenopathy; bowel sounds present Ext: No pitting edema; no obvious cyanosis MSK: Able to move all extremities A/P: 1. History of COPD with documented history of noncompliance to prior oxygen therapy Concern for pneumonia History of MOHAN Currently on Low flow O2 and will wean as tolerated CPAP at night IV steroids with tapering dose as ordered 2. History of seizure disorder with noncompliance to medicationsHistory of prior CVA Patient may have some cognitive deficits from his recent cardiac arrest Continue antiepileptics and aspirin and statin Case was discussed with the patient in detail and all questions were answered; discussed with the RN. SPRAYER FIRST * Sofia Menezes MD - 03/17/2024 9:40 AM HEEL SPRAYER FIRST [facility] Subjective Patient was seen and examined at bedside, has been on vapotherm overnight and now transitioned to nasal cannula. Remains lethargic and weak, slow to respond but answering questions appropriately. No acute issues overnight Objective Last Recorded Vitals Blood pressure (!) 104/49, pulse 62, temperature 36.7 ?C (98.1 ?F), temperature source Oral, resp. rate 20, height 1.854 m (6' 0.99"), weight 80.6 kg (177 lb 12.8 oz), SpO2 98%. Physical Exam Gen- AAO, slow to respond but answering questions appropriately, not in acute respiratory distress with NC HEENT- NCAT, EOMI, No scleral icterus Neck Supple, no thyromegaly Heart - S1 S2 heard, regular Lungs- Clear to auscultation bilaterally anteriorly, with mildly reduced breath sounds along the bases, normal respiratory effort P/a- Soft, non tender, no guarding or rigidity noted, bowel sounds present Ext- No peripheral cyanosis or pedal edema noted Neuro- grossly non focal aspirin, 81 mg, Oral, Daily atorvastatin, 40 mg, Oral, Daily budesonide, 1 mg, Nebulization, q12h carvedilol, 25 mg, Oral, q12h ROLANDO heparin, 5,000 Units, Subcutaneous, q8h ROLANDO ipratropium-albuterol, 3 mL, Nebulization, BID levETIRAcetam, 1,000 mg, Intravenous, q12h methylPREDNISolone sod suc (PF), 40 mg, Intravenous, q12h polyethylene glycol (PEG) 3350, 17 g, Oral, q12h Premier Protein Shake, 1 Bottle, Oral, BID sacubitril-valsartan, 1 tablet, Nasogastric, Nightly sennosides, 10 mL, Oral, q12h sodium chloride, 10 mL, Intravenous, q12h ROLANDO sodium chloride, 3 mL, Nebulization, q4h PRN medications: acetaminophen, dextrose, dextrose, fentaNYL, glucagon, hydrALAZINE, insulin lispro, nystatin, sodium chloride Results from last 7 daysLab Units 03/17/24 0333 03/16/24 0537 03/15/24 0402 WBC 10*3/uL 11.53* 12.91* 9.65 HEMOGLOBIN g/dL 13.3 13.4 13.7 HEMATOCRIT % 43.6 43.9 45.0 PLATELETS 10*3/uL 244 225 213 PLATELETS ESTIMATED -- Normal -- Results from last 7 daysLab Units 03/17/24 0659 03/17/24 0333 03/16/24 1201 03/16/24 0537 03/15/24 0717 03/15/24 0402 SODIUM mEq/L -- 139 -- 139 -- 142 POTASSIUM mEq/L -- 4.1 -- 4.1 -- 3.8 CHLORIDE mEq/L -- 97* -- 98 -- 97* CO2 mEq/L -- >40.0* -- >40.0* -- >40.0* BUN mg/dL -- 57* -- 41* -- 35* CREATININE mg/dL -- 0.90 -- 0.84 -- 0.78 GLUCOSE mg/dL -- 147* -- 134* -- 111* POC GLUCOSE mg/dL 137* -- < > -- < > -- CALCIUM mg/dL -- 9.2 -- 9.1 -- 9.2 < > = values in this interval not displayed. === 03/05/24 === XR CHEST 1 VIEW - Impression -1. The endotracheal tube terminates 6.7 cm from the francisco javier. 2. Advanced emphysema with superimposed pulmonary vascular congestion. LOCATION: R16 Electronically signed by: Peter Sheldon MD 03/07/2024 11:02 AM HEEL SPRAYER FIRST RPWorkstation: [id number] === 03/05/24 === CT ANGIOGRAM BRAIN NECK - Impression -Approximately 50-55% degree of narrowing due to calcific and soft plaque formation along the very proximal left ICA without tandem lesion identified more distally No findings of concern for dissection Less than 50% degree of right carotid narrowing No compromise of significance of the vertebral arteries Location: H3 CTA of the brain 03/05/2024 TECHNIQUE: CTA examination of the [id number] was performed on a helical scanner with the patient given non ionic IV contrast . Vascular protocol performed. Thin slice axial images acquired from skull base through vertex of brain. There is also acquisition of 2-D coronal and sagittal reformatted images acquired by the radiologic technologist mammogram. Volumetric imaging was acquired with maximum intensity projections images acquired. The examination was performed on an updated helical CT scanner utilizing low-dose radiation technique. Automatic exposure technique was utilized to reduce radiation dose. Comparison Exam : [Head CT exam of 03/05/2024 CLINICAL HISTORY: Stroke assessment, Code Stroke FINDINGS: Do not see any findings suggestive of an aneurysm or vascular malformation.There is no basilar artery occlusion. There is occlusion of the left PROGRAM SCHEDULE CLERK along the P2 segment but this is felt to be chronic in this patient relatively chronic area of left PROGRAM SCHEDULE CLERK infarction seen in this territory noncontrast head CT exam. There is a origin of the right PROGRAM SCHEDULE CLERK without significant compromise of the right PROGRAM SCHEDULE CLERK more distally with the P1 segment noted to be mildly hypoplastic. There is calcific plaque formation along both carotid siphons but without high-grade stenosis or hemodynamically significant narrowing. Significant tortuosity involving the A2 segment of both anterior cerebral arteries without significant stenosis. Both superior cerebellar arteries are identified and there is enhancement of both picas.. There is no space-occupying process or abnormal enhancement.. 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 origin of the right PROGRAM SCHEDULE CLERK No significant compromise of the anterior circulation. There is presence of a small degree calcific plaque formation noted in both carotid siphons likely nonhemodynamically significant. Electronically signed by: Dana Goel MD 03/05/2024 10:56 PM HEEL SPRAYER FIRST 78 years old male with past medical history of epilepsy on Keppra, COPD on home oxygen, prior Left PROGRAM SCHEDULE CLERK stroke, HTN, HLD , who was admitted to Neuro ICU on 03/05/2024 as a transfer from [facility] with AMS and hypoxia. Per chart reviewed, Patient presented to outside hospital with AMS, generalized weakness, and hypoxia. He was hypoxic with O2 sats in 70s on 3L NC. Patient was also diaphoretic, pale and blue purse lips. He is placed on NRB and transfer to ED. Patient was awake and answer some question en route. In ED, Patient NIHSS was 35 and became altered with GCS of 8. He does not move any extremities. CTH is obtain which was negative for intracranial abnormalities. Patient did not received TNK because of OOW. Per , Patient stopped taking keppra since past one week. Patient was loaded with 4gm of Keppra in ED. Prior to Transfer, Patient GCS decline and was intubated for airway protection. During intubation, He has PEA arrest ROSC achieved in 15 minutes, Upon arrival to NICU, Patient is awake, follow commands, all extremities AG. CTA is obtain which is negative for LVO or aneurysm. Patient is placed on Ceribell which showed 0% seizure burden. He was extubated to nasal cannula on 03/07, currently downgraded to neuro IMU, SENIOR NATIONAL ACCOUNT MANAGER evaluated and he was started on regular diet. ABG found to have hypercapnia, pulmonology is on board, started on Vapotherm. Assessment & Plan Assessment & PlanSeizure (HCC) COPD (chronic obstructive pulmonary disease) (HCC) Acute respiratory failure with hypoxia and hypercarbia (CMS/HCC) (HCC) Non-sustained ventricular tachycardia (HCC) Cardiac arrest ([facility]) Concern for breakthrough seizureEncephalopathy (hypoxic ?) Seizure disorder, noncompliant with home medication History of CVA CTA negative for acute infarction, old left posterior cerebral artery infarction CTA H/N negative for occlusion, aneurysm or vascular malformation. 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 Their is Left ICA moderate stenosis 50-55% and Right ICA <50% EEG showed 0% seizure burden UDS negative, EtOH negative S/p Keppra 4g load, remains on Keppra 1g BID Continue with ASA and statin Mental status continues to improve gradually, still seems to have some memory/cognition problems, not yet closer to his baseline per family S/p PEA arrest, on admissionHypotension, on admission, resolved H/o Hypertension Nonsustained VT PEA arrest in setting hypoxia/intubation on (03/05), ROSC in 15 minutes Home medication coreg and entresto resumed Monitor BP TTE preserved EF, grade I diastolic dysfunction Cardiology following, plan to consider nuclear stress test prior to disposition Acute resp failure with hypercapnia on admission s/p intubation and extubation COPD PNA ABG showed hypercapnia, started on Vapothem, will continue to wean down as tolerable. Ongoing issues with persistent secondary metabolic alkalosis-will repeat ABG, and continue to monitor closely Plan to continue with IV diuretics as needed-will continue with bronchodilator, and budesonide nebulizations Remains on IV Solu-Medrol Sputum culture 03/06 Haemophilus influenzae, s/p course of antibiotics Pulmonary following heparin - 5000 units/mL Current Diet: Adult Diet Heart Healthy; 1500 ml/day IMU, will continue with PT OT evaluation and discharge planning. Plan for LTAC versus IPR/SNF evaluation based on clinical progression [facility] HospitalistsSofia Menezes MD 03/17/2024 SPRAYER FIRST * Gonzalez Foster MD - 03/17/2024 9:04 AM HEEL SPRAYER FIRST Subjective Appears comfortable No chest pain Tele, sinus/danni/PVCs Objective Last Recorded Vitals Blood pressure (!) 104/49, pulse 62, temperature 36.7 ?C (98.1 ?F), temperature source Oral, resp. rate 20, height 1.854 m (6' 0.99"), weight 80.6 kg (177 lb 12.8 oz), SpO2 98%. Physical Exam: Assessment & Plan Seizure (HCC) COPD (chronic obstructive pulmonary disease) (HCC) Acute respiratory failure with hypoxia and hypercarbia (CMS/HCC) (HCC) Non-sustained ventricular tachycardia (HCC) Cardiac arrest (HCC) Again will proceed NUC stress test next week Current Diet: Adult Diet Heart Healthy; 1500 ml/day SPRAYER FIRST * Gonzalez Foster MD - 03/16/2024 11:35 PM HEEL SPRAYER FIRST Subjective Sleeping when I visited him But alert Denied chest pain Tele, sinus On Vapotherm Will continue wean off O2 Objective Last Recorded Vitals Blood pressure (!) 122/50, pulse 57, temperature 36.3 ?C (97.3 ?F), resp. rate 18, height 1.854 m (6' 0.99"), weight 82.4 kg (181 lb 10.5 oz), SpO2 96%. Physical Exam: Assessment & Plan Seizure (HCC) COPD (chronic obstructive pulmonary disease) (HCC) Acute respiratory failure with hypoxia and hypercarbia (CMS/HCC) (HCC) Non-sustained ventricular tachycardia (HCC) Cardiac arrest (HCC) Current Diet: Adult Diet Heart Healthy; 1500 ml/day SPRAYER FIRST * Kelsie Schroeder MD - 03/16/2024 8:43 PM HEEL SPRAYER FIRST Images from the original note were not included. Subjective: 78-year-old gentleman with a known history of epilepsy on Keppra, COPD on home oxygen, history of left PROGRAM SCHEDULE CLERK stroke, essential hypertension, upper lipidemia who was admitted on March 05, 2024 as a transfer from an outside facility for altered mental status and hypoxemia. He was intubated at the facility because of declining GCS and had a PEA cardiac arrest and achieved ROSC after 15 minutes. He was awake and following commands when he arrived to our facility in the neuro ICU. He was extubated on February 25 and downgraded to the neuro IMU. Pulmonary was consulted for consideration for management of his COPD. Upon evaluation of the patient, he [facility] and is known to miss some of his medications due to some noncompliance. He denies any particular respiratory complaints but is a poor historian and does not provide details or specific answers to questions. He denies any cough, sputum, hemoptysis at present. Per review of his medical records, he has been nonadherent to oxygen therapy in the past. He has also been intubated in the past for what looks like seizure related issues. Daily Plan: 03/16: Remains on heated high flow/Vapotherm on 35 L and 35% oxygen. No fevers, rigors, chills. Still confused at times. Objective: Labs and Vitals: Results from last 7 daysLab Units 03/16/24 1201 03/16/24 0537 SODIUM mEq/L -- 139 POTASSIUM mEq/L -- 4.1 CHLORIDE mEq/L -- 98 CO2 mEq/L -- >40.0* BUN mg/dL -- 41* CREATININE mg/dL -- 0.84 CALCIUM mg/dL -- 9.1 GLUCOSE mg/dL -- 134* POC GLUCOSE mg/dL 149* -- Results from last 7 days Lab Units 03/16/24 0537 WBC 10*3/uL 12.91* HEMOGLOBIN g/dL 13.4 HEMATOCRIT % 43.9 PLATELETS 10*3/uL 225 PLATELETS ESTIMATED Normal Vitals: 03/16/24 19203/16/24 19203/16/24192603/16/242028 BP: (!) 128/49 Pulse: 59 74 Resp: 17 18 Temp: 36.5 ?C (97.7 ?F) SpO2: 94% 96% ROS: Per the HPI or daily summary Gen'l: Patient lying in bed, in no acute distressNeur: Awake, alert, oriented x 3 with no focal deficits H&N: No obvious JVD, no thyromegaly, no oral thrush Back: No acute deformities Card: No rubs, no gallops and no obvious murmurs L: Good air entry bilaterally with diminished breath sounds in the bilateral bases; no wheezes or rales Abd: Soft, nontender, no gross adenopathy; bowel sounds present Ext: No pitting edema; no obvious cyanosis MSK: Able to move all extremities A/P: 1. History of COPD with documented history of noncompliance to prior oxygen therapy Concern for pneumonia History of MOHAN Currently on Vapotherm and will wean as tolerated CPAP at night IV steroids with tapering dose as ordered 2. History of seizure disorder with noncompliance to medicationsHistory of prior CVA Patient may have some cognitive deficits from his recent cardiac arrest Continue antiepileptics and aspirin and statin Case was discussed with the patient in detail and all questions were answered; discussed with the RN. SPRAYER FIRST * Cynthia Pinto MD - 03/16/2024 2:33 PM HEEL SPRAYER FIRST [facility] Subjective Patient was seen and examined at bedside, he remained on vapotherm 35L , 35% FiO2 Objective Last Recorded Vitals Blood pressure (!) 96/51, pulse 69, temperature 36.6 ?C (97.9 ?F), resp. rate 17, height 1.854 m (6' 0.99"), weight 82.4 kg (181 lb 10.5 oz), SpO2 94%. Physical Exam Gen- AAOx2-3, not in acute respiratory distress with NC HEENT- NCAT, EOMI, No scleral icterus Neck Supple, no thyromegaly Heart - S1 S2 heard, regular Lungs- Clear to auscultation bilaterally, normal respiratory effort P/a- Soft, non tender, no guarding or rigidity noted, bowel sounds present Ext- No peripheral cyanosis or pedal edema noted Neuro- grossly non focal Psych- Mood and affect normal aspirin, 81 mg, Oral, Daily atorvastatin, 40 mg, Oral, Daily budesonide, 1 mg, Nebulization, q12h carvedilol, 25 mg, Oral, q12h ROLANDO furosemide, 20 mg, Intravenous, Daily heparin, 5,000 Units, Subcutaneous, q8h ROLANDO ipratropium-albuterol, 3 mL, Nebulization, q6h Followed by ipratropium-albuterol, 3 mL, Nebulization, BID levETIRAcetam, 1,000 mg, Intravenous, q12h methylPREDNISolone sod suc (PF), 40 mg, Intravenous, q12h polyethylene glycol (PEG) 3350, 17 g, Oral, q12h Premier Protein Shake, 1 Bottle, Oral, BID sacubitril-valsartan, 1 tablet, Nasogastric, Nightly sennosides, 10 mL, Oral, q12h sodium chloride, 10 mL, Intravenous, q12h ROLANDO sodium chloride, 3 mL, Nebulization, q4h PRN medications: acetaminophen, dextrose, dextrose, fentaNYL, glucagon, hydrALAZINE, insulin lispro, nystatin, sodium chloride Results from last 7 daysLab Units 03/16/24 0537 03/15/24 0402 03/14/24 0556 WBC 10*3/uL 12.91* 9.65 12.96* HEMOGLOBIN g/dL 13.4 13.7 15.0 HEMATOCRIT % 43.9 45.0 50.6 PLATELETS 10*3/uL 225 213 243 PLATELETS ESTIMATED Normal -- -- Results from last 7 daysLab Units 03/16/24 1201 03/16/24 0537 03/15/24 0717 03/15/24 0402 03/14/24 0556 SODIUM mEq/L -- 139 -- 142 141 POTASSIUM mEq/L -- 4.1 -- 3.8 4.5 CHLORIDE mEq/L -- 98 -- 97* 96* CO2 mEq/L -- >40.0* -- >40.0* >40.0* BUN mg/dL -- 41* -- 35* 32* CREATININE mg/dL -- 0.84 -- 0.78 0.75 GLUCOSE mg/dL -- 134* -- 111* 111* POC GLUCOSE mg/dL 149* -- < > -- -- CALCIUM mg/dL -- 9.1 -- 9.2 9.5 < > = values in this interval not displayed. === 03/05/24 === XR CHEST 1 VIEW - Impression -1. The endotracheal tube terminates 6.7 cm from the francisco javier. 2. Advanced emphysema with superimposed pulmonary vascular congestion. LOCATION: R16 Electronically signed by: Peter Sheldon MD 03/07/2024 11:02 AM HEEL SPRAYER FIRST RPWorkstation: [id number] === 03/05/24 === CT ANGIOGRAM BRAIN NECK - Impression -Approximately 50-55% degree of narrowing due to calcific and soft plaque formation along the very proximal left ICA without tandem lesion identified more distally No findings of concern for dissection Less than 50% degree of right carotid narrowing No compromise of significance of the vertebral arteries Location: H3 CTA of the brain 03/05/2024 TECHNIQUE: CTA examination of the [id number] was performed on a helical scanner with the patient given non ionic IV contrast . Vascular protocol performed. Thin slice axial images acquired from skull base through vertex of brain. There is also acquisition of 2-D coronal and sagittal reformatted images acquired by the radiologic technologist mammogram. Volumetric imaging was acquired with maximum intensity projections images acquired. The examination was performed on an updated helical CT scanner utilizing low-dose radiation technique. Automatic exposure technique was utilized to reduce radiation dose. Comparison Exam : [Head CT exam of 03/05/2024 CLINICAL HISTORY: Stroke assessment, Code Stroke FINDINGS: Do not see any findings suggestive of an aneurysm or vascular malformation.There is no basilar artery occlusion. There is occlusion of the left PROGRAM SCHEDULE CLERK along the P2 segment but this is felt to be chronic in this patient relatively chronic area of left PROGRAM SCHEDULE CLERK infarction seen in this territory noncontrast head CT exam. There is a origin of the right PROGRAM SCHEDULE CLERK without significant compromise of the right PROGRAM SCHEDULE CLERK more distally with the P1 segment noted to be mildly hypoplastic. There is calcific plaque formation along both carotid siphons but without high-grade stenosis or hemodynamically significant narrowing. Significant tortuosity involving the A2 segment of both anterior cerebral arteries without significant stenosis. Both superior cerebellar arteries are identified and there is enhancement of both picas.. There is no space-occupying process or abnormal enhancement.. 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 origin of the right PROGRAM SCHEDULE CLERK No significant compromise of the anterior circulation. There is presence of a small degree calcific plaque formation noted in both carotid siphons likely nonhemodynamically significant. Electronically signed by: Dana Goel MD 03/05/2024 10:56 PM HEEL SPRAYER FIRST 78 years old male with past medical history of epilepsy on Keppra, COPD on home oxygen, prior Left PROGRAM SCHEDULE CLERK stroke, HTN, HLD , who was admitted to Neuro ICU on 03/05/2024 as a transfer from [facility] with AMS and hypoxia. Per chart reviewed, Patient presented to outside hospital with AMS, generalized weakness, and hypoxia. He was hypoxia with O2 sats in 70s on 3L NC. Patient was also diaphoretic, pale and blue purse lips. He is placed on NRB and transfer to ED. Patient was awake and answer some question en route. In ED, Patient NIHSS was 35 and became altered with GCS of 8. He does not move any extremities. CTH is obtain which was negative for intracranial abnormalities. Patient did not received TNK because of OOW. Per , Patient stopped taking keppra since past one week. Patient was loaded with 4gm of Keppra in ED. Prior to Transfer, Patient GCS decline and was intubated for airway protection. During intubation, He has PEA arrest ROSC achieved in 15 minutes, Upon arrival to NICU, Patient is awake, follow commands, all extremities AG. CTA is obtain which is negative for LVO or aneurysm. Patient is placed on Ceribell which showed 0% seizure burden. He was extubated to nasal cannula on 03/07, currently downgraded to neuro IMU, SENIOR NATIONAL ACCOUNT MANAGER evaluated and he was started on regular diet. ABG found to have hypercapnia, pulmonology is on board, started on Vapotherm. Assessment & Plan Assessment & PlanSeizure (HCC) COPD (chronic obstructive pulmonary disease) ([facility]) Acute respiratory failure with hypoxia and hypercarbia (CMS/HCC) ([facility]) Non-sustained ventricular tachycardia (HCC) Cardiac arrest ([facility]) Concern for breakthrough seizureEncephalopathy (hypoxic ?) Seizure disorder, noncompliant with home medication History of CVA CTA negative for acute infarction, old left posterior cerebral artery infarction CTA H/N negative for occlusion, aneurysm or vascular malformation. 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 Their is Left ICA moderate stenosis 50-55% and Right ICA <50% EEG showed 0% seizure burden UDS negative, EtOH negative S/p Keppra 4g load, on Keppra 1g BID Continue with ASA and statin mental status improved, still seems to have some memory/cognition problem, per family he is not at his baseline PT/OT/SENIOR NATIONAL ACCOUNT MANAGER network project manager and PMR were consulted for IPR evaluation, now being on Vapotherm, will assess for LTAC S/p PEA arrest, on admissionHypotension, on admission, resolved H/o Hypertension Nonsustained VT PEA arrest in setting hypoxia/intubation on (03/05), ROSC in 15 minutes Home medication coreg and entresto resumed Monitor BP TTE preserved EF, grade I diastolic dysfunction Cardiology was consulted, possible nuclear stress test Acute resp failure with hypercapnia on admission s/p intubation and extubation COPD PNA ABG showed hypercapnia, started on Vapothem, wean as tolerate CXR showed congestive, IV Lasix, fluid restriction Continue with bronchodilator, budesonide Also started on IV Solu-Medrol Sputum culture 03/06 Haemophilus influenzae, s/p course of antibiotics Pulm is following heparin - 5000 units/mL Current Diet: Adult Diet Heart Healthy; 1500 ml/day IMU, [facility] 03/16/[facility] SPRAYER FIRST * Sunitha Ibarra, PT - 03/16/2024 10:55 AM HEEL SPRAYER FIRST Physical Therapy Treatment Patient Name: Harris Neal Today’s Date: 03/16/24 Room Number: [id number]* Patient's Preferred Language: Uzbek PT Assessment and Plan: Assessment Patient is making progress with functional mobility. He was able to perform transfers to and from bed and was able to be left sitting in recliner today vs going back to bed. 02 sats were WNL during session and patient more alert and following commands better today. He is motivated to work with PT. Prognosis: Good Strengths: Attitude of self Medical Staff Made Aware: Yes Plan (Last filed value by PT) Treatment Plan/Goals Established with Patient/Caregiver: Yes Treatment/Interventions: Balance training, Bed mobility training, Functional activities, Gait training, Manual therapy, Neuromuscular re-education, Pain management, Patient education, Posture/Body mechanics baring, Therapeutic exercises, Transfer training PT Plan: Skilled PT PT Frequency: 3-4 times per week until discharge PT Recommended Transfer Status: Assistive equipment (Comment) (walker) AM-PAC Basic Mobility Turning in bed without bedrails: A Little Lying on back to sitting on edge of flat bed: A Little Bed to chair: A Little Standing up from chair: A Little Walk in room: A Little Climbing 3-5 stairs: A Lot Mobility Inpatient Raw Score: 17 -[facility] Goal: 5 [facility] Highest Level of Mobility (JH-HLM) Scale Highest Level of Mobility Performed (-HLM): Transferred to chair/commode Subjective: Patient agreed to work with PT. RN stated okay to transfer patient to recliner since patient has tele sitter. Current Problem: This is a 78 y.o. male who is admitted to [facility] with Seizure (HCC) [R56.9] Pain: Pain Assessment Pain Assessment: DVPRS Pain Score: 0 Pain Rating Scale (DVPRS): No pain Lines and Drains: Vapotherm Objective: Precautions: Medical Precautions: Fall Isolation Status: No active isolations Activity Tolerance: Early Mobility/Exercise Safety Screen: Proceed with mobilization - No exclusion criteria met Cognition: Overall Cognitive Status: Impaired Behavior/Cognition: Alert Arousal/Alertness: Appropriate responses to stimuli Safety Judgment: Other (Comment) Awareness of Deficits: (has tele sitter in room) Treatments: Therapeutic Activity Time Entry: 23 Therapeutic Activity 1: Patient worked on transfers to and from bed to recliner. He was Min A without use of RW to transfer to and from bed to recliner; limitation due to Vapotherm as RN requested patient be kept on Vapotherm and not transferred to portable 02 for therapy session due to dropping of 02 sats at times. During session with me, patient did not drop his 02 sats from the 90's. I positioned him to comfort before I left room including placement of lap belt and chair alarm. RN stated she would like the patient up in recliner. Bed Mobility: Bed Mobility Bed Mobility: Yes Bed Mobility 1 Level of Assistance 1: Supervision/touching assistance Bed Mobility To/From: Supine to sit on EOB Assistive Devices And Adaptive Equipments: Bed rail, Head of bed elevated Transfers: Transfers Transfer: Yes Transfer 1 Technique 1: Via walking Level of Assistance 1: Partial/Mod assistance Transfer To/From: Bed, Chair Assistive Devices And Adaptive Equipments: No device (I held on to gait belt as patient performed transfers.) Outcome Measures: 03/16/24 1500 Ken RPE Scale Ken RPE Scale - How Strenuous and Tiring The Work Feels 14 Patient Education Education Documentation Fall Prevention, taught by Sunitha Ibarra PT at 03/16/2024 3:12 PM. Learner: Patient Readiness: Eager Method: Explanation Response: Verbalizes Understanding Education Comments No comments found. Goal Encounter Goals Encounter Goals (Active) Patient will ambulate 100' distance using LRAD with sup. (Not Met) Start: 03/07/24 Expected End: 03/17/24 Patient will perform chair to and from bed transfer LRAD and sup. (Progressing) Start: 03/07/24 Expected End: 03/17/24 Patient will ambulate >100 feet distance using walker with no assistance (Progressing) Start: 03/15/24 Expected End: 04/12/24 Patient will perform chair to and from bed transfer with no assistance (Progressing) Start: 03/15/24 Expected End: 04/12/24 Patient will perform supine to sit on bed with no assistance demonstrating control (Progressing) Start: 03/15/24 Expected End: 04/12/24 Patient will perform sit to supine on bed with no assistance demonstrating control (Progressing) Start: 03/15/24 Expected End: 04/12/24 Post Therapy Checklist - in chair, bed/chair alarm in place, phone withinreach, restraints secured in place, and velcro belt in place Time Calculation:Start Time: 1055 Stop Time: 1118 Time Calculation (min): 23 min PT Drawer In Hand Used: N.A. Treatment Note: If this is the last documented treatment, then it will signify discharge from acute care prior to discharge from the therapy service and will serve as the discharge summary. Sunitha Ibarra PT SPRAYER FIRST * Konstantin Hayes, OT - 03/16/2024 10:30 AM HEEL SPRAYER FIRST Occupational Therapy Treatment Harris Neal 1945 Room [id number]* Assessment: OT Assessment Results: Impaired ADL status, Impaired endurance, Impaired functional mobility, Impaired trunk control for functional activities, Impaired safe judgment during ADL, Impaired upper extremity strength, Impaired cognition Prognosis: Good Barriers to Discharge: Past Medical history, Complicated medical history, Safety awareness Evaluation/Treatment Tolerance: Patient limited by fatigue Medical Staff Made Aware: Yes Strengths: Attitude of self Plan: Treatment Plan/Goals Established with Patient/Caregiver: Yes Treatment Interventions: ADL retraining, Functional transfer training, Patient/family training, Compensatory technique education, UE strengthening/ROM, Endurance training OT Planned Treatments: Activities of Daily Living, Balance training, Patient education, Mobility training, Safety education, Therapeutic activities, Therapeutic exercises, Energy conservation training OT Plan: Skilled OT OT Frequency: 2-3 times per week until discharge Equipment Recommended: Walker- rolling, Shower bath chair AM-PAC Daily Activity: Putting on and taking off regular lower body clothing: A Little Bathing (including washing, rinsing, drying): A Lot Toileting, which includes using toilet, bedpan or urinal: A Lot Putting on and taking off regular upper body clothing: A Little Taking care of personal grooming such as brushing teeth: None Eating Meals: None AM-PAC Daily Activity Raw Score: 18 [facility] Highest Level of Mobility (-HLM) ScaleHighest Level of Mobility Performed (-HLM): Transferred to chair/commode Preferred Language: Uzbek SubjectivePt denies pain and was agreeable to OT. Treatment: 03/16/24 1030OT Last Visit OT Received On 03/16/24 Time Calculation Start Time 1030 Stop Time 1055 Time Calculation (min) 25 min Precautions UE Weight Bearing Status FWB LE Weight Bearing Status FWB Medical Precautions Fall, standard Pain Assessment Pain Assessment DVPRS Pain Score 0 Pain Rating Scale (DVPRS) 0 ADL Self Care/Home Management (ADLs) Time Entry 15 Grooming Assistance Setup/clean-up assistance Grooming Deficit Setup;Increased time to complete LE Dressing Activity Component(s) Socks LE Dressing Assistance Partial/Mod assistance LE Dressing Deficit Setup;Verbal cueing;Increased time to complete;Supervision/safety;Don/doff R sock;Don/doff L sock ADL Comments Pt needing min-mod verbal cueing after setup and with min A to don/doff socks d/t increase weakness. Bed Mobility Bed Mobility Yes Bed Mobility 1 Level of Assistance 1 Setup/clean up assistance Bed Mobility Comments 1 Pt was able to get in/out of bed without assistance but with min verbal cueing to use bed rail and with HOB elevated. Bed Mobility To/From Sitting EOB to supine;Supine to sit on EOB Assistive Devices And Adaptive Equipments Bed rail;Head of bed elevated Transfers Transfer Yes Transfer 1 Technique 1 Stand step Level of Assistance 1 Partial/Mod assistance Trials/Comments 1 Pt was able to STS with mod cues with demo to use 1-2 arm to push off or reach back during STS. Pt need mod verbal and tactile cues to transfer to the recliner place at bedside with min A d/t increase weakness. Transfer To/From [id number];Recliner Assistive Devices And Adaptive Equipments No device Functional Mobility Functional Mobility Pt took 1-2 steps to transfer to the recliner d/t increase fall risk and BLE weakness and decrease balance. Mod verbal cueing was provided with min A. Activity Tolerance Endurance Endurance does not limit participation in activity Sitting Balance Moves/returns truncal midpoint more than 2 inches in all planes Early Mobility/Exercise Safety Screen Proceed with mobilization - No exclusion criteria met Therapeutic Procedures Time Entry Therapeutic Activity Time Entry 10 Therapeutic Activity Therapeutic Activity 1 Pt worked on bed mobility: Supine to sit EOB and sit EOB to supine, Therapeutic Activity 2 Pt worked on transfers: STS, bed and recliner Therapeutic Activity 3 Pt worked on sitting balance and tolerance: <10 mins without support and assist at EOB AM-PAC Daily Activity Inpatient Putting on and taking off regular lower body clothing 3 Bathing (including washing, rinsing, drying) 2 Toileting, which includes using toilet, bedpan or urinal 2 Putting on and taking off regular upper body clothing 3 Taking care of personal grooming such as brushing teeth 4 Eating Meals 4 AM-PAC Daily Activity Raw Score 18 OT Assessment OT Assessment Results Impaired ADL status;Impaired endurance;Impaired functional mobility;Impaired trunk control for functional activities;Impaired safe judgment during ADL;Impaired upper extremity strength;Impaired cognition Prognosis Good Barriers to Discharge Past Medical history;Complicated medical history;Safety awareness Evaluation/Treatment Tolerance Patient limited by fatigue Medical Staff Made Aware Yes Strengths Attitude of self OT Plan Treatment Interventions ADL retraining;Functional transfer training;Patient/family training;Compensatory technique education;UE strengthening/ROM;Endurance training OT Planned Treatments Activities of Daily Living;Balance training;Patient education;Mobility training;Safety education;Therapeutic activities;Therapeutic exercises;Energy conservation training Mobility Highest Level of Mobility Performed (JH-HLM) 4 Pt left sitting in the recliner, RN informed at end of session, all needs in reach, alarm intact. Education DocumentationFall Prevention, taught by Konstantin Hayes, OT at 03/16/2024 2:12 PM. Learner: Patient Readiness: Acceptance Method: Demonstration, Explanation Response: Needs Reinforcement Mobility Training, taught by Konstantin Hayes OT at 03/16/2024 2:12 PM. Learner: Patient Readiness: Acceptance Method: Demonstration, Explanation Response: Needs Reinforcement ADL Training, taught by Konstantin Hayes OT at 03/16/2024 2:12 PM.Learner: Patient Readiness: Acceptance Method: Demonstration, Explanation Response: Needs Reinforcement Occupational Therapy Plan of Care, taught by Konstantin Hayes OT at 03/16/2024 2:12 PM. Learner: Patient Readiness: Acceptance Method: Demonstration, Explanation Response: Needs Reinforcement Fall Prevention, taught by Konstantin Hayes OT at 03/15/2024 4:15 PM. Learner: Patient Readiness: Acceptance Method: Explanation, Demonstration Response: Needs Reinforcement Mobility Training, taught by Konstantin Hayes OT at 03/15/2024 4:15 PM. Learner: Patient Readiness: Acceptance Method: Explanation, Demonstration Response: Needs Reinforcement ADL Training, taught by Konstantin Hayes OT at 03/15/2024 4:15 PM.Learner: Patient Readiness: Acceptance Method: Explanation, Demonstration Response: Needs Reinforcement Occupational Therapy Plan of Care, taught by Konstantin Hayes OT at 03/15/2024 4:15 PM. Learner: Patient Readiness: Acceptance Method: Explanation, Demonstration Response: Needs Reinforcement Education CommentsNo comments found. Encounter Goals Encounter Goals (Active) Patient will be mod I with LB dressing. (Progressing) Start: 03/09/24 Expected End: 03/17/24 Pt will complete oral care with min A while standing at the sink (Not Progressing) Start: 03/09/24 Expected End: 03/17/24 Patient will be SUP with toilet transfers (Not Progressing) Start: 03/09/24 Expected End: 03/17/24 Patient will be sup with toilet hygiene (Not Progressing) Start: 03/09/24 Expected End: 03/17/24 Treatment Note: If this is the last documented treatment, then it will signify discharge from acute care prior to discharge from the therapy service and will serve as the discharge summary. Konstantin Hayes OT SPRAYER FIRST * Kelsie Schroeder MD - 03/15/2024 6:03 PM HEEL SPRAYER FIRST Images from the original note were not included. Subjective: 78-year-old gentleman with a known history of epilepsy on Keppra, COPD on home oxygen, history of left PROGRAM SCHEDULE CLERK stroke, essential hypertension, upper lipidemia who was admitted on March 05, 2024 as a transfer from an outside facility for altered mental status and hypoxemia. He was intubated at the facility because of declining GCS and had a PEA cardiac arrest and achieved ROSC after 15 minutes. He was awake and following commands when he arrived to our facility in the neuro ICU. He was extubated on February 25 and downgraded to the neuro IMU. Pulmonary was consulted for consideration for management of his COPD. Upon evaluation of the patient, he says that he follows at the [facility] and is known to miss some of his medications due to some noncompliance. He denies any particular respiratory complaints but is a poor historian and does not provide details or specific answers to questions. He denies any cough, sputum, hemoptysis at present. Per review of his medical records, he has been nonadherent to oxygen therapy in the past. He has also been intubated in the past for what looks like seizure related issues. Daily Plan: 03/15: Started on steroids yesterday and sounds better today without pursed lip breathing. Currently on 35 L and 35% oxygen. No fevers, rigors, chills. Still very confused. Objective: Labs and Vitals: Results from last 7 daysLab Units 03/15/24 1531 03/15/24 0717 03/15/24 0402 SODIUM mEq/L -- -- 142 POTASSIUM mEq/L -- -- 3.8 CHLORIDE mEq/L -- -- 97* CO2 mEq/L -- -- >40.0* BUN mg/dL -- -- 35* CREATININE mg/dL -- -- 0.78 CALCIUM mg/dL -- -- 9.2 GLUCOSE mg/dL -- -- 111* POC GLUCOSE mg/dL 191* < > -- < > = values in this interval not displayed. Results from last 7 days Lab Units 03/15/24 0402 WBC 10*3/uL 9.65 HEMOGLOBIN g/dL 13.7 HEMATOCRIT % 45.0 PLATELETS 10*3/uL 213 Vitals: 03/15/24 1513 03/15/24 1514 03/15/24 1523 03/15/24 1629 BP: (!) 114/46 Pulse: 72 74 65 Resp: 16 14 (!) 24 Temp: 36.6 ?C (97.9 ?F) SpO2: 95% 96% 97% ROS: Per the HPI or daily summary Gen'l: Patient lying in bed, in no acute distressNeur: Awake, alert, oriented x 3 with no focal deficits H&N: No obvious JVD, no thyromegaly, no oral thrush Back: No acute deformities Card: No rubs, no gallops and no obvious murmurs L: Good air entry bilaterally with diminished breath sounds in the bilateral bases; no wheezes or rales Abd: Soft, nontender, no gross adenopathy; bowel sounds present Ext: No pitting edema; no obvious cyanosis MSK: Able to move all extremities A/P: 1. History of COPD with documented history of noncompliance to prior oxygen therapy Concern for pneumonia History of MOHAN Currently on Vapotherm and will wean CPAP at night IV steroids with tapering dose as ordered 2. History of seizure disorder with noncompliance to medicationsHistory of prior CVA Patient may have some cognitive deficits from his recent cardiac arrest Continue antiepileptics and aspirin and statin Case was discussed with the patient in detail and all questions were answered; discussed with the RN. SPRAYER FIRST * Cynthia Pinto MD - 03/15/2024 5:48 PM HEEL SPRAYER FIRST [facility] Subjective Patient was seen and examined at bedside, he remained on vapotherm 30L , 35% FiO2 Telemetry report nonsustained VT, cardiology was consulted Objective Last Recorded Vitals Blood pressure (!) 114/46, pulse 65, temperature 36.6 ?C (97.9 ?F), temperature source Axillary, resp. rate (!) 24, height 1.854 m (6' 0.99"), weight 81.2 kg (179 lb 0.2 oz), SpO2 97%. Physical Exam Gen- AAOx2-3, not in acute respiratory distress with NC HEENT- NCAT, EOMI, No scleral icterus Neck Supple, no thyromegaly Heart - S1 S2 heard, regular Lungs- Clear to auscultation bilaterally, normal respiratory effort P/a- Soft, non tender, no guarding or rigidity noted, bowel sounds present Ext- No peripheral cyanosis or pedal edema noted Neuro- grossly non focal Psych- Mood and affect normal acetaZOLAMIDE (Diamox) in SWFI injection, 250 mg, Intravenous, Daily aspirin, 81 mg, Oral, Daily atorvastatin, 40 mg, Oral, Daily budesonide, 1 mg, Nebulization, q12h carvedilol, 25 mg, Oral, q12h ROLANDO furosemide, 20 mg, Intravenous, Daily heparin, 5,000 Units, Subcutaneous, q8h ROLANDO ipratropium-albuterol, 3 mL, Nebulization, q6h Followed by [START ON 03/16/2024] ipratropium-albuterol, 3 mL, Nebulization, BID levETIRAcetam, 1,000 mg, Intravenous, q12h methylPREDNISolone sod suc (PF), 40 mg, Intravenous, q12h polyethylene glycol (PEG) 3350, 17 g, Oral, q12h Premier Protein Shake, 1 Bottle, Oral, BID sacubitril-valsartan, 1 tablet, Nasogastric, Nightly sennosides, 10 mL, Oral, q12h sodium chloride, 10 mL, Intravenous, q12h ROLANDO sodium chloride, 3 mL, Nebulization, q4h PRN medications: acetaminophen, dextrose, dextrose, fentaNYL, glucagon, hydrALAZINE, insulin lispro, nystatin, sodium chloride Results from last 7 daysLab Units 03/15/24 0402 03/14/24 0556 03/13/24 0558 WBC 10*3/uL 9.65 12.96* 11.94* HEMOGLOBIN g/dL 13.7 15.0 13.9 HEMATOCRIT % 45.0 50.6 45.8 PLATELETS 10*3/uL 213 243 149* PLATELETS ESTIMATED -- -- Normal Results from last 7 daysLab Units 03/15/24 1531 03/15/24 0717 03/15/24 0402 03/14/24 0556 03/13/24 0822 03/13/24 0558 SODIUM mEq/L -- -- 142 141 -- 142 POTASSIUM mEq/L -- -- 3.8 4.5 -- 4.6* CHLORIDE mEq/L -- -- 97* 96* -- 99 CO2 mEq/L -- -- >40.0* >40.0* -- >40.0* BUN mg/dL -- -- 35* 32* -- 36* CREATININE mg/dL -- -- 0.78 0.75 -- 0.68* GLUCOSE mg/dL -- -- 111* 111* -- 88 POC GLUCOSE mg/dL 191* < > -- -- < > -- CALCIUM mg/dL -- -- 9.2 9.5 -- 9.4 < > = values in this interval not displayed. === 03/05/24 === XR CHEST 1 VIEW - Impression -1. The endotracheal tube terminates 6.7 cm from the francisco javier. 2. Advanced emphysema with superimposed pulmonary vascular congestion. LOCATION: [id number] Electronically signed by: Peter Sheldon MD 03/07/2024 11:02 AM HEEL SPRAYER FIRST RPWorkstation: [id number] === 03/05/24 === CT ANGIOGRAM BRAIN NECK - Impression -Approximately 50-55% degree of narrowing due to calcific and soft plaque formation along the very proximal left ICA without tandem lesion identified more distally No findings of concern for dissection Less than 50% degree of right carotid narrowing No compromise of significance of the vertebral arteries Location: H3 CTA of the brain 03/05/2024 TECHNIQUE: CTA examination of the [id number] was performed on a helical scanner with the patient given non ionic IV contrast . Vascular protocol performed. Thin slice axial images acquired from skull base through vertex of brain. There is also acquisition of 2-D coronal and sagittal reformatted images acquired by the radiologic technologist mammogram. Volumetric imaging was acquired with maximum intensity projections images acquired. The examination was performed on an updated helical CT scanner utilizing low-dose radiation technique. Automatic exposure technique was utilized to reduce radiation dose. Comparison Exam : [Head CT exam of 03/05/2024 CLINICAL HISTORY: Stroke assessment, Code Stroke FINDINGS: Do not see any findings suggestive of an aneurysm or vascular malformation.There is no basilar artery occlusion. There is occlusion of the left PROGRAM SCHEDULE CLERK along the P2 segment but this is felt to be chronic in this patient relatively chronic area of left PROGRAM SCHEDULE CLERK infarction seen in this territory noncontrast head CT exam. There is a origin of the right PROGRAM SCHEDULE CLERK without significant compromise of the right PROGRAM SCHEDULE CLERK more distally with the P1 segment noted to be mildly hypoplastic. There is calcific plaque formation along both carotid siphons but without high-grade stenosis or hemodynamically significant narrowing. Significant tortuosity involving the A2 segment of both anterior cerebral arteries without significant stenosis. Both superior cerebellar arteries are identified and there is enhancement of both picas.. There is no space-occupying process or abnormal enhancement.. 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 origin of the right PROGRAM SCHEDULE CLERK No significant compromise of the anterior circulation. There is presence of a small degree calcific plaque formation noted in both carotid siphons likely nonhemodynamically significant. Electronically signed by: Dana Goel MD 03/05/2024 10:56 PM [facility] 78 years old male with past medical history of epilepsy on Keppra, COPD on home oxygen, prior Left PROGRAM SCHEDULE CLERK stroke, HTN, HLD , who was admitted to Neuro ICU on 03/05/2024 as a transfer from [facility] with AMS and hypoxia. Per chart reviewed, Patient presented to outside hospital with AMS, generalized weakness, and hypoxia. He was hypoxia with O2 sats in 70s on 3L NC. Patient was also diaphoretic, pale and blue purse lips. He is placed on NRB and transfer to ED. Patient was awake and answer some question en route. In ED, Patient NIHSS was 35 and became altered with GCS of 8. He does not move any extremities. CTH is obtain which was negative for intracranial abnormalities. Patient did not received TNK because of OOW. Per , Patient stopped taking keppra since past one week. Patient was loaded with 4gm of Keppra in ED. Prior to Transfer, Patient GCS decline and was intubated for airway protection. During intubation, He has PEA arrest ROSC achieved in 15 minutes, Upon arrival to NICU, Patient is awake, follow commands, all extremities AG. CTA is obtain which is negative for LVO or aneurysm. Patient is placed on Ceribell which showed 0% seizure burden. He was extubated to nasal cannula on 03/07, currently downgraded to neuro IMU, SENIOR NATIONAL ACCOUNT MANAGER evaluated and he was started on regular diet. Assessment & Plan Assessment & PlanSeizure ([facility]) COPD (chronic obstructive pulmonary disease) (HCC) Acute respiratory failure with hypoxia and hypercarbia (CMS/HCC) (HCC) Non-sustained ventricular tachycardia (HCC) Cardiac arrest ([facility]) Concern for breakthrough seizureEncephalopathy (hypoxic ?) Seizure disorder, noncompliant with home medication History of CVA CTA negative for acute infarction, old left posterior cerebral artery infarction CTA H/N negative for occlusion, aneurysm or vascular malformation. 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 Their is Left ICA moderate stenosis 50-55% and Right ICA <50% EEG showed 0% seizure burden UDS negative, EtOH negative S/p Keppra 4g load, on Keppra 1g BID Continue with ASA and statin As mental status improved, still seems to have some memory/cognition problem, per family he is not at his baseline PT/OT/SENIOR NATIONAL ACCOUNT MANAGER network project manager and PMR were consulted for IPR evaluation, now being on Vapotherm, will assess for LTAC S/p PEA arrest, on admissionHypotension, on admission, resolved H/o Hypertension PEA arrest in setting hypoxia/intubation on (03/05), ROSC in 15 minutes Home medication coreg and entresto resumed Monitor BP TTE preserved EF, grade I diastolic dysfunction Acute resp failure with hypercapnia on admission s/p intubation and extubation COPD Concern for PNA ABG showed hypercapnia, started on Vapothem, wean as tolerate CXR showed congestive, IV Lasix, fluid restriction, started on Diamox for metabolic alkalosis Continue with bronchodilator, budesonide S/p course of empiric antibiotics, steroid Pulm is following heparin - 5000 units/mL Current Diet: Adult Diet Heart Healthy; 1500 ml/day IMU, [facility]Prem[facility] Cynthia Pinto MD 03/15/2024 SPRAYER FIRST * Konstantin Hayes, OT - 03/15/2024 12:55 PM HEEL SPRAYER FIRST Occupational Therapy Treatment [facility] [place] 1945 Room [id number]* Assessment: OT Assessment Results: Impaired ADL status, Impaired endurance, Impaired functional mobility, Impaired trunk control for functional activities, Impaired safe judgment during ADL, Impaired upper extremity strength, Impaired cognition Prognosis: Good Barriers to Discharge: Safety awareness, Medical diagnosis Evaluation/Treatment Tolerance: Patient limited by fatigue Medical Staff Made Aware: Yes Strengths: Attitude of self Plan: Treatment Plan/Goals Established with Patient/Caregiver: Yes Treatment Interventions: ADL retraining, Functional transfer training, Patient/family training, Compensatory technique education, Endurance training OT Planned Treatments: Activities of Daily Living, Balance training, Patient education, Mobility training, Safety education, Therapeutic activities, Therapeutic exercises, Energy conservation training OT Plan: Skilled OT OT Frequency: 2-3 times per week until discharge Equipment Recommended: Walker- rolling, Shower bath chair AM-PAC Daily Activity: Putting on and taking off regular lower body clothing: A Lot Bathing (including washing, rinsing, drying): A Lot Toileting, which includes using toilet, bedpan or urinal: Total Putting on and taking off regular upper body clothing: A Little Taking care of personal grooming such as brushing teeth: A Little Eating Meals: A Little AM-PAC Daily Activity Raw Score: 14 [facility] Highest Level of Mobility (JH-HLM) ScaleHighest Level of Mobility Performed (JH-HLM): Sat at edge of bed Preferred Language: Uzbek SubjectivePt didn't report any pain but was agreeable to OT. Treatment: 03/15/24 1255OT Last Visit OT Received On 03/15/24 Time Calculation Start Time 1255 Stop Time 1320 Time Calculation (min) 25 min Precautions UE Weight Bearing Status FWB LE Weight Bearing Status FWB Medical Precautions Fall, standard Pain Assessment Pain Assessment DVPRS Pain Score 0 Pain Rating Scale (DVPRS) 0 ADL Self Care/Home Management (ADLs) Time Entry 15 UE Dressing Activity Component(s) Gown UE Dressing Assistance Partial/Mod assistance UE Dressing Deficit Setup;Verbal cueing;Supervision/safety;Increased time to complete;Thread RUE;Thread LUE LE Dressing Activity Component(s) Socks LE Dressing Assistance Substantial/Max assistance LE Dressing Deficit Setup;Steadying;Requires assistive device for steadying;Verbal cueing;Supervision/safety;Increased time to complete;Don/doff L sock;Don/doff R sock ADL Comments Pt needing increased verbal and tactile cueing d/t increase lethargy, increaese weakness, decrease sitting balance, decrease standing and decreae activity tolerance Bed Mobility Bed Mobility Yes Bed Mobility 1 Level of Assistance 1 Substantial/Max assistance Bed Mobility Comments 1 Pt given increase cues and physical assistance d/t decrease in overall function Bed Mobility To/From Sitting EOB to supine;Supine to sit on EOB Assistive Devices And Adaptive Equipments Bed rail;Head of bed elevated Activity Tolerance Endurance Tolerates less than 10 min exercise, no significant change in vital signs Sitting Balance Supports self with more than 50% effort using upper extremity, requires therapist assistance Early Mobility/Exercise Safety Screen Proceed with mobilization - No exclusion criteria met Activity Tolerance Comments Pt has decrease sitting balance and tolerance Therapeutic Procedures Time Entry Therapeutic Exercise Time Entry 10 Therapeutic Activity Therapeutic Activity 1 Pt worked on bed mobility Therapeutic Activity 2 Pt worked on sitting balance and tolerance: pt has increase need to use BUE for support and was only able to tolerate <10 min sitting EOB. AM-PAC Daily Activity Inpatient Putting on and taking off regular lower body clothing 2 Bathing (including washing, rinsing, drying) 2 Toileting, which includes using toilet, bedpan or urinal 1 Putting on and taking off regular upper body clothing 3 Taking care of personal grooming such as brushing teeth 3 Eating Meals 3 AM-PAC Daily Activity Raw Score 14 OT Assessment OT Assessment Results Impaired ADL status;Impaired endurance;Impaired functional mobility;Impaired trunk control for functional activities;Impaired safe judgment during ADL;Impaired upper extremity strength;Impaired cognition Prognosis Good Barriers to Discharge Safety awareness;Medical diagnosis Evaluation/Treatment Tolerance Patient limited by fatigue Medical Staff Made Aware Yes Strengths Attitude of self OT Plan Treatment Interventions ADL retraining;Functional transfer training;Patient/family training;Compensatory technique education;Endurance training OT Planned Treatments Activities of Daily Living;Balance training;Patient education;Mobility training;Safety education;Therapeutic activities;Therapeutic exercises;Energy conservation training Mobility Highest Level of Mobility Performed (-HLM) 3 Pt left lying back in bed, RN informed at end of session, all needs in reach, alarm intact. Education DocumentationFall Prevention, taught by Konstantin Hayes, OT at 03/15/2024 4:15 PM. Learner: Patient Readiness: Acceptance Method: Explanation, Demonstration Response: Needs Reinforcement Mobility Training, taught by Konstantin Hayes OT at 03/15/2024 4:15 PM. Learner: Patient Readiness: Acceptance Method: Explanation, Demonstration Response: Needs Reinforcement ADL Training, taught by Konstantin Hayes OT at 03/15/2024 4:15 PM.Learner: Patient Readiness: Acceptance Method: Explanation, Demonstration Response: Needs Reinforcement Occupational Therapy Plan of Care, taught by Konstantin Hayes OT at 03/15/2024 4:15 PM. Learner: Patient Readiness: Acceptance Method: Explanation, Demonstration Response: Needs Reinforcement Education CommentsNo comments found. Encounter Goals Encounter Goals (Active) Patient will be mod I with LB dressing. (Not Progressing) Start: 03/09/24 Expected End: 03/11/24 Pt will complete oral care with min A while standing at the sink (Not Progressing) Start: 03/09/24 Expected End: 03/11/24 Patient will be SUP with toilet transfers (Not Progressing) Start: 03/09/24 Expected End: 03/11/24 Patient will be sup with toilet hygiene (Not Progressing) Start: 03/09/24 Expected End: 03/11/24 Treatment Note: If this is the last documented treatment, then it will signify discharge from acute care prior to discharge from the therapy service and will serve as the discharge summary. Konstantin Hayes OT SPRAYER FIRST * Gonzalez Foster MD - 03/15/2024 12:30 PM HEEL SPRAYER FIRST [facility] Cardiology Dr. Gonzalez Foster Subjective Much more alert Less sob On Vapotherm No chest pain reported Tele, sinus without non sustained v. Tachy anymore Physical Exam Physical Exam: Last Recorded Vitals Blood pressure (!) 106/49, pulse 70, temperature 36.9 ?C (98.5 ?F), resp. rate 22, height 1.854 m (6' 0.99"), weight 81.2 kg (179 lb 0.2 oz), SpO2 98%. Relevant Results Transthoracic echo (TTE) complete Result Date: 03/07/2024 Left Ventricle: Normal systolic function with an estimated EF of 55 - 60%. Grade I diastolic dysfunction of the left ventricle. Not well visualized. Right ventricle size is normal. Normal systolic function in the right ventricle. Not well visualized. Left atrium size is normal. IVC/SVC: IVC diameter is less than or equal to 21 mm and decreases less than 50% during inspiration; therefore the estimated right atrial pressure is intermediate (~8 mmHg). Pericardial effusion present. No nuclear medicine results found for the past 12 months Encounter Date: 03/05/24ECG 12 lead Result Value Ventricular Rate 67 Atrial Rate 67 ME Interval 166 QRS Duration 150 QT/QTc 466 QTc Calculation 492 P-[place] 45 R-[place] 92 T-[place] 65 Procedure? Y Impression SINUS RHYTHM WITH PREMATURE ATRIAL COMPLEX(ES) WITH ABERRANT CONDUCTION RIGHT BUNDLE BRANCH BLOCK ABNORMAL ECG WHEN COMPARED WITH ECG OF 08-NOV-2022 21:20, PREMATURE VENTRICULAR COMPLEX(ES) ARE NO LONGER PRESENT ABERRANT CONDUCTION IS NOW PRESENT RIGHT BUNDLE BRANCH BLOCK IS NOW PRESENT CRITERIA FOR SEPTAL INFARCTION ARE NO LONGER PRESENT Confirmed by Bud Reyes (2022) on 03/07/2024 8:36:54 AM No results found for this or any previous visit (from the past 41644 hours). Encounter Date: 03/05/24XR chest 1 view Narrative EXAM: XR CHEST 1 VIEW DATE: 03/14/2024 2:34 PM HEEL SPRAYER FIRST INDICATION: SOB. COMPARISON: XR Chest 03/13/2024 TECHNIQUE: AP chest. FINDINGS: Lines, tubes and hardware: Partially visualized cervical spine fixation hardware.. Lungs and pleura: Unchanged perihilar interstitial opacities. No right pleural effusion. Left costophrenic sulcus is obscured. No pneumothorax is identified. Heart and mediastinum: The heart size is unchanged. Vascular calcifications are present at the aorta. Bones and soft tissues: Regional skeleton is unchanged. Impression1. Unchanged perihilar interstitial opacities, favored to represent pulmonary edema with or without superimposed infection. Electronically signed by: Angelo Raygoza MD 03/14/2024 05:13 PM HEEL SPRAYER FIRST RP Pertinent Labs :Lab Results Component Value Date Sodium Lvl 142 03/15/2024 Potassium Lvl 3.8 03/15/2024 Chloride Lvl 97 (L) 03/15/2024 CO2 Lvl >40.0 (HH) 03/15/2024 BUN 35 (H) 03/15/2024 Creatinine Lvl 0.78 03/15/2024 Glucose Lvl 111 (H) 03/15/2024 POC Glu 204 (H) 03/15/2024 Assessment & PlanSeizure (HCC) COPD (chronic obstructive pulmonary disease) (HCC) Acute respiratory failure with hypoxia and hypercarbia (CMS/HCC) (HCC) Non-sustained ventricular tachycardia (HCC) Cardiac arrest ([facility]) For cardiac arrest, and arrhythmia, hypoxemia,Will need to have NUC stress test later next week if he is improving mental status Completed by:Gonzalez Foster MD SPRAYER FIRST * Sunitha Ibarra, PT - 03/15/2024 11:00 AM HEEL SPRAYER FIRST Physical Therapy Treatment Patient Name: Harris Neal Today’s Date: 03/15/24 Room Number: [id number]* Patient's Preferred Language: Uzbek PT Assessment and Plan: Assessment Patient able to participate in therapy, limited by drowsiness as well as drop in 02 saturation, SOB during activity. He is motivated to work with PT, able to follow simple commands for tasks. Evaluation/Treatment Tolerance: Other (Comment) (SOB) Plan (Last filed value by PT) Treatment Plan/Goals Established with Patient/Caregiver: Yes Treatment/Interventions: Balance training, Bed mobility training, Functional activities, Gait training, Manual therapy, Neuromuscular re-education, Pain management, Patient education, Posture/Body mechanics baring, Therapeutic exercises, Transfer training PT Plan: Skilled PT PT Frequency: 3-4 times per week until discharge PT Recommended Transfer Status: Assistive equipment (Comment) (walker) AM-PAC Basic Mobility Turning in bed without bedrails: A Little Lying on back to sitting on edge of flat bed: Total Bed to chair: A Little Standing up from chair: A Little Walk in room: A Lot Climbing 3-5 stairs: A Lot Mobility Inpatient Raw Score: 14 -HLM Goal: 4 [facility] Highest Level of Mobility (JH-HLM) Scale Highest Level of Mobility Performed (JH-HLM): Sat at edge of bed Subjective: Patient agreed to work with PT Current Problem: This is a 78 y.o. male who is admitted to [facility] with Seizure (HCC) [R56.9] Pain: Pain Assessment Pain Assessment: DVPRS Pain Score: 0 Pain Rating Scale (DVPRS): No pain Lines and Drains: Vapotherm Objective: Precautions: LE Weight Bearing Status: FWB Isolation Status: No active isolations Activity Tolerance: Early Mobility/Exercise Safety Screen: Proceed with mobilization - No exclusion criteria met Cognition: Overall Cognitive Status: Impaired Behavior/Cognition: (has sitter in room, is lethargic at times.) Treatments: Therapeutic Activity Time Entry: 13 Therapeutic Activity 1: Patient resting in bed upon arrival, on Vapotherm. My plan was to call RT and transfer patient to portable 02 tank if possible but RN requested not to and just to work at bed side,connected to Vapotherm due to significantly drowsy today. Patient sat EOB, needing Max A with this task as he needed help for both upper and lower body. He then stood with a RW and marched in place at bed side but barely able to clear the floor. He then abruptly sat on bed. He was cued to stand again, which he did, and take 2 steps laterally. 02 sat dropping with activity into the 80's but did rise to low 90's during activity as well from the 80's. At end of exercise he sat EOB and then was cued to scoot to HOB. He was able to perform this task at supervision level. Sit to supine was Mod A to bring legs on to bed, patient able to control his upper body when lowered on to bed. He was positioned to his comfort before I left room, 02 sat in the 90's at this time. Bed Mobility: Bed Mobility Bed Mobility: Yes Bed Mobility 1 Level of Assistance 1: Substantial/Max assistance Bed Mobility To/From: Supine to sit on EOB Transfers: Transfers Transfer: Yes Transfer 1 Technique 1: Via walking Level of Assistance 1: Partial/Mod assistance Transfer To/From: Bed Assistive Devices And Adaptive Equipments: Walker, front-wheeled Therapeutic Exercise: Therapeutic Exercise Time Entry: 10 Therapeutic Exercise Activity 1: Bilat LE x 15 reps in sitting. Hip/knee/ankle. He needed breaks when 02 sat dropped from low 90's to 80's and then resume when 02 sat >90%. All AROM. Outcome Measures: 03/15/24 1500 Ken RPE Scale Ken RPE Scale - How Strenuous and Tiring The Work Feels 13 - Somewhat hard Patient Education Education Documentation Mobility, taught by Sunitha Ibarra PT at 03/15/2024 3:48 PM. Learner: Patient Readiness: Eager Method: Explanation Response: Needs Reinforcement Education Comments No comments found. Goal Encounter Goals Encounter Goals (Active) Patient will ambulate 100' distance using LRAD with sup. (Not Met) Start: 03/07/24 Expected End: 03/11/24 Patient will perform chair to and from bed transfer LRAD and sup. (Progressing) Start: 03/07/24 Expected End: 03/11/24 Patient will ambulate >100 feet distance using walker with no assistance Start: 03/15/24 Expected End: 04/12/24 Patient will perform chair to and from bed transfer with no assistance Start: 03/15/24 Expected End: 04/12/24 Patient will perform supine to sit on bed with no assistance demonstrating control Start: 03/15/24 Expected End: 04/12/24 Patient will perform sit to supine on bed with no assistance demonstrating control Start: 03/15/24 Expected End: 04/12/24 Post Therapy Checklist - in bed Time Calculation:Start Time: 1100 Stop Time: 1124 Time Calculation (min): 24 min PT Drawer In Hand Used: N.A. Treatment Note: If this is the last documented treatment, then it will signify discharge from acute care prior to discharge from the therapy service and will serve as the discharge summary. Sunitha Ibarra PT SPRAYER FIRST * Kelsie Schroeder MD - 03/14/2024 6:03 PM HEEL SPRAYER FIRST Images from the original note were not included. Subjective: 78-year-old gentleman with a known history of epilepsy on Keppra, COPD on home oxygen, history of left PROGRAM SCHEDULE CLERK stroke, essential hypertension, upper lipidemia who was admitted on March 05, 2024 as a transfer from an outside facility for altered mental status and hypoxemia. He was intubated at the facility because of declining GCS and had a PEA cardiac arrest and achieved ROSC after 15 minutes. He was awake and following commands when he arrived to our facility in the neuro ICU. He was extubated on February 25 and downgraded to the neuro IMU. Pulmonary was consulted for consideration for management of his COPD. Upon evaluation of the patient, he says that he follows at the [facility] and is known to miss some of his medications due to some noncompliance. He denies any particular respiratory complaints but is a poor historian and does not provide details or specific answers to questions. He denies any cough, sputum, hemoptysis at present. Per review of his medical records, he has been nonadherent to oxygen therapy in the past. He has also been intubated in the past for what looks like seizure related issues. Daily Plan: 03/14: Will change Lasix to 20 mg daily as patient is fairly alkalotic and add Diamox. Patient tolerating Vapotherm with 30 L and 30% and I spoke with respiratory to increase the flow to 35 L and decreased O2 to 28% this patient requires lower oxygen levels. Will get repeat ABG on the settings. Not in acute distress at present. Being maintained on aggressive neb therapies as ordered and will monitor response but airways remain clear. Objective: Labs and Vitals: Results from last 7 daysLab Units 03/14/24 0556 SODIUM mEq/L 141 POTASSIUM mEq/L 4.5 CHLORIDE mEq/L 96* CO2 mEq/L >40.0* BUN mg/dL 32* CREATININE mg/dL 0.75 CALCIUM mg/dL 9.5 GLUCOSE mg/dL 111* Results from last 7 days Lab Units 03/14/24 0556 WBC 10*3/uL 12.96* HEMOGLOBIN g/dL 15.0 HEMATOCRIT % 50.6 PLATELETS 10*3/uL 243 Vitals: 03/14/24 1521 03/14/24 1643 03/14/24 1643 03/14/24 1645 BP: (!) 129/52 Pulse: 75 71 Resp: 12 20 Temp: 36.8 ?C (98.3 ?F) SpO2: 98% 90% ROS: Per the HPI or daily summary Gen'l: Patient lying in bed, in no acute distressNeur: Awake, alert, oriented x 3 with no focal deficits H&N: No obvious JVD, no thyromegaly, no oral thrush Back: No acute deformities Card: No rubs, no gallops and no obvious murmurs L: Good air entry bilaterally with diminished breath sounds in the bilateral bases; no wheezes or rales Abd: Soft, nontender, no gross adenopathy; bowel sounds present Ext: No pitting edema; no obvious cyanosis MSK: Able to move all extremities A/P: 1. History of COPD with documented history of noncompliance to prior oxygen therapy Concern for pneumonia History of MOHAN Patient had hypercarbic respiratory failure and tolerated BiPAP overnight but required a sitter because he kept pulling his mask earlier Currently on Vapotherm and will wean Will benefit from diuresis and so ordered Lasix per daily summary CPAP at night 2. History of seizure disorder with noncompliance to medicationsHistory of prior CVA Patient may have some cognitive deficits from his recent cardiac arrest Continue antiepileptics and aspirin and statin Case was discussed with the patient in detail and all questions were answered; discussed with the RN. SPRAYER FIRST * Cynthia Pinto MD - 03/14/2024 2:16 PM HEEL SPRAYER FIRST [facility] Subjective Patient was seen and examined at bedside, he remained on vapotherm 20L 25% FiO2, MOLD WASHER was called for desaturating to 85%, Vapotherm setting was increased to 50% Osat improved to 95%. CXR mild congestive changes Objective Last Recorded Vitals Blood pressure (!) 122/43, pulse 74, temperature 36.6 ?C (97.9 ?F), resp. rate 20, height 1.854 m (6' 0.99"), weight 80.6 kg (177 lb 12.8 oz), SpO2 (!) 86%. Physical Exam Gen- AAOx2-3, not in acute respiratory distress with NCHEENT- NCAT, EOMI, No scleral icterus Neck Supple, no thyromegaly Heart - S1 S2 heard, regular Lungs- Clear to auscultation bilaterally, normal respiratory effort P/a- Soft, non tender, no guarding or rigidity noted, bowel sounds present Ext- No peripheral cyanosis or pedal edema noted Neuro- grossly non focal Psych- Mood and affect normal aspirin, 81 mg, Oral, Dailyatorvastatin, 40 mg, Oral, Daily budesonide, 1 mg, Nebulization, q12h carvedilol, 25 mg, Oral, q12h ROLANDO furosemide, 20 mg, Intravenous, q12h heparin, 5,000 Units, Subcutaneous, q8h ROLANDO ipratropium-albuterol, 3 mL, Nebulization, q4h Followed by ipratropium-albuterol, 3 mL, Nebulization, q6h Followed by [START ON 03/16/2024] ipratropium-albuterol, 3 mL, Nebulization, BID levETIRAcetam, 1,000 mg, Intravenous, q12h polyethylene glycol (PEG) 3350, 17 g, Oral, q12h sacubitril-valsartan, 1 tablet, Nasogastric, Nightly sennosides, 10 mL, Oral, q12h sodium chloride, 10 mL, Intravenous, q12h ROLANDO sodium chloride, 3 mL, Nebulization, q4h PRN medications: acetaminophen, dextrose, dextrose, fentaNYL, glucagon, hydrALAZINE, insulin lispro, nystatin, sodium chloride Results from last 7 daysLab Units 03/14/24 0556 03/13/24 0558 03/12/24 0533 WBC 10*3/uL 12.96* 11.94* 14.11* HEMOGLOBIN g/dL 15.0 13.9 15.2 HEMATOCRIT % 50.6 45.8 51.1* PLATELETS 10*3/uL 243 149* 195 PLATELETS ESTIMATED -- Normal -- Results from last 7 daysLab Units 03/14/24 0556 03/13/24 0822 03/13/24 0558 03/12/24 0731 03/12/24 0533 SODIUM mEq/L 141 -- 142 -- 139 POTASSIUM mEq/L 4.5 -- 4.6* -- 5.1* CHLORIDE mEq/L 96* -- 99 -- 98 CO2 mEq/L >40.0* -- >40.0* -- >40.0* BUN mg/dL 32* -- 36* -- 35* CREATININE mg/dL 0.75 -- 0.68* -- 0.83 GLUCOSE mg/dL 111* -- 88 -- 103* POC GLUCOSE -- < > -- < > -- CALCIUM mg/dL 9.5 -- 9.4 -- 9.4 < > = values in this interval not displayed. === 03/05/24 === XR CHEST 1 VIEW - Impression -1. The endotracheal tube terminates 6.7 cm from the francisco javier. 2. Advanced emphysema with superimposed pulmonary vascular congestion. LOCATION: R16 Electronically signed by: Peter Sheldon MD 03/07/2024 11:02 AM [facility] RPWorkstation: [id number] === 03/05/24 === CT ANGIOGRAM BRAIN NECK - Impression -Approximately 50-55% degree of narrowing due to calcific and soft plaque formation along the very proximal left ICA without tandem lesion identified more distally No findings of concern for dissection Less than 50% degree of right carotid narrowing No compromise of significance of the vertebral arteries Location: H3 CTA of the brain 03/05/2024 TECHNIQUE: CTA examination of the [id number] was performed on a helical scanner with the patient given non ionic IV contrast . Vascular protocol performed. Thin slice axial images acquired from skull base through vertex of brain. There is also acquisition of 2-D coronal and sagittal reformatted images acquired by the radiologic technologist mammogram. Volumetric imaging was acquired with maximum intensity projections images acquired. The examination was performed on an updated helical CT scanner utilizing low-dose radiation technique. Automatic exposure technique was utilized to reduce radiation dose. Comparison Exam : [Head CT exam of 03/05/2024 CLINICAL HISTORY: Stroke assessment, Code Stroke FINDINGS: Do not see any findings suggestive of an aneurysm or vascular malformation.There is no basilar artery occlusion. There is occlusion of the left PROGRAM SCHEDULE CLERK along the P2 segment but this is felt to be chronic in this patient relatively chronic area of left PROGRAM SCHEDULE CLERK infarction seen in this territory noncontrast head CT exam. There is a origin of the right PROGRAM SCHEDULE CLERK without significant compromise of the right PROGRAM SCHEDULE CLERK more distally with the P1 segment noted to be mildly hypoplastic. There is calcific plaque formation along both carotid siphons but without high-grade stenosis or hemodynamically significant narrowing. Significant tortuosity involving the A2 segment of both anterior cerebral arteries without significant stenosis. Both superior cerebellar arteries are identified and there is enhancement of both picas.. There is no space-occupying process or abnormal enhancement.. 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 origin of the right PROGRAM SCHEDULE CLERK No significant compromise of the anterior circulation. There is presence of a small degree calcific plaque formation noted in both carotid siphons likely nonhemodynamically significant. Electronically signed by: Dana Goel MD 03/05/2024 10:56 PM [facility] 78 years old male with past medical history of epilepsy on Keppra, COPD on home oxygen, prior Left PROGRAM SCHEDULE CLERK stroke, HTN, HLD , who was admitted to Neuro ICU on 03/05/2024 as a transfer from [facility] with AMS and hypoxia. Per chart reviewed, Patient presented to outside hospital with AMS, generalized weakness, and hypoxia. He was hypoxia with O2 sats in 70s on 3L NC. Patient was also diaphoretic, pale and blue purse lips. He is placed on NRB and transfer to ED. Patient was awake and answer some question en route. In ED, Patient NIHSS was 35 and became altered with GCS of 8. He does not move any extremities. CTH is obtain which was negative for intracranial abnormalities. Patient did not received TNK because of OOW. Per , Patient stopped taking keppra since past one week. Patient was loaded with 4gm of Keppra in ED. Prior to Transfer, Patient GCS decline and was intubated for airway protection. During intubation, He has PEA arrest ROSC achieved in 15 minutes, Upon arrival to NICU, Patient is awake, follow commands, all extremities AG. CTA is obtain which is negative for LVO or aneurysm. Patient is placed on Ceribell which showed 0% seizure burden. He was extubated to nasal cannula on 03/07, currently downgraded to neuro IMU, SENIOR NATIONAL ACCOUNT MANAGER evaluated and he was started on regular diet. 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 Their is Left ICA moderate stenosis 50-55% and Right ICA <50% EEG showed 0% seizure burden UDS negative, EtOH negative S/p Keppra 4g load, on Keppra 1g BID Continue with ASA and statin As mental status improved, still seems to have some memory/cognition problem, per family he is not at his baseline PT/OT/SENIOR NATIONAL ACCOUNT MANAGER network project manager and PMR were consulted for IPR evaluation S/p PEA arrest, on admissionHypotension, on admission, resolved H/o Hypertension PEA arrest in setting hypoxia/intubation on (03/05), ROSC in 15 minutes Home medication coreg and entresto resumed Monitor BP TTE preserved EF, grade I diastolic dysfunction Acute resp failure with hypercapnia on admission s/p intubation and extubation COPD Concern for PNA ABG showed hypercapnia, started on Vapothem, wean as tolerate CXR showed congestive, started on IV laisx 20 mg BID, fluid restriction Continue with bronchodilator, budesonide S/p course of empiric antibiotics, steroid Pulm is following heparin - 5000 units/mL Current Diet: Adult Diet Heart Healthy; 1500 ml/day IMU, pending respiratory status improvement, IPR vs SNF on discharge [facility] 03/14/2024 SPRAYER FIRST * Cynthia Pinto MD - 03/13/2024 5:28 PM HEEL SPRAYER FIRST [facility] Subjective Patient was seen and examined at bedside, ABG show hypercapnia and he was started on Vapotherm yesterday, however ABG was worsening and he was started on BiPAP, currently he is back on Vapotherm. CXR with congestive changes and lasix was started. Objective Last Recorded Vitals Blood pressure (!) 155/58, pulse 65, temperature 37.1 ?C (98.7 ?F), resp. rate 18, height 1.854 m (6' 0.99"), weight 80.1 kg (176 lb 9.4 oz), SpO2 98%. Physical Exam Gen- AAOx2-3, not in acute respiratory distress with NCHEENT- NCAT, EOMI, No scleral icterus Neck Supple, no thyromegaly Heart - S1 S2 heard, regular Lungs- Clear to auscultation bilaterally, normal respiratory effort P/a- Soft, non tender, no guarding or rigidity noted, bowel sounds present Ext- No peripheral cyanosis or pedal edema noted Neuro- grossly non focal Psych- Mood and affect normal aspirin, 81 mg, Oral, Dailyatorvastatin, 40 mg, Oral, Daily budesonide, 1 mg, Nebulization, q12h carvedilol, 25 mg, Oral, q12h ROLANDO furosemide, 20 mg, Intravenous, q12h heparin, 5,000 Units, Subcutaneous, q8h ROLANDO ipratropium-albuterol, 3 mL, Nebulization, q4h Followed by [START ON 03/14/2024] ipratropium-albuterol, 3 mL, Nebulization, q6h Followed by [START ON 03/16/2024] ipratropium-albuterol, 3 mL, Nebulization, BID levETIRAcetam, 1,000 mg, Intravenous, q12h polyethylene glycol (PEG) 3350, 17 g, Oral, q12h sacubitril-valsartan, 1 tablet, Nasogastric, Nightly sennosides, 10 mL, Oral, q12h sodium chloride, 10 mL, Intravenous, q12h ROLANDO sodium chloride, 3 mL, Nebulization, q4h PRN medications: acetaminophen, dextrose, dextrose, fentaNYL, glucagon, hydrALAZINE, insulin lispro, nystatin, sodium chloride Results from last 7 daysLab Units 03/13/24 0558 03/12/24 0533 03/11/24 0431 WBC 10*3/uL 11.94* 14.11* 15.82* HEMOGLOBIN g/dL 13.9 15.2 15.5 HEMATOCRIT % 45.8 51.1* 51.0* PLATELETS 10*3/uL 149* 195 204 PLATELETS ESTIMATED Normal -- -- Results from last 7 daysLab Units 03/13/24 1548 03/13/24 0822 03/13/24 0558 03/12/24 0731 03/12/24 0533 03/11/24 1208 03/11/24 0431 SODIUM mEq/L -- -- 142 -- 139 -- 139 POTASSIUM mEq/L -- -- 4.6* -- 5.1* -- 4.9* CHLORIDE mEq/L -- -- 99 -- 98 -- 98 CO2 mEq/L -- -- >40.0* -- >40.0* -- 33.1* BUN mg/dL -- -- 36* -- 35* -- 25* CREATININE mg/dL -- -- 0.68* -- 0.83 -- 0.70 GLUCOSE mg/dL -- -- 88 -- 103* -- 77 POC GLUCOSE mg/dL 153* < > -- < > -- < > -- CALCIUM mg/dL -- -- 9.4 -- 9.4 -- 9.4 < > = values in this interval not displayed. === 03/05/24 === XR CHEST 1 VIEW - Impression -1. The endotracheal tube terminates 6.7 cm from the francisco javier. 2. Advanced emphysema with superimposed pulmonary vascular congestion. LOCATION: R16 Electronically signed by: Peter Sheldon MD 03/07/2024 11:02 AM HEEL SPRAYER FIRST RPWorkstation: [id number] === 03/05/24 === CT ANGIOGRAM BRAIN NECK - Impression -Approximately 50-55% degree of narrowing due to calcific and soft plaque formation along the very proximal left ICA without tandem lesion identified more distally No findings of concern for dissection Less than 50% degree of right carotid narrowing No compromise of significance of the vertebral arteries Location: H3 CTA of the brain 03/05/2024 TECHNIQUE: CTA examination of the [id number] was performed on a helical scanner with the patient given non ionic IV contrast . Vascular protocol performed. Thin slice axial images acquired from skull base through vertex of brain. There is also acquisition of 2-D coronal and sagittal reformatted images acquired by the radiologic technologist mammogram. Volumetric imaging was acquired with maximum intensity projections images acquired. The examination was performed on an updated helical CT scanner utilizing low-dose radiation technique. Automatic exposure technique was utilized to reduce radiation dose. Comparison Exam : [Head CT exam of 03/05/2024 CLINICAL HISTORY: Stroke assessment, Code Stroke FINDINGS: Do not see any findings suggestive of an aneurysm or vascular malformation.There is no basilar artery occlusion. There is occlusion of the left PROGRAM SCHEDULE CLERK along the P2 segment but this is felt to be chronic in this patient relatively chronic area of left PROGRAM SCHEDULE CLERK infarction seen in this territory noncontrast head CT exam. There is a origin of the right PROGRAM SCHEDULE CLERK without significant compromise of the right PROGRAM SCHEDULE CLERK more distally with the P1 segment noted to be mildly hypoplastic. There is calcific plaque formation along both carotid siphons but without high-grade stenosis or hemodynamically significant narrowing. Significant tortuosity involving the A2 segment of both anterior cerebral arteries without significant stenosis. Both superior cerebellar arteries are identified and there is enhancement of both picas.. There is no space-occupying process or abnormal enhancement.. 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 origin of the right PROGRAM SCHEDULE CLERK No significant compromise of the anterior circulation. There is presence of a small degree calcific plaque formation noted in both carotid siphons likely nonhemodynamically significant. Electronically signed by: Dana Goel MD 03/05/2024 10:56 PM [facility] 78 years old male with past medical history of epilepsy on Keppra, COPD on home oxygen, prior Left PROGRAM SCHEDULE CLERK stroke, HTN, HLD , who was admitted to Neuro ICU on 03/05/2024 as a transfer from [facility] with AMS and hypoxia. Per chart reviewed, Patient presented to outside hospital with AMS, generalized weakness, and hypoxia. He was hypoxia with O2 sats in 70s on 3L NC. Patient was also diaphoretic, pale and blue purse lips. He is placed on NRB and transfer to ED. Patient was awake and answer some question en route. In ED, Patient NIHSS was 35 and became altered with GCS of 8. He does not move any extremities. CTH is obtain which was negative for intracranial abnormalities. Patient did not received TNK because of OOW. Per , Patient stopped taking keppra since past one week. Patient was loaded with 4gm of Keppra in ED. Prior to Transfer, Patient GCS decline and was intubated for airway protection. During intubation, He has PEA arrest ROSC achieved in 15 minutes, Upon arrival to NICU, Patient is awake, follow commands, all extremities AG. CTA is obtain which is negative for LVO or aneurysm. Patient is placed on Ceribell which showed 0% seizure burden. He was extubated to nasal cannula on 03/07, currently downgraded to neuro IMU, SENIOR NATIONAL ACCOUNT MANAGER evaluated and he was started on regular diet. 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 Their is Left ICA moderate stenosis 50-55% and Right ICA <50% EEG showed 0% seizure burden UDS negative, EtOH negative S/p Keppra 4g load, on Keppra 1g BID Continue with ASA and statin As mental status improved, still seems to have some memory/cognition problem, per family he is not at his baseline PT/OT/SENIOR NATIONAL ACCOUNT MANAGER network project manager and PMR were consulted for IPR evaluation S/p PEA arrest, on admissionHypotension, on admission, resolved H/o Hypertension PEA arrest in setting hypoxia/intubation on (03/05), ROSC in 15 minutes Home medication coreg and entresto resumed Monitor BP TTE preserved EF, grade I diastolic dysfunction Acute resp failure with hypercapnia on admission s/p intubation and extubation COPD Concern for PNA ABG showed hypercapnia, started on Vapothem, wean as tolerate CXR showed congestive, started on IV laisx 20 mg BID Continue with bronchodilator, budesonide On empiric antibiotics, steroid Pulm consult heparin - 5000 units/mL Current Diet: Adult Diet Heart Healthy IMU, pending respiratory status improvement, IPR vs SNF on discharge [facility] 03/13/2024 SPRAYER FIRST * Kelsie Schroeder MD - 03/13/2024 2:07 PM HEEL SPRAYER FIRST Images from the original note were not included. Subjective: 78-year-old gentleman with a known history of epilepsy on Keppra, COPD on home oxygen, history of left PROGRAM SCHEDULE CLERK stroke, essential hypertension, upper lipidemia who was admitted on March 05, 2024 as a transfer from an outside facility for altered mental status and hypoxemia. He was intubated at the facility because of declining GCS and had a PEA cardiac arrest and achieved ROSC after 15 minutes. He was awake and following commands when he arrived to our facility in the neuro ICU. He was extubated on February 25 and downgraded to the neuro IMU. Pulmonary was consulted for consideration for management of his COPD. Upon evaluation of the patient, he says that he follows at the [facility] and is known to miss some of his medications due to some noncompliance. He denies any particular respiratory complaints but is a poor historian and does not provide details or specific answers to questions. He denies any cough, sputum, hemoptysis at present. Per review of his medical records, he has been nonadherent to oxygen therapy in the past. He has also been intubated in the past for what looks like seizure related issues. Daily Plan: 03/13: ABG looks better today and patient was on Vapotherm 40 L with 40%. I decreased his flow to 25 L and dropped his FiO2 to 35%. Patient will require CPAP at night and will place orders for this. Currently has one-to-one sitter. Chest x-ray appears more congestive and so may require further aggressive diuresis. Will start Lasix 20 mg IV every 12h for 3 days and monitor response. Aggressive bronchodilator therapy with tapering as ordered Objective: Labs and Vitals: Results from last 7 daysLab Units 03/13/24 1158 03/13/24 0822 03/13/24 0558 SODIUM mEq/L -- -- 142 POTASSIUM mEq/L -- -- 4.6* CHLORIDE mEq/L -- -- 99 CO2 mEq/L -- -- >40.0* BUN mg/dL -- -- 36* CREATININE mg/dL -- -- 0.68* CALCIUM mg/dL -- -- 9.4 GLUCOSE mg/dL -- -- 88 POC GLUCOSE mg/dL 132* < > -- < > = values in this interval not displayed. Results from last 7 days Lab Units 03/13/24 0558 WBC 10*3/uL 11.94* HEMOGLOBIN g/dL 13.9 HEMATOCRIT % 45.8 PLATELETS 10*3/uL 149* PLATELETS ESTIMATED Normal Vitals: 03/13/24 1109 03/13/24 1124 03/13/24 1127 03/13/24 1127 BP: (!) 125/54 Pulse: 66 68 Resp: 18 18 Temp: 37.1 ?C (98.8 ?F) SpO2: 99% 96% ROS: Per the HPI or daily summary Gen'l: Patient lying in bed, in no acute distressNeur: Awake, alert, oriented x 3 with no focal deficits H&N: No obvious JVD, no thyromegaly, no oral thrush Back: No acute deformities Card: No rubs, no gallops and no obvious murmurs L: Good air entry bilaterally with diminished breath sounds in the bilateral bases; no wheezes or rales Abd: Soft, nontender, no gross adenopathy; bowel sounds present Ext: No pitting edema; no obvious cyanosis MSK: Able to move all extremities A/P: 1. History of COPD with documented history of noncompliance to prior oxygen therapy Concern for pneumonia History of MOHAN Patient had hypercarbic respiratory failure and tolerated BiPAP overnight but required a sitter because he kept pulling his mask earlier Currently on Vapotherm and will wean Will benefit from diuresis and so ordered Lasix per daily summary CPAP at night 2. History of seizure disorder with noncompliance to medicationsHistory of prior CVA Patient may have some cognitive deficits from his recent cardiac arrest Continue antiepileptics and aspirin and statin Case was discussed with the patient in detail and all questions were answered; discussed with the RN. SPRAYER FIRST * Kelsie Schroeder MD - 03/12/2024 9:06 PM HEEL SPRAYER FIRST Images from the original note were not included. Subjective: 78-year-old gentleman with a known history of epilepsy on Keppra, COPD on home oxygen, history of left PROGRAM SCHEDULE CLERK stroke, essential hypertension, upper lipidemia who was admitted on March 05, 2024 as a transfer from an outside facility for altered mental status and hypoxemia. He was intubated at the facility because of declining GCS and had a PEA cardiac arrest and achieved ROSC after 15 minutes. He was awake and following commands when he arrived to our facility in the neuro ICU. He was extubated on Bennie 20 and downgraded to the neuro IMU. Pulmonary was consulted for consideration for management of his COPD. Upon evaluation of the patient, he says that he follows at the [facility] and is known to miss some of his medications due to some noncompliance. He denies any particular respiratory complaints but is a poor historian and does not provide details or specific answers to questions. He denies any cough, sputum, hemoptysis at present. Per review of his medical records, he has been nonadherent to oxygen therapy in the past. He has also been intubated in the past for what looks like seizure related issues. Daily Plan: 03/12: ABG reveals marked hypercarbia and patient seems a little more confused. Patient will not tolerate BiPAP as he continues to attempt to remove it and so placed him on Vapotherm with high flow and will monitor repeat ABG. Transfer patient to intermediate care unit given change in oxygen therapy needs; chest x-ray reviewed Objective: Labs and Vitals: Results from last 7 daysLab Units 03/12/24 1607 03/12/24 0731 03/12/24 0533 SODIUM mEq/L -- -- 139 POTASSIUM mEq/L -- -- 5.1* CHLORIDE mEq/L -- -- 98 CO2 mEq/L -- -- >40.0* BUN mg/dL -- -- 35* CREATININE mg/dL -- -- 0.83 CALCIUM mg/dL -- -- 9.4 GLUCOSE mg/dL -- -- 103* POC GLUCOSE mg/dL 154* < > -- < > = values in this interval not displayed. Results from last 7 days Lab Units 03/12/24 0533 WBC 10*3/uL 14.11* HEMOGLOBIN g/dL 15.2 HEMATOCRIT % 51.1* PLATELETS 10*3/uL 195 Vitals: 03/12/24 19203/12/24 19203/12/24 19403/12/241951 BP: Pulse: 68 66 77 Resp: 18 16 Temp: 36.9 ?C (98.4 ?F) SpO2: 92% 96% 97% ROS: Per the HPI or daily summary Gen'l: Patient lying in bed, in no acute distressNeur: Awake, alert, oriented x 3 with no focal deficits H&N: No obvious JVD, no thyromegaly, no oral thrush Back: No acute deformities Card: No rubs, no gallops and no obvious murmurs L: Good air entry bilaterally with diminished breath sounds in the bilateral bases; no wheezes or rales Abd: Soft, nontender, no gross adenopathy; bowel sounds present Ext: No pitting edema; no obvious cyanosis MSK: Able to move all extremities A/P: 1. History of COPD with documented history of noncompliance to prior oxygen therapy Concern for pneumonia Patient currently on 2 L nasal cannula and will wean as tolerated Continue current inhaled therapies as ordered Continue current IV antibiotics 2. History of seizure disorder with noncompliance to medicationsHistory of prior CVA Patient may have some cognitive deficits from his recent cardiac arrest Continue antiepileptics and aspirin and statin Case was discussed with the patient in detail and all questions were answered; discussed with the RN. SPRAYER FIRST * Cynthia Pinto MD - 03/12/2024 4:50 PM HEEL SPRAYER FIRST [facility] Subjective Patient was seen and examined at bedside, per nurse, he was desaturating with high CO2, he was put on BIPAP for several hours and he was doing well. He is off BiPAP. Denied any complaint. Objective Last Recorded Vitals Blood pressure (!) 147/58, pulse 65, temperature 36.6 ?C (97.9 ?F), resp. rate 18, height 1.854 m (6' 0.99"), weight 80.4 kg (177 lb 4.8 oz), SpO2 99%. Physical Exam Gen- AAOx2-3, not in acute respiratory distress with NCHEENT- NCAT, EOMI, No scleral icterus Neck Supple, no thyromegaly Heart - S1 S2 heard, regular Lungs- Clear to auscultation bilaterally, normal respiratory effort P/a- Soft, non tender, no guarding or rigidity noted, bowel sounds present Ext- No peripheral cyanosis or pedal edema noted Neuro- grossly non focal Psych- Mood and affect normal aspirin, 81 mg, Oral, Dailyatorvastatin, 40 mg, Oral, Daily budesonide, 1 mg, Nebulization, q12h carvedilol, 25 mg, Oral, q12h ROLANDO heparin, 5,000 Units, Subcutaneous, q8h ROLANDO ipratropium-albuterol, 3 mL, Nebulization, TID levETIRAcetam, 1,000 mg, Intravenous, q12h polyethylene glycol (PEG) 3350, 17 g, Oral, q12h sacubitril-valsartan, 1 tablet, Nasogastric, Nightly sennosides, 10 mL, Oral, q12h sodium chloride, 10 mL, Intravenous, q12h ROLANDO sodium chloride, 3 mL, Nebulization, q4h PRN medications: acetaminophen, dextrose, dextrose, fentaNYL, glucagon, hydrALAZINE, insulin lispro, nystatin, sodium chloride Results from last 7 daysLab Units 03/12/24 0533 03/11/24 0431 03/10/24 0436 WBC 10*3/uL 14.11* 15.82* 13.58* HEMOGLOBIN g/dL 15.2 15.5 14.8 HEMATOCRIT % 51.1* 51.0* 48.8 PLATELETS 10*3/uL 195 204 210 Results from last 7 daysLab Units 03/12/24 1607 03/12/24 0731 03/12/24 0533 03/11/24 1208 03/11/24 0431 03/10/24 0436 SODIUM mEq/L -- -- 139 -- 139 140 POTASSIUM mEq/L -- -- 5.1* -- 4.9* 4.6* CHLORIDE mEq/L -- -- 98 -- 98 99 CO2 mEq/L -- -- >40.0* -- 33.1* 36.7* BUN mg/dL -- -- 35* -- 25* 29* CREATININE mg/dL -- -- 0.83 -- 0.70 0.67* GLUCOSE mg/dL -- -- 103* -- 77 80 POC GLUCOSE mg/dL 154* < > -- < > -- -- CALCIUM mg/dL -- -- 9.4 -- 9.4 9.2 < > = values in this interval not displayed. === 03/05/24 === XR CHEST 1 VIEW - Impression -1. The endotracheal tube terminates 6.7 cm from the francisco javier. 2. Advanced emphysema with superimposed pulmonary vascular congestion. LOCATION: R16 Electronically signed by: Peter Sheldon MD 03/07/2024 11:02 AM HEEL SPRAYER FIRST RPWorkstation: [id number] === 03/05/24 === CT ANGIOGRAM BRAIN NECK - Impression -Approximately 50-55% degree of narrowing due to calcific and soft plaque formation along the very proximal left ICA without tandem lesion identified more distally No findings of concern for dissection Less than 50% degree of right carotid narrowing No compromise of significance of the vertebral arteries Location: H3 CTA of the brain 03/05/2024 TECHNIQUE: CTA examination of the [id number] was performed on a helical scanner with the patient given non ionic IV contrast . Vascular protocol performed. Thin slice axial images acquired from skull base through vertex of brain. There is also acquisition of 2-D coronal and sagittal reformatted images acquired by the radiologic technologist mammogram. Volumetric imaging was acquired with maximum intensity projections images acquired. The examination was performed on an updated helical CT scanner utilizing low-dose radiation technique. Automatic exposure technique was utilized to reduce radiation dose. Comparison Exam : [Head CT exam of 03/05/2024 CLINICAL HISTORY: Stroke assessment, Code Stroke FINDINGS: Do not see any findings suggestive of an aneurysm or vascular malformation.There is no basilar artery occlusion. There is occlusion of the left PROGRAM SCHEDULE CLERK along the P2 segment but this is felt to be chronic in this patient relatively chronic area of left PROGRAM SCHEDULE CLERK infarction seen in this territory noncontrast head CT exam. There is a origin of the right PROGRAM SCHEDULE CLERK without significant compromise of the right PROGRAM SCHEDULE CLERK more distally with the P1 segment noted to be mildly hypoplastic. There is calcific plaque formation along both carotid siphons but without high-grade stenosis or hemodynamically significant narrowing. Significant tortuosity involving the A2 segment of both anterior cerebral arteries without significant stenosis. Both superior cerebellar arteries are identified and there is enhancement of both picas.. There is no space-occupying process or abnormal enhancement.. 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 origin of the right PROGRAM SCHEDULE CLERK No significant compromise of the anterior circulation. There is presence of a small degree calcific plaque formation noted in both carotid siphons likely nonhemodynamically significant. Electronically signed by: Dana Goel MD 03/05/2024 10:56 PM [facility] 78 years old male with past medical history of epilepsy on Keppra, COPD on home oxygen, prior Left PROGRAM SCHEDULE CLERK stroke, HTN, HLD , who was admitted to Neuro ICU on 03/05/2024 as a transfer from [facility] with AMS and hypoxia. Per chart reviewed, Patient presented to outside hospital with AMS, generalized weakness, and hypoxia. He was hypoxia with O2 sats in 70s on 3L NC. Patient was also diaphoretic, pale and blue purse lips. He is placed on NRB and transfer to ED. Patient was awake and answer some question en route. In ED, Patient NIHSS was 35 and became altered with GCS of 8. He does not move any extremities. CTH is obtain which was negative for intracranial abnormalities. Patient did not received TNK because of OOW. Per , Patient stopped taking keppra since past one week. Patient was loaded with 4gm of Keppra in ED. Prior to Transfer, Patient GCS decline and was intubated for airway protection. During intubation, He has PEA arrest ROSC achieved in 15 minutes, Upon arrival to NICU, Patient is awake, follow commands, all extremities AG. CTA is obtain which is negative for LVO or aneurysm. Patient is placed on Ceribell which showed 0% seizure burden. He was extubated to nasal cannula on 03/07, currently downgraded to neuro IMU, SENIOR NATIONAL ACCOUNT MANAGER evaluated and he was started on regular diet. 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 Their is Left ICA moderate stenosis 50-55% and Right ICA <50% EEG showed 0% seizure burden UDS negative, EtOH negative S/p Keppra 4g load, on Keppra 1g BID Continue with ASA and statin As mental status improved, still seems to have some memory/cognition problem, per family he is not at his baseline PT/OT/SENIOR NATIONAL ACCOUNT MANAGER network project manager and PMR were consulted for IPR evaluation S/p PEA arrest, on admissionHypotension, on admission, resolved H/o Hypertension PEA arrest in setting hypoxia/intubation on (03/05), ROSC in 15 minutes Home medication coreg and entresto resumed Monitor BP TTE preserved EF, grade I diastolic dysfunction Acute resp failure with hypercapnia on admission s/p intubation and extubation COPD Concern for PNA Currently on 4L NC (baseline 3L), wean as tolerate Continue with bronchodilator, budesonide On empiric antibiotics, steroid Pulm consult heparin - 5000 units/mL Current Diet: Adult Diet Heart Healthy Pending IPR vs SNF [facility] Pinto MD 03/12/2024 SPRAYER FIRST * Kelsie Schroeder MD - 03/11/2024 9:55 PM HEEL SPRAYER FIRST Images from the original note were not included. Subjective: 78-year-old gentleman with a known history of epilepsy on Keppra, COPD on home oxygen, history of left PROGRAM SCHEDULE CLERK stroke, essential hypertension, upper lipidemia who was admitted on March 05, 2024 as a transfer from an outside facility for altered mental status and hypoxemia. He was intubated at the facility because of declining GCS and had a PEA cardiac arrest and achieved ROSC after 15 minutes. He was awake and following commands when he arrived to our facility in the neuro ICU. He was extubated on February 25 and downgraded to the neuro IMU. Pulmonary was consulted for consideration for management of his COPD. Upon evaluation of the patient, he says [facility] and is known to miss some of his medications due to some noncompliance. He denies any particular respiratory complaints but is a poor historian and does not provide details or specific answers to questions. He denies any cough, sputum, hemoptysis at present. Per review of his medical records, he has been nonadherent to oxygen therapy in the past. He has also been intubated in the past for what looks like seizure related issues. Daily Plan: 03/11: No acute respiratory issues and tolerating low-flow oxygen. Objective: Labs and Vitals: Results from last 7 daysLab Units 03/11/24 1639 03/11/24 1208 03/11/24 0431 03/06/24 0241 03/05/242050 SODIUM mEq/L -- -- 139 < > 142 POTASSIUM mEq/L -- -- 4.9* < > 5.5* CHLORIDE mEq/L -- -- 98 < > 107 CO2 mEq/L -- -- 33.1* < > 25.0 BUN mg/dL -- -- 25* < > 35* CREATININE mg/dL -- -- 0.70 < > 1.11 CALCIUM mg/dL -- -- 9.4 < > 8.2* PROTEIN TOTAL g/dL -- -- -- -- 6.3 BILIRUBIN TOTAL mg/dL -- -- -- -- 0.40 ALK PHOS U/L -- -- -- -- 66 ALT U/L -- -- -- -- 12 AST U/L -- -- -- -- 21 GLUCOSE mg/dL -- -- 77 < > 156* POC GLUCOSE mg/dL 153* < > -- < > -- < > = values in this interval not displayed. Results from last 7 days Lab Units 03/11/24 0431 WBC 10*3/uL 15.82* HEMOGLOBIN g/dL 15.5 HEMATOCRIT % 51.0* PLATELETS 10*3/uL 204 Vitals: 03/11/24 1923 03/11/24 2100 03/11/24 2110 03/11/24 2120 BP: Pulse: 63 62 64 64 Resp: 18 18 18 18 Temp: SpO2: 95% 93% 95% 95% ROS: Per the HPI or daily summary Gen'l: Patient lying in bed, in no acute distressNeur: Awake, alert, oriented x 3 with no focal deficits H&N: No obvious JVD, no thyromegaly, no oral thrush Back: No acute deformities Card: No rubs, no gallops and no obvious murmurs L: Good air entry bilaterally with diminished breath sounds in the bilateral bases; no wheezes or rales Abd: Soft, nontender, no gross adenopathy; bowel sounds present Ext: No pitting edema; no obvious cyanosis MSK: Able to move all extremities A/P: 1. History of COPD with documented history of noncompliance to prior oxygen therapy Concern for pneumonia Patient currently on 2 L nasal cannula and will wean as tolerated Continue current inhaled therapies as ordered Continue current IV antibiotics 2. History of seizure disorder with noncompliance to medicationsHistory of prior CVA Patient may have some cognitive deficits from his recent cardiac arrest Continue antiepileptics and aspirin and statin Case was discussed with the patient in detail and all questions were answered; discussed with the RN. SPRAYER FIRST * Cynthia Pinto MD - 03/11/2024 5:01 PM HEEL SPRAYER FIRST [facility] Subjective Patient was seen and examined at bedside, he denies any complaint. Vital signs stable. Remains on 2-3 L of nasal cannula. Close to baseline. Objective Last Recorded Vitals Blood pressure (!) 143/55, pulse 61, temperature (!) 35.8 ?C (96.5 ?F), resp. rate 17, height 1.854 m (6' 0.99"), weight 83.4 kg (183 lb 13.8 oz), SpO2 96%. Physical Exam Gen- AAOx2-3, not in acute respiratory distress with NCHEENT- NCAT, EOMI, No scleral icterus Neck Supple, no thyromegaly Heart - S1 S2 heard, regular Lungs- Clear to auscultation bilaterally, normal respiratory effort P/a- Soft, non tender, no guarding or rigidity noted, bowel sounds present Ext- No peripheral cyanosis or pedal edema noted Neuro- grossly non focal Psych- Mood and affect normal aspirin, 81 mg, Oral, Dailyatorvastatin, 40 mg, Oral, Daily budesonide, 1 mg, Nebulization, q12h carvedilol, 25 mg, Oral, q12h ROLANDO cefTRIAXone, 2 g, Intravenous, q24h heparin, 5,000 Units, Subcutaneous, q8h ROLANDO ipratropium-albuterol, 3 mL, Nebulization, TID levETIRAcetam, 1,000 mg, Intravenous, q12h polyethylene glycol (PEG) 3350, 17 g, Oral, q12h predniSONE, 60 mg, Oral, Daily sacubitril-valsartan, 1 tablet, Nasogastric, Nightly sennosides, 10 mL, Oral, q12h sodium chloride, 10 mL, Intravenous, q12h ROLANDO sodium chloride, 3 mL, Nebulization, q4h PRN medications: acetaminophen, calcium gluconate, dextrose, dextrose, fentaNYL, glucagon, hydrALAZINE, insulin lispro, magnesium sulfate, nystatin, potassium & sodium phosphates OR potassium & sodium phosphates, potassium chloride OR potassium chloride OR potassium chloride OR Potassium chloride, sodium chloride, sodium phosphates 45 mmol in sodium chloride 0.9 % 100 mL IVPB Results from last 7 daysLab Units 03/11/24 0431 03/10/24 0436 03/09/24437 WBC 10*3/uL 15.82* 13.58* 14.18* HEMOGLOBIN g/dL 15.5 14.8 14.9 HEMATOCRIT % 51.0* 48.8 50.8 PLATELETS 10*3/uL 204 210 195 Results from last 7 daysLab Units 03/11/24 1639 03/11/24 1208 03/11/24 0431 03/10/24 0436 03/09/24 0438 SODIUM mEq/L -- -- 139 140 144 POTASSIUM mEq/L -- -- 4.9* 4.6* 4.8* CHLORIDE mEq/L -- -- 98 99 101 CO2 mEq/L -- -- 33.1* 36.7* 39.7* BUN mg/dL -- -- 25* 29* 30* CREATININE mg/dL -- -- 0.70 0.67* 0.81 GLUCOSE mg/dL -- -- 77 80 85 POC GLUCOSE mg/dL 153* < > -- -- -- CALCIUM mg/dL -- -- 9.4 9.2 9.3 < > = values in this interval not displayed. === 03/05/24 === XR CHEST 1 VIEW - Impression -1. The endotracheal tube terminates 6.7 cm from the francisco javier. 2. Advanced emphysema with superimposed pulmonary vascular congestion. LOCATION: R16 Electronically signed by: Peter Sheldon MD 03/07/2024 11:02 AM HEEL SPRAYER FIRST RPWorkstation: [id number] === 03/05/24 === CT ANGIOGRAM BRAIN NECK - Impression -Approximately 50-55% degree of narrowing due to calcific and soft plaque formation along the very proximal left ICA without tandem lesion identified more distally No findings of concern for dissection Less than 50% degree of right carotid narrowing No compromise of significance of the vertebral arteries Location: H3 CTA of the brain 03/05/2024 TECHNIQUE: CTA examination of the [id number]-vl-Shlvoc was performed on a helical scanner with the patient given non ionic IV contrast . Vascular protocol performed. Thin slice axial images acquired from skull base through vertex of brain. There is also acquisition of 2-D coronal and sagittal reformatted images acquired by the radiologic technologist mammogram. Volumetric imaging was acquired with maximum intensity projections images acquired. The examination was performed on an updated helical CT scanner utilizing low-dose radiation technique. Automatic exposure technique was utilized to reduce radiation dose. Comparison Exam : [Head CT exam of 03/05/2024 CLINICAL HISTORY: Stroke assessment, Code Stroke FINDINGS: Do not see any findings suggestive of an aneurysm or vascular malformation.There is no basilar artery occlusion. There is occlusion of the left PROGRAM SCHEDULE CLERK along the P2 segment but this is felt to be chronic in this patient relatively chronic area of left PROGRAM SCHEDULE CLERK infarction seen in this territory noncontrast head CT exam. There is a origin of the right PROGRAM SCHEDULE CLERK without significant compromise of the right PROGRAM SCHEDULE CLERK more distally with the P1 segment noted to be mildly hypoplastic. There is calcific plaque formation along both carotid siphons but without high-grade stenosis or hemodynamically significant narrowing. Significant tortuosity involving the A2 segment of both anterior cerebral arteries without significant stenosis. Both superior cerebellar arteries are identified and there is enhancement of both picas.. There is no space-occupying process or abnormal enhancement.. 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 origin of the right PROGRAM SCHEDULE CLERK No significant compromise of the anterior circulation. There is presence of a small degree calcific plaque formation noted in both carotid siphons likely nonhemodynamically significant. Electronically signed by: Dana Goel MD 03/05/2024 10:56 PM HEEL SPRAYER FIRST 78 years old male with past medical history of epilepsy on Keppra, COPD on home oxygen, prior Left PROGRAM SCHEDULE CLERK stroke, HTN, HLD , who was admitted to Neuro ICU on 03/05/2024 as a transfer from [facility] with AMS and hypoxia. Per chart reviewed, Patient presented to outside hospital with AMS, generalized weakness, and hypoxia. He was hypoxia with O2 sats in 70s on 3L NC. Patient was also diaphoretic, pale and blue purse lips. He is placed on NRB and transfer to ED. Patient was awake and answer some question en route. In ED, Patient NIHSS was 35 and became altered with GCS of 8. He does not move any extremities. CTH is obtain which was negative for intracranial abnormalities. Patient did not received TNK because of OOW. Per , Patient stopped taking keppra since past one week. Patient was loaded with 4gm of Keppra in ED. Prior to Transfer, Patient GCS decline and was intubated for airway protection. During intubation, He has PEA arrest ROSC achieved in 15 minutes, Upon arrival to NICU, Patient is awake, follow commands, all extremities AG. CTA is obtain which is negative for LVO or aneurysm. Patient is placed on Ceribell which showed 0% seizure burden. He was extubated to nasal cannula on 03/07, currently downgraded to neuro IMU, SENIOR NATIONAL ACCOUNT MANAGER evaluated and he was started on regular diet. 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 Their is Left ICA moderate stenosis 50-55% and Right ICA <50% EEG showed 0% seizure burden UDS negative, EtOH negative S/p Keppra 4g load, on Keppra 1g BID Continue with ASA and statin As mental status improved, still seems to have some memory/cognition problem, per family he is not at his baseline PT/OT/SENIOR NATIONAL ACCOUNT MANAGER network project manager and PMR were consulted for IPR evaluation S/p PEA arrest, on admissionHypotension, on admission, resolved H/o Hypertension PEA arrest in setting hypoxia/intubation on (03/05), ROSC in 15 minutes Home medication coreg and entresto resumed Monitor BP TTE preserved EF, grade I diastolic dysfunction Acute resp failure with hypercapnia on admission s/p intubation and extubation COPD Concern for PNA Currently on 4L NC (baseline 3L), wean as tolerate Continue with bronchodilator, budesonide On empiric antibiotics, steroid Pulm consult heparin - 5000 units/mL Current Diet: Adult Diet Heart Healthy Pending IPR vs SNF [facility]istsCynthia Pinto MD 03/11/2024 SPRAYER FIRST * Ruby Peace [facility]-SENIOR NATIONAL ACCOUNT MANAGER - 03/11/2024 10:05 AM HEEL SPRAYER FIRST Images from the original note were not included. [facility] - SENIOR NATIONAL ACCOUNT MANAGER DYSPHAGIA TREATMENT Patient Name: Harris Neal Today's Date: 03/11/2024 Room: [place] [address] IMPRESSIONS: RN cleared SENIOR NATIONAL ACCOUNT MANAGER for entry. Pt was presented po trials of thin liquids via cup/straw and regular solids. Pt fed himself and there were no overt signs of aspiration. Reviewed swallowing precautions with pt, who verbalized understanding. Pt needs assistance with set-up and supervision with meals due to baseline cognitive deficits. RECOMMENDATIONS: Level 0- Thin Liquids and Level 7- Regular diet Medications: One pill at a time Swallowing precautions: sit upright for meals, small bites/sips Supervision Recommended: Set-up Oral care: Regular toothbrush No further SENIOR NATIONAL ACCOUNT MANAGER services are indicated. Will sign off. PLAN: Frequency: Discharge GENERAL INFORMATION: Oxygenation: room air Behavior:Cooperative Level of Consciousness: Awake & alert Pain: Pain Assessment: DVPRS Pain Score: 0 Diet Prior to this Treatment: Level 0- Thin Liquids and Level 7- Regular diet Preferred Language: Uzbek [employer] Shift Lead: NA OUTCOME MEASURES: International Dysphagia Diet Standardization Initiative - IDDSI Solids - 7 - Regular Liquids - 0 - Thin IDDSI Level - 8 GOALS: Encounter Goals Encounter Goals (Active) STG - Participate in an instrumental swallow study (Not Met) Start: 03/07/24 Expected End: 03/11/24 Encounter Goals (Resolved) LTG - Consume a diet of foods/liquids typical for developmental peers without complications (Completed) Start: 03/07/24 Expected End: 03/11/24 Resolved: 03/11/24 Patient Education:Education Documentation No documentation found. Education Comments No comments found. If this is the last documented treatment, then it will signify discharge from acute care prior to discharge from the therapy service and will serve as the discharge summary. Therapy discharge recommendations are made by determining the patient's prior level of function, assessing current function level and establishing rehab potential. The overall discharge plan may be affected by input from Physicians, Care Coordination, medical condition/status, family support and insurance benefits. ESPERANZA ResendezSLP SPRAYER FIRST * Evy Iglesias PTA - 03/11/2024 9:22 AM HEEL SPRAYER FIRST Physical Therapy Treatment Patient Name: Harris Neal Today’s Date: 03/11/24 Room Number: SW6.625/SW6.625 Patient's Preferred Language: Uzbek PT Assessment and Plan: Assessment Pt participated w/ PT session today. Appeared to be lethargic today ( per nurse pt didnot sleep well last night). Required multiple direction for completing tasks, distracted easily. Ambulation activities completed w/ support of RW, required direction, presented w/ some safety & balance concerns. Evaluation/Treatment Tolerance: Patient tolerated treatment well, Patient limited by fatigue Prognosis: Fair Medical Staff Made Aware: Yes Plan (Last filed value by PT) Treatment Plan/Goals Established with Patient/Caregiver: Yes Treatment/Interventions: Balance training, Bed mobility training, Functional activities, Gait training, Manual therapy, Neuromuscular re-education, Pain management, Patient education, Posture/Body mechanics baring, Therapeutic exercises, Transfer training PT Plan: Skilled PT PT Frequency: 3-4 times per week until discharge PT Recommended Transfer Status: Assistive equipment (Comment) (walker) AM-PAC Basic Mobility Turning in bed without bedrails: A Little Lying on back to sitting on edge of flat bed: A Lot Bed to chair: A Lot Standing up from chair: A Lot Walk in room: A Lot Climbing 3-5 stairs: Total Mobility Inpatient Raw Score: 12 -[facility] Goal: 4 [facility] Highest Level of Mobility (JH-HLM) Scale Highest Level of Mobility Performed (JH-HLM): Walked 10 steps or more (i.e. walked to restroom) Subjective: Pt willing to work w/ PT. Cleared by nurse Current Problem:This is a 78 y.o. male who is admitted to [facility] with Seizure (HCC) [R56.9] Pain:Pain Assessment Pain Assessment: 0-10 Pain Score: 0 Pain Rating Scale (DVPRS): No pain Objective:Precautions: Isolation Status: No active isolations Activity Tolerance:Endurance: Tolerates 10 - 20 min exercise with multiple rests Sitting Balance: Moves/returns truncal midpoint 1-2 inches in multiple planes Early Mobility/Exercise Safety Screen: Proceed with mobilization - No exclusion criteria met Cognition:Behavior/Cognition: Alert, Cooperative, Confused, Requires redirection Following Commands: Follows 1 step commands with repetition Safety Judgment: Decreased awareness of need for safety Treatments:Therapeutic Activity Time Entry: 14 Therapeutic Activity 1: Completed bedmobility + transfers w/ assistance, slow & multiple cues for completing tasks. STS w/ RW, took couple of reps for pt to advance w/ gait. Post gait activities pt assisted w/ transfers btb, positioned, everything in place. Bed Mobility:Bed Mobility Bed Mobility: Yes Bed Mobility 1 Level of Assistance 1: Partial/Mod assistance Bed Mobility Comments 1: w/ vc's + assist Bed Mobility To/From: Supine to sit on EOB, Sitting EOB to supine Assistive Devices And Adaptive Equipments: Bed rail, Head of bed elevated Transfers:Transfers Transfer: Yes Transfer 1 Technique 1: Stand step Level of Assistance 1: Partial/Mod assistance (Tiffanie x2) Trials/Comments 1: cues for standing upright. Transfer To/From: [id number]/[id number]-[id number] Assistive Devices And Adaptive Equipments: Walker, front-wheeled Gait Training:Gait Training Time Entry: 15 Gait Training Activity 1 Distance (enter in feet): 20ft, 36ft Gait Training Activity 1: Indoor surface Assistive Devices And Adaptive Equipments: Walker, front-wheeled Level of Assistance 1: Partial/Mod assistance (Tiffanie x2) Gait Training Activity 1 Comment: step through gait, slow pace, decreased stride length, x1 sitting break, guidance w/ RW. Patient EducationEducation Documentation Mobility, taught by Evy Iglesias PTA at 03/11/2024 2:30 PM. Learner: Patient Readiness: Acceptance Method: Explanation Response: Verbalizes Understanding, Needs Reinforcement Education CommentsNo comments found. GoalEncounter Goals Encounter Goals (Active) Patient will ambulate 100' distance using LRAD with sup. (Not Met) Start: 03/07/24 Expected End: 03/11/24 Patient will perform chair to and from bed transfer LRAD and sup. (Progressing) Start: 03/07/24 Expected End: 03/11/24 General Visit Information Family/Caregiver Present: No Post Therapy Checklist - in bed, call mccormick within reach, bed/chair alarm in place, and phone within reach Time Calculation:Start Time: 921 Stop Time: 950 Time Calculation (min): 29 min PT Drawer In Hand Used: Greg Diamond PT Treatment Note: If this is the last documented treatment, then it will signify discharge from acute care prior to discharge from the therapy service and will serve as the discharge summary. Evy Iglesias PTA SPRAYER FIRST * Kelsie Schroeder MD - 03/10/2024 4:00 PM HEEL SPRAYER FIRST Images from the original note were not included. Subjective: 78-year-old gentleman with a known history of epilepsy on Keppra, COPD on home oxygen, history of left PROGRAM SCHEDULE CLERK stroke, essential hypertension, upper lipidemia who was admitted on March 05, 2024 as a transfer from an outside facility for altered mental status and hypoxemia. He was intubated at the facility because of declining GCS and had a PEA cardiac arrest and achieved ROSC after 15 minutes. He was awake and following commands when he arrived to our facility in the neuro ICU. He was extubated on February 25 and downgraded to the neuro IMU. Pulmonary was consulted for consideration for management of his COPD. Upon evaluation of the patient, [facility] and is known to miss some of his medications due to some noncompliance. He denies any particular respiratory complaints but is a poor historian and does not provide details or specific answers to questions. He denies any cough, sputum, hemoptysis at present. Per review of his medical records, he has been nonadherent to oxygen therapy in the past. He has also been intubated in the past for what looks like seizure related issues. Daily Plan: 03/10: Patient says that he has no chest pain or shortness of breath. Remains on oxygen at 2 L nasal cannula. Tolerating current antibiotics and WBC count slowly improving. Objective: Labs and Vitals: Results from last 7 daysLab Units 03/10/24 0436 03/06/24 0241 03/05/242050 SODIUM mEq/L 140 < > 142 POTASSIUM mEq/L 4.6* < > 5.5* CHLORIDE mEq/L 99 < > 107 CO2 mEq/L 36.7* < > 25.0 BUN mg/dL 29* < > 35* CREATININE mg/dL 0.67* < > 1.11 CALCIUM mg/dL 9.2 < > 8.2* PROTEIN TOTAL g/dL -- -- 6.3 BILIRUBIN TOTAL mg/dL -- -- 0.40 ALK PHOS U/L -- -- 66 ALT U/L -- -- 12 AST U/L -- -- 21 GLUCOSE mg/dL 80 < > 156* POC GLUCOSE -- < > -- < > = values in this interval not displayed. Results from last 7 days Lab Units 03/10/24 0436 WBC 10*3/uL 13.58* HEMOGLOBIN g/dL 14.8 HEMATOCRIT % 48.8 PLATELETS 10*3/uL 210 Vitals: 03/10/24 19103/10/24 19103/10/24202903/10/242044 BP: 158/74 Pulse: 77 72 70 Resp: 20 20 18 Temp: SpO2: 93% 99% 99% ROS: Per the HPI or daily summary Gen'l: Patient lying in bed, in no acute distressNeur: Awake, alert, oriented x 3 with no focal deficits H&N: No obvious JVD, no thyromegaly, no oral thrush Back: No acute deformities Card: No rubs, no gallops and no obvious murmurs L: Good air entry bilaterally with diminished breath sounds in the bilateral bases; no wheezes or rales Abd: Soft, nontender, no gross adenopathy; bowel sounds present Ext: No pitting edema; no obvious cyanosis MSK: Able to move all extremities A/P: 1. History of COPD with documented history of noncompliance to prior oxygen therapy Concern for pneumonia Patient currently on 2 L nasal cannula and will wean as tolerated Continue current inhaled therapies as ordered Continue current IV antibiotics 2. History of seizure disorder with noncompliance to medicationsHistory of prior CVA Patient may have some cognitive deficits from his recent cardiac arrest Continue antiepileptics and aspirin and statin Case was discussed with the patient in detail and all questions were answered; discussed with the RN. SPRAYER FIRST * Cynthia Pinto MD - 03/10/2024 3:14 PM HEEL SPRAYER FIRST [facility] Subjective Patient was seen and examined at bedside, he denies any complaint. Vital signs stable. Remains on 4 L of nasal cannula. Objective Last Recorded Vitals Blood pressure (!) 139/49, pulse 61, temperature (!) 36.1 ?C (96.9 ?F), resp. rate 18, height 1.854 m (6' 0.99"), weight 83.4 kg (183 lb 13.8 oz), SpO2 91%. Physical Exam Gen- AAOx2-3, not in acute respiratory distress with NCHEENT- NCAT, EOMI, No scleral icterus Neck Supple, no thyromegaly Heart - S1 S2 heard, regular Lungs- Clear to auscultation bilaterally, normal respiratory effort P/a- Soft, non tender, no guarding or rigidity noted, bowel sounds present Ext- No peripheral cyanosis or pedal edema noted Neuro- grossly non focal Psych- Mood and affect normal aspirin, 81 mg, Oral, Dailyatorvastatin, 40 mg, Oral, Daily budesonide, 1 mg, Nebulization, q12h carvedilol, 25 mg, Nasogastric, q12h ROLANDO cefTRIAXone, 2 g, Intravenous, q24h heparin, 5,000 Units, Subcutaneous, q8h ROLANDO ipratropium-albuterol, 3 mL, Nebulization, TID levETIRAcetam, 1,000 mg, Intravenous, q12h polyethylene glycol (PEG) 3350, 17 g, Per G Tube, q12h predniSONE, 60 mg, Oral, Daily sacubitril-valsartan, 1 tablet, Nasogastric, Nightly sennosides, 10 mL, Oral, q12h sodium chloride, 10 mL, Intravenous, q12h ROLANDO sodium chloride, 3 mL, Nebulization, q4h PRN medications: acetaminophen, calcium gluconate, dextrose, dextrose, fentaNYL, glucagon, hydrALAZINE, insulin lispro, magnesium sulfate, nystatin, potassium & sodium phosphates OR potassium & sodium phosphates, potassium chloride OR potassium chloride OR potassium chloride OR Potassium chloride, sodium chloride, sodium phosphates 45 mmol in sodium chloride 0.9 % 100 mL IVPB Results from last 7 daysLab Units 03/10/24 0436 03/09/24 0438 03/08/24 0039 WBC 10*3/uL 13.58* 14.18* 16.74* HEMOGLOBIN g/dL 14.8 14.9 14.4 HEMATOCRIT % 48.8 50.8 47.2 PLATELETS 10*3/uL 210 195 233 Results from last 7 daysLab Units 03/10/24 0436 03/09/24 0438 03/08/24 0550 03/08/24 0039 SODIUM mEq/L 140 144 -- 147* POTASSIUM mEq/L 4.6* 4.8* -- 4.2 CHLORIDE mEq/L 99 101 -- 106 CO2 mEq/L 36.7* 39.7* -- 36.6* BUN mg/dL 29* 30* -- 34* CREATININE mg/dL 0.67* 0.81 -- 0.86 GLUCOSE mg/dL 80 85 -- 160* POC GLUCOSE -- -- < > -- CALCIUM mg/dL 9.2 9.3 -- 9.2 < > = values in this interval not displayed. === 03/05/24 === XR CHEST 1 VIEW - Impression -1. The endotracheal tube terminates 6.7 cm from the francisco javier. 2. Advanced emphysema with superimposed pulmonary vascular congestion. LOCATION: R16 Electronically signed by: Peter Sheldon MD 03/07/2024 11:02 AM HEEL SPRAYER FIRST RPWorkstation: [id number] === 03/05/24 === CT ANGIOGRAM BRAIN NECK - Impression -Approximately 50-55% degree of narrowing due to calcific and soft plaque formation along the very proximal left ICA without tandem lesion identified more distally No findings of concern for dissection Less than 50% degree of right carotid narrowing No compromise of significance of the vertebral arteries Location: H3 CTA of the brain 03/05/2024 TECHNIQUE: CTA examination of the [id number]-Zrkidy was performed on a helical scanner with the patient given non ionic IV contrast . Vascular protocol performed. Thin slice axial images acquired from skull base through vertex of brain. There is also acquisition of 2-D coronal and sagittal reformatted images acquired by the radiologic technologist mammogram. Volumetric imaging was acquired with maximum intensity projections images acquired. The examination was performed on an updated helical CT scanner utilizing low-dose radiation technique. Automatic exposure technique was utilized to reduce radiation dose. Comparison Exam : [Head CT exam of 03/05/2024 CLINICAL HISTORY: Stroke assessment, Code Stroke FINDINGS: Do not see any findings suggestive of an aneurysm or vascular malformation.There is no basilar artery occlusion. There is occlusion of the left PROGRAM SCHEDULE CLERK along the P2 segment but this is felt to be chronic in this patient relatively chronic area of left PROGRAM SCHEDULE CLERK infarction seen in this territory noncontrast head CT exam. There is a origin of the right PROGRAM SCHEDULE CLERK without significant compromise of the right PROGRAM SCHEDULE CLERK more distally with the P1 segment noted to be mildly hypoplastic. There is calcific plaque formation along both carotid siphons but without high-grade stenosis or hemodynamically significant narrowing. Significant tortuosity involving the A2 segment of both anterior cerebral arteries without significant stenosis. Both superior cerebellar arteries are identified and there is enhancement of both picas.. There is no space-occupying process or abnormal enhancement.. 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 origin of the right PROGRAM SCHEDULE CLERK No significant compromise of the anterior circulation. There is presence of a small degree calcific plaque formation noted in both carotid siphons likely nonhemodynamically significant. Electronically signed by: Dana Goel MD 03/05/2024 10:56 PM [facility] 78 years old male with past medical history of epilepsy on Keppra, COPD on home oxygen, prior Left PROGRAM SCHEDULE CLERK stroke, HTN, HLD , who was admitted to Neuro ICU on 03/05/2024 as a transfer from [facility] with AMS and hypoxia. Per chart reviewed, Patient presented to outside hospital with AMS, generalized weakness, and hypoxia. He was hypoxia with O2 sats in 70s on 3L NC. Patient was also diaphoretic, pale and blue purse lips. He is placed on NRB and transfer to ED. Patient was awake and answer some question en route. In ED, Patient NIHSS was 35 and became altered with GCS of 8. He does not move any extremities. CTH is obtain which was negative for intracranial abnormalities. Patient did not received TNK because of OOW. Per , Patient stopped taking keppra since past one week. Patient was loaded with 4gm of Keppra in ED. Prior to Transfer, Patient GCS decline and was intubated for airway protection. During intubation, He has PEA arrest ROSC achieved in 15 minutes, Upon arrival to NICU, Patient is awake, follow commands, all extremities AG. CTA is obtain which is negative for LVO or aneurysm. Patient is placed on Ceribell which showed 0% seizure burden. He was extubated to nasal cannula on 03/07, currently downgraded to neuro IMU, SENIOR NATIONAL ACCOUNT MANAGER evaluated and he was started on regular diet. Assessment & Plan Assessment & PlanSeizure ([facility]) COPD (chronic obstructive pulmonary disease) ([facility]) Concern for breakthrough seizureEncephalopathy (hypoxic ?) Seizure disorder, noncompliant with home medication History of CVA CTA negative for acute infarction, old left posterior cerebral artery infarction CTA H/N negative for occlusion, aneurysm or vascular malformation. 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 Their is Left ICA moderate stenosis 50-55% and Right ICA <50% EEG showed 0% seizure burden UDS negative, EtOH negative S/p Keppra 4g load, on Keppra 1g BID Continue with ASA and statin As mental status improved, still seems to have some memory/cognition problem, per family he is not at his baseline PT/OT/SENIOR NATIONAL ACCOUNT MANAGER network project manager consult for IPR evaluation S/p PEA arrest, on admissionHypotension, on admission, resolved H/o Hypertension PEA arrest in setting hypoxia/intubation on (03/05), ROSC in 15 minutes Home medication coreg and entresto resumed Monitor BP TTE preserved EF, grade I diastolic dysfunction Acute resp failure with hypercapnia on admission s/p intubation and extubation COPD Concern for PNA Currently on 4L NC (baseline 3L), wean as tolerate Continue with bronchodilator, budesonide On empiric antibiotics, steroid Pulm consult heparin - 5000 units/mL Current Diet: Adult Diet [facility] 03/10/[facility]24 SPR[facility] FIRST * Vaishali Fulton, OT - 03/10/2024 8:25 AM HEEL SPRAYER FIRST Occupational Therapy Treatment Session Note Patient Name: Harris Neal Today's Date: 03/10/2024 room 706 Preferred Language: Uzbek Assessment & Plan AM-PAC Daily Activity: Putting on and taking off regular lower body clothing: A Lot Bathing (including washing, rinsing, drying): A Lot Toileting, which includes using toilet, bedpan or urinal: A Lot Putting on and taking off regular upper body clothing: A Little Taking care of personal grooming such as brushing teeth: None Eating Meals: None AM-PAC Daily Activity Raw Score: 17 Mobility Highest Level of Mobility Performed (JH-HLM): Walked 10 steps or more Treatment Self-Care: Self Care/Home Management (ADLs) Time Entry: 25 Eating Assistance: Setup/clean-up assistance Grooming Assistance: Setup/clean-up assistance UE Dressing Assistance: Supervision/touching assistance Toileting Assistance: mod A to hold urinal in place Bed Mobility: Supervision/touching assistance Supine to sit on EOB, Sitting EOB to supine Transfers: Supervision/touching assistance Trials/Comments 1: Pt. stood and took a few steps forwards, backwards, side to side and then marched in place. Pt. fearful of moving too much and falling so initially marched in place so pt. can feel more comfortable before walking forward and turning. Foq-rk-Emjfx/Wjwey-jb-Thp ADL Comments: Pt. sat EOB for self feeding for coffee and for dressing. Pt. returned to bed at end of session and set up to eat breakfast. Pt. trialled urinal use while seated EOB but unable to coordiante task so stood and OT held urinal for him while he focused on standing balance. Assessment: OT Assessment Results: Impaired ADL status, Impaired endurance, Impaired fine motor control Prognosis: Good Evaluation/Treatment Tolerance: Patient tolerated treatment well Medical Staff Made Aware: Yes Strengths: Attitude of self Plan: Treatment Plan/Goals Established with Patient/Caregiver: Yes Treatment Interventions: ADL retraining, Endurance training, Functional transfer training, Neuromuscular reeducation, UE strengthening/ROM OT Plan: Skilled OT OT Frequency: 2-3 times per week until discharge Equipment Recommended: Walker- rolling, Shower bath chair OT Planned Treatments: Activities of Daily Living, Therapeutic exercises, Therapeutic activities, Neuromuscular reeducation, Manual therapy OT Duration: Discharge Subjective Current Problem: Harris Neal is a 78 y.o. year old male patient with Seizure (HCC) [R56.9] referred to Occupational therapy services . Pain:0/10 Objective Self Care (ADL): Eating Assistance: Setup/clean-up assistance Grooming Assistance: Setup/clean-up assistance Bathing Assistance: Partial/Mod assistance UE Dressing Assistance: Supervision/touching assistance LE Dressing Assistance: Substantial/Max assistance Toileting Assistance: Substantial/Max assistance Goals: Encounter Goals Encounter Goals (Active) Patient will be mod I with LB dressing. (Progressing) Start: 03/09/24 Expected End: 03/11/24 Pt will complete oral care with min A while standing at the sink (Progressing) Start: 03/09/24 Expected End: 03/11/24 Patient will be SUP with toilet transfers Start: 03/09/24 Expected End: 03/11/24 Patient will be sup with toilet hygiene Start: 03/09/24 Expected End: 03/11/24 Treatment Note: If this is the last documented treatment, then it will signify discharge from acute care prior to discharge from the therapy service and will serve as the discharge summary. Vaishali Fulton OT SPRAYER FIRST SPRAYER FIRST * Cynthia Pinto MD - 03/09/2024 4:39 PM HEEL SPRAYER FIRST [facility] Subjective Patient was seen and examined at bedside, he denies any complaint. Vital signs stable. Remains on 4 L of nasal cannula. Objective Last Recorded Vitals Blood pressure (!) 172/67, pulse 65, temperature 36.8 ?C (98.2 ?F), resp. rate 18, height 1.854 m (6' 0.99"), weight 83.4 kg (183 lb 13.8 oz), SpO2 96%. Physical Exam Gen- AAOx2-3, not in acute respiratory distress with NCHEENT- NCAT, EOMI, No scleral icterus Neck Supple, no thyromegaly Heart - S1 S2 heard, regular Lungs- Clear to auscultation bilaterally, normal respiratory effort P/a- Soft, non tender, no guarding or rigidity noted, bowel sounds present Ext- No peripheral cyanosis or pedal edema noted Neuro- grossly non focal Psych- Mood and affect normal aspirin, 81 mg, Oral, Dailyatorvastatin, 40 mg, Oral, Daily azithromycin, 250 mg, Oral, Daily budesonide, 1 mg, Nebulization, q12h carvedilol, 25 mg, Nasogastric, q12h ROLANDO [START ON 03/10/2024] cefTRIAXone, 2 g, Intravenous, q24h heparin, 5,000 Units, Subcutaneous, q8h ROLANDO ipratropium-albuterol, 3 mL, Nebulization, q4h levETIRAcetam, 1,000 mg, Intravenous, q12h polyethylene glycol (PEG) 3350, 17 g, Per G Tube, q12h predniSONE, 60 mg, Oral, Daily sacubitril-valsartan, 1 tablet, Nasogastric, Nightly sennosides, 10 mL, Oral, q12h sodium chloride, 10 mL, Intravenous, q12h ROLANDO sodium chloride, 3 mL, Nebulization, q4h PRN medications: acetaminophen, calcium gluconate, dextrose, dextrose, fentaNYL, glucagon, hydrALAZINE, insulin lispro, magnesium sulfate, nystatin, potassium & sodium phosphates OR potassium & sodium phosphates, potassium chloride OR potassium chloride OR potassium chloride OR Potassium chloride, sodium chloride, sodium phosphates 45 mmol in sodium chloride 0.9 % 100 mL IVPB Results from last 7 daysLab Units 03/09/24 0438 03/08/24 0039 03/07/24 0001 WBC 10*3/uL 14.18* 16.74* 14.69* HEMOGLOBIN g/dL 14.9 14.4 14.0 HEMATOCRIT % 50.8 47.2 43.4 PLATELETS 10*3/uL 195 233 246 Results from last 7 daysLab Units 03/09/24 0438 03/08/24 0550 03/08/24 0039 03/07/24 0519 03/07/24 0001 SODIUM mEq/L 144 -- 147* -- 144 POTASSIUM mEq/L 4.8* -- 4.2 -- 3.7 CHLORIDE mEq/L 101 -- 106 -- 109* CO2 mEq/L 39.7* -- 36.6* -- 31.6* BUN mg/dL 30* -- 34* -- 37* CREATININE mg/dL 0.81 -- 0.86 -- 0.94 GLUCOSE mg/dL 85 -- 160* -- 205* POC GLUCOSE -- < > -- < > -- CALCIUM mg/dL 9.3 -- 9.2 -- 8.5 < > = values in this interval not displayed. === 03/05/24 === XR CHEST 1 VIEW - Impression -1. The endotracheal tube terminates 6.7 cm from the francisco javier. 2. Advanced emphysema with superimposed pulmonary vascular congestion. LOCATION: R16 Electronically signed by: Peter Sheldon MD 03/07/2024 11:02 AM [facility] RPWorkstation: [id number] === 03/05/24 === CT ANGIOGRAM BRAIN NECK - Impression -Approximately 50-55% degree of narrowing due to calcific and soft plaque formation along the very proximal left ICA without tandem lesion identified more distally No findings of concern for dissection Less than 50% degree of right carotid narrowing No compromise of significance of the vertebral arteries Location: H3 CTA of the brain 03/05/2024 TECHNIQUE: CTA examination of the yllwqo-xn-Avlqsw was performed on a helical scanner with the patient given non ionic IV contrast . Vascular protocol performed. Thin slice axial images acquired from skull base through vertex of brain. There is also acquisition of 2-D coronal and sagittal reformatted images acquired by the radiologic technologist mammogram. Volumetric imaging was acquired with maximum intensity projections images acquired. The examination was performed on an updated helical CT scanner utilizing low-dose radiation technique. Automatic exposure technique was utilized to reduce radiation dose. Comparison Exam : [Head CT exam of 03/05/2024 CLINICAL HISTORY: Stroke assessment, Code Stroke FINDINGS: Do not see any findings suggestive of an aneurysm or vascular malformation.There is no basilar artery occlusion. There is occlusion of the left PROGRAM SCHEDULE CLERK along the P2 segment but this is felt to be chronic in this patient relatively chronic area of left PROGRAM SCHEDULE CLERK infarction seen in this territory noncontrast head CT exam. There is a origin of the right PROGRAM SCHEDULE CLERK without significant compromise of the right PROGRAM SCHEDULE CLERK more distally with the P1 segment noted to be mildly hypoplastic. There is calcific plaque formation along both carotid siphons but without high-grade stenosis or hemodynamically significant narrowing. Significant tortuosity involving the A2 segment of both anterior cerebral arteries without significant stenosis. Both superior cerebellar arteries are identified and there is enhancement of both picas.. There is no space-occupying process or abnormal enhancement.. 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 origin of the right PROGRAM SCHEDULE CLERK No significant compromise of the anterior circulation. There is presence of a small degree calcific plaque formation noted in both carotid siphons likely nonhemodynamically significant. Electronically signed by: Dana Goel MD 03/05/2024 10:56 PM [facility] 78 years old male with past medical history of epilepsy on Keppra, COPD on home oxygen, prior Left PROGRAM SCHEDULE CLERK stroke, HTN, HLD , who was admitted to Neuro ICU on 03/05/2024 as a transfer from [facility] with AMS and hypoxia. Per chart reviewed, Patient presented to outside hospital with AMS, generalized weakness, and hypoxia. He was hypoxia with O2 sats in 70s on 3L NC. Patient was also diaphoretic, pale and blue purse lips. He is placed on NRB and transfer to ED. Patient was awake and answer some question en route. In ED, Patient NIHSS was 35 and became altered with GCS of 8. He does not move any extremities. CTH is obtain which was negative for intracranial abnormalities. Patient did not received TNK because of OOW. Per , Patient stopped taking keppra since past one week. Patient was loaded with 4gm of Keppra in ED. Prior to Transfer, Patient GCS decline and was intubated for airway protection. During intubation, He has PEA arrest ROSC achieved in 15 minutes, Upon arrival to NICU, Patient is awake, follow commands, all extremities AG. CTA is obtain which is negative for LVO or aneurysm. Patient is placed on Ceribell which showed 0% seizure burden. He was extubated to nasal cannula on 03/07, currently downgraded to neuro IMU, SENIOR NATIONAL ACCOUNT MANAGER evaluated and he was started on regular diet. Assessment & Plan Assessment & PlanSeizure (HCC) Concern for breakthrough seizureEncephalopathy Seizure disorder, noncompliant with home medication History of CVA CTA negative for acute infarction, old left posterior cerebral artery infarction CTA H/N negative for occlusion, aneurysm or vascular malformation. 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 Their is Left ICA moderate stenosis 50-55% and Right ICA <50% EEG showed 0% seizure burden UDS negative, EtOH negative S/p Keppra 4g load, on Keppra 1g BID Continue with ASA and statin PT/OT/SENIOR NATIONAL ACCOUNT MANAGER S/p PEA arrest, on admissionHypotension, on admission, resolved H/o Hypertension PEA arrest in setting hypoxia/intubation on (03/05), ROSC in 15 minutes Home medication coreg and entresto resumed Monitor BP TTE preserved EF, grade I diastolic dysfunction Acute resp failure with hypercapnia on admission s/p intubation and extubation COPD Concern for PNA Currently on 4L NC (baseline 3L), wean as tolerate Continue with bronchodilator, budesonide On empiric antibiotics, steroid Pulm consult heparin - 5000 units/mL Current Diet: Adult Diet Heart Healthy [facility] 03/09/2024 SPRAYER FIRST * Vida Antoine NP - 03/09/2024 10:32 AM HEEL SPRAYER FIRST Neurocritical Care Progress Note History Of Present Illness Harris Neal, 78 y.o. male with PMH of Epilepsy on Keppra, COPD on home O2, prior Left PROGRAM SCHEDULE CLERK stroke, HTN, HLD , who presented on 03/05/2024 as a transfer from [facility] with AMS and hypoxia. LSN at 0800 on 03/05/24. Per chart reviewed, Patient presented to ED with AMS, generalized weakness, and hypoxia. Per EMS, Patient was hypoxia with O2 sats in 70s on 3L NC. Patient was also diaphoretic, pale and blue purse lips. He is placed on NRB and transfer to ED. Patient was awake and answer some question en route. In ED, Patient NIHSS was 35 and became altered with GCS of 8. He does not move any extremities. CTH is obtain which was negative for intracranial abnormalities. Patient did not received TNK because of OOW. Per , Patient stopped taking keppra since past one week. Patient was loaded with 4gm of Keppra in ED. Prior to Transfer, Patient GCS decline and is intubated for airway protection. During intubation, He has PEA arrest ROSC achieved in 15 minutes, Patient is transfer to [facility] for HLOC. Upon arrival to NICU, Patient is awake, follow commands, all extremities AG. CTA is obtain which is negative for LVO or aneurysm. Patient is placed on Ceribell which showed 0% seizure burden. Interval Events: 03/05: Remains intubated, awake, following commands, pH and CO2 corrected. 03/08: extubated to nasal cannula yesterday, failed SENIOR NATIONAL ACCOUNT MANAGER yesterday 03/09: Downgrade from ICU yesterday, no overnight events, no seizure-like activity, stated he ran out of his seizure medication Past Medical History has no past medical history on file. Surgical History has no past surgical history on file. Family History No family history on file. Social History Social History Tobacco Use Smoking status: Former Allergies Patient has no known allergies. Home Medications Medications Prior to Admission Medication Sig Dispense Refill Last Dose/Taking aspirin 81 MG chewable tablet Chew 81 mg 1 time each day. Unknown carvedilol (Coreg) 25 MG tablet Take 25 mg by mouth in the morning and 25 mg in the evening. Take with meals. Unknown empagliflozin (Jardiance) 10 MG Take 10 mg by mouth 1 time each day. Unknown levETIRAcetam (Keppra) 500 MG tablet Take 500 mg by mouth 1 time each day. Past Week sacubitril-valsartan (Entresto) 97-103 MG tablet Take 1 tablet by mouth in the morning and 1 tablet in the evening. Unknown meclizine (Antivert) 25 MG tablet Take 12.5 mg by mouth 1 time each day. Unknown Review of Systems Unable to evaluate given clinical examination Physical Exam pre-admit mRS: Unable to evaluate given pt's current clinical condition and unable to contact [facility] for further details. NIH STROKE SCALE SCORE ON ADMISSION 1a. 1a. LOC Level of Consciousness; 0-Alert 1-Drowsy 2-Stupor 3-Coma 1b. LOC Questions Month and age; 0-both 1-One 2-Neither 1c. LOC Commands Open/close eyes, Barytes Grinder/release non-paretic hand; 0-Both 1-One 2-Neither 2. Best Gaze; 0-Normal 1-Partial 2-Forced gaze 3. Visual [place]; 0-No visual loss. 1-Partial hemianopia 2-Complete 3-Bilateral 4. Facial Palsy; 0-None 1-Minor 2-Partial 3-Complete 5. Motor - R arm; 0-No drift 1-Drift 2-Some antigravity 3-No antigravity 4-No movement 1 6. Motor - R leg; 0-No drift 1-Drift 2-Some antigravity 3-No antigravity 4-No movement 1 7. Motor - L arm; 0-No drift 1-Drift 2-Some antigravity 3-No antigravity 4-No movement 1 8. Motor - L leg; 0-No drift 1-Drift 2-Some antigravity 3-No antigravity 4-No movement 9. Limb Ataxia; 0-Absent 1-1limb 2-2 limbs 10. Sensory; 0-Normal 1-Partial loss 2-Dense loss 11. Best Language; 0-Normal 1-Mild/mod 2-Severe 3-Mute 12. Dysarthria; 0-Normal 1-Mild/mod 2-Severe X-Untestable 13. Extinction and Inattention (formerly Neglect); 0-none 1-Partial 2-complete 3 TOTAL SCORE PHYSICAL EXAM HENT: Normocephalic. Atraumatic. Neck: Supple. Respiratory: Respirations are non-labored. Symmetrical chest wall expansion. Gastrointestinal: Soft. Non-distended. Musculoskeletal: Normal range of motion. No tenderness. No swelling. Integumentary: Warm. Dry. Neuro Exam: MS: alert, oriented x3 speech is fluent, hoarse, follow commands CN: L pupil 3, R pupil 3, reactive Motor: AG in all 4 extremities Gait: deferred Psychiatric: Cooperative, appropriate mood & affect. Pertinent Labs : Labs in chart were reviewed. ASSESSMENT AND PLAN Harris Neal, 78 y.o. male with PMH of Epilepsy on Keppra, COPD on home O2, prior Left PROGRAM SCHEDULE CLERK stroke, HTN, HLD , who presented on 03/05/2024 as a transfer from OSH s/p PEA arrest, AMS, and multiple seizure. IMPRESSION: Seizure on admission, Loss of consciousness unk duration (S06.0X9) on admission, Encephalopathy unspecified (G93.40) on admission S/p PEA arrest, on admission Hypotension, on admission H/o Hypertension Acute resp failure with hypercapnia (J96.02) on admission, Ventilator (Z99.11) on admission day, COPD unspecified (J44.9) on admission Hyperkalemia on admission Hyperlipidemia PLAN: initial CTH at OSH negative for intracranial abnormalities Repeated CTH at 2227 on 03/05 negative for acute infarction. 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 Their is Left ICA moderate stenosis 50-55% and Right ICA <50%. Rapid EEG Obtain through [facility] which showed 0% Seizure burden. The [employer] ClarityPro algorithm provide analysis of underlying activity and seizure detection. UDS neg, EtOH negative Seizure precautions s/p AED Keppra 4gm load at OSH Started on Keppra 1.5 gm Q12 started (at home on 500 q12, suspect breakthrough seizure due to missed doses for 1 week as did not receive in mail will likely return to home dose Keppra) --> reduce to 1000mg q12 (03/08) S/p ASA load at OSH, continue Aspirin 81mg daily VS Parameters: SBP<160. Management per primary team Trop negative EKG NSR with PAC and RBBB TTE w/ normal EF, grade I DD, normal LA size, +pericardial effusion Infectious work up: COPD coverage with azithromycin and CTX RCX moderate WBCs, no organism yet DVT ppx: subcutaneous heparin noted PT/OT/SENIOR NATIONAL ACCOUNT MANAGER as indicated All other medical management per primary team Seizure precautions discussed, including: (1) [place] law regarding no driving or operating heavy machinery until 3 months seizure-free. (2) Abstaining from climbing ladders or heights and unsupervised bathing or swimming. (3) Avoiding certain medications that have potential to lower seizure threshold (Benadryl, Tramadol and certain antibiotics), medications should be discussed with physician before usage. (4) Common triggers such as infections, fever, stressful situations, alcohol, sleep deprivation, hyperventilation, electrolyte abnormalities, blood sugar fluctuations, and rarely flashing lights. (5) Seizure medications cannot be stopped abruptly. Please give ample time [2 weeks] for refills. The most common reason for fatal seizures is missing dosages of medication. (6) During the seizure, patient should be turned onto their side, if possible placing something soft and flat and of the head. Nothing should be forced into the persons mouth. All hard objects or sharp objects from the area should be removed. If the seizure lasts >2min or the patient is turning blue or having problems breathing, 911 should be called immediately. If there is suspicion that the person has inhaled their own vomit, 911 should be called. Any injury as a result of the seizure should also get immediate attention. Please call [phone] for clinic appointment within Timeframe: 2 weeks after discharge with neurologist - Dr. Marie Boyd at [facility] at [address], [address], [place], [place] [address]. Or patient could follow-up with his/her established neurologist within Timeframe: 2 weeks after discharge. Neurology will sign off Findings discussed with Dr. Sandi Antoine, DOWEL STICKER OPERATOR, ACNP Cosigned by Sandi Colin MD at 03/09/2024 5:12 PM HEEL SPRAYER FIRST SPRAYER FIRST SPRAYER FIRST Associated attestation - Sandi Colin MD - 03/09/2024 5:12 PM HEEL SPRAYER FIRST Patient was seen and evaluated at bedside by myself and Neurology VIN. Chart reviewed. All labs for the past 24hrs were reviewed by myself. All imaging for the past 24hrs reviewed by myself. Note was written in conjunction with neurology VIN and I agree with plan stated, unless specified. Doing well post-transfer from ICU, respiratory status appears improved. No events concerning for seizures. Continued increased dose Keppra 1000mg q12 on discharge, may consider weaning down to home dose after several weeks if remains seizure free. Neurology to sign off at this time. * Konstantin Hayes, OT - 03/09/2024 10:06 AM HEEL SPRAYER FIRST Occupational Therapy Evaluation and Treatment Harris Neal 1945 SW7.706/SW7.706 Assessment: Pt presents with decrease self-care, transfers, mobility and fall risk d/t weakness, balance deficits, lack of activity tolerance/fatigue and d/t the rest of deficits mentioned below. Pt will benefit from OT services to maximize return to PLOF and increase safety. Assessment: OT Assessment Results: Impaired ADL status, Impaired upper extremity strength, Impaired endurance, Impaired functional mobility, Impaired trunk control for functional activities, Impaired safe judgment during ADL Prognosis: Good Barriers to Discharge: Safety awareness, Medical diagnosis Evaluation/Treatment Tolerance: Treatment limited secondary to medical complications (Comment) Medical Staff Made Aware: Yes Strengths: Attitude of self, Capable of completing ADLs semi/independent PLAN: Treatment Plan/Goals Established with Patient/Caregiver: Yes Treatment Interventions: ADL retraining, Compensatory technique education, Functional transfer training, Endurance training, Patient/family training OT Planned Treatments: Activities of Daily Living, Balance training, Energy conservation training, Mobility training, Patient education, Safety education, Therapeutic activities, Therapeutic exercises OT Plan: Skilled OT OT Frequency: 2-4 times per week until discharge AM-PAC Daily Activity: [facility] Highest Level of Mobility (-HLM) Scale Highest Level of Mobility Performed (JH-HLM): Walked 10 steps or more (i.e. walked to restroom) Current ProblemHarris Neal is a 78 y.o. year old male patient with Seizure (HCC) [R56.9] referred for Occupational therapy services . No past medical history on file. No past surgical history on file. Preferred Language: Uzbek SubjectivePt denies pain and was agreeable to OT Evaluation 03/09/24 1006OT Last Visit OT Received On 03/09/24 Time Calculation Start Time 1006 Stop Time 1041 Time Calculation (min) 35 min General Family/Caregiver Present No Others Present PT- Carmece (Physical Therapy provide CGA or to stabilze pt during ADLs, transfers and mobility while OT facilitate ADLs and cueing for diirection and walker movement.) Precautions UE Weight Bearing Status FWB LE Weight Bearing Status FWB Medical Precautions Fall, standard Pain Assessment Pain Assessment DVPRS Pain Score 0 Pain Rating Scale (DVPRS) 0 ADL Self Care/Home Management (ADLs) Time Entry 10 Eating Assistance Setup/clean-up assistance Grooming Assistance Partial/Mod assistance Grooming Deficit Setup;Standing with assistive device;Increased time to complete;Supervision/safety Bathing Assistance Substantial/Max assistance UE Dressing Activity Component(s) Gown UE Dressing Assistance Partial/Mod assistance UE Dressing Deficit Setup;Verbal cueing;Thread RUE;Thread LUE;Increased time to complete;Supervision/safety;Pull around back;binder coverstitch head LE Dressing Activity Component(s) Socks LE Dressing Assistance Partial/Mod assistance LE Dressing Deficit Setup;Verbal cueing;Supervision/safety;Increased time to complete;Don/doff R sock;Don/doff L sock Toileting Assistance Substantial/Max assistance Toileting Deficit Setup;Steadying;Verbal cueing;Supervison/safety;Increased time to complete;Use of bedpan/urinal setup;Perineal hygiene ADL Comments Pt needs assistance with ADLs d/t weakness, fatigue/lack of activity tolerance and increase fall risk, pt given instructions on compensatory techniques, setup and safety and pt verbalize understanding. Pt stabilize pt while standing in front of the sink for safety during oral care and PT also provide CGA during mobility while OT provide cueing for direction and walker movement. Bed Mobility Bed Mobility Yes Bed Mobility 1 Level of Assistance 1 Partial/Mod assistance Bed Mobility Comments 1 Pt given mod verbal and tactile cueing for sequencing and reaching bedrails and to prop up trunk to sit from supine Bed Mobility To/From Supine to sit on EOB Assistive Devices And Adaptive Equipments Bed rail;Head of bed elevated Transfers Transfer Yes Transfer 1 Technique 1 Via walking;Stand step Level of Assistance 1 Supervision/touching assistance Trials/Comments 1 Pt able to perform these task with mod verbal cueing to push off from bed to stand and reach back to sit in the racliner. Transfer To/From [id number];Bed;Recliner Assistive Devices And Adaptive Equipments Walker, front-wheeled Functional Mobility Functional Mobility Pt walked >10ft using RW with min verbal cues for direction and moving RW. PT provide CGA during mobility while OT provide cueing for direction and walker movement. Activity Tolerance Endurance Tolerates 30 min exercise with multiple rests Sitting Balance Moves/returns truncal midpoint more than 2 inches in all planes Early Mobility/Exercise Safety Screen Proceed with mobilization - No exclusion criteria met Activity Tolerance Comments Pt reported dizziness which decrease activity tolerance Therapeutic Procedures Time Entry Therapeutic Activity Time Entry 10 Upper Extremity Tone Left Upper Extremity Normal Right Upper Extremity Normal Therapeutic Activity Therapeutic Activity 1 Pt worked on transfers: Pt was able to STS and get <> of the bed and recliner with sup and min verbal cues to push off and reach back from bed/toilet rails to stand and sit from bed, toilet and chair/recliner. Therapeutic Activity 2 Pt worked on room mobility: Pt walked >10 ft to the sink, around the bed to the recliner with CGA and verbal/tactile cueing for direction and walker movement. OT Assessment OT Assessment Results Impaired ADL status;Impaired upper extremity strength;Impaired endurance;Impaired functional mobility;Impaired trunk control for functional activities;Impaired safe judgment during ADL Prognosis Good Barriers to Discharge Safety awareness;Medical diagnosis Evaluation/Treatment Tolerance Treatment limited secondary to medical complications (Comment) Medical Staff Made Aware Yes Strengths Attitude of self;Capable of completing ADLs semi/independent OT Plan Treatment Plan/Goals Established with Patient/Caregiver Yes Treatment Interventions ADL retraining;Compensatory technique education;Functional transfer training;Endurance training;Patient/family training OT Plan Skilled OT OT Frequency 2-4 times per week until discharge OT Planned Treatments Activities of Daily Living;Balance training;Energy conservation training;Mobility training;Patient education;Safety education;Therapeutic activities;Therapeutic exercises OT Duration 3-4 weeks Mobility Highest Level of Mobility Performed (JH-HLM) 6 Treatment:Therapeutic Activity Therapeutic Activity Time Entry: 10 Therapeutic Activity 1: Pt worked on transfers: Pt was able to STS and get <> of the bed and recliner with sup and min verbal cues to push off and reach back from bed/toilet rails to stand and sit from bed, toilet and chair/recliner. Therapeutic Activity 2: Pt worked on room mobility: Pt walked >10 ft to the sink, around the bed to the recliner with CGA and verbal/tactile cueing for direction and walker movement. Pt left sitting in the recliner with chair alarm on, RN informed at end of session, all needs in reach, alarm intact. Education DocumentationFall Prevention, taught by Konstantin Hayes OT at 03/09/2024 12:27 PM. Learner: Patient Readiness: Acceptance Method: Demonstration, Explanation Response: Demonstrated Understanding, Needs Reinforcement Mobility Training, taught by Konstantin Hayes OT at 03/09/2024 12:27 PM. Learner: Patient Readiness: Acceptance Method: Demonstration, Explanation Response: Demonstrated Understanding, Needs Reinforcement ADL Training, taught by Konstantin Hayes OT at 03/09/2024 12:27 PM.Learner: Patient Readiness: Acceptance Method: Demonstration, Explanation Response: Demonstrated Understanding, Needs Reinforcement Occupational Therapy Plan of Care, taught by Konstantin Hayes OT at 03/09/2024 12:27 PM. Learner: Patient Readiness: Acceptance Method: Demonstration, Explanation Response: Demonstrated Understanding, Needs Reinforcement Education CommentsNo comments found. Encounter Goals Encounter Goals (Active) Patient will be mod I with LB dressing. (Progressing) Start: 03/09/24 Expected End: 03/30/24 Pt will complete oral care with min A while standing at the sink (Progressing) Start: 03/09/24 Expected End: 03/30/24 Patient will be SUP with toilet transfers Start: 03/09/24 Expected End: 03/30/24 Patient will be sup with toilet hygiene Start: 03/09/24 Expected End: 03/30/24 Treatment Note: If this is the last documented treatment, then it will signify discharge from acute care prior to discharge from the therapy service and will serve as the discharge summary. Konstantin Hayes OT [facility]AY[facility] * Wanda Peters, PT - 03/09/2024 10:05 AM HEEL SPRAYER FIRST Physical Therapy Treatment Patient Name: Harris Neal Today’s Date: 03/09/24 Room Number: SW7.706/SW7.706 Patient's Preferred Language: Uzbek PT Assessment and Plan: Assessment Able to initiate ambulation on this date. Fair tolerance noted. Bouts of internal and external distraction noted in which the patient required frequent redirection. General weakness noted, however, the patient was able to sustain prolonged standing while performing ADLs at the sink level. Evaluation/Treatment Tolerance: Patient limited by fatigue Medical Staff Made Aware: Yes Plan (Last filed value by PT) Treatment Plan/Goals Established with Patient/Caregiver: Yes Treatment/Interventions: Balance training, Bed mobility training, Functional activities, Gait training, Manual therapy, Neuromuscular re-education, Pain management, Patient education, Posture/Body mechanics baring, Therapeutic exercises, Transfer training PT Plan: Skilled PT PT Frequency: 3-4 times per week until discharge PT Recommended Transfer Status: Assistive equipment (Comment) (walker) AM-PAC Basic Mobility Turning in bed without bedrails: A Little Lying on back to sitting on edge of flat bed: A Little Bed to chair: A Lot Standing up from chair: A Little Walk in room: A Little Climbing 3-5 stairs: A Lot Mobility Inpatient Raw Score: 16 -M Goal: 5 [facility] Highest Level of Mobility (JH-HLM) Scale Highest Level of Mobility Performed (JH-HLM): Walked 10 steps or more (i.e. walked to restroom) Subjective:Patient was in lying in supine position in bed upon arrival. Patient agreeable to PT services. Current Problem:This is a 78 y.o. male who is admitted to [facility] with Seizure (HCC) [R56.9] Pain:Pain Assessment Pain Assessment: DVPRS Pain Rating Scale (DVPRS): No pain Vital Signs: O2 saturation WNLs throughout Lines and Drains: 3L of O2 via NC and telemetry Objective:Precautions: Fall and Seizure Activity Tolerance:Endurance: Tolerates 10 - 20 min exercise with multiple rests Cognition:Behavior/Cognition: Cooperative, Pleasant mood Treatments:Therapeutic Activity Time Entry: 5 Therapeutic Activity 1: Partial Assist to Scoot to EOB Bed Mobility:Bed Mobility Bed Mobility: Yes Bed Mobility 1 Level of Assistance 1: Partial/Mod assistance Bed Mobility Comments 1: VCs needed for sequencing Bed Mobility To/From: Supine to sit on EOB Assistive Devices And Adaptive Equipments: Head of bed elevated, Bed rail Transfers:Transfers Transfer: Yes Transfer 1 Level of Assistance 1: Supervision/touching assistance (touching asses) Trials/Comments 1: VCs for hand placement for proper stability; elevated bed height Transfer To/From: [id number]-aw-[id number]/Hcwqi-dp-Kuv, Bed Assistive Devices And Adaptive Equipments: Walker, front-wheeled Transfers 2 Technique 2: Via walking, Stand step, Stand pivot Level of Assistance 2: Partial/Mod assistance (partial) Trials/Comments 2: VCs given for sequencing. Transfer To/From: Bed, Chair Assistive Devices And Adaptive Equipments: Walker, front-wheeled Gait Training:Gait Training Time Entry: 10 Gait Training Activity 1 Distance (enter in feet): 8 ft + 6 ft Gait Training Activity 1: Indoor surface Assistive Devices And Adaptive Equipments: Walker, front-wheeled Level of Assistance 1: Partial/Mod assistance Gait Training Activity 1 Comment: decreased step length, decreased heel strike; Mod A for RW management during 90deg turns Balance / Neuromuscular Re-education: Neuromuscular Re-Education Time Entry: 15 Balance/Neuromuscular Re-Education Activity 1: Unsupported sitting at the EOB in which partial assist-supervision required for upright trunk. Balance/Neuromuscular Re-Education Activity 2: Static Standing with RW; Partial Assist provided for stability Balance/Neuromuscular Re-Education Activity 3: Dynamic Standing with RW; Poor trunk approximation inside RW, Touching-Partial Assist provided for stability. No retro lean noted atient Education Education Documentation Fall Prevention, taught by Wanda Peters PT at 03/09/2024 2:06 PM. Learner: Patient Readiness: Acceptance Method: Explanation Response: Verbalizes Understanding, Needs Reinforcement Physical Therapy Plan of Care, taught by Wanda Peters PT at 52:06 PM. Learner: Patient Readiness: Acceptance Method: Explanation Response: Verbalizes Understanding, Needs Reinforcement Education CommentsNo comments found. GoalEncounter Goals Encounter Goals (Active) Patient will ambulate 100' distance using LRAD with sup. (Progressing) Start: 03/07/24 Expected End: 03/21/24 Patient will perform chair to and from bed transfer LRAD and sup. (Progressing) Start: 03/07/24 Expected End: 03/21/24 General Visit Information Others Present: OT Co-Treatment: with OT services to maximize activity tolerance, ensure safety2/2 history of seizure Post Therapy Checklist - in chair, call mccormick within reach, and bed/chair alarmin place All needs in reach + RN informed on patient status. Time Calculation:Start Time: 1005 Stop Time: 1035 Time Calculation (min): 30 min Treatment Note: If this is the last documented treatment, then it will signify discharge from acute care prior to discharge from the therapy service and will serve as the discharge summary. Wanda Peters PT [facility] * Cynthia Pinto MD - 03/08/2024 8:43 PM HEEL SPRAYER FIRST [facility] Subjective 78 years old male with past medical history of epilepsy on Keppra, COPD on home oxygen, prior Left PROGRAM SCHEDULE CLERK stroke, HTN, HLD , who was admitted to Neuro ICU on 03/05/2024 as a transfer from [facility] with AMS and hypoxia. Per chart reviewed, Patient presented to outside hospital with AMS, generalized weakness, and hypoxia. He was hypoxia with O2 sats in 70s on 3L NC. Patient was also diaphoretic, pale and blue purse lips. He is placed on NRB and transfer to ED. Patient was awake and answer some question en route. In ED, Patient NIHSS was 35 and became altered with GCS of 8. He does not move any extremities. CTH is obtain which was negative for intracranial abnormalities. Patient did not received TNK because of OOW. Per , Patient stopped taking keppra since past one week. Patient was loaded with 4gm of Keppra in ED. Prior to Transfer, Patient GCS decline and was intubated for airway protection. During intubation, He has PEA arrest ROSC achieved in 15 minutes, Upon arrival to NICU, Patient is awake, follow commands, all extremities AG. CTA is obtain which is negative for LVO or aneurysm. Patient is placed on Ceribell which showed 0% seizure burden. He was extubated to nasal cannula on 03/07, currently downgraded to neuro IMU, SENIOR NATIONAL ACCOUNT MANAGER evaluated and he was started on regular diet. Objective Last Recorded Vitals Blood pressure (!) 162/62, pulse 65, temperature (!) 36 ?C (96.8 ?F), resp. rate 18, height 1.854 m (6' 0.99"), weight 83.4 kg (183 lb 13.8 oz), SpO2 96%. Physical Exam Gen- AAOx2-3, not in acute respiratory distress with NCHEENT- NCAT, EOMI, No scleral icterus Neck Supple, no thyromegaly Heart - S1 S2 heard, regular Lungs- Clear to auscultation bilaterally, normal respiratory effort P/a- Soft, non tender, no guarding or rigidity noted, bowel sounds present Ext- No peripheral cyanosis or pedal edema noted Neuro- grossly non focal Psych- Mood and affect normal aspirin, 81 mg, Oral, Dailyatorvastatin, 40 mg, Oral, Daily azithromycin, 250 mg, Oral, Daily budesonide, 0.5 mg, Nebulization, q12h carvedilol, 25 mg, Nasogastric, q12h ROLANDO cefTRIAXone, 1 g, Intravenous, q24h heparin, 5,000 Units, Subcutaneous, q8h ROLANDO ipratropium-albuterol, 3 mL, Nebulization, q4h levETIRAcetam, 1,000 mg, Intravenous, q12h polyethylene glycol (PEG) 3350, 17 g, Per G Tube, q12h predniSONE, 60 mg, Oral, Daily sacubitril-valsartan, 1 tablet, Nasogastric, Nightly sennosides, 10 mL, Oral, q12h sodium chloride, 10 mL, Intravenous, q12h ROLANDO sodium chloride, 3 mL, Nebulization, q4h PRN medications: acetaminophen, calcium gluconate, dextrose, dextrose, fentaNYL, glucagon, hydrALAZINE, insulin lispro, magnesium sulfate, nystatin, potassium & sodium phosphates OR potassium & sodium phosphates, potassium chloride OR potassium chloride OR potassium chloride OR Potassium chloride, sodium chloride, sodium phosphates 45 mmol in sodium chloride 0.9 % 100 mL IVPB Results from last 7 daysLab Units 03/09/24 0438 03/08/24 0039 03/07/24 0001 WBC 10*3/uL 14.18* 16.74* 14.69* HEMOGLOBIN g/dL 14.9 14.4 14.0 HEMATOCRIT % 50.8 47.2 43.4 PLATELETS 10*3/uL 195 233 246 Results from last 7 daysLab Units 03/09/24 0438 03/08/24 0550 03/08/24 0039 03/07/24 0519 03/07/24 0001 SODIUM mEq/L 144 -- 147* -- 144 POTASSIUM mEq/L 4.8* -- 4.2 -- 3.7 CHLORIDE mEq/L 101 -- 106 -- 109* CO2 mEq/L 39.7* -- 36.6* -- 31.6* BUN mg/dL 30* -- 34* -- 37* CREATININE mg/dL 0.81 -- 0.86 -- 0.94 GLUCOSE mg/dL 85 -- 160* -- 205* POC GLUCOSE -- < > -- < > -- CALCIUM mg/dL 9.3 -- 9.2 -- 8.5 < > = values in this interval not displayed. === 03/05/24 === XR CHEST 1 VIEW - Impression -1. The endotracheal tube terminates 6.7 cm from the francisco javier. 2. Advanced emphysema with superimposed pulmonary vascular congestion. LOCATION: R16 Electronically signed by: Peter Sheldon MD 03/07/2024 11:02 AM HEEL SPRAYER FIRST RPWorkstation: [id number] === 03/05/24 === CT ANGIOGRAM BRAIN NECK - Impression -Approximately 50-55% degree of narrowing due to calcific and soft plaque formation along the very proximal left ICA without tandem lesion identified more distally No findings of concern for dissection Less than 50% degree of right carotid narrowing No compromise of significance of the vertebral arteries Location: H3 CTA of the brain 03/05/2024 TECHNIQUE: CTA examination of the aiuftm-kq-Tirzpw was performed on a helical scanner with the patient given non ionic IV contrast . Vascular protocol performed. Thin slice axial images acquired from skull base through vertex of brain. There is also acquisition of 2-D coronal and sagittal reformatted images acquired by the radiologic technologist mammogram. Volumetric imaging was acquired with maximum intensity projections images acquired. The examination was performed on an updated helical CT scanner utilizing low-dose radiation technique. Automatic exposure technique was utilized to reduce radiation dose. Comparison Exam : [Head CT exam of 03/05/2024 CLINICAL HISTORY: Stroke assessment, Code Stroke FINDINGS: Do not see any findings suggestive of an aneurysm or vascular malformation.There is no basilar artery occlusion. There is occlusion of the left PROGRAM SCHEDULE CLERK along the P2 segment but this is felt to be chronic in this patient relatively chronic area of left PROGRAM SCHEDULE CLERK infarction seen in this territory noncontrast head CT exam. There is a origin of the right PROGRAM SCHEDULE CLERK without significant compromise of the right PROGRAM SCHEDULE CLERK more distally with the P1 segment noted to be mildly hypoplastic. There is calcific plaque formation along both carotid siphons but without high-grade stenosis or hemodynamically significant narrowing. Significant tortuosity involving the A2 segment of both anterior cerebral arteries without significant stenosis. Both superior cerebellar arteries are identified and there is enhancement of both picas.. There is no space-occupying process or abnormal enhancement.. 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 origin of the right PROGRAM SCHEDULE CLERK No significant compromise of the anterior circulation. There is presence of a small degree calcific plaque formation noted in both carotid siphons likely nonhemodynamically significant. 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 Their is Left ICA moderate stenosis 50-55% and Right ICA <50% EEG showed 0% seizure burden UDS negative, EtOH negative S/p Keppra 4g load, on Keppra 1g BID Continue with ASA and statin PT/OT/SENIOR NATIONAL ACCOUNT MANAGER S/p PEA arrest, on admissionHypotension, on admission, resolved H/o Hypertension PEA arrest in setting hypoxia/intubation on (03/05), ROSC in 15 minutes Home medication coreg and entresto resumed Monitor BP TTE preserved EF, grade I diastolic dysfunction Acute resp failure with hypercapnia on admission s/p intubation and extubation COPD Concern for PNA Currently on 4L NC (baseline 3L), wean as tolerate Continue with bronchodilator, budesonide On empiric antibiotics, steroid Pulm consult heparin - 5000 units/mL Current Diet: Adult Diet Heart Healthy [facility] MD 03/09/2024 SPRAYER FIRST * Liz Vásquez OT - 03/08/2024 12:29 PM HEEL SPRAYER FIRST Occupational Therapy Encounter Patient Name: Harris Neal Today's Date: 03/08/2024 Room number: [id number] Preferred Language: Uzbek Missed Treatment Time and Reason Spoke with JON Gil. RN in room with pt; pt appears confused today, and best to attempt OT eval tomorrow; Will follow up Liz Vásquez OT SPRAYER FIRST * Aimee Johnson, [facility]-SENIOR NATIONAL ACCOUNT MANAGER - 03/08/2024 12:01 PM HEEL SPRAYER FIRST Images from the original note were not included. [facility] - SENIOR NATIONAL ACCOUNT MANAGER DYSPHAGIA TREATMENT Patient Name: Harris Neal Today's Date: 03/08/2024 Room: 7.[id number] IMPRESSIONS: RN (Louise) cleared SENIOR NATIONAL ACCOUNT MANAGER for entry. Pt's dysphonia is clearing well. He is not as verbal today and seems confused. Trialed with thin water by straw, pudding and a cookie. No overt s/s of aspiration RECOMMENDATIONS: Level 0- Thin Liquids and Level 7- Regular diet Medications: As tolerated Swallow Precautions: None Supervision Recommended: 1:1 Oral care: Regular toothbrush 1 f/u visit for diet tolerance D/w JON Gil PROGNOSIS: Good PLAN: Treatment/Interventions: Swallow function, Cognitive communication functioning, Communication functioning Frequency: 1-2 times per week GENERAL INFORMATION: Oxygenation: nasal cannula Behavior:Cooperative, Confused, and Unable to follow commands Level of Consciousness: Awake & alert Pain: Pain Assessment: DVPRS Pain Score: 0 Diet Prior to this Treatment: Temporary Means of Alternative Nutrition & Hydration and NPO Preferred Language: Uzbek Fast Food Shift Lead: n/a OUTCOME MEASURES: International Dysphagia Diet Standardization Initiative - IDDSI Solids - 7 - Regular Liquids - 0 - Thin IDDSI Level - 8 GOALS: Encounter Goals Encounter Goals (Active) LTG - Consume a diet of foods/liquids typical for developmental peers without complications Start: 03/07/24 Expected End: 03/21/24 STG - Participate in an instrumental swallow study Start: 03/07/24 Expected End: 03/21/24 Patient Education:Education Documentation No documentation found. Education Comments No comments found. If this is the last documented treatment, then it will signify discharge from acute care prior to discharge from the therapy service and will serve as the discharge summary. Therapy discharge recommendations are made by determining the patient's prior level of function, assessing current function level and establishing rehab potential. The overall discharge plan may be affected by input from Physicians, Care Coordination, medical condition/status, family support and insurance benefits. Aimee Johnson CCC-SLP SPRAYER FIRST * Sandi Colin MD - 03/08/2024 6:00 AM HEEL SPRAYER FIRST Neurocritical Care Progress Note History Of Present Illness Harris Neal, 78 y.o. male with PMH of Epilepsy on Keppra, COPD on home O2, prior Left PROGRAM SCHEDULE CLERK stroke, HTN, HLD , who presented on 03/05/2024 as a transfer from [facility] with AMS and hypoxia. LSN at 0800 on 03/05/24. Per chart reviewed, Patient presented to ED with AMS, generalized weakness, and hypoxia. Per EMS, Patient was hypoxia with O2 sats in 70s on 3L NC. Patient was also diaphoretic, pale and blue purse lips. He is placed on NRB and transfer to ED. Patient was awake and answer some question en route. In ED, Patient NIHSS was 35 and became altered with GCS of 8. He does not move any extremities. CTH is obtain which was negative for intracranial abnormalities. Patient did not received TNK because of OOW. Per , Patient stopped taking keppra since past one week. Patient was loaded with 4gm of Keppra in ED. Prior to Transfer, Patient GCS decline and is intubated for airway protection. During intubation, He has PEA arrest ROSC achieved in 15 minutes, Patient is transfer to [facility] for HLOC. Upon arrival to NICU, Patient is awake, follow commands, all extremities AG. CTA is obtain which is negative for LVO or aneurysm. Patient is placed on Ceribell which showed 0% seizure burden. Interval Events: 03/05: Remains intubated, awake, following commands, pH and CO2 corrected. 03/08: extubated to nasal cannula yesterday, failed SENIOR NATIONAL ACCOUNT MANAGER yesterday Past Medical History has no past medical history on file. Surgical History has no past surgical history on file. Family History No family history on file. Social History Social History Tobacco Use Smoking status: Former Allergies Patient has no known allergies. Home Medications Medications Prior to Admission Medication Sig Dispense Refill Last Dose/Taking aspirin 81 MG chewable tablet Chew 81 mg 1 time each day. Unknown carvedilol (Coreg) 25 MG tablet Take 25 mg by mouth in the morning and 25 mg in the evening. Take with meals. Unknown empagliflozin (Jardiance) 10 MG Take 10 mg by mouth 1 time each day. Unknown levETIRAcetam (Keppra) 500 MG tablet Take 500 mg by mouth 1 time each day. Past Week sacubitril-valsartan (Entresto) 97-103 MG tablet Take 1 tablet by mouth in the morning and 1 tablet in the evening. Unknown meclizine (Antivert) 25 MG tablet Take 12.5 mg by mouth 1 time each day. Unknown Review of Systems Unable to evaluate given clinical examination Physical Exam pre-admit mRS: Unable to evaluate given pt's current clinical condition and unable to contact [facility]K for further details. NIH STROKE SCALE SCORE ON ADMISSION 1a. 1a. LOC Level of Consciousness; 0-Alert 1-Drowsy 2-Stupor 3-Coma 1b. LOC Questions Month and age; 0-both 1-One 2-Neither 1c. LOC Commands Open/close eyes, Barytes Grinder/release non-paretic hand; 0-Both 1-One 2-Neither 2. Best Gaze; 0-Normal 1-Partial 2-Forced gaze 3. Visual [place]; 0-No visual loss. 1-Partial hemianopia 2-Complete 3-Bilateral 4. Facial Palsy; 0-None 1-Minor 2-Partial 3-Complete 5. Motor - R arm; 0-No drift 1-Drift 2-Some antigravity 3-No antigravity 4-No movement 1 6. Motor - R leg; 0-No drift 1-Drift 2-Some antigravity 3-No antigravity 4-No movement 1 7. Motor - L arm; 0-No drift 1-Drift 2-Some antigravity 3-No antigravity 4-No movement 1 8. Motor - L leg; 0-No drift 1-Drift 2-Some antigravity 3-No antigravity 4-No movement 9. Limb Ataxia; 0-Absent 1-1limb 2-2 limbs 10. Sensory; 0-Normal 1-Partial loss 2-Dense loss 11. Best Language; 0-Normal 1-Mild/mod 2-Severe 3-Mute 12. Dysarthria; 0-Normal 1-Mild/mod 2-Severe X-Untestable 13. Extinction and Inattention (formerly Neglect); 0-none 1-Partial 2-complete 3 TOTAL SCORE Further clinical exam documented under Impression and Plan by systems. ASSESSMENT AND PLAN Harrsi Neal, 78 y.o. male with PMH of Epilepsy on Keppra, COPD on home O2, prior Left PROGRAM SCHEDULE CLERK stroke, HTN, HLD , who presented on 03/05/2024 as a transfer from [facility] s/p PEA arrest, AMS, and multiple seizure. NEUROLOGIC Seizure on admission, Loss of consciousness unk duration (S06.0X9) on admission, Encephalopathy unspecified (G93.40) on admission Neuro Exam: MS: alert, oriented x2, confused to time, speech is fluent, hoarse, follow commands CN: L pupil 3, R pupil 3, reactive Motor: AG in all 4 extremities Gait: deferred initial CTH at OSH negative for intracranial abnormalities Repeated CTH at 2227 on 03/05 negative for acute infarction. 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 Their is Left ICA moderate stenosis 50-55% and Right ICA <50%. Rapid EEG Obtain through [facility] which showed 0% Seizure burden. The [facility] ClarityPro algorithm provide analysis of underlying activity and seizure detection. UDS neg, EtOH negative s/p AED Keppra 4gm load at OSH Started on Keppra 1.5 gm Q12 started (at home on 500 q12, suspect breakthrough seizure due to missed doses for 1 week as did not receive in mail will likely return to home dose Keppra) --> reduce to 1000mg q12 (03/08) S/p ASA load at OSH Aspirin 81mg daily resumed, for prior L PROGRAM SCHEDULE CLERK stroke Q4h neuro checks PT/OT/SENIOR NATIONAL ACCOUNT MANAGER as indicated CARDIOVASCULAR S/p PEA arrest, on admission Hypotension, on admission H/o Hypertension CV Exam: RRR Temp: [36.2 ?C (97.1 ?F)-37.7 ?C (99.8 ?F)] 36.7 ?C (98 ?F) Heart Rate: [64-87] 70 Resp: [18-40] 32 BP: (132-175)/(54-88) 159/64 Arterial Line BP 1: (119-169)/(102-154) 119/102 VS Parameters: SBP<160, MAP > 65 Resume home coreg 25mg BID and entresto qpm PEA arrest in setting hypoxia/intubation on (03/05), ROSC in 15 minutes Trop negative EKG NSR with PAC and RBBB TTE w/ normal EF, grade I DD, normal LA size, +pericardial effusion No CVC, L radial a-line (03/05) PULMONARY Acute resp failure with hypercapnia (J96.02) on admission, Ventilator (Z99.11) on admission day, COPD unspecified (J44.9) on admission Pulm Exam: CTAB intubated on admit, difficult intubation per OSH ED, attempted 5-6 times (03/05) Extubated 03/07 On 4L NC (on home 3Ls), desatting while sitting up with PT yesterday Still has pretty thick secretions, some difficulty coughing them up Duoneb, hypertonic, CPT q4, budesonide q12 COPD on home 3L, possible seizure + aspiration versus COPD exacerbation on Azithromycin, CTX, steroids (03/07) GASTROINTESTINAL GI Exam: soft, non-distended, present bowl sounds Nutrition: on TF at goal Current Order: NPO Diet, isosource GI route: NGT/Cortrak, SENIOR NATIONAL ACCOUNT MANAGER eval pending GI ppx: none bowel regimen: doc/senna, miralax q12 last BM 03/08 Lab Results Component Value Date ALT 12 03/05/2024 AST 21 03/05/2024 Alkaline Phosphatase 66 03/05/2024 Bilirubin Total 0.40 03/05/2024 RENAL Hyperkalemia (E87.5) on admission Intake/Output Summary (Last 24 hours) at 03/08/2024 0830 Last data filed at 03/08/2024 0200 Gross per 24 hour Intake 812 ml Output 1580 ml Net -768 ml Results from last 7 days Lab Units 03/08/24 0039 03/07/24 0001 03/06/24 0241 SODIUM mEq/L 147* 144 142 POTASSIUM mEq/L 4.2 3.7 4.2 CHLORIDE mEq/L 106 109* 107 CO2 mEq/L 36.6* 31.6* 25.0 BUN mg/dL 34* 37* 39* CREATININE mg/dL 0.86 0.94 1.03 LA 2.04 ICU electrolyte replacement protocol Phos improved No IVF S/p NS 500cc bolus for low urine out put, s/p another 1L bolus No Levine INFECTIOUS DISEASE Temp (24hrs), Av.7 ?C (98.1 ?F), Min:36.2 ?C (97.1 ?F), Max:37.7 ?C (99.8 ?F) Lab Results Component Value Date WBC 16.74 (H) 03/08/2024 WBC 14.69 (H) 03/07/2024 WBC 12.60 (H) 03/06/2024 UA non infectious COVID negative RCX: moderate WBCs seen, no organism yet COVID negative Flu RSV: negative 11/08/23 h/o Klebsiella PNA Monitor trend fever curve and WBC No fevers, WBC slight uptrend - may be aspiration + steroids Start COPD coverage with Azithromycin and CTX (03/06) HEMATOLOGIC Results from last 7 days Lab Units 03/08/24 0039 03/07/24 0001 03/06/24 02403/05/24 2051 HEMOGLOBIN g/dL 14.4 14.0 13.9 14.3 PLATELETS 10*3/uL 233 246 259 277 PLATELETS ESTIMATED -- -- -- Normal INR -- -- -- 1.04 PTT Seconds -- -- -- 29.8 Home aspirin daily DVT ppx: SCDs; HSQ ENDOCRINE Hyperlipidemia unspecified (E78.5) on admission Results from last 7 days Lab Units 03/08/24 0550 03/08/24 0039 03/07/24 2338 03/06/24 0405 03/06/24 0241 03/05/24 2051 GLUCOSE mg/dL -- 160* -- < > 142* 156* POC GLUCOSE mg/dL 136* -- 174* < > -- -- HEMOGLOBIN A1C % -- -- -- -- 5.63* -- TSH uIU/mL -- -- -- -- -- 1.870 CHOLESTEROL mg/dL -- -- -- -- 96 -- TRIGLYCERIDES mg/dL -- -- -- -- 108 -- HDL CHOLESTEROL mg/dL -- -- -- -- 19.9 -- < > = values in this interval not displayed. BG goal 80-180 medium-dose ISS MUSCULOSKELETAL AND INTEGUMENTARY Skin Exam: warm, dry, intact Code Status: Full Code Disposition: keep in ICU as pt remains in critical state The patient has an illness or injury that has acutely impaired one or more vital organ systems. There is a high probability of imminent or life threatening deterioration in the patient's condition during this evaluation. This is the total time spent evaluating the patient, speaking with medical staff and family, interpreting studies, discussing the case with consultants and admitting teams, retrieving data and reviewing charts, documenting the visit, and performing bundled procedures required during patient management. Minutes Critical Care Time 35 Day MD 20 Day VIN - (Yas Das (Bella) CONTROL EQUIPMENT ELECTRICIAN) 55 Day Total Night MD Night VIN - ( ) Night Total TOTAL of Critical Care Time spent MH- Neurocritical Care ICU Ph #[phone], Neurology Consult Ph #[phone] SPRAYER FIRST * Wolf Padilla, PT - 03/07/2024 3:09 PM HEEL SPRAYER FIRST Physical Therapy Evaluation and Treatment Patient Name: Harris Neal Today’s Date: 03/07/24 Room Number: [id number] Patient's Preferred Language: Uzbek PT Assessment and Plan: Assessment: JON Burnham cleared pt to be seen by PT. Pt is a 78 y/o M that presents to w/ AMS and hypoxia. Pt found to have diffuse encephalopathy and advanced emphysema w/ pulmonary vascular congestion. During eval Ox2, disoriented to situation, no pain reported except chest pain w/ coughing. Pt needed mod-maxA w/ bed mobility and min-modA w/ STS and side steps EOB. PT demo'd good B LE strength however balance deficits noted. Pt's O2% desaturated during STS and sit->supine however w/ a break and pursed lip breathing O2% improved. Pt is a good candidate for PT services to improve pts mobility and return back to PLOF. Prognosis: Good Strengths: Premorbid level of function, Support of extended family/friends Evaluation/Treatment Tolerance: Patient limited by fatigue Barriers to Discharge: Past medical history, Medical diagnosis, Safety awareness Medical Staff Made Aware: Yes Plan Treatment Plan/Goals Established with Patient/Caregiver: Yes Treatment/Interventions: Balance training, Bed mobility training, Equipment training, Caregiver training, Functional activities, Gait training, Manual therapy, Neuromuscular re-education, Patient education, Positioning, Stair training, Therapeutic exercises, Transfer training PT Plan: Skilled PT PT Frequency: 3-4 times per week until discharge PT Recommended Transfer Status: (Stand pivot modA) AM-PAC Basic Mobility Turning in bed without bedrails: A Lot Lying on back to sitting on edge of flat bed: A Lot Bed to chair: A Lot Standing up from chair: A Lot Walk in room: A Little Climbing 3-5 stairs: A Lot Mobility Inpatient Raw Score: 13 -HLM Goal: 4 [facility] Highest Level of Mobility (-HLM) Scale Highest Level of Mobility Performed (-HLM): Static standing (1 or more minutes) Subjective:Pt found supine in bed w/ family present agreeable to PT eval. Current Problem:This is a 78 y.o. male who is admitted to [facility] with Seizure (HCC) [R56.9] PMH: Epilepsy on Keppra, COPD on home O2, prior Left PROGRAM SCHEDULE CLERK stroke, HTN, HLD Pain:Pain Assessment Pain Assessment: 0-10 Pain Score: 0 Pain Type: Acute pain Pain Location: Chest (Chest pain only during coughing) Clinical Progression: Not changed Patient's Stated Pain Goal: 4 JON Burnham aware. Vital Signs:PT monitored vitals throughout session, JON Burnham cleared pt to be seen JON Burnham noted SBP<180. In supine:171/82 In sittin/82 HR:88-93 O2%: 88-92% on 3L/min O2 Pt asymptomatic. End of therapy:99% and HR:88 Lines and Drains: tele, NGT, 3L/min O2, pulse ox, BP Social History:Home Living: Type of Home: House Lives With: Spouse Home Adaptive Equipment: Cane Home Layout: One level Home Access: Level entry Prior Level of Function:Level of Wheeler: Ambulated with assistive device (comment) (SPC) Prior Function Comments: mod. I w/ the SPC and on 2L/min O2 intermittently at home. Objective:Precautions: fall risk, HOB elevated to 45 degrees Isolation Status: No active isolations Cognition:Orientation Level: Disoriented to situation, Disoriented to time General Assessment:Activity Tolerance: Endurance: Tolerates less than 10 min exercise with changes in vital signs Extremity AssessmentsRight Lower Extremity: RLE Assessment RLE Assessment: Within Functional Limits Left Lower Extremity:LLE Assessment LLE Assessment: Within Functional Limits Balance - Sitting: Static Sitting Balance Static Sitting-Balance Support: Right upper extremity supported, Left upper extremity supported Level of Assistance: Supervision/touching assistance Balance - Standing:Static Standing Balance Static Standing-Balance Support: No upper extremity supported Static Standing-Level of Assistance: Partial/Mod assistance Static Standing-Comment/Number of Minutes: Tiffanie for balance Dynamic Standing Balance Dynamic Standing-Balance Support: No upper extremity supported Functional Assessments and Treatments: Bed Mobility: Bed Mobility Bed Mobility: Yes Bed Mobility 1 Level of Assistance 1: Partial/Mod assistance, Substantial/Max assistance Bed Mobility Comments 1: mod-maxA Bed Mobility To/From: Supine to sit on EOB, Sitting EOB to supine Assistive Devices And Adaptive Equipments: Bed rail Transfers:Transfers Transfer: Yes Transfer 1 Level of Assistance 1: Partial/Mod assistance Trials/Comments 1: Tiffanie for balance, tech assisted w/ managing the lines Transfer To/From: [id number] Gait Training:Gait Training Activity 1 Distance (enter in feet): 5' Assistive Devices And Adaptive Equipments: No device Level of Assistance 1: Partial/Mod assistance Gait Training Activity 1 Comment: Pt took side steps to the L Tiffanie to balance, PT deferred further ambulation d/t high BP Patient EducationEducation Documentation Fall Prevention, taught by Wolf Padilla PT at 03/07/2024 5:49 PM. Learner: Family, Patient Readiness: Acceptance Method: Demonstration Response: Needs Reinforcement Physical Therapy Plan of Care, taught by Wolf Padilla PT at 03/07/2024 5:49 PM. Learner: Family, Patient Readiness: Acceptance Method: Demonstration Response: Needs Reinforcement GoalEncounter Goals Encounter Goals (Active) Patient will ambulate 100' distance using LRAD with sup. Start: 03/07/24 Expected End: 03/21/24 Patient will perform chair to and from bed transfer LRAD and sup. Start: 03/07/24 Expected End: 03/21/24 General Visit Information: Daughter and present Post Therapy Checklist - in bed, call mccormick within reach, bed/chair alarm in place, phone within reach, and with family nearby Time CalculationStart Time: 1509 Stop Time: 1541 Time Calculation (min): 32 min PT Drawer In Hand Used: Greg Cantu Treatment Note: If this is the last documented treatment, then it will signify discharge from acute care prior to discharge from the therapy service and will serve as the discharge summary. Wolf Padilla PT SPRAYER FIRST SPRAYER FIRST SPRAYER FIRST * Aimee Johnson, SHANNON-SENIOR NATIONAL ACCOUNT MANAGER - 03/07/2024 11:18 AM HEEL SPRAYER FIRST Images from the original note were not included. [facility] - SENIOR NATIONAL ACCOUNT MANAGER CLINICAL SWALLOWING EVALUATION (CSE) Patient Name: Harris Neal Today's Date: 03/07/2024 Room: [place] [address] [address] CLINICAL SWALLOW EVALUATION SUMMARY: Swallowing and voice are impaired. JON Gil cleared SENIOR NATIONAL ACCOUNT MANAGER for entry. Pt in bed awake. NGT in place. Has hx of COPD. Oriented x 2 and follows simple commands. He is aphonic and not tolerating his secretions. Trialed with ice chips and small amts of water with immediate coughing RECOMMENDATIONS: Temporary Means of Alternative Nutrition & Hydration , Level 0- Thin Liquids, and Ice chips only Medications: Non oral Swallow Precautions: None Supervision Recommended: 1:1 Oral care: Regular toothbrush Dysphagia tx Instrumental exam when more appropriate given dysphagia/dysphonia Speech/language/cog eval D/w pt and JON Gil PROGNOSIS: Fair PLAN: Treatment/Interventions: Swallow function, Cognitive communication functioning, Communication functioning Frequency: 1-2 times per week GENERAL INFORMATION: Reason for Consult: Pt was referred for a clinical swallow evaluation in the setting of AMS/weakness/ hyoxia then vented Oxygenation: nasal cannula Behavior:Cooperative and Confused Level of Consciousness: Awake & alert Pain: Pain Assessment: DVPRS Diet Prior to this Evaluation: Temporary Means of Alternative Nutrition & Hydration and NPO Preferred Language: Uzbek [employer] Shift Lead: ORAL MOTOR EXAM: Dentition: Adequate, Some missing teeth Face: Within Functional Limits Jaw: Within Functional Limits Lips: Within Functional Limits Tongue: Within Functional Limits Soft Palate: Within Functional Limits Larynx: Impaired Larynx Voice Quality: Impaired Larynx Voice Intensity: Impaired Larynx Volitional Cough: Impaired SWALLOW ASSESSMENT: Consistencies Assessed Consistencies Assessed: Yes Swallowing Overview - Liquids 0 - Thin Liquid: Impaired Clinical Swallow EvaluationPatient Positioning: In bed, Upright Previous History of Dysphagia?: No Inability to Follow One Step Directions?: No Tracheostomy Present: No Inability to Manage Their Secretions?: Yes Incomplete Lingual ROM?: No Incomplete Facial Symmetry (Facial Droop)?: No Voice Change During Swallowing Trials?: Yes Abnormal/Weak Volitional Cough?: Yes Cough/Throat Clear w/ Trial Consistency?: Yes Dysphonia (Quality and/or Pitch Change)?: Yes Motor Speech Disorder (Dysarthria/Apraxia)?: No Apraxia of the Swallow Suspected?: No Delayed Swallow Suspected?: No Multiple Swallows Per Bolus Suspected?: No Tongue Pumping Suspected?: No OUTCOME MEASURES:International Dysphagia Diet Standardization Initiative - IDDSI Solids - N/A Liquids - 0 - Thin IDDSI Level - 3 GOALS:Encounter Goals Encounter Goals (Active) LTG - Consume a diet of foods/liquids typical for developmental peers without complications Start: 03/07/24 Expected End: 03/21/24 STG - Participate in an instrumental swallow study Start: 03/07/24 Expected End: 03/21/24 EDUCATION:Education Documentation Oral Care, taught by STACY Rodriguez at 03/07/2024 11:18 AM. Learner: Other, Patient Readiness: Acceptance Method: Explanation Response: Verbalizes Understanding, Needs Reinforcement Other Speech-Language/Pathology Education Topics, taught by STACY Rodriguez at 03/07/2024 11:18 AM. Learner: Other, Patient Readiness: Acceptance Method: Explanation Response: Verbalizes Understanding, Needs Reinforcement Dietary Recommendations, taught by STACY Rodriguez at 03/07/2024 11:18 AM. Learner: Other, Patient Readiness: Acceptance Method: Explanation Response: Verbalizes Understanding, Needs Reinforcement Swallowing Strategies, taught by STACY Rodriguez at 1:18 AM. Learner: Other, Patient Readiness: Acceptance Method: Explanation Response: Verbalizes Understanding, Needs Reinforcement Speech-Language/Pathology Treatment Plan, taught by STACY Rodriguez at 03/07/2024 11:18 AM. Learner: Other, Patient Readiness: Acceptance Method: Explanation Response: Verbalizes Understanding, Needs Reinforcement Results of Exam, taught by STACY Rodriguez at 03/07/2024 11:18 AM. Learner: Other, Patient Readiness: Acceptance Method: Explanation Response: Verbalizes Understanding, Needs Reinforcement Education CommentsNo comments found. If this is the last documented treatment, then it will signify discharge from acute care prior to discharge from the therapy service and will serve as the discharge summary. Therapy discharge recommendations are made by determining the patient's prior level of function, assessing current function level and establishing rehab potential. The overall discharge plan may be affected by input from Physicians, Care Coordination, medical condition/status, family support and insurance benefits. STACY Rodriguez SPRAYER FIRST * Sandi Colin MD - 03/07/2024 6:00 AM HEEL SPRAYER FIRST Neurocritical Care History and Physical Note History Of Present Illness Harris Neal, 78 y.o. male with PMH of Epilepsy on Keppra, COPD on home O2, prior Left PROGRAM SCHEDULE CLERK stroke, HTN, HLD , who presented on 03/05/2024 as a transfer from [facility] with AMS and hypoxia. LSN at 0800 on 03/05/24. Per chart reviewed, Patient presented to ED with AMS, generalized weakness, and hypoxia. Per EMS, Patient was hypoxia with O2 sats in 70s on 3L NC. Patient was also diaphoretic, pale and blue purse lips. He is placed on NRB and transfer to ED. Patient was awake and answer some question en route. In ED, Patient NIHSS was 35 and became altered with GCS of 8. He does not move any extremities. CTH is obtain which was negative for intracranial abnormalities. Patient did not received TNK because of OOW. Per , Patient stopped taking keppra since past one week. Patient was loaded with 4gm of Keppra in ED. Prior to Transfer, Patient GCS decline and is intubated for airway protection. During intubation, He has PEA arrest ROSC achieved in 15 minutes, Patient is transfer to [facility] for HLOC. Upon arrival to NICU, Patient is awake, follow commands, all extremities AG. CTA is obtain which is negative for LVO or aneurysm. Patient is placed on Ceribell which showed 0% seizure burden. Interval Events: 03/05: Remains intubated, awake, following commands, pH and CO2 corrected. Past Medical History has no past medical history on file. Surgical History has no past surgical history on file. Family History No family history on file. Social History Social History Tobacco Use Smoking status: Former Allergies Patient has no known allergies. Home Medications Medications Prior to Admission Medication Sig Dispense Refill Last Dose/Taking aspirin 81 MG chewable tablet Chew 81 mg 1 time each day. Unknown carvedilol (Coreg) 25 MG tablet Take 25 mg by mouth in the morning and 25 mg in the evening. Take with meals. Unknown empagliflozin (Jardiance) 10 MG Take 10 mg by mouth 1 time each day. Unknown levETIRAcetam (Keppra) 500 MG tablet Take 500 mg by mouth 1 time each day. Past Week sacubitril-valsartan (Entresto) 97-103 MG tablet Take 1 tablet by mouth in the morning and 1 tablet in the evening. Unknown meclizine (Antivert) 25 MG tablet Take 12.5 mg by mouth 1 time each day. Unknown Review of Systems Unable to evaluate given clinical examination Physical Exam pre-admit mRS: Unable to evaluate given pt's current clinical condition and unable to contact [facility] for further details. NIH STROKE SCALE SCORE ON ADMISSION 1a. 1a. LOC Level of Consciousness; 0-Alert 1-Drowsy 2-Stupor 3-Coma 1b. LOC Questions Month and age; 0-both 1-One 2-Neither 1c. LOC Commands Open/close eyes, Barytes Grinder/release non-paretic hand; 0-Both 1-One 2-Neither 2. Best Gaze; 0-Normal 1-Partial 2-Forced gaze 3. Visual [place]; 0-No visual loss. 1-Partial hemianopia 2-Complete 3-Bilateral 4. Facial Palsy; 0-None 1-Minor 2-Partial 3-Complete 5. Motor - R arm; 0-No drift 1-Drift 2-Some antigravity 3-No antigravity 4-No movement 1 6. Motor - R leg; 0-No drift 1-Drift 2-Some antigravity 3-No antigravity 4-No movement 1 7. Motor - L arm; 0-No drift 1-Drift 2-Some antigravity 3-No antigravity 4-No movement 1 8. Motor - L leg; 0-No drift 1-Drift 2-Some antigravity 3-No antigravity 4-No movement 9. Limb Ataxia; 0-Absent 1-1limb 2-2 limbs 10. Sensory; 0-Normal 1-Partial loss 2-Dense loss 11. Best Language; 0-Normal 1-Mild/mod 2-Severe 3-Mute 12. Dysarthria; 0-Normal 1-Mild/mod 2-Severe X-Untestable 13. Extinction and Inattention (formerly Neglect); 0-none 1-Partial 2-complete 3 TOTAL SCORE Further clinical exam documented under Impression and Plan by systems. ASSESSMENT AND PLAN Harris Neal, 78 y.o. male with PMH of Epilepsy on Keppra, COPD on home O2, prior Left PROGRAM SCHEDULE CLERK stroke, HTN, HLD , who presented on 03/05/2024 as a transfer from OSH s/p PEA arrest, AMS, and multiple seizure. NEUROLOGIC Seizure on admission, Loss of consciousness unk duration (S06.0X9) on admission, Encephalopathy unspecified (G93.40) on admission Neuro Exam: GCS: E4 Eyes open spontaneously, V1 Intubated, M6 Follows commands MS: Intubated, no sedation, awakens easily, follow commands, tracking, answer by nodding. CN: L pupil 3, R pupil 3, reactive Motor: AG in all 4 extremities Gait: deferred initial CTH at OSH negative for intracranial abnormalities Repeated CTH at 2227 on 03/05 negative for acute infarction. 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 Their is Left ICA moderate stenosis 50-55% and Right ICA <50%. Rapid EEG Obtain through [facility] which showed 0% Seizure burden. The [employer] ClarityPro algorithm provide analysis of underlying activity and seizure detection. UDS neg, EtOH negative s/p AED Keppra 4gm load at OSH Started on Keppra 1.5 gm Q12 started (at home on 500 q12, suspect breakthrough seizure due to missed doses for 1 week as did not receive in mail will likely return to home dose Keppra) S/p ASA load at OSH Aspirin 81mg daily resumed, for prior L PROGRAM SCHEDULE CLERK stroke Off sedation, BP sensitive to Precedex and propofol. Off right now, prn fentanyl. Q2h neuro checks PT/OT/SENIOR NATIONAL ACCOUNT MANAGER as indicated CARDIOVASCULAR S/p PEA arrest, on admission Hypotension, on admission H/o Hypertension CV Exam: RRR Temp: [36.4 ?C (97.6 ?F)-37.8 ?C (100.1 ?F)] 36.4 ?C (97.6 ?F) Heart Rate: [55-86] 68 Resp: [0-24] 0 BP: (122-185)/(44-146) 122/56 Arterial Line BP 1: (119-204)/(38-157) 127/53 FiO2 (%): [30 %] 30 % VS Parameters: SBP<160, MAP > 65 No further pressors PEA arrest in setting hypoxia/intubation on (03/05), ROSC in 15 minutes Trop negative EKG NSR with PAC and RBBB Obtain TTE post-arrest, pending No CVC, L radial a-line (03/05) PULMONARY Acute resp failure with hypercapnia (J96.02) on admission, Ventilator (Z99.11) on admission day, COPD unspecified (J44.9) on admission Pulm Exam: CTAB Results from last 7 days Lab Units 03/07/24 0000 PH ART 7.46* PCO2 ART mmHg 48* PO2 ART mmHg 80 HCO3 ART mmol/L 34.1* O2 SAT ART % 96.4 BASE EXC ART mmol/L 9* FiO2 (%): [30 %] 30 % S RR: [20] 20 S VT: [450 mL] 450 mL PEEP/CPAP (cm H2O): [5 cm H2O] 5 cm H2O ME SUP: [10 cm H20-15 cm H20] 10 cm H20 MAP (cm H2O): [9-18] 9 intubated on admit, difficult intubation per OSH ED, attempted 5-6 times (03/05) Weaned to PSV Repeat CXR with ETT in place, mild vascular congestion VAP bundle Thick secretions inline and oral, improved Duoneb, hypertonic, CPT q4, budesonide q12 COPD on home 3L, possible seizure + aspiration versus COPD exacerbation Start Azithromycin, CTX, steroids Plan to extubate today GASTROINTESTINAL GI Exam: soft, non-distended, present bowl sounds Nutrition: on TF at goal Current Order: NPO Diet GI route: NGT/Cortrak, SENIOR NATIONAL ACCOUNT MANAGER eval after extubation GI ppx: Pepcid q12h/BID bowel regimen: doc/senna, miralax q12 last BM HEATER FURNACE Lab Results Component Value Date ALT 12 03/05/2024 AST 21 03/05/2024 Alkaline Phosphatase 66 03/05/2024 Bilirubin Total 0.40 03/05/2024 RENAL Hyperkalemia (E87.5) on admission Intake/Output Summary (Last 24 hours) at 03/07/2024 0226 Last data filed at 03/06/2024 2137 Gross per 24 hour Intake 2156.65 ml Output 1048 ml Net 1108.65 ml Results from last 7 days Lab Units 03/07/24 0001 03/06/24 0241 03/05/24 2051 SODIUM mEq/L 144 142 142 POTASSIUM mEq/L 3.7 4.2 5.5* CHLORIDE mEq/L 109* 107 107 CO2 mEq/L 31.6* 25.0 25.0 BUN mg/dL 37* 39* 35* CREATININE mg/dL 0.94 1.03 1.11 LA 2.04 ICU electrolyte replacement protocol Phos low, replacing - recheck in PM No IVF S/p NS 500cc bolus for low urine out put, s/p another 1L bolus levine in place - DC Levine INFECTIOUS DISEASE Temp (24hrs), Av.6 ?C (99.6 ?F), Min:36.4 ?C (97.6 ?F), Max:37.8 ?C (100.1 ?F) Lab Results Component Value Date WBC 14.69 (H) 03/07/2024 WBC 12.60 (H) 03/06/2024 WBC 15.21 (H) 03/05/2024 UA non infectious COVID negative RCX: moderate WBCs seen COVID negative Flu RSV: negative 11/08/23 h/o Klebsiella PNA Monitor trend fever curve and WBC No fevers, WBC slight uptrend - may be aspiration + steroids Start COPD coverage with Azithromycin and CTX (03/06) HEMATOLOGIC Results from last 7 days Lab Units 03/07/24215603/06/24 02403/05/242050 HEMOGLOBIN g/dL 14.0 13.9 14.3 PLATELETS 10*3/uL 246 259 277 PLATELETS ESTIMATED -- -- Normal INR -- -- 1.04 PTT Seconds -- -- 29.8 Home aspirin daily DVT ppx: SCDs; HSQ ENDOCRINE Hyperlipidemia unspecified (E78.5) on admission Results from last 7 days Lab Units 03/07/24 0001 03/06/24 2353 03/06/24 1759 03/06/24 0405 03/06/24 0241 03/05/24 2051 GLUCOSE mg/dL 205* -- -- -- 142* 156* POC GLUCOSE mg/dL -- 178* 191* < > -- -- HEMOGLOBIN A1C % -- -- -- -- 5.63* -- TSH uIU/mL -- -- -- -- -- 1.870 CHOLESTEROL mg/dL -- -- -- -- 96 -- TRIGLYCERIDES mg/dL -- -- -- -- 108 -- HDL CHOLESTEROL mg/dL -- -- -- -- 19.9 -- < > = values in this interval not displayed. BG goal 80-180 medium-dose ISS MUSCULOSKELETAL AND INTEGUMENTARY Skin Exam: warm, dry, intact Code Status: No Order Disposition: keep in ICU as pt remains in critical state The patient has an illness or injury that has acutely impaired one or more vital organ systems. There is a high probability of imminent or life threatening deterioration in the patient's condition during this evaluation. This is the total time spent evaluating the patient, speaking with medical staff and family, interpreting studies, discussing the case with consultants and admitting teams, retrieving data and reviewing charts, documenting the visit, and performing bundled procedures required during patient management. Minutes Critical Care Time 45 Day MD Day VIN - ( ) 45 Day Total Night MD Night VIN - ( ) Night Total TOTAL of Critical Care Time spent - Neurocritical Care ICU Ph #[phone], Neurology Consult Ph #[phone] [facility] * Sandi Colin MD - 03/06/2024 6:00 AM HEEL [facility] Neurocritical Care History and Physical Note History Of Present Illness Harris Neal, 78 y.o. male with PMH of Epilepsy on Keppra, COPD on home O2, prior Left PROGRAM SCHEDULE CLERK stroke, HTN, HLD , who presented on 03/05/2024 as a transfer from [facility] with AMS and hypoxia. LSN at 0800 on 03/05/24. Per chart reviewed, Patient presented to ED with AMS, generalized weakness, and hypoxia. Per EMS, Patient was hypoxia with O2 sats in 70s on 3L NC. Patient was also diaphoretic, pale and blue purse lips. He is placed on NRB and transfer to ED. Patient was awake and answer some question en route. In ED, Patient NIHSS was 35 and became altered with GCS of 8. He does not move any extremities. CTH is obtain which was negative for intracranial abnormalities. Patient did not received TNK because of OOW. Per , Patient stopped taking keppra since past one week. Patient was loaded with 4gm of Keppra in ED. Prior to Transfer, Patient GCS decline and is intubated for airway protection. During intubation, He has PEA arrest ROSC achieved in 15 minutes, Patient is transfer to [facility] for HLOC. Upon arrival to NICU, Patient is awake, follow commands, all extremities AG. CTA is obtain which is negative for LVO or aneurysm. Patient is placed on Ceribell which showed 0% seizure burden. Interval Events: 03/05: Patient is intubated, awake, following commands, pH and CO2 corrected. Past Medical History has no past medical history on file. Surgical History has no past surgical history on file. Family History No family history on file. Social History Social History Tobacco Use Smoking status: Former Allergies Patient has no known allergies. Home Medications Medications Prior to Admission Medication Sig Dispense Refill Last Dose/Taking aspirin 81 MG chewable tablet Chew 81 mg 1 time each day. Unknown carvedilol (Coreg) 25 MG tablet Take 25 mg by mouth in the morning and 25 mg in the evening. Take with meals. Unknown empagliflozin (Jardiance) 10 MG Take 10 mg by mouth 1 time each day. Unknown levETIRAcetam (Keppra) 500 MG tablet Take 500 mg by mouth 1 time each day. Past Week sacubitril-valsartan (Entresto) 97-103 MG tablet Take 1 tablet by mouth in the morning and 1 tablet in the evening. Unknown meclizine (Antivert) 25 MG tablet Take 12.5 mg by mouth 1 time each day. Unknown Review of Systems Unable to evaluate given clinical examination Physical Exam pre-admit mRS: Unable to evaluate given pt's current clinical condition and unable to contact [facility] for further details. NIH STROKE SCALE SCORE ON ADMISSION 1a. 1a. LOC Level of Consciousness; 0-Alert 1-Drowsy 2-Stupor 3-Coma 1b. LOC Questions Month and age; 0-both 1-One 2-Neither 1c. LOC Commands Open/close eyes, Barytes Grinder/release non-paretic hand; 0-Both 1-One 2-Neither 2. Best Gaze; 0-Normal 1-Partial 2-Forced gaze 3. Visual [place]; 0-No visual loss. 1-Partial hemianopia 2-Complete 3-Bilateral 4. Facial Palsy; 0-None 1-Minor 2-Partial 3-Complete 5. Motor - R arm; 0-No drift 1-Drift 2-Some antigravity 3-No antigravity 4-No movement 1 6. Motor - R leg; 0-No drift 1-Drift 2-Some antigravity 3-No antigravity 4-No movement 1 7. Motor - L arm; 0-No drift 1-Drift 2-Some antigravity 3-No antigravity 4-No movement 1 8. Motor - L leg; 0-No drift 1-Drift 2-Some antigravity 3-No antigravity 4-No movement 9. Limb Ataxia; 0-Absent 1-1limb 2-2 limbs 10. Sensory; 0-Normal 1-Partial loss 2-Dense loss 11. Best Language; 0-Normal 1-Mild/mod 2-Severe 3-Mute 12. Dysarthria; 0-Normal 1-Mild/mod 2-Severe X-Untestable 13. Extinction and Inattention (formerly Neglect); 0-none 1-Partial 2-complete 3 TOTAL SCORE Further clinical exam documented under Impression and Plan by systems. ASSESSMENT AND PLAN Harris Neal, 78 y.o. male with PMH of Epilepsy on Keppra, COPD on home O2, prior Left PROGRAM SCHEDULE CLERK stroke, HTN, HLD , who presented on 03/05/2024 as a transfer from OSH s/p PEA arrest, AMS, and multiple seizure. NEUROLOGIC Seizure on admission, Loss of consciousness unk duration (S06.0X9) on admission, Encephalopathy unspecified (G93.40) on admission Neuro Exam: GCS: E4 Eyes open spontaneously, V1 Intubated, M6 Follows commands MS: Intubated, no sedation, lethargic but awakens easily, follow commands, tracking, answer by nodding. CN: L pupil 3, R pupil 3, reactive Motor: AG in all 4 extremities Gait: deferred initial CTH at OSH negative for intracranial abnormalities Repeated CTH at 2227 on 03/05 negative for acute infarction. 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 Their is Left ICA moderate stenosis 50-55% and Right ICA <50%. Rapid EEG Obtain through [employer] [facility] which showed 0% Seizure burden. The [employer] ClarityPro algorithm provide analysis of underlying activity and seizure detection. UDS neg, EtOH negative s/p AED Keppra 4gm load at OSH Started on Keppra 1.5 gm Q12 started (at home on 500 q12, suspect breakthrough seizure due to missed doses for 1 week as did not receive in mail will likely return to home dose Keppra) S/p ASA load at OSH Aspirin 81mg daily resumed, for prior L PROGRAM SCHEDULE CLERK stroke Off sedation, BP sensitive to Precedex and propofol. Off right now, prn fentanyl. PT/OT/SENIOR NATIONAL ACCOUNT MANAGER as indicated CARDIOVASCULAR S/p PEA arrest, on admission Hypotension, on admission H/o Hypertension CV Exam: RRR Temp: [34.4 ?C (94 ?F)-37.8 ?C (100.1 ?F)] 37.6 ?C (99.6 ?F) Heart Rate: [55-75] 59 Resp: [0-24] 20 BP: (86-165)/(44-56) 134/53 Arterial Line BP 1: (107-201)/(38-66) 148/41 FiO2 (%): [30 %-80 %] 30 % VS Parameters: SBP<160 Briefly on levophed for hypotension a/w sedation, now off PEA arrest in setting hypoxia/intubation, ROSC in 15 minutes Trop negative EKG NSR with PAC and RBBB Obtain TTE post-arrest No CVC, L radial a-line (03/05) PULMONARY Acute resp failure with hypercapnia (J96.02) on admission, Ventilator (Z99.11) on admission day, COPD unspecified (J44.9) on admission Pulm Exam: CTAB Results from last 7 days Lab Units 03/06/24 0241 PH ART 7.43 PCO2 ART mmHg 38 PO2 ART mmHg 122* HCO3 ART mmol/L 25.2 O2 SAT ART % 98.8 BASE EXC ART mmol/L 1 FiO2 (%): [30 %-80 %] 30 % S RR: [20-24] 20 S VT: [450 mL] 450 mL PEEP/CPAP (cm H2O): [5 cm H2O] 5 cm H2O MAP (cm H2O): [12-16] 12 intubated on admit, difficult intubation per OSH ED, attempted 5-6 times\\ CXR ETT in placed, appears to be 6cm above francisco javier, mild pulmonary congestion Repeat CXR with ETT in place, basilar opacities VAP bundle Wean to PSV as tolerated Thick secretions inline and oral Duoneb, hypertonic, CPT q4, budesonide q12 COPD on home 3L, possible seizure + aspiration versus COPD exacerbation startAzithromycin, CTX, steroids GASTROINTESTINAL GI Exam: soft, non-distended, present bowl sounds Nutrition: on TF at goal Current Order: NPO Diet GI route: NGT/Cortrak GI ppx: Pepcid q12h/BID bowel regimen: doc/senna, miralax q12 last BM HEATER FURNACE Lab Results Component Value Date ALT 12 03/05/2024 AST 21 03/05/2024 Alkaline Phosphatase 66 03/05/2024 Bilirubin Total 0.40 03/05/2024 RENAL Hyperkalemia (E87.5) on admission Intake/Output Summary (Last 24 hours) at 03/06/2024 1039 Last data filed at 03/06/2024 0833 Gross per 24 hour Intake 1611.32 ml Output 583 ml Net 1028.32 ml Results from last 7 days Lab Units 03/06/24 0241 03/05/24 2051 SODIUM mEq/L 142 142 POTASSIUM mEq/L 4.2 5.5* CHLORIDE mEq/L 107 107 CO2 mEq/L 25.0 25.0 BUN mg/dL 39* 35* CREATININE mg/dL 1.03 1.11 LA 2.04 ICU electrolyte replacement protocol No IVF S/p NS 500cc bolus for low urine out put, s/p another 1L bolus Still low UO, will hold off on another bolus as pulmonary congestion evident on CXR - may need diuresis instead levine in place - will keep for UOP monitoring INFECTIOUS DISEASE Temp (24hrs), Av.2 ?C (98.9 ?F), Min:34.4 ?C (94 ?F), Max:37.8 ?C (100.1 ?F) Lab Results Component Value Date WBC 12.60 (H) 03/06/2024 WBC 15.21 (H) 03/05/2024 WBC 10.5 (H) 11/12/2022 UA non infectious COVID negative Rcx ordered COVID negative Check flu RSV 11/08/23 h/o Klebsiella PNA Monitor trend fever curve and WBC Start COPD coverage with Azithromycin and CTX HEMATOLOGIC Results from last 7 days Lab Units 03/06/2424003/05/242050 HEMOGLOBIN g/dL 13.9 14.3 PLATELETS 10*3/uL 259 277 PLATELETS ESTIMATED -- Normal INR -- 1.04 PTT Seconds -- 29.8 DVT ppx: SCDs; HSQ ENDOCRINE Hyperlipidemia unspecified (E78.5) on admission Results from last 7 days Lab Units 03/06/24 0405 03/06/2424003/05/242050 GLUCOSE mg/dL -- 142* 156* POC GLUCOSE mg/dL 131* -- -- HEMOGLOBIN A1C % -- 5.63* -- TSH uIU/mL -- -- 1.870 CHOLESTEROL mg/dL -- 96 -- TRIGLYCERIDES mg/dL -- 108 -- HDL CHOLESTEROL mg/dL -- 19.9 -- BG goal 80-180 medium-dose ISS MUSCULOSKELETAL AND INTEGUMENTARY Skin Exam: warm, dry, intact Code Status: No Order Disposition: keep in ICU as pt remains in critical state The patient has an illness or injury that has acutely impaired one or more vital organ systems. There is a high probability of imminent or life threatening deterioration in the patient's condition during this evaluation. This is the total time spent evaluating the patient, speaking with medical staff and family, interpreting studies, discussing the case with consultants and admitting teams, retrieving data and reviewing charts, documenting the visit, and performing bundled procedures required during patient management. Minutes Critical Care Time 50 Day MD Day VIN - ( ) 50 Day Total Night MD Night VIN - ( ) Night Total TOTAL of Critical Care Time spent - Neurocritical Care ICU Ph #[phone], Neurology Consult Ph #[phone] [facility]2025-01-17 20:48:20Pending Results Scheduled Orders Name Type Priority Associated Diagnoses Order Schedule Basic Metabolic Panel Lab Routine Mor lester draw (Lab) for 4 Weeks starting 03/06/2024 until 04/02/2024, 20 completed Calcium Level Ionized Whole Blood Lab Routine Every Thu/Thu/ i (Lab) for 4 Weeks starting 03/07/2024 until 04/01/2024, 9 completed Complete Blood Count w/Diff and Platelet Lab Routine Morning draw (Lab) for 4 Weeks starting 03/06/2024 until 04/02/2024, 20 completed Magnesium Level Lab Routine Every Thu /Thu/Fri (Lab) for 4 Weeks starting 03/07/2024 until 04/01/2024, 9 completed Phosphorus Level Lab Routine Every Mo /Thu/Thu (Lab) for 4 Weeks starting 03/07/2024 until 04/01/2024, 9 completed Chest physiotherapy Method of CPT: Flutter Respiratory Care Routine For RT procedur e use only 0200, 0800, 1400, 2000 until discontinued starting 03/10/2024 POCT Glucose Point of Care Testing - Docked Device Routine 3 times daily before meals (Lab) for 30 Days starting 03/12/2024 until 04/10/2024, 41 completed POCT Glucose Point of Care Testing - Docked Device Routine Every 15 minutes as needed until discontinued starting 03/11/2024, 2 completed Non-Invasive Ventilator - Respiratory Care Routine For RT frequenc y use only for continuous procedures with task-based reminders at 8a and 8p until discontinued starting 03/13/2024 Apply condom catheter Procedures Routine Onc e for 1 Occurrences starting 03/14/2024 until 03/14/2024 Pulmonary Function Testing PFT Routine Once for 1 Occurrences starting 03/20/2024 until 03/20/2024 Oxygen Therapy - Patient Type: Adult; Device: Nasal Cannula; Rate in liters per minute: 4 Lpm; Follow Respiratory Pathway: Yes Respiratory Care Routine For RT frequenc y use only for continuous procedures with task-based reminders at 8a and 8p until discontinued starting 03/21/2024 Scheduled Referrals Name Type Priority Associated Diagnoses Orde r Schedule Ambulatory referral to Pulmonology Outpatient Referral Routine Acute respiratory failure with hypoxia and hypercarbia (CMS/HCC) (HCC) Chronic bronchitis, unspecified chronic bronchitis type (HCC) Expected: 03/25/2024 (Approximate), Expires: 03/25/2025 Health Maintenance Due Date Last Done Comments Medicare Annual Wellness (AWV) 1945 Annual Physical 1949 Pneumococcal Vaccine: 65+ Years (1 of 2 - PCV) 1952 DTaP/Tdap/Td Vaccines (1 - Tdap) 1965 Zoster Vaccines (1 of 2) 1996 Respiratory Syncytial Virus (RSV) or >=60 (1 - 1-dose 75+ series) 2021 Lipid Panel 03/06/2029 03/06/2024, 11/07/2022 Influenza Vaccine Completed 11/14/2023 HIB Vaccines Aged Out No longer eligi ble based on patient's age to complete this topic HPV Vaccines Aged Out No longer eligi ble based on patient's age to complete this topic Hepatitis A Vaccines Aged Out No long er eligible based on patient's age to complete this topic Hepatitis B Vaccines Aged Out No long er eligible based on patient's age to complete this topic IPV Vaccines Aged Out No longer eligi ble based on patient's age to complete this topic Meningococcal Vaccine Aged Out No karmen ashvin eligible based on patient's age to complete this topic Rotavirus Vaccines Aged Out No longer eligible based on patient's age to complete this topic [id number]:48[facility]20 Diagnosis Seizure (HCC) - Primary Other convulsions Seizure (HCC) Other convulsions Acute respiratory failure wi th hypoxia and hypercarbia (CMS/HCC) (HCC) Chronic bronchitis, unspecif ied chronic bronchitis type (HCC) COPD (chronic obstructive pulmonary disease) (HCC) Chronic airway obstruction, not elsewhere classified Acute respiratory failure wi th hypoxia and hypercarbia (CMS/HCC) (HCC) Non-sustained ventricular ta chycardia (HCC) Cardiac arrest (HCC) Cardiac arrest [id number] 20:48:20 [facility] [id number] 20:38:01 Patient sent with EMS to the [facility] in [place] Patient was sent on 2L O2. Report given to the nurse Sondra and notified that patient is on his way. [facility] [id number] 17:56:28 Images from the original note were not included. [id number] Valsartan and Sacubitril Brand Name(s): Entresto? IMPORTANT WARNING: Tell your doctor if you are or plan to become . Do not take the combination of valsartan and sacubitril if you are . If you become while you are taking valsartan and sacubitril, stop taking valsartan and sacubitril and call your doctor immediately. The combination of valsartan and sacubitril may cause or serious injury to the fetus when taken in the last 6 months of . WHY is this medicine prescribed? The combination of valsartan and sacubitril is usually used in combination with other medications to lower the risk of and hospitalization in adults with certain types of heart failure. The combination of valsartan and sacubitril is also used to treat certain types of heart failure in children 1 year of age and older. Valsartan is in a class of medications called angiotensin II receptor antagonists. It works by blocking the action of certain natural substances that tighten the blood vessels, allowing the blood to flow more smoothly and the heart to pump more efficiently. Sacubitril is in a class of medications called neprilysin inhibitors. It works to help control blood volume. HOW should this medicine be used? The combination of valsartan and sacubitril comes as a tablet and a sprinkle capsule (capsule that contains oral pellets, which are small beads of medication that can be sprinkled on food) to take by mouth. The tablets are usually taken twice a day with or without food. The sprinkle capsules are mixed with food and taken twice a day. To help you remember to take the combination of valsartan and sacubitril, take it at around the same times every day. Follow the directions on your prescription label carefully, and ask your doctor or pharmacist to explain any part you do not understand. Take valsartan and sacubitril exactly as directed. Do not take more or less of it or take it more often than prescribed by your doctor. To take the sprinkle capsules mixed with food, open the capsule and sprinkle the entire contents onto 1 or 2 teaspoonfuls of soft foods, such as applesauce, yogurt, or pudding. Swallow the mixture right after you mix it without chewing. Do not swallow the sprinkle capsules whole; do not chew or crush the oral pellets. If you or your child cannot swallow the tablets, your pharmacist can prepare this medication as an oral suspension (liquid). Shake the bottle of suspension well before each dose. Your doctor may start you on a low dose of valsartan and sacubitril and gradually increase your dose. The combination of valsartan and sacubitril controls heart failure but does not cure it. Continue to take valsartan and sacubitril even if you feel well. Do not stop taking valsartan and sacubitril without talking to your doctor. Ask your pharmacist or doctor for a copy of the animation camera operator's information for the patient. Are there OTHER USES for this medicine? This medication may be prescribed for other uses; ask your doctor or pharmacist for more information. What SPECIAL PRECAUTIONS should I follow? Before taking valsartan and sacubitril, ? tell your doctor and pharmacist if you are allergic (swelling of your face, lips, tongue, or throat, or difficulty breathing) to valsartan, other angiotensin receptor blockers (ARB) such as azilsartan (Edarbi, in Edarbyclor), candesartan (Atacand, in Atacand HCT), irbesartan (Avapro, in Avalide), losartan (Cozaar, in Hyzaar), olmesartan (Benicar, in Tomasa, in Benicar HCT, in Tribenzor), telmisartan (Micardis, in Micardis HCT); angiotensin-converting enzyme (DRU) inhibitors such as benazepril (Lotensin, in Lotrel), captopril, enalapril (Epaned, Vasotec, in Vaseretic), fosinopril, lisinopril (Qbrelis, Zestril, in Zestoretic), moexipril, perindopril (in Prestalia), quinapril, ramipril (Altace), or trandolapril (Mavik, in Tarka); sacubitril; any other medications; or any of the ingredients in valsartan and sacubitril tablets and sprinkle capsules. Ask your pharmacist for a list of the ingredients. ? Some medications should not be taken with valsartan and sacubitril. Other medications may cause dosing changes or extra monitoring when taken with valsartan and sacubitril. Make sure you have discussed any medications you are currently taking or plan to take before starting valsartan and sacubitril with your doctor and pharmacist. Before starting, stopping, or changing any medications while taking valsartan and sacubitril, please get the advice of your doctor or pharmacist. ? The following nonprescription or herbal products may interact with valsartan and sacubutril: ibuprofen (Advil, Motrin), naproxen (Aleve). Be sure to let your doctor and pharmacist know that you are taking these medications before you start taking valsartan and sacubutril. Do not start any of these medications while taking valsartan and sacubutril without discussing with your healthcare provider. ? tell your doctor if you have or have ever had hereditary angioedema (inherited condition that causes episodes of swelling in the hands, feet, face, airway, or intestines); diabetes or kidney, or liver disease. ? tell your doctor if you are . Do not breastfeed while you are taking valsartan and sacubutril. ? you should know that valsartan and sacubutril may cause dizziness, lightheadedness, and fainting when you get up too quickly from a lying position. This is more common when you first start taking valsartan and sacubitril. To help avoid this problem, get out of bed slowly, resting your feet on the floor for a few minutes before standing up. ? you should know that diarrhea, vomiting, not drinking enough fluids, and sweating a lot can cause a drop in blood pressure, which may cause lightheadedness and fainting. Tell your doctor if you have any of these problems or develop them during your treatment. What SPECIAL DIETARY instructions should I follow? Do not use salt substitutes containing potassium without talking to your doctor. If your doctor prescribes a low-salt or low-sodium diet, follow these directions carefully. What should I do IF I FORGET to take a dose? Take the missed dose as soon as you remember it. However, if it is almost time for the next dose, skip the missed dose and continue your regular dosing schedule. Do not take a double dose to make up for a missed one. What SIDE EFFECTS can this medicine cause? Some side effects can be serious. If you experience any of these symptoms or those listed in the SPECIAL PRECAUTIONS section, call your doctor immediately: ? rash ? itching ? swelling of the lips, tongue, face, or throat ? difficulty breathing The combination of valsartan and sacubitril may cause other side effects. Call your doctor if you have any unusual problems while taking this medication. If you experience a serious side effect, you or your doctor may send a report to the Food and Drug Administration's (FDA) MedWatch Adverse Event Reporting program online (https://www.fda.gov/Safety/MedWatch) or by phone ( ). What should I know about STORAGE and DISPOSAL of this medication? Keep this medication in the container it came in, tightly closed, and out of reach of children. Store the tablets at room temperature and away from excess heat and moisture (not in the bathroom). Store the bottle of oral suspension at room temperature for up to 15 days; do not refrigerate it. It is important to keep all medication out of sight and reach of children as many containers (such as weekly pill minders and those for eye drops, creams, patches, and inhalers) are not child-resistant and young children can open them easily. To protect young children from poisoning, always lock safety caps and immediately place the medication in a safe location -- one that is up and away and out of their sight and reach. https://www.AMS VariCode.org Unneeded medications should be disposed of in special ways to ensure that pets, children, and other people cannot consume them. However, you should not flush this medication down the toilet. Instead, the best way to dispose of your medication is through a medicine take-back program. Talk to your pharmacist or contact your local garbage/recycling department to learn about take-back programs in your community. See the FDA's Safe Disposal of Medicines website (https://goo.gl/c4Rm4p) for more information if you do not have access to a take-back program. What should I do in case of OVERDOSE? In case of overdose, call the poison control helpline at . Information is also available online at https://www.poisonhelp.org/help. If the victim has collapsed, had a seizure, has trouble breathing, or can't be awakened, immediately call emergency services at [phone]. Symptoms of overdose may include the following: ? dizziness ? fainting What OTHER INFORMATION should I know? Keep all appointments with your doctor and the laboratory. Your doctor may order certain lab tests to check your body's response to valsartan and sacubitril. Do not let anyone else take your medication. Ask your pharmacist any questions you have about refilling your prescription. It is important for you to keep a written list of all of the prescription and nonprescription (jmkp-brn-fiykgbd) medicines you are taking, as well as any products such as vitamins, minerals, or other dietary supplements. You should bring this list with you each time you visit a doctor or if you are admitted to a hospital. It is also important information to carry with you in case of emergencies. This report on medications is for your information only, and is not considered individual patient advice. Because of the changing nature of drug information, please consult your physician or pharmacist about specific clinical use. The [employer] [employer] represents that the information provided hereunder was formulated with a reasonable standard of care, and in conformity with professional standards in the field. [employer] [place] [employer] makes no representations or warranties, express or implied, including, but not limited to, any implied warranty of merchantability and/or fitness for a particular purpose, with respect to such information and specifically disclaims all such warranties. Users are advised that decisions regarding drug therapy are complex medical decisions requiring the independent, informed decision of an appropriate health aged or disabled care worker, and the information is provided for informational purposes only. The entire monograph for a drug should be reviewed for a thorough understanding of the drug's actions, uses and side effects. The [place] [employer] does not endorse or recommend the use of any drug. The information is not a substitute for medical care. AHFS? Patient Medication Information?. ? Copyright, 2023. [employer]?, [address] [facility], [address], [place], [place]. All Rights Reserved. Duplication for commercial use must be authorized by [facility]. Selected Revisions: September 26, 2023. AHFS? Patient Medication Information?. ? Copyright, 2024 [facility] 17[facility]56[facility]16 Images from the original note were not included. [id number] Levetiracetam Brand Name(s): Elepsia? XR, Keppra?, Keppra? XR, Spritam?; also available generically WHY is this medicine prescribed? Levetiracetam is used alone and along with other medications to control partial-onset seizures (seizures that involve only one part of the brain) in adults, children, and infants 1 month of age or older. Levetiracetam is also used in combination with other medications to treat seizure in adults and children 12 years of age or older with juvenile myoclonic epilepsy. Levetiracetam is also used in combination with other medications to treat primary generalized tonic-clonic seizures (formerly known as a grand mal seizure; seizure that involves the entire body) in adults and children 6 years of age or older with epilepsy. Levetiracetam is in a class of medications called anticonvulsants. It works by decreasing abnormal excitement in the brain. HOW should this medicine be used? Levetiracetam comes as a solution (liquid), an immediate-release tablet, an extended-release (long-acting) tablet, and as a tablet for suspension (a tablet to take with liquid) to take by mouth. The solution, immediate-release tablet, and tablet for suspension are usually taken twice a day, once in the morning and once at night, with or without food. The extended-release tablets are usually taken once daily with or without food. Try to take levetiracetam at around the same time(s) every day. Follow the directions on your prescription label carefully, and ask your doctor or pharmacist to explain any part you do not understand. Take levetiracetam exactly as directed. Do not take more or less of it or take it more often than prescribed by your doctor. Swallow the levetiracetam immediate-release and extended-release tablets whole; do not split, chew, or crush them. Take the whole levetiracetam tablets for suspension according to directions; do not split, chew, or crush them. To take levetiracetam tablet(s) for suspension, use dry hands to peel the foil from the blister packaging; do not try to push the tablets through the foil. Immediately take out the number of tablet(s) that your doctor has told you to take and place the tablet(s) on your tongue with a sip of liquid. Once the tablet completely dissolves on your tongue, swallow the mixture. The tablet(s) may take about 10 seconds to dissolve. You can also take levetiracetam tablets for suspension by dissolving them in a liquid. Place the number of tablet(s) your doctor has told you to take into a cup and add a small amount of liquid (about 1 tablespoon [15 mL] or enough to cover the medication in a cup). Swirl the cup gently. After the tablet(s) for suspension dissolve, drink the mixture right away. If there is any medication left in the cup, add some more liquid and swirl the cup gently. Drink the mixture water right away to be sure that you swallow all of the medication. If you are taking the levetiracetam oral solution, do not use a household spoon to measure your dose. You might not get the right amount of medication. Ask your doctor or pharmacist to recommend a medicine dropper, spoon, cup, or syringe and to show you how to use it to measure your medication. Your doctor may start you on a low dose of levetiracetam and gradually increase your dose, not more often than once every 2 weeks. Levetiracetam controls epilepsy but does not cure it. Continue to take levetiracetam even if you feel well. Do not stop taking levetiracetam without talking to your doctor, even if you experience side effects such as unusual changes in behavior or mood. If you suddenly stop taking levetiracetam, your seizures may become worse. Your doctor will probably decrease your dose gradually. Your doctor or pharmacist will give you the animation camera operator's patient information sheet (Medication Guide) when you begin treatment with levetiracetam and each time you refill your prescription. Read the information carefully and ask your doctor or pharmacist if you have any questions. You can also visit the Food and Drug Administration (FDA) website (https://www.fda.gov/Drugs) or the animation camera operator's website to obtain the Medication Guide. Are there OTHER USES for this medicine? This medication may be prescribed for other uses; ask your doctor or pharmacist for more information. What SPECIAL PRECAUTIONS should I follow? Before taking levetiracetam, ? tell your doctor and pharmacist if you are allergic to levetiracetam, any other medications, or any of the ingredients in levetiracetam products. Ask your pharmacist or check the Medication Guide for a list of the ingredients. ? tell your doctor and pharmacist what prescription and nonprescription medications, vitamins, nutritional supplements, and herbal products you are taking or plan to take. Your doctor may need to change the doses of your medications or monitor you carefully for side effects. ? tell your doctor if you have or have ever had kidney disease, depression, mood problems, or suicidal thoughts or behavior. ? tell your doctor if you are , plan to become , or are . If you become while taking levetiracetam, call your doctor. ? you should know that levetiracetam may make you dizzy or drowsy. Do not drive a car or operate machinery until you know how this medication affects you. ? you should know that your mental health may change in unexpected ways and you may become suicidal (thinking about harming or killing yourself or planning or trying to do so) while you are taking levetiracetam for the treatment of epilepsy, mental illness, or other conditions. A small number of adults and children 5 years of age and older (about 1 in 500 people) who took anticonvulsants such as levetiracetam to treat various conditions during clinical studies became suicidal during their treatment. Some of these people developed suicidal thoughts and behavior as early as one week after they started taking the medication. There is a risk that you may experience changes in your mental health if you take an anticonvulsant medication such as levetiracetam, but there may also be a risk that you will experience changes in your mental health if your condition is not treated. You and your doctor will decide whether the risks of taking an anticonvulsant medication are greater than the risks of not taking the medication. You, your family, or your caregiver should call your doctor right away if you experience any of the following symptoms: panic attacks; agitation or restlessness; nervousness, new or worsening irritability, anxiety, or depression; acting on dangerous impulses; difficulty falling or staying asleep; aggressive, angry, or violent behavior; aj (frenzied, abnormally excited mood); talking or thinking about wanting to hurt yourself or end your life; withdrawing from friends and family; preoccupation with and dying; giving away prized possessions; or any other unusual changes in behavior or mood. Be sure that your family or caregiver knows which symptoms may be serious so they can call the doctor if you are unable to seek treatment on your own. What SPECIAL DIETARY instructions should I follow? Unless your doctor tells you otherwise, continue your normal diet. What should I do IF I FORGET to take a dose? If it has only been a few hours since the time you were scheduled to take the dose, take the missed dose as soon as you remember it. However, if it is almost time for the next dose, skip the missed dose and continue your regular dosing schedule. Do not take a double dose to make up for a missed one. What SIDE EFFECTS can this medicine cause? Some side effects can be serious. If you experience any of the following symptoms or those listed in the SPECIAL PRECAUTIONS section, call your doctor immediately: ? rash, fever, swollen lymph nodes, facial swelling, shortness of breath, yellowing of skin or whites of the eyes, dark urine ? seizures that are worse or different than the seizures you had before ? fever, sore throat, or other signs of infection ? blisters on skin ? hives ? itching ? swelling of the face, throat, tongue, lips. and eyes ? difficulty swallowing or breathing ? loss of balance or coordination Levetiracetam may cause other side effects. Call your doctor if you have any unusual problems while taking this medication. If you experience a serious side effect, you or your doctor may send a report to the Food and Drug Administration's (FDA) MedWatch Adverse Event Reporting program online (https://www.fda.gov/Safety/MedWatch) or by phone ( ). What should I know about STORAGE and DISPOSAL of this medication? Keep this medication in the container it came in, tightly closed, and out of reach of children. Store it at room temperature and away from light, excess heat and moisture (not in the bathroom). Unneeded medications should be disposed of in special ways to ensure that pets, children, and other people cannot consume them. However, you should not flush this medication down the toilet. Instead, the best way to dispose of your medication is through a medicine take-back program. Talk to your pharmacist or contact your local garbage/recycling department to learn about take-back programs in your community. See the FDA's Safe Disposal of Medicines website (https://goo.gl/c4Rm4p) for more information if you do not have access to a take-back program. It is important to keep all medication out of sight and reach of children as many containers (such as weekly pill minders and those for eye drops, creams, patches, and inhalers) are not child-resistant and young children can open them easily. To protect young children from poisoning, always lock safety caps and immediately place the medication in a safe location -- one that is up and away and out of their sight and reach. https://www.upandaway.org What should I do in case of OVERDOSE? In case of overdose, call the poison control helpline at . Information is also available online at https://www.poisonhelp.org/help. If the victim has collapsed, had a seizure, has trouble breathing, or can't be awakened, immediately call emergency services at [phone]. Symptoms of overdose may include the following: ? drowsiness ? agitation ? aggression ? decreased consciousness or loss of consciousness (coma) ? difficulty breathing What OTHER INFORMATION should I know? Keep all appointments with your doctor. If an infant or child younger than 4 years of age receives levetiracetam, your doctor will check their blood pressure regularly. Do not let anyone else take your medication. Ask your pharmacist any questions you have about refilling your prescription. It is important for you to keep a written list of all of the prescription and nonprescription (uvjy-kng-szabhvd) medicines you are taking, as well as any products such as vitamins, minerals, or other dietary supplements. You should bring this list with you each time you visit a doctor or if you are admitted to a hospital. It is also important information to carry with you in case of emergencies. This report on medications is for your information only, and is not considered individual patient advice. Because of the changing nature of drug information, please consult your physician or pharmacist about specific clinical use. [employer] [place] [employer] represents that the information provided hereunder was formulated with a reasonable standard of care, and in conformity with professional standards in the field. [employer] [place] [employer] makes no representations or warranties, express or implied, including, but not limited to, any implied warranty of merchantability and/or fitness for a particular purpose, with respect to such information and specifically disclaims all such warranties. Users are advised that decisions regarding drug therapy are complex medical decisions requiring the independent, informed decision of an appropriate health aged or disabled care worker, and the information is provided for informational purposes only. The entire monograph for a drug should be reviewed for a thorough understanding of the drug's actions, uses and side effects. [employer] [place] [employer] does not endorse or recommend the use of any drug. The information is not a substitute for medical care. AHFS? Patient Medication Information?. ? Copyright, 2023. [employer] [place] [employer]?, [address] [facility], [address], [place], [place]. All Rights Reserved. Duplication for commercial use must be authorized by [facility]. Selected Revisions: June 27, 2023. AHFS? Patient Medication Information?. ? Copyright, 2024 [facility]2025-01-17 17:56:04 Images from the original note were not included. [id number] Midodrine Brand Name(s): Orvaten?, Proamatine?; also available generically IMPORTANT WARNING: Midodrine may cause supine hypertension (high blood pressure that occurs when lying flat on your back). This medication should only be used by people whose low blood pressure severely limits their ability to perform daily activities and who could not be treated successfully with other therapies. Tell your doctor if you have or have ever had high blood pressure. Tell your doctor and pharmacist if you are taking dihydroergotamine (DHE, Migranal). Also tell your doctor and pharmacist what other prescription and nonprescription medications you are taking, including ephedrine, phenylephrine, phenylpropanolamine, and pseudoephedrine. Many nonprescription products contain these medications (e.g. diet pills and medications for cough and colds), so check labels carefully. If you experience any of the following symptoms, stop taking midodrine and call your doctor immediately: awareness of your heartbeat, pounding in your ears, headache, or blurred vision. After beginning treatment, your doctor may tell you to continue taking midodrine only if you have significant improvement in your symptoms. Talk to your doctor about how you are feeling while taking this medication. Keep all appointments with your doctor. You should have your blood pressure checked in the standing and lying flat positions before starting treatment and regularly while you are taking midodrine. Talk to your doctor about the risks of taking midodrine. WHY is this medicine prescribed? Midodrine is used to treat orthostatic hypotension (sudden fall in blood pressure that occurs when a person assumes a standing position). Midodrine is in a class of medications called alpha-adrenergic agonists. It works by causing blood vessels to tighten, which increases blood pressure. HOW should this medicine be used? Midodrine comes as a tablet to take by mouth. It is usually taken three times a day during the daytime hours (such as morning, midday, and late afternoon [before 6PM]) with doses spaced at least 3 hours apart. Take the last daily dose of midodrine before an evening meal and at least 4 hours before bedtime. Take midodrine at around the same times every day. Follow the directions on your prescription label carefully, and ask your doctor or pharmacist to explain any part you do not understand. Take midodrine exactly as directed. Do not take more or less of it or take it more often than prescribed by your doctor. Take midodrine during daytime hours when you need to be upright. Avoid taking a dose when you will be lying down for any length of time. Also talk to your doctor about how to position yourself when you are lying down. Your doctor may tell you to raise the head of your bed when resting or sleeping. Are there OTHER USES for this medicine? This medication may be prescribed for other uses; ask your doctor or pharmacist for more information. What SPECIAL PRECAUTIONS should I follow? Before taking midodrine, ? tell your doctor and pharmacist if you are allergic to midodrine, any other medications, or any of the ingredients in midodrine tablets. Ask your pharmacist for a list of the ingredients. ? tell your doctor and pharmacist what other prescription and nonprescription medications, vitamins, nutritional supplements, and herbal products you are taking or plan to take while taking midodrine. Your doctor may need to change the doses of your medications or monitor you carefully for side effects. ? the following nonprescription products may interact with midodrine: cimetidine (Tagamet), randitine (Zantac); phenylephrine; pseudoephedrine. Be sure to let your doctor and pharmacist know that you are taking these medications before you start taking midodrine. Do not start any of these medications while taking midodrine without discussing with your healthcare provider. ? tell your doctor if you have difficulty urinating, pheochromocytoma (tumor on a small gland near the kidneys), hyperthyroidism (condition that occurs when the thyroid gland produces too much thyroid hormone) or heart or kidney disease. Your doctor may tell you not to take midodrine. ? tell your doctor if you have or have ever had diabetes, vision problems, or liver disease. ? tell your doctor if you are , plan to become , or are . If you become while taking midodrine, call your doctor. ? if you are having surgery, including dental surgery, tell the doctor or dentist that you are taking midodrine. What SPECIAL DIETARY instructions should I follow? Unless your doctor tells you otherwise, continue your normal diet. What should I do IF I FORGET to take a dose? Take the missed dose as soon as you remember it, as long as it is at least 4 hours before your bedtime. However, if it is almost time for the next dose, skip the missed dose and continue your regular dosing schedule. Do not take a double dose to make up for a missed one. What SIDE EFFECTS can this medicine cause? Some side effects can be serious. If you experience any of these symptoms or those listed in the IMPORTANT WARNING section, stop taking midodrine and call your doctor immediately or get emergency medical treatment: ? slow heartbeat ? dizziness ? fainting Midodrine may cause other side effects. Call your doctor if you have any unusual problems while taking this medication. If you experience a serious side effect, you or your doctor may send a report to the Food and Drug Administration's (FDA) MedWatch Adverse Event Reporting program online (https://www.fda.gov/Safety/MedWatch) or by phone ( ). What should I know about STORAGE and DISPOSAL of this medication? Keep this medication in the container it came in, tightly closed, and out of reach of children. Store it at room temperature and away from light, excess heat and moisture (not in the bathroom). Unneeded medications should be disposed of in special ways to ensure that pets, children, and other people cannot consume them. However, you should not flush this medication down the toilet. Instead, the best way to dispose of your medication is through a medicine take-back program. Talk to your pharmacist or contact your local garbage/recycling department to learn about take-back programs in your community. See the FDA's Safe Disposal of Medicines website (https://goo.gl/c4Rm4p) for more information if you do not have access to a take-back program. It is important to keep all medication out of sight and reach of children as many containers (such as weekly pill minders and those for eye drops, creams, patches, and inhalers) are not child-resistant and young children can open them easily. To protect young children from poisoning, always lock safety caps and immediately place the medication in a safe location -- one that is up and away and out of their sight and reach. https://www.upandaway.org What should I do in case of OVERDOSE? In case of overdose, call the poison control helpline at . Information is also available online at https://www.poisonhelp.org/help. If the victim has collapsed, had a seizure, has trouble breathing, or can't be awakened, immediately call emergency services at 911. Symptoms of overdose may include the following: ? awareness of your heartbeat ? pounding in your ears ? headache ? blurred vision ? goose bumps ? cold sensation ? difficulty urinating What OTHER INFORMATION should I know? Keep all appointments with your doctor and the laboratory. Your doctor will order certain lab tests to check your body's response to midodrine. Do not let anyone else take your medication. Ask your pharmacist any questions you have about refilling your prescription. It is important for you to keep a written list of all of the prescription and nonprescription (ggpb-[id number]) medicines you are taking, as well as any products such as vitamins, minerals, or other dietary supplements. You should bring this list with you each time you visit a doctor or if you are admitted to a hospital. It is also important information to carry with you in case of emergencies. This report on medications is for your information only, and is not considered individual patient advice. Because of the changing nature of drug information, please consult your physician or pharmacist about specific clinical use. [employer] represents that the information provided hereunder was formulated with a reasonable standard of care, and in conformity with professional standards in the field. [employer] [place] makes no representations or warranties, express or implied, including, but not limited to, any implied warranty of merchantability and/or fitness for a particular purpose, with respect to such information and specifically disclaims all such warranties. Users are advised that decisions regarding drug therapy are complex medical decisions requiring the independent, informed decision of an appropriate health aged or disabled care worker, and the information is provided for informational purposes only. The entire monograph for a drug should be reviewed for a thorough understanding of the drug's actions, uses and side effects. [employer] does not endorse or recommend the use of any drug. The information is not a substitute for medical care. AHFS? Patient Medication Information?. ? Copyright, 2023. [employer]?, [address] [facility], [address], [place], [place]. All Rights Reserved. Duplication for commercial use must be authorized by [facility]. Selected Revisions: April 23, 2020. AHFS? Patient Medication Information?. ? Copyright, 2024 [id number] 17:55:56 Images from the original note were not included. [id number] Atorvastatin Brand Name(s): Atorvaliq?, Lipitor?, Caduet? (as a combination product containing Amlodipine, Atorvastatin), Lipqozet? (as a combination product containing Atorvastatin, Ezetimibe), Liptruzet? (as a combination product containing Atorvastatin, Ezetimibe); also available generically WHY is this medicine prescribed? Atorvastatin is used together with diet, weight loss, and exercise to reduce the risk of heart attack and stroke and to decrease the chance that heart surgery will be needed in people who have heart disease or who are at risk of developing heart disease. Atorvastatin is also used to decrease the amount of fatty substances such as low-density lipoprotein (LDL) cholesterol ('bad cholesterol') and triglycerides in the blood and to increase the amount of high-density lipoprotein (HDL) cholesterol ('good cholesterol') in the blood. Atorvastatin may also be used to decrease the amount of cholesterol and other fatty substances in the blood in children and teenagers 10 to 17 years of age who have familial heterozygous hypercholesterolemia (an inherited condition in which cholesterol cannot be removed from the body normally). Atorvastatin is in a class of medications called HMG-CoA reductase inhibitors (statins). It works by slowing the production of cholesterol in the body to decrease the amount of cholesterol that may build up on the kurtz of the arteries and block blood flow to the heart, brain, and other parts of the body. Accumulation of cholesterol and fats along the kurtz of your arteries (a process known as atherosclerosis) decreases blood flow and, therefore, the oxygen supply to your heart, brain, and other parts of your body. Lowering your blood level of cholesterol and fats with atorvastatin has been shown to prevent heart disease, angina (chest pain), strokes, and heart attacks. HOW should this medicine be used? Atorvastatin comes as a tablet and suspension (liquid) to take by mouth. The tablet is usually taken once a day with or without food. The suspension is usually taken once a day on an empty stomach (at least 1 hour before or 2 hours after a meal).Take atorvastatin at around the same time every day. Follow the directions on your prescription label carefully, and ask your doctor or pharmacist to explain any part you do not understand. Take atorvastatin exactly as directed. Do not take more or less of it or take it more often than prescribed by your doctor. Your doctor may start you on a low dose of atorvastatin and gradually increase your dose, not more than once every 2 to 4 weeks. If you are taking the suspension, do not use a household spoon to measure your dose. Use a properly marked measuring device such as a medicine spoon or oral syringe. Ask your doctor or pharmacist if you need help getting or using a measuring device. Continue to take atorvastatin even if you feel well. Do not stop taking atorvastatin without talking to your doctor. Are there OTHER USES for this medicine? This medication may be prescribed for other uses; ask your doctor or pharmacist for more information. What SPECIAL PRECAUTIONS should I follow? Before taking atorvastatin, ? tell your doctor and pharmacist if you are allergic to atorvastatin, any other medications, or any of the ingredients in atorvastatin tablets and suspension. Ask your pharmacist for a list of the ingredients. ? Tell your doctor and pharmacist what prescription and nonprescription medications, vitamins, nutritional supplements, and herbal products you are taking or plan to take while taking atorvastatin. Your doctor may need to change the doses of your medications or monitor you carefully for side effects. ? The following nonprescription products may interact with atorvastatin: cimetidine (Tagamet), and niacin. Be sure to let your doctor and pharmacist know that you are taking these medications before you start taking atorvastatin. Do not start any of these medications while taking atorvastatin without discussing with your healthcare provider. ? tell your doctor if you have or ever had liver disease. Your doctor will order laboratory tests to see how well your liver is working even if you do not think you have liver disease. Your doctor will probably tell you not to take atorvastatin if you have liver disease or if the tests show you may be developing liver disease. ? tell your doctor if you drink more than 2 alcoholic beverages daily, if you are 65 years of age or older, and if you have or have ever had muscle aches or weakness, diabetes, seizures, low blood pressure, or thyroid or kidney disease. ? tell your doctor if you are or plan to become . If you become while taking atorvastatin, stop taking atorvastatin and call your doctor immediately. Atorvastatin may harm the fetus. ? tell your doctor if you are or plan to breastfeed. You should not breastfeed while you are taking this medication. ? if you are having surgery, including dental surgery, tell the doctor or dentist that you are taking atorvastatin. If you are hospitalized due to serious injury or infection, tell the doctor who treats you that you are taking atorvastatin. ? ask your doctor about the safe use of alcoholic beverages while you are taking atorvastatin. Alcohol can increase the risk of serious side effects. What SPECIAL DIETARY instructions should I follow? Eat a low-fat, low-cholesterol diet. Be sure to follow all exercise and dietary recommendations made by your doctor or dietitian. You can also visit the National Cholesterol Education Program (NCEP) website for additional dietary information at https://www.nhlbi.nih.gov/health/public/heart/chol/chol_tlc.pdf. Avoid drinking large amounts [more than 1.2 liter (approximately 1 quart) per day] of grapefruit juice while taking atorvastatin. What should I do IF I FORGET to take a dose? If you miss a dose of the tablet, skip the missed dose and continue your regular dosing schedule. Do not take a double dose to make up for a missed one. If you miss a dose of the suspension, take the missed dose as soon as you remember it. However, if it is less than 12 hours until your next scheduled dose, skip the missed dose and continue your regular dosing schedule. Do not take a double dose to make up for a missed one. What SIDE EFFECTS can this medicine cause? Some side effects can be serious. The following symptoms are uncommon, but if you experience any of them, call your doctor or get emergency medical help immediately: ? muscle pain, tenderness, or weakness ? lack of energy ? fever ? chest pain ? nausea ? extreme tiredness ? weakness ? unusual bleeding or bruising ? loss of appetite ? pain in the upper right part of the stomach ? flu-like symptoms ? dark colored urine ? yellowing of the skin or eyes ? rash ? hives ? itching ? difficulty breathing or swallowing ? swelling of the face, throat, tongue, lips, eyes, hands, feet, ankles, or lower legs ? hoarseness Atorvastatin may cause other side effects. Call your doctor if you have any unusual problems while taking this medication. If you experience a serious side effect, you or your doctor may send a report to the Food and Drug Administration's (FDA) MedWatch Adverse Event Reporting program online (https://www.fda.gov/Safety/MedWatch) or by phone ( ). What should I know about STORAGE and DISPOSAL of this medication? Keep this medication in the container it came in, tightly closed, and out of reach of children. Store it at room temperature and away from excess heat and moisture (not in the bathroom). Unneeded medications should be disposed of in special ways to ensure that pets, children, and other people cannot consume them. However, you should not flush this medication down the toilet. Instead, the best way to dispose of your medication is through a medicine take-back program. Talk to your pharmacist or contact your local garbage/recycling department to learn about take-back programs in your community. See the FDA's Safe Disposal of Medicines website (https://goo.gl/c4Rm4p) for more information if you do not have access to a take-back program. It is important to keep all medication out of sight and reach of children as many containers (such as weekly pill minders and those for eye drops, creams, patches, and inhalers) are not child-resistant and young children can open them easily. To protect young children from poisoning, always lock safety caps and immediately place the medication in a safe location -- one that is up and away and out of their sight and reach. https://www.upandaway.org What should I do in case of OVERDOSE? In case of overdose, call the poison control helpline at . Information is also available online at https://www.poisonhelp.org/help. If the victim has collapsed, had a seizure, has trouble breathing, or can't be awakened, immediately call emergency services at [phone]. What OTHER INFORMATION should I know? Keep all appointments with your doctor and the laboratory. Your doctor may order certain lab tests during your treatment , especially if you develop symptoms of liver damage. Before having any laboratory test, tell your doctor and the laboratory personnel that you are taking atorvastatin. Do not let anyone else take your medication. Ask your pharmacist any questions you have about refilling your prescription. It is important for you to keep a written list of all of the prescription and nonprescription (dfap-rms-[id number]) medicines you are taking, as well as any products such as vitamins, minerals, or other dietary supplements. You should bring this list with you each time you visit a doctor or if you are admitted to a hospital. It is also important information to carry with you in case of emergencies. This report on medications is for your information only, and is not considered individual patient advice. Because of the changing nature of drug information, please consult your physician or pharmacist about specific clinical use. [employer] [place] [employer] represents that the information provided hereunder was formulated with a reasonable standard of care, and in conformity with professional standards in the field. [employer] [place] [employer] makes no representations or warranties, express or implied, including, but not limited to, any implied warranty of merchantability and/or fitness for a particular purpose, with respect to such information and specifically disclaims all such warranties. Users are advised that decisions regarding drug therapy are complex medical decisions requiring the independent, informed decision of an appropriate health aged or disabled care worker, and the information is provided for informational purposes only. The entire monograph for a drug should be reviewed for a thorough understanding of the drug's actions, uses and side effects. [employer] [place] [employer] does not endorse or recommend the use of any drug. The information is not a substitute for medical care. AHFS? Patient Medication Information?. ? Copyright, 2023. [employer] [place] [employer]?, [address] [facility], [address], [place], [place]. All Rights Reserved. Duplication for commercial use must be authorized by [facility]. Selected Revisions: September 26, 2023. AHFS? Patient Medication Information?. ? Copyright, 2024 [id number] 17:55:53 Images from the original note were not included. [id number] Aspirin Brand Name(s): Acuprin?, Anacin? Aspirin Regimen, Ascriptin?, Aspergum?, Aspidrox?, Aspir-Mox?, Aspirtab?, Aspir-vito?, Eric? Aspirin, Bufferin?, Buffex?, Easprin?, Ecotrin?, Empirin?, Entaprin?, Entercote?, Fasprin?, Genacote?, Gennin-FC?, Genprin?, Halfprin?, Magnaprin?, Miniprin?, Minitabs?, Ridiprin?, Sloprin?, Uni-Buff?, Uni-Tren?, Valomag?, Zorprin?, [place]? (as a combination product containing Aspirin, Citric Acid, Sodium Bicarbonate), [place]? Extra Strength (as a combination product containing Aspirin, Citric Acid, Sodium Bicarbonate), [place]? Morning Relief (as a combination product containing Aspirin, Caffeine), [place]? Plus Flu (as a combination product containing Aspirin, Chlorpheniramine, Dextromethorphan), [place]? PM (as a combination product containing Aspirin, Diphenhydramine), Alor? (as a combination product containing Aspirin, Hydrocodone), Anacin? (as a combination product containing Aspirin, Caffeine), Anacin? Advanced Headache Formula (as a combination product containing Acetaminophen, Aspirin, Caffeine), Aspircaf? (as a combination product containing Aspirin, Caffeine), Axotal? (as a combination product containing Aspirin, Butalbital), Azdone? (as a combination product containing Aspirin, Hydrocodone), Eric? Aspirin Plus Calcium (as a combination product containing Aspirin, Calcium Carbonate), Eric? Aspirin PM (as a combination product containing Aspirin, Diphenhydramine), Eric? Back and Body Pain (as a combination product containing Aspirin, Caffeine), BC Headache (as a combination product containing Aspirin, Caffeine, Salicylamide), BC Powder (as a combination product containing Aspirin, Caffeine, Salicylamide), Damason-P? (as a combination product containing Aspirin, Hydrocodone), Emagrin? (as a combination product containing Aspirin, Caffeine, Salicylamide), Endodan? (as a combination product containing Aspirin, Oxycodone), Equagesic? (as a combination product containing Aspirin, Meprobamate), Excedrin? (as a combination product containing Acetaminophen, Aspirin, Caffeine), Excedrin? Back & Body (as a combination product containing Acetaminophen, Aspirin), Goody's? Body Pain (as a combination product containing Acetaminophen, Aspirin), Levacet? (as a combination product containing Acetaminophen, Aspirin, Caffeine, Salicylamide), Lortab? ASA (as a combination product containing Aspirin, Hydrocodone), Micrainin? (as a combination product containing Aspirin, Meprobamate), Momentum? (as a combination product containing Aspirin, Phenyltoloxamine), Norgesic? (as a combination product containing Aspirin, Caffeine, Orphenadrine), Orphengesic? (as a combination product containing Aspirin, Caffeine, Orphenadrine), Panasal? (as a combination product containing Aspirin, Hydrocodone), Percodan? (as a combination product containing Aspirin, Oxycodone), Robaxisal? (as a combination product containing Aspirin, Methocarbamol), Roxiprin? (as a combination product containing Aspirin, Oxycodone), Saleto? (as a combination product containing Acetaminophen, Aspirin, Caffeine, Salicylamide), Soma? Compound (as a combination product containing Aspirin, Carisoprodol), Soma? Compound with Codeine (as a combination product containing Aspirin, Carisoprodol, Codeine), Supac? (as a combination product containing Acetaminophen, Aspirin, Caffeine), Synalgos-DC? (as a combination product containing Aspirin, Caffeine, Dihydrocodeine), Talwin? Compound (as a combination product containing Aspirin, Pentazocine), Vanquish? (as a combination product containing Acetaminophen, Aspirin, Caffeine); also available generically Acetylsalicylic acid, ASA WHY is this medicine prescribed? Prescription aspirin is used to relieve the symptoms of rheumatoid arthritis (arthritis caused by swelling of the lining of the joints), osteoarthritis (arthritis caused by breakdown of the lining of the joints), systemic lupus erythematosus (condition in which the immune system attacks the joints and organs and causes pain and swelling) and certain other rheumatologic conditions (conditions in which the immune system attacks parts of the body). Nonprescription aspirin is used to reduce fever and to relieve mild to moderate pain from headaches, menstrual periods, arthritis, toothaches, and muscle aches. Nonprescription aspirin is also used to prevent heart attacks in people who have had a heart attack in the past or who have angina (chest pain that occurs when the heart does not get enough oxygen). Nonprescription aspirin is also used to reduce the risk of in people who are experiencing or who have recently experienced a heart attack. Nonprescription aspirin is also used to prevent ischemic strokes (strokes that occur when a blood clot blocks the flow of blood to the brain) or mini-strokes (strokes that occur when the flow of blood to the brain is blocked for a short time) in people who have had this type of stroke or mini-stroke in the past. Aspirin will not prevent hemorrhagic strokes (strokes caused by bleeding in the brain). Aspirin is in a group of medications called salicylates. It works by stopping the production of certain natural substances that cause fever, pain, swelling, and blood clots. Aspirin is also available in combination with other medications such as antacids, pain relievers, and cough and cold medications. This monograph only includes information about the use of aspirin alone. If you are taking a combination product, read the information on the package or prescription label or ask your doctor or pharmacist for more information. HOW should this medicine be used? Prescription aspirin comes as an extended-release (long-acting) tablet. Nonprescription aspirin comes as a regular tablet, a delayed-release (releases the medication in the intestine to prevent damage to the stomach) tablet, a chewable tablet, powder, and a gum to take by mouth. Prescription aspirin is usually taken two or more times a day. Nonprescription aspirin is usually taken once a day to lower the risk of a heart attack or stroke. Nonprescription aspirin is usually taken every 4 to 6 hours as needed to treat fever or pain. Follow the directions on the package or prescription label carefully, and ask your doctor or pharmacist to explain any part you do not understand. Take aspirin exactly as directed. Do not take more or less of it or take it more often than directed by the package label or prescribed by your doctor. Swallow the extended-release tablets whole with a full glass of water. Do not break, crush, or chew them. Swallow the delayed-release tablets with a full glass of water. Chewable aspirin tablets may be chewed, crushed, or swallowed whole. Drink a full glass of water, immediately after taking these tablets. Ask a doctor before you give aspirin to your child or teenager. Aspirin may cause Saige's syndrome (a serious condition in which fat builds up on the brain, liver, and other body organs) in children and teenagers, especially if they have a virus such as chicken pox or the flu. If you have had oral surgery or surgery to remove your tonsils in the last 7 days, talk to your doctor about which types of aspirin are safe for you. Delayed-release tablets begin to work some time after they are taken. Do not take delayed-release tablets for fever or pain that must be relieved quickly. Stop taking aspirin and call your doctor if your fever lasts longer than 3 days, if your pain lasts longer than 10 days, or if the part of your body that was painful becomes red or swollen. You may have a condition that must be treated by a doctor. Are there OTHER USES for this medicine? Aspirin is also sometimes used to treat rheumatic fever (a serious condition that may develop after a strep throat infection and may cause swelling of the heart valves) and Kawasaki disease (an illness that may cause heart problems in children). Aspirin is also sometimes used to lower the risk of blood clots in patients who have artificial heart valves or certain other heart conditions and to prevent certain complications of . What SPECIAL PRECAUTIONS should I follow? Before taking aspirin, ? tell your doctor and pharmacist if you are allergic to aspirin, other medications for pain or fever, tartrazine dye, or any other medications. ? tell your doctor and pharmacist what prescription and nonprescription medications, vitamins, nutritional supplements, and herbal products you are taking or plan to take. Be sure to mention any of the following: acetazolamide (Diamox); angiotensin-converting enzyme (DRU) inhibitors such as benazepril (Lotensin), captopril (Capoten), enalapril (Vasotec), fosinopril (Monopril), lisinopril (Prinivil, Zestril), moexipril (Univasc), perindopril, (Aceon), quinapril (Accupril), ramipril (Altace), and trandolapril (Mavik); anticoagulants ('blood thinners') such as warfarin (Coumadin) and heparin; beta blockers such as atenolol (Tenormin), labetalol (Normodyne), metoprolol (Lopressor, Toprol XL), nadolol (Corgard), and propranolol (Inderal); diuretics ('water pills'); medications for diabetes or arthritis; medications for gout such as probenecid and sulfinpyrazone (Anturane); methotrexate (Trexall); other nonsteroidal anti-inflammatory drugs (NSAIDs) such as naproxen (Aleve, Naprosyn); phenytoin (Dilantin); and valproic acid (Depakene, Depakote). Your doctor may need to change the doses of your medications or monitor you more carefully for side effects. ? if you are taking aspirin on a regular basis to prevent heart attack or stroke, do not take ibuprofen (Advil, Motrin) to treat pain or fever without talking to your doctor. Your doctor will probably tell you to allow some time to pass between taking your daily dose of aspirin and taking a dose of ibuprofen. ? tell your doctor if you have or have ever had asthma, frequent stuffed or runny nose, or nasal polyps (growths on the linings of the nose). If you have these conditions, there is a risk that you will have an allergic reaction to aspirin. Your doctor may tell you that you should not take aspirin. ? tell your doctor if you often have heartburn, upset stomach, or stomach pain and if you have or have ever had ulcers, anemia, bleeding problems such as hemophilia, or kidney or liver disease. ? tell your doctor if you are , you plan to become , or if you are breast-feeding. Low dose aspirin 81-mg may be taken during , but aspirin doses greater that 81 mg may harm the fetus and cause problems with delivery if it is taken around 20 weeks or later during . Do not take aspirin doses greater that 81 mg (e.g., 325 mg) around or after 20 weeks of , unless told to do so by your doctor. If you become while taking aspirin or aspirin containing medications, call your doctor. ? if you are having surgery, including dental surgery, tell the doctor or dentist that you are taking aspirin. ? if you drink three or more alcoholic drinks every day, ask your doctor if you should take aspirin or other medications for pain and fever. What SPECIAL DIETARY instructions should I follow? Unless your doctor tells you otherwise, continue your normal diet. What should I do IF I FORGET to take a dose? If your doctor has told you to take aspirin on a regular basis and you miss a dose, take the missed dose as soon as you remember it. However, if it is almost time for the next dose, skip the missed dose and continue your regular dosing schedule. Do not take a double dose to make up for a missed one. What SIDE EFFECTS can this medicine cause? Some side effects can be serious. If you experience any of the following symptoms, call your doctor immediately: ? hives ? rash ? swelling of the eyes, face, lips, tongue, or throat ? wheezing or difficulty breathing ? hoarseness ? fast heartbeat ? fast breathing ? cold, clammy skin ? ringing in the ears ? loss of hearing ? bloody vomit ? vomit that looks like coffee grounds ? bright red blood in stools ? black or tarry stools Aspirin may cause other side effects. Call your doctor if you experience any unusual problems while you are taking this medication. If you experience a serious side effect, you or your doctor may send a report to the Food and Drug Administration's (FDA) MedWatch Adverse Event Reporting program online (https://www.fda.gov/Safety/MedWatch) or by phone ( ). What should I know about STORAGE and DISPOSAL of this medication? Keep this medication in the container it came in, tightly closed, and out of reach of children. Store it at room temperature and away from excess heat and moisture (not in the bathroom). Dispose of any tablets that have a strong vinegar smell. It is important to keep all medication out of sight and reach of children as many containers (such as weekly pill minders and those for eye drops, creams, patches, and inhalers) are not child-resistant and young children can open them easily. To protect young children from poisoning, always lock safety caps and immediately place the medication in a safe location -- one that is up and away and out of their sight and reach. https://www.MyDROBEndKnowrom.org Unneeded medications should be disposed of in special ways to ensure that pets, children, and other people cannot consume them. However, you should not flush this medication down the toilet. Instead, the best way to dispose of your medication is through a medicine take-back program. Talk to your pharmacist or contact your local garbage/recycling department to learn about take-back programs in your community. See the FDA's Safe Disposal of Medicines website (https://goo.gl/c4Rm4p) for more information if you do not have access to a take-back program. What should I do in case of OVERDOSE? In case of overdose, call the poison control helpline at . Information is also available online at https://www.poisonhelp.org/help. If the victim has collapsed, had a seizure, has trouble breathing, or can't be awakened, immediately call emergency services at 911. Symptoms of overdose may include: ? burning pain in the throat or stomach ? vomiting ? decreased urination ? fever ? restlessness ? irritability ? talking a lot and saying things that do not make sense ? fear or nervousness ? dizziness ? double vision ? uncontrollable shaking of a part of the body ? confusion ? abnormally excited mood ? hallucination (seeing things or hearing voices that are not there) ? seizures ? drowsiness ? loss of consciousness for a period of time What OTHER INFORMATION should I know? Keep all appointments with your doctor. If you are taking prescription aspirin, do not let anyone else take your medication. Ask your pharmacist any questions you have about refilling your prescription. It is important for you to keep a written list of all of the prescription and nonprescription ([id number]) medicines you are taking, as well as any products such as vitamins, minerals, or other dietary supplements. You should bring this list with you each time you visit a doctor or if you are admitted to a hospital. It is also important information to carry with you in case of emergencies. This report on medications is for your information only, and is not considered individual patient advice. Because of the changing nature of drug information, please consult your physician or pharmacist about specific clinical use. The [place] [employer] represents that the information provided hereunder was formulated with a reasonable standard of care, and in conformity with professional standards in the field. The [place] [employer] makes no representations or warranties, express or implied, including, but not limited to, any implied warranty of merchantability and/or fitness for a particular purpose, with respect to such information and specifically disclaims all such warranties. Users are advised that decisions regarding drug therapy are complex medical decisions requiring the independent, informed decision of an appropriate health aged or disabled care worker, and the information is provided for informational purposes only. The entire monograph for a drug should be reviewed for a thorough understanding of the drug's actions, uses and side effects. The [place] [employer] does not endorse or recommend the use of any drug. The information is not a substitute for medical care. AHFS? Patient Medication Information?. ? Copyright, 2023. [employer] [place] [employer]?, [address] [facility], [address], [place], [place]. All Rights Reserved. Duplication for commercial use must be authorized by [facility]. Selected Revisions: July 21, 2020. AHFS? Patient Medication Information?. ? Copyright, 2024 [facility] [id number] 17:55:48 Images from the original note were not included. 01258 Tobacco Smoke Exposure Secondhand smoke is the smoke you breathe in when someone nearby is smoking. It includes the smoke given off by the burning tobacco. And it includes the smoke breathed out by the smoker. Thirdhand smoke (THS) is another term you may hear. THS is the smoke that stays on indoor surfaces such as furniture, toys, and carpets. It also stays on clothing, skin, and hair. The [place] [employer] warns of the possible harmful effects of THS. How secondhand smoke causes harm Secondhand smoke contains thousands of chemicals. These include: ? Nicotine ? Ammonia ? Arsenic ? Benzene ? Carbon monoxide ? Formaldehyde ? Hydrogen cyanide Many of these are known to be harmful. Some are even known to cause cancer. Secondhand smoke can cause some problems right away. These include: ? Coughing ? Sneezing ? Shortness of breath ? Eye irritation ? Triggering an asthma attack The chemicals also cause harm right away to your heart and blood vessels. They may raise your blood pressure and lower your good (HDL) cholesterol. The smoke may make your blood clot more easily. This can put you at risk for a blood clot that can lead to a stroke or heart attack. Long-term health problems Contact with secondhand smoke raises the risk for some health problems over time. It may also make some health problems happen more often and be more severe. Because of this, secondhand smoke can cause . Health problems linked to secondhand smoke include: ? Lung cancer ? Breast cancer ? Other cancers. These include leukemia, lymphoma, brain tumors, and cancers of the larynx, bladder, and stomach. ? Heart disease. This may lead to heart attack. ? Peripheral artery disease ? Stroke ? Ear infections, especially in children ? Asthma ? More illnesses more often, in children ? Respiratory infections like bronchitis and pneumonia ? Scarring of the air passages in the lungs ? SIDS (sudden syndrome) ? Miscarriage, stillborn , or low weight Are you exposed to secondhand smoke? Millions of people are exposed to secondhand smoke. This includes many young children. Children are more at risk from the health effects of secondhand smoke. Cigarettes are the main source of secondhand smoke. Pipes, cigars, and other methods of smoking tobacco can also give off secondhand smoke. A single cigar can create as much secondhand smoke as a whole pack of cigarettes. If you?re in an area where other people are smoking, you?re breathing in secondhand smoke. You may breathe in secondhand smoke in bars, restaurants, and other public places. And you may breathe it in at home, at your workplace, or in a car. You may be at a higher risk for exposure if you live with a smoker. You may also be at higher risk if you work in a place that allows smoking, such as a bar. Luckily, more and more states are enacting smoking bans in public places. And more than half of [place] states have laws banning smoking in enclosed public places. Secondhand smoke exposure can be measured. This is done by testing indoor air for chemicals found in tobacco smoke, such as nicotine. Your healthcare provider can also test your exposure level. This is done by measuring the level of cotinine in your blood, saliva, or urine. Cotinine is a chemical created after nicotine enters the body. If you have high levels of cotinine, you likely have high levels of other chemicals from smoke. But this type of testing is not often needed. If you spend a lot of time in places where people smoke, you likely have high levels of chemicals in your body from the smoke. This is true even if you don?t smoke. If you spend only a small amount of time around smoke, your levels are likely lower. Preventing contact with secondhand smoke You can lower your contact with secondhand smoke. Make sure to also protect children and people with health problems from the smoke. You can do this by not going to places where smoking is allowed. If you live with a smoker, ask the person to smoke only outside. Don't allow people to smoke around your children or in your car. Open windows, use air filters, and put in air ventilation systems. These things may reduce contact with secondhand smoke. But they don't stop contact. Stopping smoking indoors is the only way to protect people from secondhand smoke. Less is known about the dangers of THS. But consider "no smoking" rules in your home to keep it free of the chemicals in tobacco smoke. Don't stay indoors where people often smoke. If you have long-term smokers in your home, ask them to seek help to stop smoking. Consider replacing carpets, furniture, and window coverings. For help on quitting smoking, visit www.smokefree.gov. Last Reviewed Date: 2024 00:00:00 ? 7145-6946 [employer]. All rights reserved. This information is not intended as a substitute for professional medical care. Always follow your healthcare professional's instructions. [facility]2025-01-17 17:55:35 Images from the original note were not included. 14 Heart-Healthy Diet Five Tips to Better Health A heart-healthy diet is designed to protect your heart from further damage through long-term diet and lifestyle changes. Along with your medication and exercise, a heart-healthy diet can help reduce your risk for heart-related problems. The heart-healthy meal plan is based on limiting total fat, saturated fat, cholesterol and sodium while increasing your intake of fiber and omega-3 fatty acids (good fats). When making changes in your diet: "Take Five" 1. Limit saturated fat and trans fats. Remember DART to identify common sources: Dairy (e.g., whole milk, cream, butter and regular cheese) - Animal fat (e.g., steak or chicken with skin) - Restaurant dishes, some fried foods - Treats (chocolate, cookies and other baked goods, and products with "partially hydrogenated oils" in the ingredient list) 2. Limit the amount of cholesterol you eat to less than 200 mg (milligrams) per day. Foods high in cholesterol include egg yolks, fatty meat, whole milk and regular cheese. 3. Cut back on sodium by getting rid of the saltshaker and avoiding high-sodium foods like deli meats, frozen meals, condiments, canned foods and other convenience items. Check the label and choose foods with no more than 140 mg of sodium per serving. 4. Get more fiber. Aim for 20 to 30 grams of fiber per day from sources like whole grains, fruit, vegetables, and beans. 5. Eat approximately 4 ounces of fish twice a week to get more omega-3 fatty acids. [place], cod, trout and tuna are high in omega-3s. Try low-sodium canned tuna for a less expensive option. Other Heart-Healthy diet information: ? Check with your doctor before drinking ANY alcohol. ? Use caffeine (coffee, tea, soft drinks) in moderation. Caffeine may affect your blood pressure and heart health. ? When dining out: o Ask for nutrition information to help stay on track with your heart-healthy diet. o Ask for sauces and dressings on the side. ? Read the Nutrition Facts label to be sure you are following the Heart-Healthy Guidelines. Heart-Healthy Diet Food Group Avoid Better Choices Milk/Dairy Whole milk Regular or processed cheese products Cream Nonfat (skim) or 1% milk Cheeses low in saturated fat and sodium Nonfat or low-fat yogurt Meat/ Protein Regular ground meats Deep-fried meats Fatty cuts such as ribeye or brisket White meat poultry without sl? Fresh fish or low-sodium canned fish Lean beef cuts: round steak, tenderloin, sirloin tips Vegetable protein foods, like beans, veggie burgers or tofu Ground sirloin or round Vegetables & Fruits Fried fruit such as plantain or fried fruit pies Fruits served with butter or cream Vegetables canned with sodium Fresh fruits and vegetables Frozen fruits and vegetables, no added sauces, gravies or salted seasonings Bread & Cereals High-fat bakery products, such as doughnuts, biscuits or croissants Snacks made with partially hydrogenated oils, like cheese puffs Products with whole grains as the first ingredient Breads with at least 2 grams of fiber per serving Cereals that contain at least 5 grams of fiber per serving Snacks like air-popped popcorn, low-salt pretzels Fats Butter Lard Partially hydrogenated oils Monounsaturated fats such as olive, grapeseed, or canola oil Whipped spreads Spreads with zero trans fat Reading a Food Label Reference: Academy of Nutrition and Dietetics, Adult Nutrition Care Manual, 2012. If you would like to obtain more information on a heart-healthy diet, please contact Outpatient Nutrition Services by calling [phone].[facility]. [phone] 10/19 [facility] [id number] 17:55:28 Images from the original note were not included. Living Well with COPD: Overview - Video Over 30 million Americans live with COPD, or chronic obstructive pulmonary disease. Learn about the causes, symptoms, and treatment of COPD from pulmonary specialists and patients living with the disease. To view the video go to this web address: [email or web address] Or, scan this QR code with your smart phone ? [facility] Ayvgnww9611-04-10 17:54:58 Images from the original note were not included. 09923 Sudden Cardiac Arrest When the heart suddenly stops beating, it's called sudden cardiac arrest. When the heart isn?t beating, it can?t pump blood. Without blood, vital organs such as the brain and the lungs can't work right. Sudden cardiac arrest causes a person to become unconscious. Breathing stops. Emergency treatment is needed to get the heart beating again. If treatment is not started right away, sudden cardiac arrest can lead to sudden cardiac . What causes sudden cardiac arrest? Sudden cardiac arrest occurs because there is a problem with the electrical system of the heart. Most often, this is because of heart disease that leads to an irregular heartbeat (arrhythmia). A severe arrhythmia can cause the heart to stop beating. Most often, this is because of heart disease that leads to an irregular heartbeat (arrhythmia). Things that can lead to arrhythmia and sudden cardiac arrest include: ? A blocked artery to the heart muscle (heart disease) that leads to a heart attack ? Weakening of the heart muscle (heart failure) ? Scarring or thickening of the heart muscle ? Problems with the levels of certain minerals in the blood ? Use of stimulant street drugs such as cocaine and methamphetamine ? Severe injury to the chest ? Disorders of the electrical system of the heart such as long Q-T syndrome ? Long periods of time without oxygen, such as with a blocked airway from choking or a blood clot in the lung (pulmonary embolism) Sudden cardiac arrest, heart disease, and heart attack Cardiac arrest is not the same as a heart attack. Sudden cardiac arrest is a problem with the heart's electrical system. Heart attack is a problem with the heart's blood flow (circulation). But a heart attack can be a cause of sudden cardiac arrest. A heart attack is a problem with the blood flow to the heart muscle. This problem is a result of a condition called heart disease. Normally, arteries carry blood and oxygen to the heart muscle. With heart disease, one or more of the arteries get narrowed or blocked. If an artery becomes fully blocked, the heart muscle doesn?t get the oxygen it needs. This part of the heart muscle is severely injured or dies. The result is a heart attack. of the heart muscle may also trigger sudden cardiac arrest. Many of the same factors that increase your risk for heart attack increase the risk for sudden cardiac arrest. These include: ? Family history of heart disease ? Smoking ? Unhealthy cholesterol levels ? High blood pressure ? Diabetes ? Lack of physical activity ? Obesity Symptoms This condition most often happens suddenly, without warning. In some cases, you may have symptoms for a few weeks leading up to the event. These may include lightheadedness, shortness of breath, or feeling like your heart is fluttering (palpitations). But these symptoms are often general. You may ignore them or think they are caused by something else. Symptoms during a cardiac arrest include: ? Unconsciousness (not moving or speaking) ? No pulse ? Gasping breaths or no breathing at all Treatment Sudden cardiac arrest is a medical emergency. Fast action is needed to reverse this life-threatening condition. Cardiopulmonary resuscitation (CPR) is the dill treatment. Here?s what to do: Always make sure the scene is safe. ? Tap or gently shake if you see or find a person who has collapsed. In a loud voice ask "Are you OK? ? If the person doesn't respond, shout for help and call 911 right away. Put your phone on speaker mode. ? If you know an AED (automated external defibrillator) is available right away, get it quickly. An AED checks the heart rhythm and if needed briefly shocks the heart. ? If other people are with you, have one of them call 911 and get an AED, if available. Use the AED as soon as you have one. ? Check for normal breathing and a pulse. If the person is not responding and is not breathing normally, or is gasping only, or has no pulse then start CPR. If you are not trained in CPR, the only person doing CPR, or don't want to do breaths, do chest compressions only CPR (for teens or adults). Give chest compressions ? Lay the person on their back on a firm, flat surface ? Clothing can be moved out of the way. ? Give chest compressions. ? Place the heel of one hand on the lower half of the breastbone. Place your other hand on top of the first hand. ? Push hard, push fast. Push at a rate of 100 to 120 chest compressions per minute. Press straight down on the chest at least 2 inches. [place] [employer] recommends doing compressions to the beat of the Bee Fabricio's song "Stayin Alive." ? Allow the person's chest to come back up after each compression. This allows the heart to refill with blood. ? Keep giving chest compressions until: o The person shows signs of moving or breathing o Someone else arrives who can do CPR o You become exhausted and aren't able to continue o The scene becomes unsafe o Emergency medical services arrives Where can I get CPR training? Take a CPR class. You can take a CPR training class online or in your area. To find a class, contact [employer] or [phone] ([phone]). Last Reviewed Date: 2021 00:00:00 ? [id number] [employer]. All rights reserved. This information is not intended as a substitute for professional medical care. Always follow your healthcare professional's instructions. [facility]2025-01-17 17:54:41 Images from the original note were not included. What is a Stress Test? - Video This video will teach viewers what a stress test measures, and what to expect before, during, and after the test. To view the video go to this web address: [email or web address] Or, scan this QR code with your smart phone ? [facility]2025-01-17 16:01:48 The patient is Moderately Stable - Low risk of patient condition declining or worsening The patient's goals for the shift include safety The clinical goals for the shift include safety Over the shift, the patient did not make progress toward the following goals. Barriers to progression include na. Recommendations to address these barriers include na. [place] [id number] 05:55:08 The patient is Moderately Stable - Low risk of patient condition declining or worsening The patient's goals for the shift include safety The clinical goals for the shift include safety Over the shift, the patient did not make progress toward the following goals. Barriers to progression include improve mobility and strength. Recommendations to address these barriers include PT Ot on board. [facility]2025-01-16 15:33:12 The patient is Moderately Stable - Low risk of patient condition declining or worsening The patient's goals for the shift include safety The clinical goals for the shift include safety Over the shift, the patient did not make progress toward the following goals. Barriers to progression include na. Recommendations to address these barriers include na. [facility]2025-01-16 02:16:36 The patient is Moderately Stable - Low risk of patient condition declining or worsening The patient's goals for the shift include rest well tonight/no sob The clinical goals for the shift include stable hemodynamics Over the shift, the patient did not make progress toward the following goals. Barriers to progression include possible stress test in AM. Recommendations to address these barriers include for stress test in AM. [facility]2025-01-15 02:04:11 The patient is Moderately Stable - Low risk of patient condition declining or worsening The patient's goals for the shift include rest well tonight/no sob The clinical goals for the shift include stable hemodynamics Over the shift, the patient did not make progress toward the following goals. Barriers to progression include . Recommendations to address these barriers include . [facility]2025-01-14 14:10:26 The patient is Moderately Stable - Low risk of patient condition declining or worsening The patient's goals for the shift include get better The clinical goals for the shift include Hemodynamically stable, safety, maintain O2 sat [facility]2025-01-14 03:01:50 The patient is Moderately Stable - Low risk of patient condition declining or worsening The patient's goals for the shift include Get better The clinical goals for the shift include Hemodynamically stable [facility]2025-01-13 15:24:41 The patient is Moderately Unstable - Medium risk of patient condition declining or worsening The patient's goals for the shift include breathe better The clinical goals for the shift include safety, maintain stable O2 sat Over the shift, the patient did not make progress toward the following goals. Barriers to progression include Pt will be seen by surgeon about rib fractures and oxygen ventilation. Recommendations to address these barriers include continue to monitor vitals and oxygen needs. [place] [id number] 12:49:25 Problem: Inadequate Oral Intake (2.1) Goal: Food and/or Nutrient Delivery (ND) Outcome: Progressing See note for details and interventions. [place] [id number] 03:27:41 The patient is Moderately Stable - Low risk of patient condition declining or worsening The patient's goals for the shift include breathe better The clinical goals for the shift include safety, maintain stable O2 sat [place] [id number] 13:09:46 The patient is Moderately Stable - Low risk of patient condition declining or worsening The patient's goals for the shift include safety, hemodynamically table The clinical goals for the shift include safety. maintain o2 sat [place] [id number] 04:52:28 The patient is Moderately Stable - Low risk of patient condition declining or worsening The patient's goals for the shift include Sleep and recover The clinical goals for the shift include Safet and staying hemodynamically stable [place] [id number] 22:25:02 The patient is Moderately Stable - Low risk of patient condition declining or worsening The patient's goals for the shift include Rest The clinical goals for the shift include Respiratory Improvement [place] [id number] 15:47:21 The patient is Moderately Stable - Low risk of patient condition declining or worsening The patient's goals for the shift include Rest The clinical goals for the shift include Respiratory Improvement Over the shift, the patient did not make progress toward the following goals. Barriers to progression include Recommendations to address these barriers include orientation, patient still needing vapo therm oxygen supply . [facility]2025-01-11 03:19:29 The patient is Unstable - High likelihood or risk of patient condition declining or worsening The patient's goals for the shift include breath better. The clinical goals for the shift include respiratory status improving [facility] CenterQwldpoa3556-36-45 16:57:21 The patient is Moderately Stable - Low risk of patient condition declining or worsening The patient's goals for the shift include get better, adequate oxygenation The clinical goals for the shift include GEt better, Adequate oxygenation Over the shift, the patient did not make progress toward the following goals. Barriers to progression include continued need for bipap. Recommendations to address these barriers include not doing well on vapotherm and remaining on bipap. [facility]2025-01-10 04:29:26 Patients blood pressure was low at 0014 at 93/40 and map 58. Patient had no complaints, awake alert and oreinted x4. Nurse called Dr. Menezes controls engineer and spoke with CONTROL EQUIPMENT ELECTRICIAN BABITA collins said to give 250 ml bolus of LR and if the patient is able to tolerate it to give another 250 bolus of LR. Patients blood pressure after had no effect and nurse called CONTROL EQUIPMENT ELECTRICIAN again. CONTROL EQUIPMENT ELECTRICIAN at 0157 said to give another 250 ml bolus of LR and to get new ABGS. Bolus were all given, patients blood pressure showed no change and ABGS improved. Called MOLD WASHER at 0250, Dr. Boo said to give 250 ml bolus of LR then to give 250 ml bolus of Normal saline. Patient was not transferred anywhere and stayed on th floor. Patients blood pressure still low now but patient has no complaints. Care ongoing. MOLD WASHER ended 316. Notified CONTROL EQUIPMENT ELECTRICIAN and MD REMY put in new orders of another 250 ml bolus of normal saline. Patient oreinted x4. SPRAYER FIRST SPRAYER FIRST [place] [id number] 03:25:00 MOLD WASHER called for BP 80/39 post 750 ml bolus. HR 67. Pt in bed, HOB up 30 degrees, on bibap, sat 100%. Pt eyes closed, easily arroused to awake alert, follows comands, states he is thirsty and wants water. Dr Boo informed of MOLD WASHER, ordered 250ml NS bolus. Post bolus BP 87/39. Dr Boo at bedside. Ordered NS bolus 250ml, labs. [place] [id number] 21:59:11 The patient is Moderately Stable - Low risk of patient condition declining or worsening The patient's goals for the shift include get better, adequate oxygenation The clinical goals for the shift include GEt better, Adequate oxygenation [place] [id number] 12:03:40 The patient is Moderately Stable - Low risk of patient condition declining or worsening The patient's goals for the shift include off vapotherm,Go home The clinical goals for the shift include get better, VSS [place] [address]12-01-09 02:35:44 The patient is Moderately Stable - Low risk of patient condition declining or worsening The patient's goals for the shift include sleep/rest well The clinical goals for the shift include no sob Over the shift, the patient did not make progress toward the following goals. Barriers to progression include . Recommendations to address these barriers include . [place] 60212-01-08 13:47:26 The patient is Moderately Stable - Low risk of patient condition declining or worsening The patient's goals for the shift include GET WELL The clinical goals for the shift include safety, VSS [place] [address]12-01-08 01:51:44 The patient is Moderately Unstable - Medium risk of patient condition declining or worsening The patient's goals for the shift include safety The clinical goals for the shift include safety [facility]2025-01-07 15:48:00 The patient is Moderately Stable - Low risk of patient condition declining or worsening The patient's goals for the shift include get well The clinical goals for the shift include sable Over the shift, the patient did not make progress toward the following goals. Barriers to progression include confusion. Recommendations to address these barriers include sitter at bedside. [place] 60212-01-06 18:54:13 Received report from Nurse Saldaña. [facility] Joseph StaplesJustin [place] [id number] 18:23:00 CTS CONTROL EQUIPMENT ELECTRICIAN PM Update Went into patient's room, he had pulled out a 2nd IV for the evening. He seemed slightly confused, incoherent. Sats were low 80s. I bumped up his oxygen, notified clinical staff. Slowly weaned his oxygen down to 35L 38%. Goal is to keep O2 between 88-92%. Discussed with Dr. Schroeder, cardiopulmonary supervisor. SPRAYER FIRST [facility]ontology Nurse Pract[facility]erMem[facility] HospitalVdyfjuu0773-58-60 13:46:35 CVIMU CONTROL EQUIPMENT ELECTRICIAN Episodic Note 78 years old male with past medical history of epilepsy on Keppra, COPD on home oxygen, prior Left PROGRAM SCHEDULE CLERK stroke, HTN, HLD , who was admitted to Neuro ICU on 03/05/2024 as a transfer from [facility] with AMS and hypoxia. Per chart reviewed, Patient presented to outside hospital with AMS, generalized weakness, and hypoxia. He was hypoxia with O2 sats in 70s on 3L NC. Patient was also diaphoretic, pale and blue purse lips. He is placed on NRB and transfer to ED. Patient was awake and answer some question en route. In ED, Patient NIHSS was 35 and became altered with GCS of 8. He does not move any extremities. CTH is obtain which was negative for intracranial abnormalities. Patient did not received TNK because of OOW. Per , Patient stopped taking keppra since past one week. Patient was loaded with 4gm of Keppra in ED. Prior to Transfer, Patient GCS decline and was intubated for airway protection. During intubation, He has PEA arrest ROSC achieved in 15 minutes, Upon arrival to NICU, Patient is awake, follow commands, all extremities AG. CTA is obtain which is negative for LVO or aneurysm. Patient is placed on Ceribell which showed 0% seizure burden. He was extubated to nasal cannula on 03/07. MOLD WASHER called this pm for desaturating down to 85%. Vapotherm increased by RN to 50%, O2 sat monitor was also repositioned and sat cam up to 95%. Patient was awake, alert and following commands, in no distress. Denies chest pain or SOB. RT to bedside and decreased Fio2 down to 30%, sat remained stable.Dr Pinto and Dr Schroeder updates, Stat CXR ordered SA [facility] HospitalRmwfflc8712-37-04 11:37:42 Informed RT that I was just reading through some orders and it looks like goal for pt is O2 88-92% with hx of COPD. He is currently on Vapotherm 35L 50% saturating 98% [place] 57353-01-06 03:41:48 The patient is Moderately Stable - Low risk of patient condition declining or worsening The patient's goals for the shift include get better The clinical goals for the shift include improve CO2 [place] [address]-01-05 12:00:00 The patient is Moderately Stable - Low risk of patient condition declining or worsening The patient's goals for the shift include get better The clinical goals for the shift include improve CO2 Over the shift, the patient did not make progress toward the following goals. Barriers to progression include crit CO2 level. Recommendations to address these barriers include BIPAP VS vapotherm. [place] 60212-01-05 09:55:00 Vapotherm upped by RT to 40L 40%, pt sating 97-98%. [place] 57353-01-05 09:45:[address] Pinto and Dr Schroeder "PCO2 is 67 and pt is on vapotherm 40L 35% sating 96%, eating breakfast and chatting away with the sitter." [place] [address]12-01-05 08:40:[address] Pinto and Dr Schroeder "Pts CO2 is still greater than 40 on AM labs. Pt is currently on BIPAP with a 1:1 sitter, pt is tolerating decently." Repeat ABG pending, called RT to draw. [facility]2025-01-04 23:00:00 The patient is Moderately Unstable - Medium risk of patient condition declining or worsening The patient's goals for the shift include Get better and go home The clinical goals for the shift include Safety, improved oxygenation and perfusion, and hemodynamically stable Over the shift, the patient did not make progress toward the following goals. Barriers to progression include noncompliance and overall comfort. Recommendations to address these barriers include ongoing collaboration between patient and care team to address needs and concerns, vital signs monitoring, as well as promoting patient comfort through nursing interventions such as repositioning and therapeutic communication. [facility] NursingVal [facility] CenterQnunnuh0021-58-55 15:14:00 RT notes-Unable to do ABG, patient clotted,patient is refusing to be stuck again.Will have another RT try again later. RN notified. [facility] Internal MedicineVal [facility]de [facility] Medical CenterQbwnfef9974-51-14 14:38:12 Problem: Pain - Adult Goal: Verbalizes/displays adequate comfort level or baseline comfort level Outcome: Progressing Problem: Safety - Adult Goal: Free from fall injury Outcome: Progressing Problem: Discharge Planning Goal: Discharge to home or other facility with appropriate resources Outcome: Progressing Problem: Chronic Conditions and Co-morbidities Goal: Patient's chronic conditions and co-morbidity symptoms are monitored and maintained or improved Outcome: Progressing Problem: Knowledge Deficit Goal: Patient/family/caregiver demonstrates understanding of disease process, treatment plan, medications, and discharge instructions Outcome: Progressing Problem: Potential for Falls Goal: I will remain free of falls Outcome: Progressing Problem: Mechanical Ventilation Goal: Patient Will Maintain Patent Airway Outcome: Progressing Goal: Oral health is maintained or improved Outcome: Progressing Goal: Tracheostomy will be managed safely Outcome: Progressing Goal: ET tube will be managed safely Outcome: Progressing Goal: Ability to express needs and understand communication Outcome: Progressing Goal: Mobility/activity is maintained at optimum level for patient Outcome: Progressing Problem: Neurosensory - Adult Goal: Achieves stable or improved neurological status Outcome: Progressing Goal: Absence of seizures Outcome: Progressing Goal: Remains free of injury related to seizures activity Outcome: Progressing Goal: Achieves maximal functionality and self care Outcome: Progressing Problem: Respiratory - Adult Goal: Achieves optimal ventilation and oxygenation Outcome: Progressing Problem: Cardiovascular - Adult Goal: Maintains optimal cardiac output and hemodynamic stability Outcome: Progressing Goal: Absence of cardiac dysrhythmias or at baseline Outcome: Progressing Problem: Skin/Tissue Integrity - Adult Goal: Skin integrity remains intact Outcome: Progressing Goal: Incisions, wounds, or drain sites healing without S/S of infection Outcome: Progressing Goal: Oral mucous membranes remain intact Outcome: Progressing Problem: Musculoskeletal - Adult Goal: Return mobility to safest level of function Outcome: Progressing Goal: Maintain proper alignment of affected body part Outcome: Progressing Goal: Return ADL status to a safe level of function Outcome: Progressing Problem: Gastrointestinal - Adult Goal: Minimal or absence of nausea and vomiting Outcome: Progressing Goal: Maintains or returns to baseline bowel function Outcome: Progressing Goal: Maintains adequate nutritional intake Outcome: Progressing Goal: Establish and maintain optimal ostomy function Outcome: Progressing Problem: Genitourinary - Adult Goal: Absence of urinary retention Outcome: Progressing Goal: Urinary catheter remains patent Outcome: Progressing Problem: Infection - Adult Goal: Absence of infection at discharge Outcome: Progressing Goal: Absence of infection during hospitalization Outcome: Progressing Goal: Absence of fever/infection during anticipated neutropenic period Outcome: Progressing Problem: Metabolic/Fluid and Electrolytes - Adult Goal: Electrolytes maintained within normal limits Outcome: Progressing Goal: Hemodynamic stability and optimal renal function maintained Outcome: Progressing Goal: Glucose maintained within prescribed range Outcome: Progressing Problem: Hematologic - Adult Goal: Maintains hematologic stability Outcome: Progressing The patient is Moderately Stable - Low risk of patient condition declining or worsening The patient's goals for the shift include to get better The clinical goals for the shift include safety Over the shift, the patient did not make progress toward the following goals. Barriers to progression include Shortness of breath. Recommendations to address these barriers include Prompt interventions. [facility] Aimeorlatisha qIbalAgimqsl1709-23-31 04:19:28 The patient is Moderately Stable - Low risk of patient condition declining or worsening The patient's goals for the shift include safety and get better The clinical goals for the shift include safety and get better [facility]2025-01-03 15:27:46 The patient is Moderately Unstable - Medium risk of patient condition declining or worsening The patient's goals for the shift include go home The clinical goals for the shift include get better [facility]2025-01-03 03:25:55 Problem: Discharge Planning Goal: Discharge to home or other facility with appropriate resources Outcome: Progressing Problem: Knowledge Deficit Goal: Patient/family/caregiver demonstrates understanding of disease process, treatment plan, medications, and discharge instructions Outcome: Progressing Problem: Mechanical Ventilation Goal: Patient Will Maintain Patent Airway Outcome: Progressing Problem: Neurosensory - Adult Goal: Achieves stable or improved neurological status Outcome: Progressing Problem: Skin/Tissue Integrity - Adult Goal: Skin integrity remains intact Outcome: Progressing Problem: Cardiovascular - Adult Goal: Absence of cardiac dysrhythmias or at baseline Outcome: Progressing The patient is Moderately Stable - Low risk of patient condition declining or worsening The patient's goals for the shift include go home The clinical goals for the shift include get better Over the shift, the patient did make progress toward the following goals [facility]2025-01-02 19:06:21 Patient's son (Riley [phone]) notified of transfer to room 625. Patient's son stated that he would like the patient to go to the 8th floor for IPR if possible. aware/case management orders for IPR placed. [facility]2025-01-02 12:01:25 The patient is Moderately Stable - Low risk of patient condition declining or worsening The patient's goals for the shift include go home The clinical goals for the shift include get better [facility]2025-01-01 19:46:11 The patient is Moderately Unstable - Medium risk of patient condition declining or worsening The patient's goals for the shift include go home The clinical goals for the shift include get stronger Over the shift, the patient did not make progress toward the following goals. Barriers to progression include not following infection protocol. Recommendations to address these barriers include call for help . [facility]2025-01-01 07:07:58 The patient is Moderately Stable - Low risk of patient condition declining or worsening The patient's goals for the shift include Get rest The clinical goals for the shift include get better Over the shift, the patient did not make progress toward the following goals. Barriers to progression include . Recommendations to address these barriers include . [facility]2024-12-31 20:09:30 The patient is Moderately Unstable - Medium risk of patient condition declining or worsening The patient's goals for the shift include Get rest The clinical goals for the shift include Stable neurological status Over the shift, the patient did not make progress toward the following goals. Barriers to progression include not following infection protocol. Recommendations to address these barriers include free from infection . [facility]2024-12-30 22:48:10 The patient is Moderately Stable - Low risk of patient condition declining or worsening The patient's goals for the shift include stable neuro The clinical goals for the shift include stable neuro [facility]2024-12-30 13:29:37 Problem: Inadequate Oral Intake (2.1) Goal: Food and/or Nutrient Delivery (ND) Outcome: Progressing [facility]2024-12-30 06:41:53 [place] [address]333-12-30 06:41:53* Imaging (Routine) - Authorized Specialty Diagnoses / Procedures Referred By Contac t Referred To Contact Radiology Procedures CT external head System, Provider Not In Referral ID Status Reason Start Date Expiration Date V isits Requested Visits Authorized [id number] Authorized 03/07/2024 09/03/2024 1 1 [place] [id number] 04:33:55 The patient is Moderately Unstable - Medium risk of patient condition declining or worsening The patient's goals for the shift include stable neuro The clinical goals for the shift include stable neuro [place] [id number] 21:00:29 The patient is Moderately Unstable - Medium risk of patient condition declining or worsening The patient's goals for the shift include Stable neuro status and absence of seizures The clinical goals for the shift include Stable neurological status and absence of seizures [facility]2024-12-29 08:29:14 The patient is Moderately Stable - Low risk of patient condition declining or worsening The patient's goals for the shift include stable vital signs and stable on ventilator until extubation. The clinical goals for the shift include no decline in neurological status and no further seizure Over the shift, the patient did not make progress toward the following goals. Barriers to progression include intubation. Recommendations to address these barriers include possible extubation. [place] [id number] 02:34:01 The patient is Moderately Unstable - Medium risk of patient condition declining or worsening The patient's goals for the shift include The clinical goals for the shift include no decline in neurological status and no further seizure [facility]
--- NOTE | 2024-06-16 12:55 | RAD REPORT ---
EXAMINATION: ONE VIEW CHEST XR CLINICAL INDICATION: Male, 78 years old.,DYSPNEA TECHNIQUE: Frontal chest projection is submitted. Examination is limited by patient positioning and t echnique. COMPARISON: 03/03/2019 FINDINGS: The lungs are diffusely emphysematous but grossly clear. No pneumothorax or sizable effusion. The he art is normal in size. Mediastinal contours are unremarkable. IMPRESSION: No acute intrathoracic abnormalities. Changes of COPD.
[2024-06-16] MEDS ORDERED: NA CHLORIDE 0.9% 500 ML ONE (13:36)
[2024-06-16 13:41] LABS: Absolute Lymphocytes (CBC) 0.4 K/uL (0.7-4.9); Absolute Monocytes 0.2 K/uL (0.1-1.3); Absolute Neutrophil 4.4 K/uL (1.8-8.0); Basophils % 0.1 % (0-1.3); Hematocrit 33.7 % (39.6-49.0); Hemoglobin 11.2 g/dL (13.6-17.9); Lymphocytes % 7.2 % (15.3-44.8); MCH 30.3 pg (27.0-35.0); MCHC 33.2 g/dL (32.0-36.0); MCV 91.3 fL (80-100); MPV 8.4 fL (7.6-11.3); Monocytes % 3.2 % (3.3-12.3); Neutrophils % 89.5 % (41.7-73.7); Nucleated Red Blood Cells % 0.1 % (0-0); Platelets 221 thou/uL (152-406); Red Cell Distribution Width 15.1 % (12.1-15.2)
[2024-06-16 13:44] LABS: PT Prothrombin Time 16.1 SECONDS (10-13.0); Protime INR 1.44
[2024-06-16 14:21] LABS: ALT/SGPT 23 U/L (16-61); AST/SGOT 26 U/L (15-37); Albumin 2.6 g/dL (3.4-5.0); Albumin/Globulin Ratio 0.7 (1.1-1.8); Alkaline Phosphatase 53 U/L (45-117); Anion Gap 4.7 mEq/L (5.0-15.0); BUN Blood Urea Nitrogen 22 mg/dL (7-18); Bicarbonate 43 mEq/L (21-32); Bilirubin Total 0.3 mg/dL (0.2-1.0); Globulin 3.9 g/dL (2.3-3.5); Glomerular Filtration Rate 97 ml/min (=/>90); Glucose Level 148 mg/dL (74-106); Lipase 21 U/L (13-75); Magnesium 2.3 mg/dL (1.6-2.4); NT PRO-BNP 599 pg/mL (<450); Potassium 3.7 mEq/L (3.5-5.1); Protein, Total 6.5 g/dL (6.4-8.2); Sodium Level 138 mEq/L (136-145); Troponin High Sensitivity 23.6 pg/mL (<58.9)
[2024-06-16 14:26] LABS: Bilirubin Direct < 0.2 mg/dL (0-0.2); Bilirubin Indirect, Calculated 0.1 mg/dL (0.2-0.8)
[2024-06-16 15:14] LABS: Blood Morphology Comment NOT SEEN (NOT SEEN); Platelet Estimate ADEQ; White Blood Cell Scan OK (OK)
[2024-06-16] MEDS ORDERED: IPRATROPIUM BROM 0.5MG/2.5ML ONE (15:32)
[2024-06-16] MEDS ORDERED: METHYLPREDNISOLONE 125 MG INJ ONE (15:32)
[2024-06-16] MEDS ORDERED: levoFLOXacin 750 MG TAB ONE (15:33)
[2024-06-16] MEDS ORDERED: LEVALBUTEROL 1.25 MG/3 ML NEB ONE (15:33)
[2024-06-16] MEDS ORDERED: predniSONE 20 MG TAB ONE (16:05)
--- NOTE | 2024-06-16 16:07 | EDPHYS ---
Physician Documentation [facility] Name: Jimmy Neal Age: 78 yrs Sex: Male : 1945 Arrival Date: 06/16/2024 Time: 12:06 Bed 18 Private MD: ED Physician Jose Angel Fonseca HPI: 06/16 15:49 This 78 yrs old Male presents to ER via Wheelchair with complaints of Low 02. wanda 15:49 The patient has shortness of breath at rest, with light activity. Onset: The wanda symptoms/episode began/occurred 3 day(s) ago. Duration: The symptoms are continuous, and are unchanged since they started. The patient or guardian reports cough, described as mild, described as moderate, difficulty breathing. Modifying factors: The symptoms are alleviated by nothing. the symptoms are aggravated by nothing. hospice , copd. Associated signs and symptoms: Pertinent positives: non-productive cough. Severity of symptoms: At their worst the symptoms were moderate in the emergency department the symptoms are unchanged. Historical: - Allergies: 12:20 No Known Allergies; iw - PMHx: 12:20 CHF; Hypertension; copd; cardiac arrest; iw - Immunization history:: Adult Immunizations up to date. - Infectious Disease History:: Denies. - Social history:: Smoking status: Patient/guardian denies using tobacco, but has a distant history of tobacco abuse. ROS: 16:00 Constitutional: Negative for fever, chills, and weight loss, Eyes: Negative for injury, wanda pain, redness, and discharge, ENT: Negative for injury, pain, and discharge, Neck: Negative for injury, pain, and swelling, Cardiovascular: Negative for chest pain, palpitations, and edema, Abdomen/GI: Negative for abdominal pain, nausea, vomiting, diarrhea, and constipation, Back: Negative for injury and pain, : Negative for injury, bleeding, discharge, and swelling, MS/Extremity: Negative for injury and deformity, Skin: Negative for injury, rash, and discoloration, Neuro: Negative for headache, weakness, numbness, tingling, and seizure, Psych: Negative for depression, anxiety, suicide ideation, homicidal ideation, and hallucinations, Allergy/Immunology: Negative for hives, rash, and allergies, Endocrine: Negative for neck swelling, polydipsia, polyuria, polyphagia, and marked weight changes, Hematologic/Lymphatic: Negative for swollen nodes, abnormal bleeding, and unusual bruising, 16:00 Respiratory: Positive for cough, shortness of breath, wheezing, expiratory, Exam: 16:00 Constitutional: This is a well developed, well nourished patient who is awake, alert, wanda and in no acute distress. Head/Face: Normocephalic, atraumatic. Eyes: Pupils equal round and reactive to light, extra-ocular motions intact. Lids and lashes normal. Conjunctiva and sclera are non-icteric and not injected. Cornea within normal limits. Periorbital areas with no swelling, redness, or edema. ENT: Nares patent. No nasal discharge, no septal abnormalities noted. Tympanic membranes are normal and external auditory canals are clear. Oropharynx with no redness, swelling, or masses, exudates, or evidence of obstruction, uvula midline. Mucous membranes moist. Neck: Trachea midline, no thyromegaly or masses palpated, and no cervical lymphadenopathy. Supple, full range of motion without nuchal rigidity, or vertebral point tenderness. No Meningismus. Chest/axilla: Normal chest wall appearance and motion. Nontender with no deformity. No lesions are appreciated. Cardiovascular: Regular rate and rhythm with a normal S1 and S2. No gallops, murmurs, or rubs. Normal PMI, no JVD. No pulse deficits. Abdomen/GI: Soft, non-tender, with normal bowel sounds. No distension or tympany. No guarding or rebound. No evidence of tenderness throughout. Back: No spinal tenderness. No costovertebral tenderness. Full range of motion. Male : Normal genitalia with no discharge or lesions. Skin: Warm, dry with normal turgor. Normal color with no rashes, no lesions, and no evidence of cellulitis. MS/ Extremity: Pulses equal, no cyanosis. Neurovascular intact. Full, normal range of motion., bilateral aka Neuro: Awake and alert, GCS 15, oriented to person, place, time, and situation. Cranial nerves II-XII grossly intact. Motor strength 5/5 in all extremities. Sensory grossly intact. Cerebellar exam normal. Normal gait. Psych: Awake, alert, with orientation to person, place and time. Behavior, mood, and affect are within normal limits. 16:00 Respiratory: the patient does not display signs of respiratory distress, Respirations: normal, Breath sounds: decreased breath sounds, that are severe, are located in both bases, rhonchi, that are mild, are scattered, stridor, is not appreciated, wheezing: is not appreciated, 16:03 ECG was reviewed by the Attending Physician. wanda 16:05 Musculoskeletal/extremity: DVT Exam: No signs of deep vein thrombosis. no pain, no wanda swelling, no tenderness, negative Homans' sign noted on exam, no appreciated bluish discoloration, no erythema, no increased warmth, Vital Signs: 12:18 BP 114 / 70; Pulse 71; Resp 24 S; Temp 97.4; Pulse Ox 100% on 3 lpm NC; Weight 74.84 iw kg; Height 6 ft. 0 in. ; 14:26 BP 134 / 64; Pulse 57; Resp 19; Pulse Ox 100% on 5 lpm NC; jb4 15:30 BP 133 / 60; Pulse 69; Resp 26; Pulse Ox 96% on 5 lpm NC; jb4 16:30 BP 133 / 65; Pulse 71; Resp 24; Pulse Ox 100% on 3 lpm NC; jb4 12:18 Body Mass Index 22.38 (74.84 kg, 182.88 cm) iw MDM: 12:10 Medical Screening Exam initiated wanda 16:03 Differential diagnosis: Anemia Anxiety Reaction asthma, Bronchitis CHF exacerbation, wanda Chronic Obstructive Pulmonary Disease obstructed airway, tracheal injury, bronchitis, flu, URI, Myocardial Infarction pneumonia, Pneumothorax Psychogenic pulmonary edema. Antibiotic administration: The patient is discharged and will get outpatient antibiotics, Levaquin. Differential Diagnosis altered mental status, sepsis, flu. Immunization status: Pneumococcal vaccine: within last 5 years. Influenza vaccine: within last 5 years. Data reviewed: vital signs, nurses notes, EMS record, lab test result(s), EKG, radiologic studies. Consideration of Admission/Observation Patient was admitted/placed on observation. Escalation of care including admission/observation considered. I considered the following discharge prescriptions or medication management in the emergency department Medications were administered in the Emergency Department. See MAR. Independent interpretation of the following test(s) in the Emergency Department EKG: See my EKG interpretation above. Test considered but Not performed: CT: ct chest. Historians other than the Patient: Daughter/Son: daughter well indformed. 06/16 12:12 Order name: Basic Metabolic Panel; Complete Time: 15:14 [facility] 06/16 12:12 Order name: CBC with Diff; Complete Time: 15:17 [facility] 06/16 12:12 Order name: LFT's; Complete Time: 15:14 [facility] 06/16 12:12 Order name: Magnesium; Complete Time: 15:14 [facility] 06/16 12:12 Order name: NT PRO-BNP; Complete Time: 15:14 [facility] 06/16 12:12 Order name: PT-INR; Complete Time: 15:14 [facility] 06/16 12:12 Order name: Troponin HS; Complete Time: 15:14 [facility] 06/16 12:12 Order name: Blood Culture Adult (2) 06/16 12:12 Order name: Lactate w/ 2H reflex if indic.; Complete Time: 15:14 [facility] 06/16 12:12 Order name: Lipase; Complete Time: 15:14 [facility] 06/16 15:14 Order name: CBC Smear Scan; Complete Time: 15:17 EDMS 06/16 12:12 Order name: XRAY Chest (1 view); Complete Time: 15:14 [facility] 06/16 15:16 Order name: BIPAP [facility] 06/16 12:12 Order name: Cardiac monitoring; Complete Time: 12:58 [facility] 06/16 12:12 Order name: EKG - Nurse/Tech; Complete Time: 14:02 [facility] 06/16 12:12 Order name: IV Saline Lock; Complete Time: 13:31 [facility] 06/16 12:12 Order name: Labs collected and sent; Complete Time: 13:31 [facility] 06/16 12:12 Order name: O2 Per Protocol; Complete Time: 12:58 [facility] 06/16 12:12 Order name: O2 Sat Monitoring; Complete Time: 12:58 [facility] EC:03 Rate is 61 beats/min. Rhythm is regular. QRS [place] is Normal. NC interval is normal. QRS wanda interval is normal. QT interval is normal. No Q waves. T waves are Normal. No ST changes noted. Clinical impression: NSR w/ Non-specific ST/T Changes and No evidence of ischemia. Interpreted by me. Reviewed by me. Administered Medications: 14:00 Drug: NS 0.9% IV 500 ml 500 ml IV at 1 bolus once; to be given as a bolus over 30 jb4 minutes Volume: 500 ml; Route: IV; Rate: 1 bolus; Site: right antecubital; 15:30 Follow up: Response: No adverse reaction; IV Status: Completed infusion; IV Intake: jb4 1000ml 15:38 Drug: MethylPrednisoLONE IVP 125 mg IVP once Route: IVP; Site: right antecubital; jb4 17:24 Follow up: Response: No adverse reaction; Marked relief of symptoms jb4 15:38 Drug: LevOfloxacin PO 750 mg PO once Route: PO; jb4 17:24 Follow up: Response: No adverse reaction jb4 15:47 Drug: Levalbuterol Inhalation 3.75 mg Inhalation once Route: Inhalation; jb4 17:25 Follow up: Response: No adverse reaction; Marked relief of symptoms jb4 15:47 Drug: Ipratropium Inhalation Aerosol 0.5 mg Inhalation once; Every 20 min for a total jb4 of 3 treatments x3 Route: Inhalation; 16:15 Drug: predniSONE PO 60 mg PO once Route: PO; ll1 17:24 Follow up: Response: No adverse reaction jb4 16:17 Drug: Ipratropium Inhalation Aerosol 0.5 mg Inhalation once; Every 20 min for a total jb4 of 3 treatments x3 Route: Inhalation; 17:24 Follow up: Response: No adverse reaction; Marked relief of symptoms jb4 16:17 Drug: Ipratropium Inhalation Aerosol 0.5 mg Inhalation once; Every 20 min for a total jb4 of 3 treatments x3 Route: Inhalation; Disposition Summary: 06/16/24 16:06 Discharge Ordered Notes: Location: Home wanda Problem: new wanda Symptoms: have improved wanda Condition: Stable wanda Diagnosis - Hypoxemia wanda - Acute and chronic respiratory failure with hypoxia wanda - Acute and chronic respiratory failure with hypercapnia wanda - Do not resuscitate - HOSPICE, REFUSES ADMISSION wanda - COPD/ Chronic obstructive pulmonary disease with (acute) exacerbation wanda Followup: wanda - With: Private Physician - When: 2 - 3 days - Reason: Recheck today's complaints, Continuance of care, Re-evaluation by your physician Followup: wanda - With: Jef Melendez MD - When: 2 - 3 days - Reason: Recheck today's complaints, Re-evaluation by your physician Discharge Instructions: - Discharge Summary Sheet wanda - Chronic Obstructive Pulmonary Disease wanda - Chronic Respiratory Failure wanda - Chronic Obstructive Pulmonary Disease Exacerbation wanda - Chronic Obstructive Pulmonary Disease, [id number] wanda - Hospice wanda - Hypoxemia wanda - Cough, Adult, Yvsa-ny-[id number] wanda - How to Use a Nebulizer, Adult wanda - Cough, Adult wanda - Chronic Obstructive Pulmonary Disease Exacerbation, [id number] [facility] - Eating Plan for Chronic Obstructive Pulmonary Disease wanda - COPD and Physical Activity [facility] Forms: - Medication Reconciliation Form [facility] - Antibiotic Education wanda - Prescription Opioid Use wanda - Patient Portal Instructions [facility] - Leadership Thank You Letter [facility] Prescriptions: - Pepcid 20 mg Oral tablet - take 1 tablet ORAL route every 12 hours for 21 days; 42 tablet; Refills: 0, [facility] Product Selection Permitted - Albuterol Sulfate 2.5 mg /3 mL (0.083 %) Inhalation Solution for Nebulization - inhale 1 unit NEBULIZATION route every 4-6 hours As needed; 36 unit; Refills: [facility] 0, Product Selection Permitted - Prednisone 20 mg Oral Tablet - take 2 tablets ORAL route once daily for 5 days; 10 tablet; Refills: 0, Product [facility] Selection Permitted - levofloxacin 500 mg Oral tablet - take 1 tablet ORAL route once daily for 7 days BEGIN 06/17/24; 7 tablet; [facility] Refills: 0, Product Selection Permitted Signatures: Dispatcher [employer] EDMS Jose Angel Fonseca MD MD cha Williams, Irene RN RN iw Alin Cosby, RN RN jb4 Vickie Ivy RN RN ll1 Corrections: (The following items were deleted from the chart) 12:13 12:12 BASIC METABOLIC PANEL+C.LAB.BRZ ordered. EDMS EDMS 12:13 12:12 CBC+H.LAB.BRZ ordered. EDMS EDMS 12:13 12:12 HEPATIC FUNCTION+C.LAB.BRZ ordered. EDMS EDMS 12:13 12:12 MAGNESIUM+C.LAB.BRZ ordered. EDMS EDMS 12:13 12:12 PROBNP+C.LAB.BRZ ordered. EDMS EDMS 12:13 12:12 PROTIME (+INR)+COAG.LAB.BRZ ordered. EDMS EDMS 12:13 12:13 Troponin High Sensitivity+C.LAB.BRZ ordered. EDMS EDMS 12:13 12:13 BLOOD CULTURE*+BA.LAB.BRZ ordered. EDMS EDMS 12:13 12:13 LACTATE+C.LAB.BRZ ordered. EDMS EDMS 12:13 12:13 Urinalysis+U.LAB.BRZ ordered. EDMS EDMS 12:13 12:13 LIPASE+C.LAB.BRZ ordered. EDMS EDMS 12:13 12:13 Chest Single View+RAD.RAD.BRZ ordered. EDMS EDMS 16:14 15:16 Arterial Blood Gas+RC.LAB.BRZ ordered. EDMS EDMS
--- NOTE | 2024-06-16 16:07 | ER ---
Nurse's Notes [facility] Name: Jimmy Neal Age: 78 yrs Sex: Male : 1945 Arrival Date: 06/16/2024 Time: 12:06 Bed 18 Private MD: Diagnosis: Hypoxemia;Acute and chronic respiratory failure with hypoxia;Acute and chronic respiratory failure with hypercapnia;Do not resuscitate-HOSPICE, REFUSES ADMISSION;COPD/ Chronic obstructive pulmonary disease with (acute) exacerbation Presentation: 06/16 12:18 Chief complaint: Patient states: last night he was gasping for air , was seen at [facility] for iw a check up and his SpO2 was in the 80's , hx of COPD . he had to be seen in the hospital for SOB. Coronavirus screen: Client presents with at least one sign or symptom that may indicate coronavirus-19. Ebola Screen: No symptoms or risks identified at this time. Initial Sepsis Screen: Does the patient meet any 2 criteria? Does the patient have a suspected source of infection? No. Patient's initial sepsis screen is negative. Risk Assessment: Do you want to hurt yourself or someone else? Patient reports no desire to harm self or others. Onset of symptoms. 12:18 Method Of Arrival: Wheelchair iw 12:18 Acuity: RAQUEL 3 iw Historical: - Allergies: 12:20 No Known Allergies; iw - PMHx: 12:20 CHF; Hypertension; copd; cardiac arrest; iw - Immunization history:: Adult Immunizations up to date. - Infectious Disease History:: Denies. - Social history:: Smoking status: Patient/guardian denies using tobacco, but has a distant history of tobacco abuse. Screenin:30 [facility] ED Fall Risk Assessment (Adult) History of falling in the last 3 months, jb4 including since admission No falls in past 3 months (0 pts) Confusion or Disorientation No (0 pts) Intoxicated or Sedated No (0 pts) Impaired Gait No (0 pts) Mobility Assist Device Used No (0 pt) Altered Elimination No (0 pt) Score/Fall Risk Level 0 - 2 = Low Risk Oriented to surroundings, Maintained a safe environment. Abuse screen: Denies threats or abuse. Nutritional screening: No deficits noted. Tuberculosis screening: No symptoms or risk factors identified. Assessment: 13:30 General: Appears distressed, uncomfortable, Behavior is calm, cooperative. Pain: Denies jb4 pain. Neuro: Level of Consciousness is awake, alert, obeys commands, Oriented to person, place, time, situation. Cardiovascular: Patient's skin is warm and dry. Respiratory: Airway is patent Respiratory effort is even, unlabored, Respiratory pattern is regular, symmetrical. Derm: Skin is pink, warm \T\ dry. Wound noted coccyx. Musculoskeletal: Circulation, motion, and sensation intact. Range of motion: intact in all extremities. 15:00 Reassessment: Patient appears in no apparent distress at this time. Patient and/or jb4 family updated on plan of care and expected duration. Pain level reassessed. Patient is alert, oriented x 3, equal unlabored respirations, skin warm/dry/pink. 16:00 Reassessment: Patient appears in no apparent distress at this time. Patient and/or jb4 family updated on plan of care and expected duration. Pain level reassessed. Patient is alert, oriented x 3, equal unlabored respirations, skin warm/dry/pink. 17:00 Reassessment: Patient appears in no apparent distress at this time. Patient and/or jb4 family updated on plan of care and expected duration. Pain level reassessed. Patient is alert, oriented x 3, equal unlabored respirations, skin warm/dry/pink. Vital Signs: 12:18 BP 114 / 70; Pulse 71; Resp 24 S; Temp 97.4; Pulse Ox 100% on 3 lpm NC; Weight 74.84 iw kg; Height 6 ft. 0 in. ; 14:26 BP 134 / 64; Pulse 57; Resp 19; Pulse Ox 100% on 5 lpm NC; jb4 15:30 BP 133 / 60; Pulse 69; Resp 26; Pulse Ox 96% on 5 lpm NC; jb4 16:30 BP 133 / 65; Pulse 71; Resp 24; Pulse Ox 100% on 3 lpm NC; jb4 12:18 Body Mass Index 22.38 (74.84 kg, 182.88 cm) iw Vitals: 14:26 Cardiac Rhythm Assessment Sinus danni. jb4 ED Course: 12:08 Patient arrived in ED. mr 12:10 Jose Angel Fonseca MD is Attending Physician. wanda 12:20 Triage completed. iw 12:20 Arm band placed on. iw 12:34 XRAY Chest (1 view) In Process Unspecified. EDMS 12:49 Patient placed in an exam room, on a stretcher. aa5 13:30 Patient has correct armband on for positive identification. Bed in low position. Call jb4 light in reach. Side rails up X 1. Provided Education on: plan of care. 13:30 No provider procedures requiring assistance completed. jb4 13:31 Basic Metabolic Panel Sent. jb4 13:31 CBC with Diff Sent. jb4 13:31 LFT's Sent. jb4 13:31 Magnesium Sent. jb4 13:31 NT PRO-BNP Sent. jb4 13:31 PT-INR Sent. jb4 13:31 Troponin HS Sent. jb4 13:31 Lipase Sent. jb4 13:31 Lactate w/ 2H reflex if indic. Sent. jb4 13:31 Blood Culture Adult (2) Sent. jb4 16:05 Jef Melendez MD is Referral Physician. wanda 17:23 IV discontinued, intact, bleeding controlled, No redness/swelling at site. Pressure jb4 dressing applied. Administered Medications: 14:00 Drug: NS 0.9% IV 500 ml 500 ml IV at 1 bolus once; to be given as a bolus over 30 jb4 minutes Volume: 500 ml; Route: IV; Rate: 1 bolus; Site: right antecubital; 15:30 Follow up: Response: No adverse reaction; IV Status: Completed infusion; IV Intake: jb4 1000ml 15:38 Drug: MethylPrednisoLONE IVP 125 mg IVP once Route: IVP; Site: right antecubital; jb4 17:24 Follow up: Response: No adverse reaction; Marked relief of symptoms jb4 15:38 Drug: LevOfloxacin PO 750 mg PO once Route: PO; jb4 17:24 Follow up: Response: No adverse reaction jb4 15:47 Drug: Levalbuterol Inhalation 3.75 mg Inhalation once Route: Inhalation; jb4 17:25 Follow up: Response: No adverse reaction; Marked relief of symptoms jb4 15:47 Drug: Ipratropium Inhalation Aerosol 0.5 mg Inhalation once; Every 20 min for a total jb4 of 3 treatments x3 Route: Inhalation; 16:15 Drug: predniSONE PO 60 mg PO once Route: PO; ll1 17:24 Follow up: Response: No adverse reaction jb4 16:17 Drug: Ipratropium Inhalation Aerosol 0.5 mg Inhalation once; Every 20 min for a total jb4 of 3 treatments x3 Route: Inhalation; 17:24 Follow up: Response: No adverse reaction; Marked relief of symptoms jb4 16:17 Drug: Ipratropium Inhalation Aerosol 0.5 mg Inhalation once; Every 20 min for a total jb4 of 3 treatments x3 Route: Inhalation; Medication: 13:30 VIS not applicable for this client. jb4 Intake: 15:30 IV: 1000ml; Total: 1000ml. jb4 Outcome: 16:06 Discharge ordered by MD. muñoz 17:23 Discharged to home via wheelchair, with family, jb4 17:23 Condition: stable 17:23 Discharge instructions given to patient, family, Instructed on discharge instructions, follow up and referral plans. medication usage, wound care, Demonstrated understanding of instructions, follow-up care, medications, wound care, Prescriptions given X 4, 17:25 Patient left the ED. jb4 Signatures: Dispatcher [employer] EDMS Jose Angel Fonseca MD MD cha Rivera, Mary, Reg Reg mr Emily Samuels, RN RN Ann Brooks RN RN [id number] Alin Cosby RN RN jb4 Vickie Ivy, JON RN ll1 Corrections: (The following items were deleted from the chart) 12:21 12:18 BP 114 / 70; Pulse 71bpm; Resp 24bpm; Spontaneous; Pulse Ox 100% 3 lpm Nasal iw Cannula; Temp 97.4F; iw
[2024-06-16 17:42] VITALS: TEMP 97.4
[2024-06-16 17:46] VITALS: BP 133/65; O2SAT 100
--- NOTE | 2024-06-17 14:17 | EKG ---
Test Date: 2024-06-16 Test Time: 13:55:50 Sales Representative: JULIO CÉSAR MEASUREMENT RESULTS: Intervals: Rate: 61 [place]: 162 QRSD: 148 QT: 426 QTc: 428 [place]: P: 105 [place]: 162 QRS: 89 T: 74 INTERPRETIVE STATEMENTS: Normal sinus rhythm Right bundle branch block ST elevation, consider inferolateral injury or acute infarct ACUTE MA Abnormal ECG Compared to ECG 03/03/2019 13:09:34 Right bundle-branch block now present ST (T wave) deviation now present Right-axis deviation no longer present Left ventricular hypertrophy no longer present Early repolarization no longer present Myocardial infarct finding still present Electronically Signed On 06-17-24 14:13:27 CDT by Carlton Hollingsworth
== END 2024-06-16 17:25 | disposition home or self-care (01) ==
LOC: ER 12:06
DX: J96.21 Acute and chronic respiratory failure with hypoxia (principal); J96.22 Acute and chronic respiratory failure with hypercapnia; J44.1 Chronic obstructive pulmonary disease with (acute) exacerbation; Z66 Do not resuscitate; I10 Essential (primary) hypertension; I50.9 Heart failure, unspecified
CPT/HCPCS: 96361; 93005; 87040 ×2; 85025; 80048; 36415; 83735; 85610; 80076; 83605; 84484; 83690; 83880; 71045; 96374; 99285; J7512; J7614; J7644; J2919; J7040